=== PATIENT | female | born 1960 | race Caucasian/White ===

== ENCOUNTER 2020-07-03 14:09 | Emergency (ER) | payer OTHER, SELFPAY ==
[2020-07-03 14:14] VITALS: BP 144/86; PULSE 78; RESP 16; TEMP 36.4; O2SAT 98
--- NOTE | 2020-07-03 14:34 | ED.FEMALEGU ---
HPI - Female Genitourinary General Chief complaint: Urogenital-Female Stated complaint: stomach pain Time Seen by Provider: 07/03/20 14:37 Source: patient and RN notes reviewed Mode of arrival: ambulatory Limitations: no limitations History of Present Illness HPI Narrative: 60year old female who [facility] with complaints of some suprapubic cramping and some low back pain for the past 5 days. Patient states that she has new sexual partner and had unprotected sex and she is concerned about possible STD's. Patient denies any vaginal discharge, no odor, or bleeding, denies any fevers chills or any sweats, denies any nausea vomiting or any acute abdominal pain. MD elicited complaint: UTI , possible STD and back pain Pertinent past history: hysterectomy and other (previous uti) Onset (ago): day(s) (5) Location of symptoms: suprapubic Severity: moderate Female Urogenital Radiation: Suprapubic Severity scale (1-10): 2 Quality of pain: cramping and aching Consistency: intermittent Vaginal discharge: none Vaginal bleeding: none Exacerbating factors: none Relieving factors: none Associated symptoms: denies other symptoms Treatment prior to arrival: none Sexual activity: Yes and New Sexual Partners Patient : No (hysterectomy) Related Data Home Medications Medication Instructions Recorded Confirmed albuterol sulfate [Ventolin HFA] 90 mcg INHALATION Q4-6H PRN 07/03/20 07/03/20 ergocalciferol (vitamin D2) 50,000 unit PO WEEKLY 07/03/20 07/03/20 [Vitamin D2] hydrocodone-acetaminophen 1 tablet PO TID PRN 07/03/20 07/03/20 ipratropium-albuterol 3 ml INHALATION Q4-6H PRN 07/03/20 07/03/20 Allergies Allergy/AdvReac Type Severity Reaction Status Date / Time No Known Allergies Allergy Verified 07/03/20 14:45 Review of Systems Review of Systems: Narrative: CONSTITUTIONAL: Denies fever, chills, or sweats. EYES: Denies visual changes, redness, or discharge. ENT: Denies rhinorrhea, congestion, sore throat, or otalgia. CARDIOVASCULAR: Denies chest pain, palpitations, or edema. RESPIRATORY: Denies cough or dyspnea. GASTROINTESTINAL: positive for abdominal pain, no nausea,or vomiting,positive diarrhea. GENITOURINARY: mild dysuria no hematuria. SKIN: Denies rash or itching. MUSCULOSKELETAL: positive low back pain,no acute joint pain, or myalgia. NEUROLOGIC: Denies headache, numbness, or weakness. PSYCHIATRIC: Denies anxiety or depression. All systems reviewed & are unremarkable except as noted in HPI and below PMFSH Past Medical History Medical History (Updated 07/04/20 @ 17:44 by Shea Santiago NP) COPD (chronic obstructive pulmonary disease) IBS (irritable bowel syndrome) Left wrist fracture Lumbar back pain Surgical History Surgical History (Updated 07/04/20 @ 17:44 by Shea Santiago NP) H/O: hysterectomy History of salpingoophorectomy History of tonsillectomy Hx of appendectomy Social History Social History (Updated 07/04/20 @ 17:45 by Shea Santiago NP) Smoking status: Current every day smoker Tobacco type: cigarettes Alcohol intake: unknown Substance use: former Substance use type: painkillers Living arrangements: with family Gender identity (if verbalized by the patient): Female Comments At time of signature, agree with nursing past medical, surgical, social history. There is no relevant family history pertinent to the presenting complaint Exam Narrative: Exam Narrative: GENERAL: Well-appearing, well-nourished, and in no acute distress. HEAD: Normocephalic, atraumatic. EYES: PERRLA and EOMI. ENT: Nares clear, no rhinorrhea or epistaxis. Mucous membranes moist. NECK: Supple.no lymphadenopathy CHEST: Clear to auscultation. No respiratory distress.SAO2 98% on room air HEART: Regular rate and rhythm. No murmur heard. Normal peripheral pulses. ABDOMEN: Soft,tender crampy suprapubic area, nondistended, normal active bowel sounds.No vaginal discharge or itching, minimal d
[2020-07-03] MEDS: cefTRIAXone 250 MG VIAL IM (15:23)
[2020-07-03] MEDS: LIDOCAINE HCL 1% LOCAL INJ 20 ML VIAL IM (15:24)
[2020-07-03] MEDS: AZITHROMYCIN 250 MG TABLET 1000 MG PO (15:38)
== END 2020-07-03 15:50 | disposition home or self-care (01) ==
PROVIDERS: Emergency Provider Registered Nurse; PCP Family Medicine
DX: K58.9 Irritable bowel syndrome, unspecified (principal); N39.0 Urinary tract infection, site not specified; F17.210 Nicotine dependence, cigarettes, uncomplicated; J44.9 Chronic obstructive pulmonary disease, unspecified
CPT/HCPCS: 81003; 87077; 87086; 87088; 87186; 87491; 87591; 87661; 96372; 99213; A9270; G0463; J0696

== ENCOUNTER 2021-02-01 08:17 | Emergency (ER) | payer OTHER, SELFPAY ==
--- NOTE | 2021-02-01 08:24 | ED.FEMALEGU ---
HPI - Female Genitourinary General Chief complaint: Urogenital-Female Stated complaint: Urogenital-Female Time Seen by Provider: 02/01/21 08:55 Source: patient and RN notes reviewed Mode of arrival: ambulatory Limitations: no limitations History of Present Illness HPI Narrative: 60-year-old female presents with concern for vaginal irritation, abnormal foul-smelling vaginal discharge, suprapubic discomfort. Reports symptoms started yesterday. Reports on Friday she had intercourse with a new partner and had a condom broke. She is unaware of her partners sexual history, STD status. Reports she has been using [id number] yeast infection medicine with no relief. She reports slight nausea. Denies fever, vomiting, back pain, hematuria, frequency, urgency, dysuria. MD elicited complaint: vaginal discharge Related Data Home Medications Medication Instructions Recorded Confirmed albuterol sulfate [Ventolin HFA] 90 mcg INHALATION Q4-6H PRN 07/03/20 07/03/20 ergocalciferol (vitamin D2) 50,000 unit PO WEEKLY 07/03/20 07/03/20 [Vitamin D2] hydrocodone-acetaminophen 1 tablet PO TID PRN 07/03/20 07/03/20 ipratropium-albuterol 3 ml INHALATION Q4-6H PRN 07/03/20 07/03/20 Allergies Allergy/AdvReac Type Severity Reaction Status Date / Time No Known Allergies Allergy Verified 07/03/20 14:45 Review of Systems Review of Systems: Narrative: CONSTITUTIONAL: Denies malaise, chills, sweats, or fever. CARDIOVASCULAR: Denies chest pain, palpitations, or edema. RESPIRATORY: Denies cough or dyspnea. GASTROINTESTINAL: Denies abdominal pain, vomiting, diarrhea. Reports mild nausea GENITOURINARY: Denies dysuria or hematuria. Reports suprapubic discomfort, foul-smelling urine, watery foul-smelling vaginal discharge, vaginal irritation MUSCULOSKELETAL: Denies back pain, myalgia. All systems reviewed & are unremarkable except as noted in HPI and below PMFSH Past Medical History Medical History (Updated 02/01/21 @ 09:28 by Carito Fiore NP) COPD (chronic obstructive pulmonary disease) IBS (irritable bowel syndrome) Left wrist fracture Lumbar back pain Surgical History Surgical History (Updated 07/04/20 @ 17:44 by Shea Santiago NP) H/O: hysterectomy History of salpingoophorectomy History of tonsillectomy Hx of appendectomy Social History Social History (Updated 07/04/20 @ 17:45 by Shea Santiago NP) Smoking status: Current every day smoker Tobacco type: cigarettes Alcohol intake: unknown Substance use: former Substance use type: painkillers Gender identity (if verbalized by the patient): Female Comments At time of signature, agree with nursing past medical, surgical, social and family history. There is no relevant family history pertinent to the presenting complaint Exam Narrative: Exam Narrative: GENERAL: Well-appearing, well-nourished, and in no acute distress. HEAD: Normocephalic. EYES: PERRLA, conjunctivae clear. NECK: Supple. No lymphadenopathy CHEST: Clear to auscultation. No respiratory distress. HEART: Regular rate and rhythm. ABDOMEN: Soft, nontender upon palpation, nondistended, normal active bowel sounds, no palpable or pulsatile masses, no guarding. No CVA tenderness SKIN: Warm, dry, no rash. NEURO: Alert and oriented x3. PSYCH: Normal mood and affect : External Female Exam: normal external appearance Speculum Exam - Vagina: normal appearance of the vagina, normal palpation and abnormal vaginal discharge white and malodorous Speculum Exam - Cervix: Cervix absent Bimanual exam- vagina & uterus: normal bimanual exam Course Course Emergency Course: Patient is aware of diagnosis, understands and agrees to treatment plan. Anticipatory guidance given. Patient agrees to follow-up as directed and is aware of reasons to seek care at the emergency department. Portions of this record may have been created with voice recognition software Vital Signs Vital signs: Reviewed. Patient has
[2021-02-01 08:37] VITALS: BP 144/75; PULSE 63; RESP 20; TEMP 36.3; O2SAT 100
[2021-02-01] MEDS: LIDOCAINE HCL 1% LOCAL INJ 20 ML VIAL INFILTRATE (09:30)
[2021-02-01] MEDS: AZITHROMYCIN 250 MG TABLET 1000 MG PO (09:30)
[2021-02-01] MEDS: cefTRIAXone 250 MG VIAL IM (09:31)
== END 2021-02-01 09:51 | disposition home or self-care (01) ==
PROVIDERS: Emergency Provider Nurse Practitioner; PCP Family Medicine
DX: Z20.2 Contact with and (suspected) exposure to infections with a predominantly sexual mode of transmission (principal); N89.8 Other specified noninflammatory disorders of vagina; B96.20 Unspecified Escherichia coli [E. coli] as the cause of diseases classified elsewhere; F17.210 Nicotine dependence, cigarettes, uncomplicated; J44.9 Chronic obstructive pulmonary disease, unspecified
CPT/HCPCS: 81003; 87077; 87086; 87088; 87186; 87491; 87591; 87661; 96372; 99214; A9270; G0463; J0696

== ENCOUNTER 2021-04-30 09:15 | Emergency (ER) | payer OTHER, SELFPAY ==
[2021-04-30 09:22] VITALS: BP 119/74; PULSE 89; RESP 16; TEMP 36.8; O2SAT 98
[2021-04-30 09:31] VITALS: BP 119/74; PULSE 89; RESP 16; TEMP 36.8; O2SAT 98
--- NOTE | 2021-04-30 09:39 | ED.FEMALEGU ---
HPI - Female Genitourinary General Chief complaint: Urogenital-Female Stated complaint: Abdominal pain Time Seen by Provider: 04/30/21 09:45 Source: patient and RN notes reviewed Mode of arrival: ambulatory Limitations: no limitations History of Present Illness HPI Narrative: 61-year-old female presents with concern for right lower abdominal and suprapubic discomfort for 2 to 3 days. She reports similar symptoms when she has had urinary tract infections in the past. She denies frequency, urgency, dysuria. Reports mild nausea without vomiting. Denies diarrhea or constipation. She denies fever, body aches. Denies abdominal tenderness. Reports she has been tested in the past for STDs with the symptoms which have been negative. Reports she has had the same partner and is not overly concerned for STDs at this time. She denies any vaginal discharge, abnormal vaginal bleeding, pain with sex. Reports she has history of a hysterectomy-oophorectomy, appendectomy. MD elicited complaint: other (Suprapubic pain) Related Data Home Medications Medication Instructions Recorded Confirmed ergocalciferol (vitamin D2) 50,000 unit PO WEEKLY 07/03/20 04/30/21 [Vitamin D2] hydrocodone-acetaminophen 1 tablet PO TID PRN 07/03/20 04/30/21 omeprazole 20 mg PO DAILY 04/30/21 04/30/21 Allergies Allergy/AdvReac Type Severity Reaction Status Date / Time No Known Allergies Allergy Verified 02/01/21 10:05 Review of Systems Review of Systems: Narrative: CONSTITUTIONAL: Denies malaise, chills, sweats, or fever. GASTROINTESTINAL: Reports right lower abdominal and suprapubic discomfort, nausea. Denies vomiting, diarrhea, bloody, or mucous stools. GENITOURINARY: Denies dysuria or hematuria. SKIN: Denies rash or itching. MUSCULOSKELETAL: Reports chronic low back pain. Denies joint pain, or myalgia. All systems reviewed & are unremarkable except as noted in HPI and below PMFSH Past Medical History Medical History (Updated 04/30/21 @ 09:53 by Carito Fiore NP) COPD (chronic obstructive pulmonary disease) IBS (irritable bowel syndrome) Left wrist fracture Lumbar back pain Surgical History Surgical History (Updated 07/04/20 @ 17:44 by Shea Santiago NP) H/O: hysterectomy History of salpingoophorectomy History of tonsillectomy Hx of appendectomy Social History Social History (Updated 07/04/20 @ 17:45 by Shea Santiago NP) Smoking status: Current every day smoker Tobacco type: cigarettes Alcohol intake: unknown Substance use: former Substance use type: painkillers Gender identity (if verbalized by the patient): Female Comments At time of signature, agree with nursing past medical, surgical, social and family history. There is no relevant family history pertinent to the presenting complaint Exam Narrative: Exam Narrative: GENERAL: Well-appearing, well-nourished, and in no acute distress. HEAD: Normocephalic. EYES: PERRLA, conjunctivae clear. NECK: Supple. No lymphadenopathy CHEST: Clear to auscultation. No respiratory distress. HEART: Regular rate and rhythm. ABDOMEN: Soft, nontender upon palpation, nondistended, normal active bowel sounds, no palpable or pulsatile masses, no guarding. No CVA tenderness SKIN: Warm, dry, no rash. NEURO: Alert and oriented x3. PSYCH: Normal mood and affect Course Course Emergency Course: Patient is aware of diagnosis, understands and agrees to treatment plan. Anticipatory guidance given. Patient agrees to follow-up as directed and is aware of reasons to seek care at the emergency department. Portions of this record may have been created with voice recognition software Vital Signs Vital signs: Vital Signs Temperature 98.3 F 04/30/21 09:22 Pulse Rate 89 04/30/21 09:22 Respiratory Rate 16 04/30/21 09:22 Blood Pressure 119/74 04/30/21 09:22 Pulse Oximetry 98 04/30/21 09:22 Temperature 98.3 F 04/30/21 09:31 Pulse Rate 89 04/30/21 09:31 Respira
== END 2021-04-30 09:57 | disposition home or self-care (01) ==
PROVIDERS: Emergency Provider Nurse Practitioner
DX: N39.0 Urinary tract infection, site not specified (principal); F17.210 Nicotine dependence, cigarettes, uncomplicated; J44.9 Chronic obstructive pulmonary disease, unspecified; N80.9 Endometriosis, unspecified
CPT/HCPCS: 81003; 87077; 87086; 87088; 87186; 99213; G0463

== ENCOUNTER 2021-05-06 14:20 | Emergency (ER) | payer OTHER, SELFPAY ==
[2021-05-06 14:26] VITALS: BP 102/77; PULSE 88; RESP 16; TEMP 37.1; O2SAT 100
--- NOTE | 2021-05-06 14:46 | ED.FEMALEGU ---
HPI - Female Genitourinary General Chief complaint: Urogenital-Female Stated complaint: Possible UTI Time Seen by Provider: 05/06/21 14:40 Source: patient, RN notes reviewed and old records reviewed Mode of arrival: ambulatory Limitations: no limitations History of Present Illness HPI Narrative: Patient presents today complaining of lower abdominal discomfort and back pain. She was seen at [facility] 04/30/2021 and diagnosed with a UTI. She was placed on 5 days of Cipro for symptoms and her urine culture results show Klebsiella. Her susceptibility shows that she is susceptible to Cipro. Denies dysuria, hematuria, frequency. Patient does have chronic back pain for which she takes hydrocodone. She wanted to come in today and have her urine tested again to make sure her infection had resolved. Related Data Home Medications Medication Instructions Recorded Confirmed ergocalciferol (vitamin D2) 50,000 unit PO WEEKLY 07/03/20 05/06/21 [Vitamin D2] hydrocodone-acetaminophen 1 tablet PO TID PRN 07/03/20 05/06/21 omeprazole 20 mg PO DAILY 04/30/21 05/06/21 Allergies Allergy/AdvReac Type Severity Reaction Status Date / Time No Known Allergies Allergy Verified 02/01/21 10:05 Review of Systems Review of Systems: Narrative: CONSTITUTIONAL: Denies body aches, fever, chills, or sweats. EYES: Denies visual changes, redness, or discharge. ENT: Denies rhinorrhea, congestion, sore throat, or otalgia. CARDIOVASCULAR: Denies chest pain, palpitations, or edema. RESPIRATORY: Denies cough or dyspnea. GASTROINTESTINAL: Denies abdominal pain, nausea, vomiting, or diarrhea. Lower abdominal discomfort GENITOURINARY: Denies dysuria or hematuria. SKIN: Denies rash, itching, or wounds. MUSCULOSKELETAL: Denies joint pain, or myalgia. + Back pain NEUROLOGIC: Denies headache, numbness, tingling, or weakness. PSYCH: Denies depression or anxiety. [facility] Past Medical History Medical History COPD (chronic obstructive pulmonary disease) IBS (irritable bowel syndrome) Left wrist fracture Lumbar back pain Surgical History Surgical History H/O: hysterectomy History of salpingoophorectomy History of tonsillectomy Hx of appendectomy Social History Social History Smoking status: Current every day smoker Tobacco type: cigarettes Alcohol intake: unknown Substance use: former Substance use type: painkillers Gender identity (if verbalized by the patient): Female Comments At time of signature, I have reviewed and agree with nursing past medical, surgical, social and family history unless otherwise noted. Please see nursing chart for further information. There is no relevant family history pertinent to the presenting complaint Exam Narrative: Exam Narrative: GENERAL: Well-appearing, well-nourished, and in no acute distress. HEAD: Normocephalic, atraumatic. EYES: EOMI. No redness or drainage. Conjunctivae normal. ENT: Mucous membranes pink and moist. NECK: Normal AROM. CHEST: No respiratory distress. Clear to auscultation. HEART: Regular rate and rhythm. No murmur appreciated. Normal peripheral pulses. ABDOMEN: Soft, nontender, nondistended, normal active bowel sounds.-CVAT MUSCULOSKELETAL: No bony tenderness. EXTREMITIES: Normal range of motion. No edema. SKIN: Warm, dry, no rash. Capillary refill normal. Normal skin turgor. NEURO: No focal deficits. Alert and oriented x3. Gait steady. PSYCH: Normal affect. No signs of depression or anxiety. Course Vital Signs Vital signs: Vital Signs Temperature 98.7 F 05/06/21 14:26 Pulse Rate 88 05/06/21 14:26 Respiratory Rate 16 05/06/21 14:26 Blood Pressure 102/77 05/06/21 14:26 Pulse Oximetry 100 05/06/21 14:26 Temperature 98.7 F 05/06/21 14:26 Pulse Rate 88
== END 2021-05-06 14:50 | disposition home or self-care (01) ==
PROVIDERS: Emergency Provider Nurse Practitioner; PCP Family Medicine
DX: R10.31 Right lower quadrant pain (principal); R10.32 Left lower quadrant pain; Z87.891 Personal history of nicotine dependence; J44.9 Chronic obstructive pulmonary disease, unspecified
CPT/HCPCS: 81003; 87086; 99213; G0463

== ENCOUNTER 2021-07-08 11:33 | Emergency (ER) | payer OTHER, SELFPAY ==
--- NOTE | 2021-07-08 11:35 | ED.FEMALEGU ---
HPI - Female Genitourinary General Chief complaint: Urogenital-Female Stated complaint: poss uti Time Seen by Provider: 07/08/21 11:43 Source: patient and RN notes reviewed Mode of arrival: ambulatory Limitations: no limitations History of Present Illness HPI Narrative: 61-year-old female presents with concern for urine urgency, frequency, dysuria that started yesterday. Reports frequent urinary tract infections. Reports she seen a urologist within the last 6 to 7 months and was told her bladder does not empty fully. She denies nausea, vomiting, body aches, back pain, abdominal pain. She reports taking cranberry pills and drinking a lot of water. MD elicited complaint: UTI Related Data Home Medications Medication Instructions Recorded Confirmed ergocalciferol (vitamin D2) 50,000 unit PO WEEKLY 07/03/20 07/08/21 [Vitamin D2] hydrocodone-acetaminophen 1 tablet PO TID PRN 07/03/20 07/08/21 omeprazole 20 mg PO DAILY 04/30/21 07/08/21 Allergies Allergy/AdvReac Type Severity Reaction Status Date / Time No Known Allergies Allergy Verified 02/01/21 10:05 Review of Systems Review of Systems: CONSTITUTIONAL: Denies malaise, chills, sweats, or fever. CARDIOVASCULAR: Denies chest pain, palpitations, or edema. RESPIRATORY: Denies cough or dyspnea. GASTROINTESTINAL: Denies abdominal pain, nausea, vomiting, diarrhea GENITOURINARY: Reports frequency, urgency, dysuria. Denies hematuria. SKIN: Denies vaginal rash or itching. MUSCULOSKELETAL: Denies back pain or myalgia. All systems reviewed & are unremarkable except as noted in HPI and below PMFSH Past Medical History Medical History COPD (chronic obstructive pulmonary disease) IBS (irritable bowel syndrome) Left wrist fracture Lumbar back pain Surgical History Surgical History H/O: hysterectomy History of salpingoophorectomy History of tonsillectomy Hx of appendectomy Social History Social History Smoking status: Current every day smoker Tobacco type: cigarettes Alcohol intake: unknown Substance use: former Substance use type: painkillers Gender identity (if verbalized by the patient): Female Comments At time of signature, agree with nursing past medical, surgical, social and family history. There is no relevant family history pertinent to the presenting complaint Exam Narrative: GENERAL: Well-appearing, well-nourished, and in no acute distress. HEAD: Normocephalic. EYES: PERRLA, conjunctivae clear. NECK: Supple. No lymphadenopathy CHEST: Clear to auscultation. No respiratory distress. HEART: Regular rate and rhythm. ABDOMEN: Soft, nontender upon palpation, nondistended, normal active bowel sounds, no palpable or pulsatile masses, no guarding. No CVA tenderness SKIN: Warm, dry, no rash. NEURO: Alert and oriented x3. PSYCH: Normal mood and affect Course Course Emergency Course: Patient is aware of diagnosis, understands and agrees to treatment plan. Anticipatory guidance given. Patient agrees to follow-up as directed and is aware of reasons to seek care at the emergency department. Portions of this record may have been created with voice recognition software Vital Signs Vital signs: Reviewed. MDM - Female Genitourinary MDM Narrative Medical decision making narrative: Exam findings and UA show no acute concerns or changes; patient is non-toxic appearing and is in no distress. Patient is appropriate for outpatient treatment and follow-up. Critical Care Time Critical Care Time Critical Care Time: No Discharge Plan Discharge Clinical Impression: Urinary tract infection Qualifiers: Urinary tract infection type: site unspecified Hematuria presence: without hematuria Qualified Code(s): N39.0 - Urinary tract infection, site not specified Patient Dispositio
[2021-07-08 11:36] VITALS: BP 119/72; PULSE 83; RESP 16; TEMP 37.2; O2SAT 100
== END 2021-07-08 11:58 | disposition home or self-care (01) ==
PROVIDERS: Emergency Provider Nurse Practitioner
DX: N39.0 Urinary tract infection, site not specified (principal); J44.9 Chronic obstructive pulmonary disease, unspecified; F17.210 Nicotine dependence, cigarettes, uncomplicated
CPT/HCPCS: 81003; 87077; 87086; 87088; 87186; 99213; G0463

== ENCOUNTER 2021-08-16 12:14 | Emergency (ER) | payer OTHER, SELFPAY ==
[2021-08-16 12:20] VITALS: BP 114/73; PULSE 92; RESP 18; TEMP 36.8; O2SAT 98
--- NOTE | 2021-08-16 12:32 | ED.FEMALEGU ---
HPI - Female Genitourinary General Chief complaint: Urogenital-Female Stated complaint: Uti Time Seen by Provider: 08/16/21 12:32 Source: patient History of Present Illness HPI Narrative: Patient presents with evaluation for urinary tract infections. Patient has often and frequent urinary tract infections over the past few years. Patient states she does not feel as if she empties her bladder. Patient states she has talked with her primary care provider about the frequent urinary tract infections but has recently been evaluated by her urologist. . No concern for STIs no abdominal pain no pelvic pain no vaginal discharge no vaginal bleeding. MD elicited complaint: dysuria and UTI Related Data Home Medications Medication Instructions Recorded Confirmed hydrocodone-acetaminophen 1 tablet PO TID PRN 07/03/20 08/16/21 omeprazole 20 mg PO DAILY 04/30/21 08/16/21 cholecalciferol (vitamin D3) 25 mcg PO DAILY 08/16/21 08/16/21 [Vitamin D3] Allergies Allergy/AdvReac Type Severity Reaction Status Date / Time No Known Allergies Allergy Verified 08/16/21 12:27 Review of Systems Review of Systems: CONSTITUTIONAL: Denies fever, chills, or sweats. EYES: Denies visual changes, redness, or discharge. ENT: Denies rhinorrhea, congestion, sore throat, or otalgia. CARDIOVASCULAR: Denies chest pain, palpitations, or edema. RESPIRATORY: Denies cough or dyspnea. GASTROINTESTINAL: Denies abdominal pain, nausea, vomiting, or diarrhea. GENITOURINARY: Denies dysuria or hematuria. SKIN: Denies rash or itching. MUSCULOSKELETAL: Denies back pain, joint pain, or myalgia. NEUROLOGIC: Denies headache, numbness, or weakness. PSYCHIATRIC: Denies anxiety or depression. [facility] Past Medical History Medical History COPD (chronic obstructive pulmonary disease) IBS (irritable bowel syndrome) Left wrist fracture Lumbar back pain Surgical History Surgical History H/O: hysterectomy History of salpingoophorectomy History of tonsillectomy Hx of appendectomy Social History Social History Smoking status: Current every day smoker Tobacco type: cigarettes Alcohol intake: unknown Substance use: former Substance use type: painkillers Gender identity (if verbalized by the patient): Female Comments At time of signature, agree with nursing past medical, surgical, social and family history. There is no relevant family history pertinent to the presenting complaint Exam Narrative: At time of signature, agree with nursing past medical, surgical, social and family history. There is no relevant family history pertinent to the presenting complaint Course Vital Signs Vital signs: Vital Signs Temperature 36.8 C 08/16/21 12:20 Pulse Rate 92 08/16/21 12:20 Respiratory Rate 18 08/16/21 12:20 Blood Pressure 114/73 08/16/21 12:20 Pulse Oximetry 98 08/16/21 12:20 Temperature 36.8 C 08/16/21 12:20 Pulse Rate 92 08/16/21 12:20 Respiratory Rate 18 08/16/21 12:20 Blood Pressure 114/73 08/16/21 12:20 Pulse Oximetry 98 08/16/21 12:20 discussed with patient will get cultures results before placing on an antibiotic. patient agreeable with plan of care. MDM - Female Genitourinary Lab Data Labs: Urine Glucose Negative Reference Range: Negative Urine Bilirubin Negative Reference Range: Negative Urine Ketone Negative Reference Range: Negative Urine Specific [place] 1.030 Reference Range:1.001-1.035 Urine Blood 2+
== END 2021-08-16 13:10 | disposition home or self-care (01) ==
PROVIDERS: Emergency Provider Nurse Practitioner Family; PCP Family Medicine
DX: R30.0 Dysuria (principal); F17.210 Nicotine dependence, cigarettes, uncomplicated; J44.9 Chronic obstructive pulmonary disease, unspecified
CPT/HCPCS: 81003; 87086; 87088; 99213; G0463

== ENCOUNTER 2021-08-23 16:34 | Emergency (ER) | payer OTHER, SELFPAY ==
[2021-08-23 16:40] VITALS: BP 126/77; PULSE 99; RESP 20; TEMP 36.5; O2SAT 100
--- NOTE | 2021-08-23 17:08 | ED.GENADULT ---
HPI - General Adult General Chief complaint: Urogenital-Female Stated complaint: chills headache Time Seen by Provider: 08/23/21 16:56 Source: patient and RN notes reviewed Mode of arrival: ambulatory Limitations: no limitations History of Present Illness HPI narrative: Patient presents today complaining of urinary urgency, nausea, headache since this afternoon. Patient was seen in urgent care 1 week ago for urinary symptoms. Her urine culture came back contaminated and she was not started on antibiotics at that time. She came back today wondering whether or not she does in fact have a UTI and needs antibiotics. Denies abdominal pain, back pain, fever, hematuria, dysuria. Patient does have history of mixed IBS and states her seasonal allergies are flaring up as well, contributing to her headache and some nausea. MD complaint: Possible UTI Related Data Home Medications Medication Instructions Recorded Confirmed hydrocodone-acetaminophen 1 tablet PO TID PRN 07/03/20 08/23/21 omeprazole 20 mg PO DAILY 04/30/21 08/23/21 cholecalciferol (vitamin D3) 25 mcg PO DAILY 08/16/21 08/23/21 [Vitamin D3] Allergies Allergy/AdvReac Type Severity Reaction Status Date / Time No Known Allergies Allergy Verified 08/16/21 12:27 Review of Systems Review of Systems: CONSTITUTIONAL: Denies body aches, fever, chills, or sweats. EYES: Denies visual changes, redness, or discharge. ENT: Denies rhinorrhea, congestion, sore throat, or otalgia. CARDIOVASCULAR: Denies chest pain, palpitations, or edema. RESPIRATORY: Denies cough or dyspnea. GASTROINTESTINAL: Denies abdominal pain,vomiting, or diarrhea.+ Nausea GENITOURINARY: + Urgency. Denies hematuria, dysuria SKIN: Denies rash, itching, or wounds. MUSCULOSKELETAL: Denies back pain, joint pain, or myalgia. NEUROLOGIC: Denies numbness, tingling, or weakness.+ Headache PSYCH: Denies depression or anxiety. [facility] Past Medical History Medical History COPD (chronic obstructive pulmonary disease) IBS (irritable bowel syndrome) Left wrist fracture Lumbar back pain Surgical History Surgical History H/O: hysterectomy History of salpingoophorectomy History of tonsillectomy Hx of appendectomy Social History Social History Smoking status: Current every day smoker Tobacco type: cigarettes Alcohol intake: unknown Substance use: former Substance use type: painkillers Gender identity (if verbalized by the patient): Female Comments At time of signature, I have reviewed and agree with nursing past medical, surgical, social and family history unless otherwise noted. Please see nursing chart for further information. There is no relevant family history pertinent to the presenting complaint Exam Narrative: GENERAL: Well-appearing, well-nourished, and in no acute distress. HEAD: Normocephalic, atraumatic. EYES: EOMI. No redness or drainage. Conjunctivae normal. ENT: Mucous membranes pink and moist. NECK: Normal AROM. CHEST: No respiratory distress. Clear to auscultation. HEART: Regular rate and rhythm. No murmur appreciated. Normal peripheral pulses. ABDOMEN: Soft, nontender, nondistended, normal active bowel sounds.-CVAT MUSCULOSKELETAL: No bony tenderness. EXTREMITIES: Normal range of motion. No edema. SKIN: Warm, dry, no rash. Capillary refill normal. Normal skin turgor. NEURO: No focal deficits. Alert and oriented x3. Gait steady. PSYCH: Normal affect. No signs of depression or anxiety. Course Vital Signs Vital signs: Vital Signs Temperature 97.7 F 08/23/21 16:40 Pulse Rate 99 08/23/21 16:40 Respiratory Rate 20 08/23/21 16:40 Blood Pressure 126/77 08/23/21 16:40 Pulse Oximetry 100 08/23/21 16:40 Temperature 97.7 F 08/23/21 16:40 Pulse Rate 99 08/23/21 16:40
== END 2021-08-23 17:19 | disposition home or self-care (01) ==
PROVIDERS: Emergency Provider Nurse Practitioner; PCP Family Medicine
DX: R39.15 Urgency of urination (principal); R51.9 Headache, unspecified; F17.219 Nicotine dependence, cigarettes, with unspecified nicotine-induced disorders; J44.9 Chronic obstructive pulmonary disease, unspecified
CPT/HCPCS: 81003; 87086; 99213; G0463

== ENCOUNTER 2021-09-16 09:31 | Emergency (ER) | payer OTHER, SELFPAY ==
--- NOTE | 2021-09-16 09:36 | ED.ABDPAIN ---
HPI - Abdominal Pain General Stated Complaint: right side abdo pain Time Seen by Provider: 09/16/21 09:36 Source: patient and RN notes reviewed History of Present Illness HPI narrative: Patient is 61-year-old female who presents the urgent care with complaints of right sided/suprapubic pressure and intermittent pain. Patient states that these are her the pain she gets with her urinary tract infections . Patient denies of any urinary frequency, urgency, blood in the urine, low back pain. Patient denies of any fever, chills, nausea, vomiting. Patient has not taken anything [id number] for her symptoms. States that her symptoms just started yesterday. No other acute complaints. No acute distress noted. Patient read the plan of care. Some parts of this dictation were generated by voice recognition software and may contain typographical and/or grammatical inaccuracies. Related Data Home Medications Medication Instructions Recorded Confirmed hydrocodone-acetaminophen 1 tablet PO TID PRN 07/03/20 08/23/21 omeprazole 20 mg PO DAILY 04/30/21 08/23/21 cholecalciferol (vitamin D3) 25 mcg PO DAILY 08/16/21 08/23/21 [Vitamin D3] Allergies Allergy/AdvReac Type Severity Reaction Status Date / Time No Known Allergies Allergy Verified 08/16/21 12:27 Review of Systems Review of Systems: CONSTITUTIONAL: Denies fever, chills, or sweats. EYES: Denies visual changes, redness, or discharge. ENT: Denies rhinorrhea, congestion, sore throat, or otalgia. CARDIOVASCULAR: Denies chest pain, palpitations, or edema. RESPIRATORY: Denies cough or dyspnea. GASTROINTESTINAL: Reports of lower right/suprapubic pressure and pain without nausea or vomiting GENITOURINARY: Denies dysuria or hematuria. SKIN: Denies rash or itching. MUSCULOSKELETAL: Denies back pain, joint pain, or myalgia. NEUROLOGIC: Denies headache, numbness, or weakness. All other systems reviewed are negative, except as documented in HPI. [facility] Past Medical History Medical History COPD (chronic obstructive pulmonary disease) IBS (irritable bowel syndrome) Left wrist fracture Lumbar back pain Surgical History Surgical History H/O: hysterectomy History of salpingoophorectomy History of tonsillectomy Hx of appendectomy Social History Social History Smoking status: Current every day smoker Tobacco type: cigarettes Alcohol intake: unknown Substance use: former Substance use type: painkillers Gender identity (if verbalized by the patient): Female Comments At the time of my signature, I reviewed and agree with the nursing past medical, surgical, social, and family history. There is no relevant family history pertinent to the patient complaint. Exam Narrative: GENERAL: This is a well-nourished, well-developed patient, in no apparent distress. HEAD: normocephalic, atraumatic. EYES: PERRL. Sclera clear/white. Vision is grossly intact. EARS: External ears normal NOSE: External nose normal with no obvious nasal discharge, nares without redness, no rhinorrhea. THROAT: Mucous membranes moist NECK: Neck supple CARDIOVASCULAR: Regular rate and rhythm without murmurs, gallops, or rubs. RESPIRATORY: Clear to auscultation. Slightly diminished throughout/chronic smoker GASTROINTESTINAL: Abdomen soft, very mild suprapubic tenderness, nondistended. Bowel sounds are active. No guarding. SKIN: warm, intact with no suspicious lesions or rash, good texture and turgor. NEURO: awake, alert, and oriented to person, place and time. There were no obvious focal neurologic abnormalities. EXTREMITIES: No clubbing, cyanosis, or edema. BACK: Negative bilateral CVA tenderness Course Vital Signs Vital signs: Vital Signs Temperature 98.8 F 09/16/21 09:38 Pulse Rate 80 09/16/21 09:38 Respirato
[2021-09-16 09:38] VITALS: BP 113/80; PULSE 80; RESP 16; TEMP 37.1; O2SAT 100
== END 2021-09-16 10:12 | disposition home or self-care (01) ==
PROVIDERS: Emergency Provider Nurse Practitioner Family; PCP Family Medicine
DX: R10.30 Lower abdominal pain, unspecified (principal); F44.9 Dissociative and conversion disorder, unspecified; F17.210 Nicotine dependence, cigarettes, uncomplicated
CPT/HCPCS: 81003; 87086; 99213; G0463

== ENCOUNTER 2021-11-25 08:19 | Emergency (ER) | payer OTHER, SELFPAY ==
[2021-11-25 08:26] VITALS: BP 131/92; PULSE 83; RESP 18; TEMP 36.7; O2SAT 100
--- NOTE | 2021-11-25 08:59 | ED.FEMALEGU ---
HPI - Female Genitourinary General Chief complaint: Urogenital-Female Stated complaint: Abdominal Pain Time Seen by Provider: 11/25/21 08:55 Source: patient and RN notes reviewed Mode of arrival: ambulatory Limitations: no limitations History of Present Illness HPI Narrative: 61-year-old female presents with concern for dysuria, suprapubic pressure, intermittent abdominal pain. She reports she had Covid on November 06 and since then has been having intermittent abdominal pain, reports she is seeing her primary care doctor and is being followed up for those symptoms, she is having her gallbladder evaluated later this week. She reports last weekend she had unprotected intercourse with a new partner. She is concerned for STDs. She is also concern for urinary tract infection, reports chronic urinary tract infections. Reports she has seen a urologist who told her that her bladder does not empty all the way. She denies fever, nausea, vomiting, back pain. Patient has history of total hysterectomy MD elicited complaint: UTI and possible STD Related Data Home Medications Medication Instructions Recorded Confirmed hydrocodone-acetaminophen 1 tablet PO TID PRN 07/03/20 11/25/21 omeprazole 20 mg PO DAILY 04/30/21 11/25/21 cholecalciferol (vitamin D3) 25 mcg PO DAILY 08/16/21 11/25/21 [Vitamin D3] Allergies Allergy/AdvReac Type Severity Reaction Status Date / Time No Known Allergies Allergy Verified 08/16/21 12:27 Review of Systems Review of Systems: CONSTITUTIONAL: Denies malaise, chills, sweats, or fever. CARDIOVASCULAR: Denies chest pain, palpitations, or edema. RESPIRATORY: Denies cough or dyspnea. GASTROINTESTINAL: Denies abdominal pain, nausea, vomiting, diarrhea GENITOURINARY: Reports dysuria, suprapubic pressure. Denies abnormal vaginal discharge, frequency, urgency, flank pain or hematuria. SKIN: Denies rash or itching. MUSCULOSKELETAL: Denies back pain or myalgia. All systems reviewed & are unremarkable except as noted in HPI and below PMFSH Past Medical History Medical History COPD (chronic obstructive pulmonary disease) IBS (irritable bowel syndrome) Left wrist fracture Lumbar back pain Surgical History Surgical History H/O: hysterectomy History of salpingoophorectomy History of tonsillectomy Hx of appendectomy Social History Social History Smoking status: Current every day smoker Tobacco type: cigarettes Alcohol intake: unknown Substance use: former Substance use type: painkillers Gender identity (if verbalized by the patient): Female Comments At time of signature, agree with nursing past medical, surgical, social and family history. There is no relevant family history pertinent to the presenting complaint Exam Narrative: GENERAL: Well-appearing, well-nourished, and in no acute distress. HEAD: Normocephalic. EYES: PERRLA, conjunctivae clear. NECK: Supple. No lymphadenopathy CHEST: Clear to auscultation. No respiratory distress. HEART: Regular rate and rhythm. ABDOMEN: Soft, nontender upon palpation, nondistended, normal active bowel sounds, no palpable or pulsatile masses, no guarding. No CVA tenderness SKIN: Warm, dry, no rash. NEURO: Alert and oriented x3. PSYCH: Normal mood and affect Course Course Emergency Course: Patient would like to be treated today for possible STDs. Patient understands that we will wait to treat potential UTI for culture results. Patient is aware of diagnosis, understands and agrees to treatment plan. Anticipatory guidance given. Patient agrees to follow-up as directed and is aware of reasons to seek care at the emergency department. Portions of this record may have been created with voice recognition software Level of Care: Express Care Visit Vital Signs Vital signs: V
[2021-11-25] MEDS: cefTRIAXone 500 MG, LIDOCAINE HCL 1% LOCAL INJ 1 ML IM (09:17)
== END 2021-11-25 09:32 | disposition home or self-care (01) ==
PROVIDERS: Emergency Provider Nurse Practitioner
DX: R30.0 Dysuria (principal); F17.210 Nicotine dependence, cigarettes, uncomplicated; J44.9 Chronic obstructive pulmonary disease, unspecified
CPT/HCPCS: 81003; 87086; 87491; 87591; 87661; 96372; 99214; G0463; J0696

== ENCOUNTER 2022-07-20 09:04 | Emergency (ER) | payer OTHER, SELFPAY ==
[2022-07-20 09:18] VITALS: BP 112/53; PULSE 73; RESP 16; TEMP 36.6; O2SAT 100
--- NOTE | 2022-07-20 09:44 | ED.GENADULT ---
HPI - General Adult General Chief complaint: Urogenital-Female Stated complaint: Rash Source: patient Mode of arrival: ambulatory Limitations: no limitations History of Present Illness HPI narrative: Patient presents for evaluation of rash and symptoms that she believes may be a urinary tract infection. She indicates over the course of the last week she has had some dysuria, urinary urgency and frequency with right-sided suprapubic pain. She has had similar symptoms in the past with a urinary tract infection. She has chronic low back pain status post lumbar spinal fusion but denies any pain in the flanks. No fever, chills, nausea, vomiting, hematuria, vaginal discharge. She has had some vaginal odor. She applied some Monistat and states that her symptoms have improved. She woke this morning with a rash to her extremities x4, and trunk. No new lotions, soaps, detergents, foods, topical products. She states that the rash is pruritic. She is not taking any medications to assist with her symptoms. Related Data Home Medications Medication Instructions Recorded Confirmed hydrocodone 5 mg-acetaminophen 325 1 tablet PO TID PRN Pain 07/03/20 11/25/21 mg tablet omeprazole 20 mg capsule,delayed 20 mg PO DAILY 04/30/21 11/25/21 release cholecalciferol (vitamin D3) 25 25 mcg PO DAILY 08/16/21 11/25/21 mcg (1,000 unit) tablet (Vitamin D3) Allergies Allergy/AdvReac Type Severity Reaction Status Date / Time No Known Allergies Allergy Verified 07/20/22 09:24 Review of Systems Review of Systems: CONSTITUTIONAL: Denies fever, chills, or sweats. EYES: Denies visual changes, redness, or discharge. ENT: Denies rhinorrhea, congestion, sore throat, or otalgia. CARDIOVASCULAR: Denies chest pain, palpitations, or edema. RESPIRATORY: Denies cough or dyspnea. GASTROINTESTINAL: Reports right-sided suprapubic pain. Denies nausea, vomiting, or diarrhea. GENITOURINARY: Reports dysuria, urinary frequency and urgency. SKIN: Reports pruritic rash. MUSCULOSKELETAL: Reports chronic low back pain, unchanged from baseline. Denies joint pain, or myalgia. NEUROLOGIC: Denies headache, numbness, dizziness, or weakness. PSYCHIATRIC: Denies anxiety or depression. [facility] Past Medical History Medical History COPD (chronic obstructive pulmonary disease) IBS (irritable bowel syndrome) Left wrist fracture Lumbar back pain Surgical History Surgical History H/O: hysterectomy History of salpingoophorectomy History of tonsillectomy Hx of appendectomy Family History Family History Mother Family history non-contributory Social History Social History Smoking status: Current every day smoker Tobacco type: cigarettes Alcohol intake: unknown Substance use: former Substance use type: painkillers Living arrangements: alone Gender identity (if verbalized by the patient): Female Sexual Orientation (if Verbalized by the Patient): Straight or Heterosexual Spiritual care concerns: No Exam Narrative: GENERAL: Well-appearing, well-nourished, and in no acute distress. HEAD: Normocephalic, atraumatic. EYES: PERRLA and EOMI. ENT: Nares clear, no rhinorrhea or epistaxis. Mucous membranes moist. Oropharynx without tonsillar hypertrophy exudate or other lesions. Bilateral TMs pearly valdes nonbulging NECK: Supple. No adenopathy or masses. No carotid bruits or JVD CHEST: Clear to auscultation. No respiratory distress. No wheezes rales or rhonchi HEART: Regular rate and rhythm. No murmur heard. Normal peripheral pulses. ABDOMEN: Soft, nontender, nondistended, normal active bowel sounds. BACK: Tenderness in midline or paraspinous muscles of the lumbar spine. No CVA tenderness. EXTREMITIES: Normal ran
== END 2022-07-20 09:55 | disposition home or self-care (01) ==
PROVIDERS: Emergency Provider Nurse Practitioner; PCP Family Medicine
DX: R31.29 Other microscopic hematuria (principal); R21 Rash and other nonspecific skin eruption; R10.9 Unspecified abdominal pain; J44.9 Chronic obstructive pulmonary disease, unspecified; F17.210 Nicotine dependence, cigarettes, uncomplicated
CPT/HCPCS: 81003; 99213; G0463

== ENCOUNTER 2022-08-18 08:17 | Emergency (ER) | payer OTHER, SELFPAY ==
--- NOTE | 2022-08-18 08:21 | ED.FEMALEGU ---
HPI - Female Genitourinary General Chief complaint: Urogenital-Female Stated complaint: itchy /std check Time Seen by Provider: 08/18/22 08:20 Source: patient Mode of arrival: ambulatory Limitations: no limitations History of Present Illness HPI Narrative: Ms. Yeung is a 62-year-old female patient presenting to the clinic today with complaints of skin itching/vaginal odor/STD check. She reports she has had a new sexual partner for approximately 6 months. She denies any vaginal discharge however she notices a vaginal odor. She has also been dealing with pruritic skin and was seen in the clinic approximately 1 month ago for this and was given prescription for prednisone and Vistaril. She denies any urinary symptoms. She denies any fever or chills. States she has seen her PCP and he ordered some blood testing and all came back normal. States that they did not test her for syphilis as she does not have any lesions near her vagina. She would like to have STD testing today to determine if this has any correlation to the purutic skin. Related Data Home Medications Medication Instructions Recorded Confirmed omeprazole 20 mg capsule,delayed 20 mg PO DAILY 04/30/21 11/25/21 release cholecalciferol (vitamin D3) 25 25 mcg PO DAILY 08/16/21 11/25/21 mcg (1,000 unit) tablet (Vitamin D3) hydrocodone 7.5 mg-acetaminophen tablet 08/18/22 08/18/22 325 mg tablet Allergies Allergy/AdvReac Type Severity Reaction Status Date / Time No Known Allergies Allergy Verified 08/18/22 08:32 Review of Systems Review of Systems: Pertinent positives per HPI. Patient denies any fever, chills, rash, headache, visual changes, dizziness, cough, runny nose, sore throat, shortness of breath, chest pain, palpitations, nausea, vomiting, diarrhea, constipation, abdominal pain, or any urinary issues. [facility] Past Medical History Medical History COPD (chronic obstructive pulmonary disease) IBS (irritable bowel syndrome) Left wrist fracture Lumbar back pain Surgical History Surgical History H/O: hysterectomy History of salpingoophorectomy History of tonsillectomy Hx of appendectomy Family History Family History Mother Family history non-contributory Social History Social History Smoking status: Current every day smoker Tobacco type: cigarettes Alcohol intake: unknown Substance use: former Substance use type: painkillers Gender identity (if verbalized by the patient): Female Sexual Orientation (if Verbalized by the Patient): Straight or Heterosexual Spiritual care concerns: No Comments At the time of my signature, I reviewed and agree with the nursing past medical, surgical, social, and family history. There is no relevant family history pertinent to the patient complaint. Exam Narrative: General: Well-developed, well nourished, in no apparent distress Head: Normocephalic, atraumatic. Cardio: Regular rate and rhythm, s1 and s2 normal, no murmur appreciated. Resp: Clear to auscultation bilaterally, no rhonchi, rales, wheezing or rubs. Abdomen: Soft, pliable, bowel sounds present in all quadrants, non-tender to palpation, no CVAT tenderness. : Pelvic exam performed with (Francia RN) at bedside. Verbal consent obtained from patient. Normal external female genitalia without lesions or masses, Urinary meatus: patent without discharge, Vagina: No lesions, masses, or discharge, Cervix: cervix and adnexa surgically absent Course Course Emergency Course: Portions of this record may have been created with voice recognition software. Level of Care: Express Care Visit Vital Signs Vital signs: Vital signs reviewed MDM - Female Genitourinary MDM Narrative Medical deci
[2022-08-18 08:24] VITALS: BP 127/73; PULSE 74; RESP 18; TEMP 37.3; O2SAT 100
== END 2022-08-18 09:03 | disposition home or self-care (01) ==
PROVIDERS: Emergency Provider Nurse Practitioner Family; PCP Family Medicine
DX: L29.9 Pruritus, unspecified (principal); N89.8 Other specified noninflammatory disorders of vagina; Z20.2 Contact with and (suspected) exposure to infections with a predominantly sexual mode of transmission; F17.210 Nicotine dependence, cigarettes, uncomplicated; J44.9 Chronic obstructive pulmonary disease, unspecified
CPT/HCPCS: 87070; 87491; 87591; 87661; 99214; G0463

== ENCOUNTER 2024-07-25 09:11 | Emergency (ER) | payer OTHER, SELFPAY ==
[2024-07-25 09:24] VITALS: BP 116/72; PULSE 90; RESP 20; TEMP 37.1; O2SAT 100
--- NOTE | 2024-07-25 09:38 | ED.FEMALEGU ---
HPI - Female Genitourinary General Chief complaint: Urogenital-Female Stated complaint: Urinary Problem Time Seen by Provider: 07/25/24 09:35 Source: patient, RN notes reviewed and old records reviewed Mode of arrival: ambulatory Limitations: no limitations History of Present Illness HPI Narrative: 64 year old female who presents to [facility] care with complaints of URI symptoms which includes burning with urination,urgency frequency and bilateral flank pain and some suprapubic pressure with symptoms starting 4 days ag but increased the past 2 days. Patient reports just had previous UTI and saw urologist and had CT scan done with no further recommendations. Patient reports that she has increased her water consumption and has been drinking cranberry juice. She reports no known fevers,chills or sweats, no nausea or vomiting or vaginal discharge or concern for STD's. MD elicited complaint: UTI Onset (ago): month(s) (one month with increased symptoms for past 2 days) Location of symptoms: suprapubic, urethra and flank Severity scale (1-10): 5 Quality of pain: burning and aching Vaginal discharge: none Vaginal bleeding: none Treatment prior to arrival: other (cranberry juice and increased water) Sexual activity: Yes Related Data Home Medications Medication Instructions Recorded Confirmed omeprazole 20 mg capsule,delayed 20 mg PO DAILY 04/30/21 08/18/22 release cholecalciferol (vitamin D3) 25 25 mcg PO DAILY 08/16/21 11/25/21 mcg (1,000 unit) tablet (Vitamin D3) hydrocodone 7.5 mg-acetaminophen tablet 08/18/22 08/18/22 325 mg tablet zolpidem 5 mg tablet mg 07/25/24 Allergies Allergy/AdvReac Type Severity Reaction Status Date / Time No Known Allergies Allergy Verified 08/18/22 08:32 Review of Systems Review of Systems: CONSTITUTIONAL: Denies fever, chills, or sweats. CARDIOVASCULAR: Denies chest pain, palpitations, or edema. RESPIRATORY: Denies cough or dyspnea. GASTROINTESTINAL: States suprapubic pressure type of abdominal pain,no nausea, vomiting, or diarrhea. GENITOURINARY: Reports dysuria, frequency, urgency. Reports flank pain no visible hematuria. SKIN: Denies rash or itching. MUSCULOSKELETAL: Chronic back pain or myalgia. reports bilateral CVA tenderness NEUROLOGIC: Denies headache All systems reviewed & are unremarkable except as noted in HPI and below PMFSH Past Medical History Medical History (Updated 07/26/24 @ 09:17 by Shea Santiago NP) COPD (chronic obstructive pulmonary disease) Fusion of lumbar spine GERD (gastroesophageal reflux disease) IBS (irritable bowel syndrome) Left wrist fracture repaired with plate and screws Lumbar back pain Surgical History Surgical History H/O: hysterectomy History of salpingoophorectomy History of tonsillectomy Hx of appendectomy Family History Family History Mother Family history non-contributory Social History Social History Smoking status: Current every day smoker Tobacco type: cigarettes Alcohol intake: unknown Substance use: current Substance use type: painkillers Living arrangements: alone Gender identity (if verbalized by the patient): Female Sexual Orientation (if Verbalized by the Patient): Straight or Heterosexual Spiritual care concerns: No Comments At time of signature, agree with nursing past medical, surgical, social and family history. There is no relevant family history pertinent to the presenting complaint Exam Narrative: GENERAL: Well-appearing, well-nourished, and in no acute distress. HEAD: Normocephalic, atraumatic. NECK: Supple.no lymphadenopathy CHEST: Clear to auscultation. No respiratory distress.SAO2 100% on room air HEART: Regular rate and rhythm. No murmur heard. Normal peripheral pulses. ABDOMEN: Soft, supra pubic ten
[2024-07-26 14:29] LABS: EDUAAPPEAR Clear; EDUABILI Negative (Negative); EDUABLOOD Trace (Negative); EDUACOLOR1 Yellow; EDUAGLUCOSE Negative (Negative); EDUAKETONE Negative (Negative); EDUALEUKO 3+ (Negative); EDUANITRATE Positive (Negative); EDUAPH 7.5; EDUAPROTEIN Negative (Negative); EDUAUROBILI 0.2
== END 2024-07-25 10:11 | disposition home or self-care (01) ==
PROVIDERS: Emergency Provider Registered Nurse; PCP Family Medicine
DX: N39.0 Urinary tract infection, site not specified (principal); F17.210 Nicotine dependence, cigarettes, uncomplicated; J44.9 Chronic obstructive pulmonary disease, unspecified; K21.9 Gastro-esophageal reflux disease without esophagitis
CPT/HCPCS: 81003; 87077; 87086; 87088; 87181; 99213; G0463

== ENCOUNTER 2025-02-19 09:21 | Emergency (ER) | payer OTHER, SELFPAY ==
--- OUTSIDE RECORDS SUMMARY | 2025-02-19 09:23 | XMS_ITS | Encounter Summary ---
Author Organization [facility] Address [address] [place] [address] Phone Care Team Providers Care Asl Interpreter Name Role Phone Marty Muñoz MD, Miles Unavailable Unavailab Skyler Chino MD Primary Care Provider Urvashi Thomas APRN, ERIC Unavailable [phone] Reason for Visit * Reason Comments Medication Refill Encounter Details Date Type Department Care Team (Late st Contact Info) Description 05/22/2021 Refill [facility] - [place] #2 [place] [address] Skyler Contreras MD #[address] [address] Medication Refill Social History Tobacco Use Types Packs/Day Years Used Date Smoking Tobacco: Every Day Cigarettes 0.3 40 Smokeless Tobacco: Never Alcohol Use Standard Drinks/Week Comments No 0 (1 standard drink = 0.6 oz pur e alcohol) PHQ-2 Answer Date Recorded Total Score - Questions 1-9 0 05/2021 Education Answer Date Recorded What is the highest level of school you have completed or the highest degree you have received? GED or equivalent Sexually Active Control Partners Comments Yes Surgical Male Comments No Sex and Gender Information Value Date Recorded Sex Assigned at Not on file Legal Sex Female 8:49 PM CDT Gender Identity Not on file Sexual Orientation Not on file Occupation Industry Job Start Date Job End Date [employer] Not on file Not on file Not on file COVID-19 Exposure Response Date Recorded In the last month, have you been in contact with someone who was confirmed or suspected to have Coronavirus / COVID-19? No / Unsure 05/09/2021 12:47 PM CDT documented as of this encounter Miscellaneous Notes * Telephone Encounter - Ewa Ochoa RN - 05/25/2021 2:38 PM CDT Patient called back, states she is nervous about script because it is the end of the week and she does not want to be stuck without any medication all weekend. She is completely out. * Telephone Encounter - Elizabeth Pollock RN - 05/24/2021 9:57 AM CDT Calling to check on her prescription. Totally out. Would like a call once signed. * Telephone Encounter - Leona Armando RN - 05/22/2021 4:11 PM CDT [place] PDMP 04/24/21 Medication failed the protocol, provider to review and approve the medication order if appropriate. Requested Prescriptions Pending Prescriptions Disp Refills HYDROcodone-acetaminophen (NORCO) 5-325 MG Tablet [Pharmacy Med Name: HYDROCODONE/ACETAMINOPHEN 5-325MG TABLET] 90 Tablet 0 Sig: TAKE 1 TABLET BY MOUTH EVERY 8 HOURS NEEDED FOR MODERATE OR MORE SEVERE PAIN. DO NOT FILL UNTIL 04/24/2021. [email or web address] Not Delegated - Analgesics: Opioid Agonist Combinations Failed - 05/22/2021 4:11 PM Failed - This refill cannot be delegated Passed - Valid encounter within last 6 months Past Office Visits Recent Outpatient Visits 2 weeks ago Abdominal discomfort in right lower quadrant [facility] - [place] Morin, Bebeto Glez APN, AGRICULTURAL ECONOMICS PROFESSOR 2 months ago Gastroesophageal reflux disease, unspecified whether esophagitis present [facility] - Skyler Smith MD 5 months ago Chronic narcotic use [facility] Skyler Smith MD 8 months ago Chronic pain syndrome [facility] Skyler Smith MD 9 months ago Irritable bowel syndrome with const[facility] AGRICULTURAL ECONOMICS PROFESSOR Upcoming Appointments Future Appointments In 2 weeks Skyler Contreras MD [facility] weeks Home Golden MD [facility] WOOD BOATBUILDER APPRENTICE - Recent and Past Visits Recent Visits Date Type Provider Dept 05/08/21 Office Visit Bebeto Morin APN, ERIC [facility] 03/05/21 Office Visit Skyler Contreras MD [facility] 12/04/20 Office Visit Skyler Contreras MD [facility] 09/01/20 Office Visit Skyler Contreras MD [facility] 08/01/20 Office Visit Bebeto Morin APN, ERIC [facility] 07/13/20 Office Visit Bebeto Morin APN, ERIC [facility] 05/23/20 Office Visit Skyler Contreras MD [facility] 02/21/20 Telemedicine Skyler Contreras MD [facility] Showing recent visits within past 460 days with a meds authorizing provider and meeting all other requirements Future Appointments Date Type Provider Dept 06/05/21 Appointment Skyler Contreras MD [facility] Showing future appointments within next 90 days with a meds authorizing provider and meeting all other requirements documented in this encounter Plan of Treatment Upcoming Encounters Date Type Department Care Team (Late st Contact Info) Description 04/11/2025 1:00 PM CDT Office Visit [facility] [place] [address] Urvashi Thomas APRN, AGRICULTURAL ECONOMICS PROFESSOR #2 [facility] [address] [place] [address] 06/21/2025 1:15 PM CDT Office Visit [facility] - Family Medicine [facility] #2 [place] [address] Skyler Contreras MD #[address] [address] documented as of this encounter Visit Diagnoses Diagnosis Chronic pain syndrome documented in this encounter Additional Health Concerns Infection Onset Date Last Indicated Resolved Time COVID - 19 11/06/2021 11/06/2021 11/06/2021 9:43 AM BOARDING MACHINE OPERATOR COVID - 19 Confirmed 11/06/2021 11/06/2021 022 12:16 AM BOARDING MACHINE OPERATOR COVID - 19 10/25/2022 10/25/2022 11/04/2022 12:1 9 AM BOARDING MACHINE OPERATOR COVID - 19 01/10/2025 01/10/2025 01/10/2025 10:2 3 AM CDT Respiratory Rule-Out 01/10/2025 01/10/2025 025 10:34 AM CDT Respiratory Rule-Out 01/10/2025 01/10/2025 025 10:58 AM CDT Assessment Noted Time PHQ-9 Depression Total Score: 0 12/04/19 21 10:06 AM BOARDING MACHINE OPERATOR documented as of this encounter Care Teams Asl Interpreter Relationship Specialty Start Date End Date Skyler Contreras MD #[address] [address] PCP - General Family Medicine 10/02/17 Miles Ferguson MD Orthopaedic Surgery 05/19/17 Urvashi Thomas APRN, AGRICULTURAL ECONOMICS PROFESSOR [address] [address] Nurse Practitioner Advanced Practice Nurse 01/03/22 documented as of this encounter
--- OUTSIDE RECORDS SUMMARY | 2025-02-19 09:23 | XMS_ITS | Clinical Summary ---
Author Organization [facility] [employer] Address [address] [place] [address] Care Team Providers Care Roller Picker Name Role Phone Skyler Contreras MD Primary Care Provider [phone] Source Comments [facility] [employer],non-owned Affiliates and Associated Physician Practices is amultiple site organization consisting of ambulatory clinics and hospital sitesin [place], [place] and [place]. This disclosure is being madepursuant to the Care Everywhere program and may not contain all information available regarding this patient. Last updated 18.[employer] Allergies No known active allergies Medications * Be aware that medications may not be up to date on this document. Alwaysverify current medications with the patient. HYDROcodone-acetam inophen (NORCO) 5-325 MG tablet 01/27/2018 Act jeff Active Problems Problem Noted Date Diagnosed Date S/P lumbar fusion 06/06/2018 Grief reaction 02/10/2018 Chronic neck pain 01/25/2018 Chronic pain disorder 10/21/2017 Ex-smoker 10/21/2017 History of back surgery 10/21/2017 Paresthesias 10/21/2017 Vitamin D deficiency 10/21/2017 Disability examination 07/02/2017 Panlobular emphysema 06/05/2017 Carpal tunnel syndrome, right 05/19/2017 Lumbar radiculopathy, chronic 05/19/2017 Tobacco dependence 03/13/2016 Resolved Problems Problem Noted Date Diagnosed Date Resolved Date Abnormal MRI, neck 01/25/2018 8 Immunizations Immunization Administration Dates Next Due INFLUENZA VACCINE, TRIV. (AF LURIA, FLUZONE TRIVALENT; 6MO+) (IIV3) 07/04/2015,10/27/2013 INFLUENZA VACCINE, QUADR. (F LUZONE; FLULAVAL; FLUARIX; AFLURIA QUADRIVALENT; 6MO+), 0.5 ML (IIV4) 08/13/2017,08/12/2016 PNEUMOCOCCAL PPSV23 08/22/2017 TDAP (7yrs+) 05/29/2015 Social History Tobacco Use Types Packs/Day Years Used Date Smoking Tobacco: Every Day Cigarettes 0.5 40 Smokeless Tobacco: Never Comments No Sex and Gender Information Value Date Recorded Sex Assigned at Not on file Legal Sex Female 1:45 PM CDT Gender Identity Not on file Sexual Orientation Not on file Last Filed Vital Signs Vital Sign Reading Time Taken Comments Blood Pressure 127/86 05/26/2018 1:19 PM CDT Pulse 62 05/26/2018 1:19 PM CDT Temperature 36.6 C (97.8 F) 05/26/2018 1:19 PM CDT Respiratory Rate 18 05/26/2018 1:19 PM CDT Oxygen Saturation 100% 05/26/2018 1:19 PM CDT Inhaled Oxygen Concentration - - Weight 52.8 kg (116 lb 4.8 oz) 05/26/2018 1:19 P M CDT Height 165.1 cm (5' 5 ) 05/26/2018 1:19 PM CDT Body Mass Index 19.35 05/26/2018 1:19 PM CDT Plan of Treatment Health Maintenance Due Date Last Done Comments COLOGUARD (AGES 45-75) - COLON CA SCREENING 1960 COLON MONITORING 1960 COLONOSCOPY - COLON CA SCREENING 1960 CT COLONOGRAPHY - COLON CA SCREENING 1960 Colorectal Cancer Screening 1960 FIT - COLON CA SCREENING 1960 FLEX SIG - COLON CA SCREENING 1960 LIPID TESTING 1960 MAMMOGRAM 1960 HIV SCREENING 1975 HEPATITIS C SCREENING 04/03/1978 ZOSTER VACCINE (1 of 2) 2010 PNEUMOCOCCAL VACCINE 50+ (2 of 2 - PCV) 08/22/2018 08/22/2017 COVID-19 VACCINE ( season) 2024 DEPRESSION SCREENING 10/27/2024 DTAP/TDAP/TD VACCINES (2 - Td or Tdap) 05/29/2025 05/29/2015 INFLUENZA VACCINE (Season Ended) 2025 08/13/2017, 08/12/2016, 07/04/2015, Additional history exists Respiratory Syncytial Virus (RSV) Vaccine Pt: or over 60 yrs (1 - 1-dose 75+ series) 2035 HEPATITIS B VACCINE Aged Out No longe r eligible based on patient's age to complete this topic HIB VACCINE Aged Out No longer eligi ble based on patient's age to complete this topic HPV VACCINE Aged Out No longer eligi ble based on patient's age to complete this topic MENINGOCOCCAL (Group B) VACCINE SHARED DECISION-MAKING Aged Out No longer eligible based on patient's age to complete this topic MENINGOCOCCAL GROUPS A/C/Y/W VACCINE Aged Out No longer eligible based on patient's age to complete this topic Insurance [facility] MEDICAID - [place] [facility] Care Teams Roller Picker Relationship Specialty Start Date End Date Skyler Contreras MD PCP - General Family Medicine 01/26/18
--- OUTSIDE RECORDS SUMMARY | 2025-02-19 09:23 | XMS_ITS | Encounter Summary ---
Author Organization [facility] Address [address] [place] [address] Phone Care Team Providers Care Nursing Resident Name Role Phone Marty Muñoz MD, Miles Unavailable Unavailab Skyler Chino MD Primary Care Provider Urvashi Thomas APRN, ERIC Unavailable [phone] Reason for Visit * Reason Comments Medication Refill Encounter Details Date Type Department Care Team (Late st Contact Info) Description 04/19/2021 Refill [facility] - [facility] Medicine - [place] [address]2 [place] [address] Skyler Contreras MD #[address] [address] Medication Refill Social History Tobacco Use Types [...] file Not on file Not on file documented as of this encounter Miscellaneous Notes * Telephone Encounter - Leona rodriguez RN - 04/19/2021 3:49 PM CDT [place] PDMP 03/24/21 Medication failed the protocol, provider to review and approve the medication order if appropriate. Requested Prescriptions Pending Prescriptions Disp Refills HYDROcodone-acetaminophen (NORCO) 5-325 MG Tablet [Pharmacy Med Name: HYDROCODONE/ACETAMINOPHEN 5-325MG TABLET] 90 Tablet 0 Sig: TAKE 1 TABLET BY MOUTH EVERY 8 HOURS NEEDED FOR MODERATE OR MORE SEVERE PAIN. DO NOT FILL UNTIL 03/24/2021. [email or web address] Not Delegated - Analgesics: Opioid Agonist Combinations Failed - 04/19/2021 3:49 PM Failed - This refill cannot be delegated Passed - Valid encounter within last 6 months Past Office Visits Recent Outpatient Visits 1 month ago Gastroesophageal reflux disease, unspecified whether esophagitis present [facility] Smith MD 4 months ago Chronic narcotic use [facility] - Skyler Smith MD 7 months ago Chronic pain syndrome [facility] - Skyler Smith MD 8 months ago Irritable bowel syndrome with constipation [facility] - Bebeto Altamirano APN, ERIC 9 months ago Irritable bowel syndrome with constipation [facility] Bebeto Ludwig APN, SPRAY DRIER OPERATOR Upcoming Appointments Future Appointments In 1 month Skyler Contreras MD [facility] Medical [facility] Family Medicine - [place] [facility] In 2 months Home Golden MD [facility] - Pulmonology & Sleep Medicine - [place] [facility] DAIRY EQUIPMENT INSTALLER - Recent and Past Visits Recent Visits Date Type Provider Dept 03/05/21 Office Visit Skyler Contreras MD [facility] 12/04/20 Office Visit Skyler Contreras MD [facility] 09/01/20 Office Visit Skyler Contreras MD [facility] 08/01/20 Office Visit Bebeto Morin APN, ERIC [facility] 07/13/20 Office Visit Beebto Morin APN, SPRAY DRIER OPERATOR [facility]20 Office Visit Skyler Contreras MD [facility] 02/21/20 Telemedicine Skyler Contreras MD [facility] Showing recent visits within past 460 days with a meds authorizing provider and meeting all other requirements Future Appointments Date Type Provider Dept 06/05/21 Appointment Skyler Contreras MD [facility] Showing future appointments within next 90 days with a meds authorizing provider and meeting all other requirements documented in this encounter Plan of Treatment Upcoming Encounters Date Type Department Care Team (Late st Contact Info) Description 04/11/2025 1:00 PM CDT Office Visit [facility] Medical [facility] - Pulmonology & Sleep Medicine - [place] [address]2 [place] [address] Urvashi Thomas APRN, ERIC #2 [facility] [address] [place] [address] 06/21/2025 1:15 PM CDT Office Visit [facility] Medical [facility] - Family Medicine - [place] [address]2 [place] [address] Skyler Contreras MD #2 [facility] [address] [place] [address] documented as of this encounter Visit Diagnoses Diagnosis Chronic pain syndrome documented in this encounter Additional Health Concerns Infection Onset Date Last Indicated Resolved Time COVID - 19 11/06/2021 11/06/2021 11/06/2021 9:43 AM INSTRUCTOR OF SOCIOLOGY COVID - 19 Confirmed 11/06/2021 11/06/2021 022 12:16 AM INSTRUCTOR OF SOCIOLOGY COVID - 19 10/25/2022 10/25/2022 11/04/2022 12:1 9 AM INSTRUCTOR OF SOCIOLOGY COVID - 19 01/10/2025 01/10/2025 01/10/2025 10:2 3 AM CDT Respiratory Rule-Out 01/10/2025 01/10/2025 025 10:34 AM CDT Respiratory Rule-Out 01/10/2025 01/10/2025 025 10:58 AM CDT Assessment Noted Time PHQ-9 Depression Total Score: 0 12/04/19 21 10:06 AM INSTRUCTOR OF SOCIOLOGY documented as of this encounter Care Teams Nursing Resident Relationship Specialty Start Date End Date Skyler Contreras MD #2 [facility] [address] [place] [address] PCP - General Family Medicine 10/02/17 Miles Ferguson MD Orthopaedic Surgery 05/19/17 Urvashi Thomas, RAG BALER, SPRAY DRIER OPERATOR #2 [facility] [address] [place] [address] Nurse Practitioner Advanced Practice Nurse 01/03/22 documented as of this encounter
--- OUTSIDE RECORDS SUMMARY | 2025-02-19 09:24 | XMS_ITS | Encounter Summary ---
Author Organization [facility] Address [address] [place] [address] Phone Care Team Providers Care Flat Machine Cutter Name Role Phone Marty Muñoz MD, Miles Unavailable Unavailab Skyler Chino MD Primary Care Provider Urvashi Thomas APRN, ERIC Unavailable [phone] Reason for Visit * Reason Comments Medication Refill Encounter Details Date Type Department Care Team (Late st Contact Info) Description 12/19/2022 Refill [facility] - [place] #2 [place] [address] Skyler Contreras MD #[address] [address] Medication Refill Social History Tobacco Use Types Packs/Day Years Used Date Smoking Tobacco: Every Day Cigarettes 1 42 Smokeless Tobacco: Never Alcohol Use Standard Drinks/Week Comments Not Currently 0 (1 standard drink = 0.6 oz [...] Miscellaneous Notes * Telephone Encounter - Leona Armando RN - 12/19/2022 1:48 PM CST PDMP [place] 11/25/22 - Zolpidem 11/21/22 Medication failed the protocol, provider to review and approve the medication order if appropriate. Requested Prescriptions Pending Prescriptions Disp Refills HYDROcodone-acetaminophen (NORCO) 7.5-325 MG Tablet [Pharmacy Med Name: HYDROCODONE/ACETAMINOPHEN 7.5-325 TABLET] 90 Tablet 0 Sig: Take 1 Tablet by mouth every 8 hours as needed for Severe pain. Not Delegated - Opioid Combinations Protocol Failed - 12/19/2022 9:45 AM Failed - This refill cannot be delegated Passed - Visit with relevant provider in past 12 months or upcoming 90 days Recent Visits Date Type Provider Dept 10/10/22 Office Visit Skyler Contreras MD [facility] 07/23/22 Office Visit Skyler Contreras MD [facility] 04/18/22 Office Visit Skyler Contreras MD [facility] Showing recent visits within past 365 days and meeting all other requirements Future Appointments Date Type Provider Dept 01/09/23 Appointment Skyler Contreras MD [facility] Showing future appointments within next 90 days and meeting all other requirements zolpidem (AMBIEN) 5 MG Tablet [Pharmacy Med Name: ZOLPIDEM TARTRATE 5MG TABLET] 30 Tablet 0 Sig: TAKE 1 TABLET BY MOUTH NIGHTLY NEEDED FOR SLEEP. There is no refill protocol information for this order MOTIVE SERVICES MANAGER documented in this encounter Plan of Treatment Upcoming Encounters Date Type Department Care Team (Late st Contact Info) Description 04/11/2025 1:00 PM CDT [facility] - Pulmonology & Sleep Medicine - [place] #2 [place] [address] Urvashi Thomas, ENAMEL MACHINE OPERATOR, AUTOMATION DESIGN ENGINEER #[facility] [address] [place] [address] 06/21/2025 1:15 PM CDT Office Visit [facility] - Family [facility] #2 [place] [address] Skyler Contreras MD [facility] [address] [place] [address] documented as of this encounter Visit Diagnoses Diagnosis Chronic pain syndrome Insomnia, unspecified type documented in this encounter Additional Health Concerns Infection Onset Date Last Indicated Resolved Time COVID - 19 01/10/2025 01/10/2025 01/10/2025 10:2 3 AM CDT Respiratory Rule-Out 01/10/2025 01/10/2025 025 10:34 AM CDT Respiratory Rule-Out 01/10/2025 01/10/2025 025 10:58 AM CDT Assessment Noted Time PHQ-9 Depression Total Score: 0 12/04/19 21 10:06 AM AUTOMOTIVE SERVICES MANAGER documented as of this encounter Care Teams Flat Machine Cutter Relationship Specialty Start Date End Date Skyler Contreras MD #2 [facility] [place] [address] PCP - General Family Medicine 10/02/17 Miles Ferguson MD Orthopaedic Surgery 05/19/17 Urvashi Thomas APRN, AUTOMATION DESIGN ENGINEER #2 [facility] [address] [place] [address] Nurse Practitioner Advanced Practice Nurse 01/03/22 documented as of this encounter
--- OUTSIDE RECORDS SUMMARY | 2025-02-19 09:24 | XMS_ITS | Encounter Summary ---
Author Organization [facility] Address [address] [address] Phone Care Team Providers Care Custodian Athletic Equipment Name Role Phone Marty Muñoz MD, Miles Unavailable Unavailab Skyler Chino MD Primary Care Provider Urvashi Thomas APRN, ERIC Unavailable [phone] Reason for Visit * Reason Comments Medication Refill Encounter Details Date Type Department Care Team (Late st Contact Info) Description 10/26/2022 Refill [facility] - Family Medicine - [place] #2 [place] [address] Skyler Contreras MD #[address] [address] Medication Refill Social History Tobacco Use Types [...] Exposure Response Date Recorded In the last 10 days, have yo u been in contact with someone who was confirmed or suspected to have Coronavirus/COVID-19? No / Unsure 10/25/2022 9:24 AM COCOA MILL OPERATOR documented as of this encounter Plan of Treatment Upcoming Encounters Date Type Department Care Team (Late st Contact Info) Description 04/11/2025 1:00 PM CDT Office Visit [facility] - Pulmonology & Sleep Medicine [facility]2 [place] [address] Urvashi Thomas APRN, SUPERVISOR GRAPHITE #2 [facility] [address] [place] [address] 06/21/2025 1:15 PM CDT Office Visit [facility] - Family Medicine - [place] #2 [place] [address] Skyler Contreras MD #2 [facility] [address] [place] [address] documented as of this encounter Visit Diagnoses Diagnosis Chronic pain syndrome documented in this encounter Additional Health Concerns Infection Onset Date Last Indicated Resolved Time COVID - 19 10/25/2022 10/25/2022 11/04/2022 12:1 9 AM COCOA MILL OPERATOR COVID - 19 01/10/2025 01/10/2025 01/10/2025 10:2 3 AM CDT Respiratory Rule-Out 01/10/2025 01/10/2025 025 10:34 AM CDT Respiratory Rule-Out 01/10/2025 01/10/2025 025 10:58 AM CDT Assessment Noted Time PHQ-9 Depression Total Score: 0 12/04/19 21 10:06 AM COCOA MILL OPERATOR documented as of this encounter Care Teams Custodian Athletic Equipment Relationship Specialty Start Date End Date Skyler Contreras MD #2 [facility] [address] [place] [address] PCP - General Family Medicine 10/02/17 Miles Ferguson MD Orthopaedic Surgery 05/19/17 Urvashi Thomas APRN, SUPERVISOR GRAPHITE #2 [facility] [address] [place] [address] Nurse Practitioner Advanced Practice Nurse 01/03/22 documented as of this encounter
--- OUTSIDE RECORDS SUMMARY | 2025-02-19 09:24 | XMS_ITS | Encounter Summary ---
Author Organization [facility] Address [address] [place] [address] Phone Care Team Providers Care Resort Keeper Name Role Phone Marty Muñoz MD, Miles Unavailable Unavailab Skyler Chino MD Primary Care Provider Urvashi Thomas APRN, ERIC Unavailable [phone] Reason for Visit * Reason Comments Medication Refill Encounter Details Date Type Department Care Team (Late st Contact Info) Description 06/24/2022 Refill [facility] - Family Medicine - [place] [address] [place] [address] Skyler Contreras MD #[address] [address] Medication Refill Social History Tobacco Use Types [...] encounter Miscellaneous Notes * Telephone Encounter - Jaky Frias RN - 06/25/2022 9:38 AM CDT PDMP 05/27/2022 Medication failed the protocol, provider to review and approve the medication order if appropriate. Requested Prescriptions Pending Prescriptions Disp Refills HYDROcodone-acetaminophen (NORCO) 7.5-325 MG Tablet [Pharmacy Med Name: HYDROCODONE/ACETAMINOPHEN 7.5-325 TABLET] 90 Tablet 0 Sig: Take 1 Tablet by mouth every 8 hours as needed for Severe pain. Not Delegated - Opioid Combinations Protocol Failed - 06/24/2022 12:23 PM Failed - This refill cannot be delegated Passed - Visit with relevant provider in past 12 months or upcoming 90 days Recent Visits Date Type Provider Dept 04/18/22 Office Visit Skyler Contreras MD [facility] 12/06/21 Office Visit Skyler Contreras MD [facility] 11/13/21 Telemedicine Bebeot Morin APRN, ERIC [facility] 11/07/21 Telemedicine Bebeto Morin APRN, RUBBER GOODS INSPECTOR [facility] 09/27/21 Office Visit Skyler Contreras MD [facility] 09/05/21 Office Visit Skyler Contreras MD [facility] 08/30/21 Office Visit Tobias Strickland MD [facility] Showing recent visits within past 365 days and meeting all other requirements Future Appointments Date Type Provider Dept 07/19/22 Appointment Skyler Contreras MD [facility] Showing future appointments within next 90 days and meeting all other requirements documented in this encounter Plan of Treatment Upcoming Encounters Date Type Department Care Team (Late st Contact Info) Description 04/11/2025 1:00 PM CDT Office Visit [facility] - Pulmonology & Sleep Medicine - [place] [address] [facility] [place] [address] Urvashi Thomas APRN, RUBBER GOODS INSPECTOR [address] [facility] [address] [place] [address] 06/21/2025 1:15 PM CDT Office Visit [facility] [place] [address] [facility] [place] [address] Skyler Contreras MD #2 [facility] [address] [place] [address] documented as of this encounter Visit Diagnoses Diagnosis Chronic pain syndrome documented in this encounter Additional Health Concerns Infection Onset Date Last Indicated Resolved Time COVID - 19 10/25/2022 10/25/2022 11/04/2022 12:1 9 AM HEALTH EDUCATION COORDINATOR COVID - 19 01/10/2025 01/10/2025 01/10/2025 10:2 3 AM CDT Respiratory Rule-Out 01/10/2025 01/10/2025 025 10:34 AM CDT Respiratory Rule-Out 01/10/2025 01/10/2025 025 10:58 AM CDT Assessment Noted Time PHQ-9 Depression Total Score: 0 12/04/19 21 10:06 AM HEALTH EDUCATION COORDINATOR documented as of this encounter Care Teams Resort Keeper Relationship Specialty Start Date End Date Skyler Contreras MD [address] [facility] [place] [address] PCP - General Family Medicine 10/02/17 Miles Ferguson MD Orthopaedic Surgery 05/19/17 Urvashi Thomas APRN, RUBBER GOODS INSPECTOR [address] [facility] [address] [place] [address] Nurse Practitioner Advanced Practice Nurse 01/03/22 documented as of this encounter
--- OUTSIDE RECORDS SUMMARY | 2025-02-19 09:24 | XMS_ITS | Encounter Summary ---
Author Organization [facility] Address [address] [place] [address] Phone Care Team Providers Care Accounts Receivable Administrator Name Role Phone Marty Muñoz MD, Miles Unavailable Unavailab Skyler Chino MD Primary Care Provider Urvashi Thomas APRN, ERIC Unavailable [phone] Reason for Visit * Reason Comments Medication Refill Encounter Details Date Type Department Care Team (Late st Contact Info) Description 10/22/2022 Refill [facility] - Family Medicine - [place] [address] [place] [address] Skyler Contreras MD #[address] [address] Medication Refill Social History Tobacco Use Types [...] Recorded In the last 10 days, have caleb u been in contact with someone who was confirmed or suspected to have Coronavirus/COVID-19? No / Unsure 10/25/2022 9:24 AM POWER WHEELCHAIR MECHANIC documented as of this encounter Miscellaneous Notes * Telephone Encounter - Jaky Frias RN - 10/22/2022 12:38 PM POWER WHEELCHAIR MECHANIC PDMP 08/21/2022 #30 Medication failed the protocol, provider to review and approve the medication order if appropriate. Requested Prescriptions Pending Prescriptions Disp Refills zolpidem (AMBIEN) 5 MG Tablet [Pharmacy Med Name: ZOLPIDEM TARTRATE 5MG TABLET] 30 Tablet 0 Sig: TAKE 1 TABLET BY MOUTH NIGHTLY NEEDED FOR SLEEP. Not Delegated - Off Protocol Failed - 10/22/2022 10:27 AM Failed - This refill cannot be delegated Passed - Visit with relevant provider in past 12 months or upcoming 90 days Recent Visits Date Type Provider Dept 10/10/22 Office Visit Skyler Contreras MD [facility] 07/23/22 Office Visit Skyler Contreras MD [facility] 04/18/22 Office Visit Skyler Contreras MD [facility] 12/06/21 Office Visit Skyler Contreras MD [facility] 11/13/21 Telemedicine Bebeto Morin APRN, ERIC [facility] 11/07/21 Telemedicine Bebeto Morin APRN, ERIC [facility] Showing recent visits within past 365 days and meeting all other requirements Future Appointments Date Type Provider Dept 01/09/23 Appointment Skyler Contreras MD [facility] Showing future appointments within next 90 days and meeting all other requirements R WHEELCHAIR MECHANIC documented in this encounter Plan of Treatment Upcoming Encounters Date Type Department Care Team (Late st Contact Info) Description 04/11/2025 1:00 PM CDT Office Visit [facility] - Pulmonology & Sleep Medicine [facility] #2 [place] [address] Urvashi Thomas APRN, BREWERY TECHNICIAN #2 [facility] [address] [place] [address] 06/21/2025 1:15 PM CDT Office Visit [facility] Family Medicine - [place] [address]2 [facility] [address] Skyler Contreras MD #2 [facility] [place] [address] documented as of this encounter Visit Diagnoses Diagnosis Insomnia, unspecified type documented in this encounter Additional Health Concerns Infection Onset Date Last Indicated Resolved Time COVID - 19 10/25/2022 10/25/2022 11/04/2022 12:1 9 AM POWER WHEELCHAIR MECHANIC COVID - 19 01/10/2025 01/10/2025 01/10/2025 10:2 3 AM CDT Respiratory Rule-Out 01/10/2025 01/10/2025 025 10:34 AM CDT Respiratory Rule-Out 01/10/2025 01/10/2025 025 10:58 AM CDT Assessment Noted Time PHQ-9 Depression Total Score: 0 12/04/19 21 10:06 AM POWER WHEELCHAIR MECHANIC documented as of this encounter Care Teams Accounts Receivable Administrator Relationship Specialty Start Date End Date Skyler Contreras MD #[address] [address] PCP - General Family Medicine 10/02/17 Miles Ferguson MD Orthopaedic Surgery 05/19/17 Urvashi Thomas APRN, BREWERY TECHNICIAN #2 [facility] [address] [place] [address] Nurse Practitioner Advanced Practice Nurse 01/03/22 documented as of this encounter
--- OUTSIDE RECORDS SUMMARY | 2025-02-19 09:24 | XMS_ITS | Encounter Summary ---
Author Organization [facility] Address [address] [place] [address] Phone Care Team Providers Care Oncology Technician Name Role Phone Marty Muñoz MD, Miles Unavailable Unavailab Skyler Chino MD Primary Care Provider [phone] Urvashi Thomas APRN, SKEINS YARN EXAMINER Unavailable Reason for Visit * Reason Onset Date Comments Results 05/07/2023 Encounter Details Date Type Department Care Team (Late st Contact Info) Description 05/07/2023 Telephone [facility] [address] [place] [address] Skyler Contreras MD #[address] [address] Results Social History Tobacco Use Types Packs/Day Years [...] or the highest degree you have received? 10th grade 01/04/2023 Sexually Active Control Partners Comments Yes Surgical [...] suspected to have Coronavirus/COVID-19? No / Unsure 05/09/2023 10:17 AM CDT documented as of this encounter Miscellaneous Notes * Telephone Encounter - Skyler Contreras MD - 05/08/2023 6:59 AM CDT See result notes. Thanks! * Telephone Encounter - Ramona Bowser RN - 05/07/2023 8:55 AM CDT Patient calling for results of labs done on 04/16/[address]/Ultrasound done on 05/02/23. Please advise. documented in this encounter Plan of Treatment Upcoming Encounters Date Type Department Care Team (Late st Contact Info) Description 04/11/2025 1:00 PM CDT [facility] - [place] [address] [place] [address] Urvashi Thomas APRN, SKEINS YARN EXAMINER #2 [facility] [address] [place] [address] 06/21/2025 1:15 PM CDT Office Visit [facility] - Family Medicine - [place] [address] [place] [address] Skyler Contreras MD #2 [facility] [address] [place] [address] documented as of this encounter Visit Diagnoses Not on filedocumented in this encounter Additional Health Concerns Infection Onset Date Last Indicated Resolved Time COVID - 19 01/10/2025 01/10/2025 01/10/2025 10:2 3 AM CDT Respiratory Rule-Out 01/10/2025 01/10/2025 025 10:34 AM CDT Respiratory Rule-Out 01/10/2025 01/10/2025 025 10:58 AM CDT Assessment Noted Time PHQ-9 Depression Total Score: 0 12/04/19 21 10:06 AM CIVIL RIGHTS REPRESENTATIVE documented as of this encounter Care Teams Oncology Technician Relationship Specialty Start Date End Date Skyler Contreras MD #2 [facility] [address] [place] [address] PCP - General Family Medicine 10/02/17 Miles Ferguson MD Orthopaedic Surgery 05/19/17 Urvashi Thomas, CENTRAL AISLE CASHIER, SKEINS YARN EXAMINER #2 [facility] [address] [place] [address] Nurse Practitioner Advanced Practice Nurse 01/03/22 documented as of this encounter
--- OUTSIDE RECORDS SUMMARY | 2025-02-19 09:24 | XMS_ITS | Encounter Summary ---
Author Organization [facility] Address [address] [place] [address] Phone Care Team Providers Care Training And Development Rep Name Role Phone Marty Muñoz MD, Miles Unavailable Unavailab Skyler Chino MD Primary Care Provider Urvashi Thomas APRN, ERIC Unavailable [phone] Reason for Visit * Reason Comments Medication Refill Encounter Details Date Type Department Care Team (Late st Contact Info) Description 05/14/2023 Refill [facility] - Family Medicine - [place] [address] [place] [address] Skyler Contreras MD #[address] [address] Medication Refill Social History Tobacco Use Types [...] encounter Miscellaneous Notes * Telephone Encounter - Loena Armando RN - 05/15/2023 11:25 AM CDT PDMP [place] 03/23/23, 04/21/23 - Zolpidem 03/20/23 Medication failed the protocol, provider to review and approve the medication order if appropriate. Requested Prescriptions Pending Prescriptions Disp Refills zolpidem (AMBIEN) 5 MG Tablet [Pharmacy Med Name: ZOLPIDEM TARTRATE 5MG TABLET] 30 Tablet 0 Sig: TAKE 1 TABLET BY MOUTH NIGHTLY NEEDED FOR SLEEP. Not Delegated - Off Protocol Failed - 05/14/2023 9:29 AM Failed - This refill cannot be delegated Passed - Visit with relevant provider in past 12 months or upcoming 90 days Recent Visits Date Type Provider Dept 04/16/23 Office Visit Skyler Contreras MD [facility] 01/09/23 Office Visit Skyler Contreras MD [facility] 10/10/22 Office Visit Skyler Contreras MD [facility] 07/23/22 Office Visit Skyler Contreras MD [facility] Showing recent visits within past 365 days and meeting all other requirements Future Appointments Date Type Provider Dept 07/17/23 Appointment Skyler Contreras MD [facility] Showing future appointments within next 90 days and meeting all other requirements HYDROcodone-acetaminophen (NORCO) 7.5-325 MG Tablet [Pharmacy Med Name: HYDROCODONE/ACETAMINOPHEN 7.5-325 TABLET] 90 Tablet 0 Sig: Take 1 Tablet by mouth every 8 hours as needed for Severe pain. Not Delegated - Opioid Combinations Protocol Failed - 05/14/2023 9:30 AM Failed - This refill cannot be delegated Passed - Visit with relevant provider in past 12 months or upcoming 90 days Recent Visits Date Type Provider Dept 04/16/23 Office Visit Skyler Contreras MD [facility] 01/09/23 Office Visit Skyler Contreras MD [facility] 10/10/22 Office Visit Skyler Contreras MD [facility] 07/23/22 Office Visit Skyler Contreras MD [facility] Showing recent visits within past 365 days and meeting all other requirements Future Appointments Date Type Provider Dept 07/17/23 Appointment Skyler Contreras MD [facility] Showing future appointments within next 90 days and meeting all other requirements documented in this encounter Plan of Treatment Upcoming Encounters Date Type Department Care Team (Late st Contact Info) Description 04/11/2025 1:00 PM CDT Office Visit [facility] - Pulmonology & Sleep Medicine [facility] #[address] [place] [address] Urvashi Thomas APRN, PRINCIPAL CONSULTANT #2 [facility] [address] [place] [address] 06/21/2025 1:15 PM CDT Office Visit [facility] - Family Medicine - [place] [address] [place] [address] Skyler Contreras MD #2 [facility] [address] [place] [address] documented as of this encounter Visit Diagnoses Diagnosis Insomnia, unspecified type Chronic pain syndrome documented in this encounter Additional Health Concerns Infection Onset Date Last Indicated Resolved Time COVID - 19 01/10/2025 01/10/2025 01/10/2025 10:2 3 AM CDT Respiratory Rule-Out 01/10/2025 01/10/2025 025 10:34 AM CDT Respiratory Rule-Out 01/10/2025 01/10/2025 025 10:58 AM CDT Assessment Noted Time PHQ-9 Depression Total Score: 0 12/04/19 21 10:06 AM TUBE OPERATOR documented as of this encounter Care Teams Training And Development Rep Relationship Specialty Start Date End Date Skyler Contreras MD #2 [facility] [address] [place] [address] PCP - General Family Medicine 10/02/17 Miles Ferguson MD Orthopaedic Surgery 05/19/17 Urvashi Thomas APRN, PRINCIPAL CONSULTANT #2 [facility] [address] [place] [address] Nurse Practitioner Advanced Practice Nurse 01/03/22 documented as of this encounter
--- OUTSIDE RECORDS SUMMARY | 2025-02-19 09:24 | XMS_ITS | Encounter Summary ---
Author Organization [facility] Address [address] [address] Phone Care Team Providers Care Practical Nursing Faculty Name Role Phone Marty Muñoz MD, Miles Unavailable Unavailab Skyler Chino MD Primary Care Provider [phone] Urvashi Thomas APRN, INSTRUMENT SHOP SUPERVISOR Unavailable [phone] Reason for Visit * Reason Onset Date Comments Advice Only 01/10/2025 Cough 01/10/2025 Sore Throat 01/10/2025 Fatigue 01/10/2025 Encounter Details Date Type Department Care Team (Late st Contact Info) Description 01/10/2025 Nurse Triage [facility] [address] [place] [address] Skyler Contreras MD [address] [address] Advice Only; Cough; Sore Throat; Fatigue Social History Tobacco Use Types Packs/Day Years Used Date Smoking Tobacco: Every Day Cigarettes 0.5 48.3 Started: 11/15/1976 Smokeless Tobacco: Never Alcohol Use Standard Drinks/Week Comments Not Currently 0 (1 standard drink = 0.6 oz pur e alcohol) [facility] Utilities Answer Date Recorded In the past 12 months has e electric, gas, oil, or water company threatened to shut off services in your home? No 10/13/2024 Social Connection and Isolation Panel [NHANES] A nswer Date Recorded In a typical week, how many times do you talk on the phone with family, friends, or neighbors? Three times a week 10/13/2024 How often do you get togethe r with friends or relatives? Once a week 10/13/2024 How often do you attend chur ch or synagogue services? Never 10/13/2024 Do you belong to any clubs o r organizations such as zoroastrianism groups, unions, fraternal or athletic groups, or school groups? No 10/13/2024 How often do you attend meet ings of the clubs or organizations you belong to? Never 10/13/2024 Are you , , di vorced, , never , or living with a partner? 10/13/2024 AUDIT-C Answer Date Recorded Q1: How often do you have a drink containing alcohol? Never 10/13/2024 Q2: How many drinks containi ng alcohol do you have on a typical day when you are drinking? Patient does not drink Q3: How often do you have si x or more drinks on one occasion? Never 10/13/2024 Overall Financial Resource Strain (CARDIA) Answe r Date Recorded How hard is it for you to pa y for the very basics like food, housing, medical care, and heating? Not very hard 10/13/2024 PHQ-2 Answer Date Recorded Total Score - Questions 1-9 0 12/25 [facility] - Occupational Stress Questionnaire Answer Date Recorded Do you feel stress - tense, restless, nervous, or anxious, or unable to sleep at night because your mind is troubled all the time - these days? Not at all 10/13/2024 Exercise Vital Sign Answer Date Recorde d On average, how many days pe r week do you engage in moderate to strenuous exercise (like a brisk walk)? 5 days 10/13/2024 On average, how many minutes do you engage in exercise at this level? 60 min 10/13/2024 Hunger Vital Sign Answer Date Recorded Within the past 12 months, y ou worried that your food would run out before you got the money to buy more. Never true 10/13/20 24 Within the past 12 months, t he food you bought just didn't last and you didn't have money to get more. Never true 10/13/2024 PRAPARE - Transportation Answer Date Re corded In the past 12 months, has l ack of transportation kept you from medical appointments or from getting medications? No 09/26 In the past 12 months, has l ack of transportation kept you from meetings, work, or from getting things needed for daily living? No 10/13/2024 Housing Stability Vital Sign Answer Jeyson e Recorded In the last 12 months, was t here a time when you were not able to pay the mortgage or rent on time? No 02/29/2024 Number of Places Lived in the Last Year Not on f ile 02/29/2024 In the last 12 months, was t here a time when you did not have a steady place to sleep or slept in a skilled nursing (including now)? No 02/29/2024 Housing Stability Vital Sign Answer Jeyson e Recorded In the last 12 months, was t here a time when you were not able to pay the mortgage or rent on time? No 10/13/2024 In the past 12 months, how m any times have you moved where you were living? 0 10/13/2024 At any time in the past 12 m [facility], were you homeless or living in a skilled nursing (including now)? No 10/13/2024 Education Answer Date Recorded What is the highest level of school you have completed or the highest degree you have received? 10th grade 01/04/2023 Sexually Active Control Partners Comments Yes Male Condom Male Comments No Sex and Gender Information Value Date Recorded Sex Assigned at Not on file Legal Sex Female 8:49 PM CDT Gender Identity Not on file Sexual Orientation Not on file Occupation Industry Job Start Date Job End Date [employer] Not on file Not on file Not on file documented as of this encounter Functional Status * Question Answer Date of Assessment Author Little interest or pleasure in doing things Not at all 01/10/2025 10:05 AM Mily Torres CMA Feeling down, depressed, or hopeless Not at all 01/10/2025 10:05 AM Mily Torres CMA * Over the past 2 weeks, how often have you been bothered by any of the following problems? Question Answer Date of Assessment Author Patient Health Questionnaire -2 Score 0 01/10/2025 10:05 AM CDT Mily Ortiz CMA documented as of this encounter Miscellaneous Notes * Telephone Encounter - Mima Barillas RN - 01/10/2025 8:40 AM CDT SITUATION: Cough/ Sore Throat/ Weakness BACKGROUND: Romina contacting PCP office. Patient is calling stating that she started coughing last night, and has a sore throat this morning. Per chart review, patient was last seen in office on 10/15/24 ASSESSMENT: Symptom Description / Location: Patient reported congestive cough with no mucous cough Reported history of choric obstructive pulmonary disease, and emphysema Patient reported that throat is red and swollen with some pus pockets Patient reported moderate weakness Reported when standing for too long, she feels weak Patient reported slight diarrhea that started yesterday Had diarrhea 2 times since 01/09/25 Denies chest pain -shortness of breath/difficulty breathing -coughing up blood -heart attack, congestive heart failure -history of blood clots -runny nose -wheezing -rash, hives -exposure to strep throat -abdominal pain Pain: 10 sore throat Fever: Denies fever. Treatment / Response: Drinking warm liquids, Gargling, Tylenol with some relief. Denies and RECOMMENDATION: Go to emergency department now (or PCP triage). Patient/caller refuses disposition of: GO to ED now Reiterated the importance of following recommendation as symptoms could indicate a serious or life-threatening situation Patient response: Romina requesting appointment in office as opposed to emergency department. Advised that appointment may be cancelled by provider and provider may direct patient to ED for evaluation. Caller aware and verbalized understanding and agreement with plan. Provider to review and advise on change in plan of care due to ED refusal. Appointment made per patient request. All Patient Appointments Date & Time Provider Department Dept Phone 01/10/2025 10:00 AM Bebeto Morin [facility] - Family Medicine [facility] [phone] Caller notified and verbalized understanding. Verified medication, pharmacy, and allergies Verified Assisted Services Routed note high priority to provider for further review. - See care advice and disposition for Guideline. First positive answer recorded, all responses to prior questions were negative. If symptoms increase, change or if new symptoms develop, call your health care provider or call back. Recommendations were based on caller information and is not a diagnosis. Verified and reviewed all triage information with caller. Reason for Disposition MODERATE weakness or fatigue from poor fluid intake with no improvement after 2 hours of rest and fluids Diarrhea is main symptom Protocols used: Weakness (Generalized) and [id number] * Telephone Encounter - Kristina Guzmán - 01/10/2025 8:34 AM CDT Symptoms: Sore Throat, Cough Outcome: Transfer to order taker queue Reason: Caller denied all higher acuity questions The caller accepted this outcome. Caller Denied: * Struggling for each breath (severe trouble breathing) * Can't swallow saliva (drooling) * Choked on something documented in this encounter Plan of Treatment Upcoming Encounters Date Type Department Care Team (Late st Contact Info) Description 04/11/2025 1:00 PM CDT Office Visit [facility] - Pulmonology & Sleep Medicine [facility] [address] [place] [id number] Urvashi Thomas APRN, INSTRUMENT SHOP SUPERVISOR #2 [facility] [address] [place] [address] 06/21/2025 1:15 PM CDT Office Visit [facility] Medical [facility] - Family Medicine - [place] [address] [place] [address] Skyler Contreras MD #2 [facility] [address] [place] [address] documented as of this encounter Visit Diagnoses Not on filedocumented in this encounter Additional Health Concerns Infection Onset Date Last Indicated Resolved Time COVID - 19 01/10/2025 01/10/2025 01/10/2025 10:2 3 AM CDT Respiratory Rule-Out 01/10/2025 01/10/2025 025 10:34 AM CDT Respiratory Rule-Out 01/10/2025 01/10/2025 025 10:58 AM CDT Assessment Noted Time PHQ-9 Depression Total Score: 0 01/11/20 25 10:05 AM CDT documented as of this encounter Care Teams Practical Nursing Faculty Relationship Specialty Start Date End Date Skyler Contreras MD #2 [facility] [address] [place] [address] PCP - General Family Medicine 10/02/17 Miles Ferguson MD Orthopaedic Surgery 05/19/17 Urvashi Thomas APRN, INSTRUMENT SHOP SUPERVISOR [address]2 [facility] [address] [place] [address] Nurse Practitioner Advanced Practice Nurse 01/03/22 documented as of this encounter
--- OUTSIDE RECORDS SUMMARY | 2025-02-19 09:24 | XMS_ITS | Encounter Summary ---
Author Organization [facility] Address [address] [place] [address] Phone Care Team Providers Care Loom Fixer Supervisor Name Role Phone Marty Muñoz MD, Miles Unavailable Unavailab Skyler Chino MD Primary Care Provider Urvashi Thomas APRN, ERIC Unavailable [phone] Reason for Visit * Reason Comments Medication Refill Encounter Details Date Type Department Care Team (Late st Contact Info) Description 08/21/2021 Refill [facility] - Family Medicine - [place] [address] [place] [address] Skyler Contreras MD #[address] [address] Medication Refill Social History Tobacco Use Types [...] encounter Miscellaneous Notes * Telephone Encounter - Radha Virk RN - 08/22/2021 12:50 PM CDT Medication failed the protocol, provider to review and approve the medication order if appropriate.PDMP reviewed. Needs UDS Requested Prescriptions Pending Prescriptions Disp Refills HYDROcodone-acetaminophen (NORCO) 5-325 MG Tablet [Pharmacy Med Name: HYDROCODONE BITARTRATE/ACETAMINOPHEN 5-325MG TABLET] 90 Tablet 0 Sig: TAKE 1 TABLET BY MOUTH EVERY EIGHT (8) HOURS NEEDED NEEDED FOR PAIN [facility] Not Delegated - Analgesics: Opioid Agonist Combinations Failed - 08/22/2021 12:50 PM Failed - This refill cannot be delegated Passed - Valid encounter within last 6 months Past Office Visits Recent Outpatient Visits 2 months ago Chronic pain syndrome [facility] Medical [facility] - Skyler Smith MD 3 months ago Abdominal discomfort in right lower quadrant [facility] - Bebeto Altamirano APRN, ERIC 5 months ago Gastroesophageal reflux disease, unspecified whether esophagitis present [facility] Skyler Smith MD 8 months ago Chronic narcotic use [facility] Skyler Smith MD 11 months ago Chronic pain syndrome [facility] Skyler Smith MD Upcoming Appointments Future Appointments In 2 weeks Skyler Contreras MD [facility] Medical [facility] Family Medicine - [facility] In 3 weeks Urvashi Thomas APRN, DIRECTOR OF CORPORATE COMMUNICATIONS [facility] Medical [facility] - Pulmonology & Sleep Medicine - [place] ARCHAEOLOGY PROFESSOR - Recent and Past Visits Recent Visits Date Type Provider Dept 06/05/21 Office Visit Skyler Contreras MD [facility] 05/08/21 Office Visit Bebeto Morin APRN, ERIC [facility] 03/05/21 Office Visit Skyler Contreras MD [facility] 12/04/20 [facility] 09/01/20 [facility] 08/01/20 Office Visit Bebeto Morin APRN, ERIC [facility] 07/13/20 Office Visit Bebeto Morin APRN, DIRECTOR OF CORPORATE COMMUNICATIONS [facility] 05/23/20 Office Visit Skyler Contreras MD [facility] Showing recent visits within past 460 days with a meds authorizing provider and meeting all other requirements Future Appointments Date Type Provider Dept 09/05/21 Appointment Skyler Contreras MD [facility] Showing future appointments within next 90 days with a meds authorizing provider and meeting all other requirements documented in this encounter Plan of Treatment Upcoming Encounters Date Type Department Care Team (Late st Contact Info) Description 04/11/2025 1:00 PM CDT Office Visit [facility] Medical [facility] - Pulmonology & Sleep Medicine - [place] [address] [place] [address] Urvashi Thomas APRN, DIRECTOR OF CORPORATE COMMUNICATIONS #2 [facility] [address] [place] [address] 06/21/2025 1:15 PM CDT Office Visit [facility] Medical [facility] - Family Medicine - [place] [address] [place] [address] Skyler Contreras MD #2 [facility] [address] [place] [address] documented as of this encounter Visit Diagnoses Diagnosis Chronic pain syndrome documented in this encounter Additional Health Concerns Infection Onset Date Last Indicated Resolved Time COVID - 19 11/06/2021 11/06/2021 11/06/2021 9:43 AM CERTIFIED GENETIC COUNSELOR COVID - 19 Confirmed 11/06/2021 11/06/2021 022 12:16 AM CERTIFIED GENETIC COUNSELOR COVID - 19 10/25/2022 10/25/2022 11/04/2022 12:1 9 AM CERTIFIED GENETIC COUNSELOR COVID - 19 01/10/2025 01/10/2025 01/10/2025 10:2 3 AM CDT Respiratory Rule-Out 01/10/2025 01/10/2025 025 10:34 AM CDT Respiratory Rule-Out 01/10/2025 01/10/2025 025 10:58 AM CDT Assessment Noted Time PHQ-9 Depression Total Score: 0 12/04/19 21 10:06 AM CERTIFIED GENETIC COUNSELOR documented as of this encounter Care Teams Loom Fixer Supervisor Relationship Specialty Start Date End Date Skyler Contreras MD #2 [facility] [address] [place] [address] PCP - General Family Medicine 10/02/17 Miles Ferguson MD Orthopaedic Surgery 05/19/17 Urvashi Thomas, SALES PRODUCT SPECIALIST, DIRECTOR OF CORPORATE COMMUNICATIONS [address]2 [facility] [address] [place] [address] Nurse Practitioner Advanced Practice Nurse 01/03/22 documented as of this encounter
--- OUTSIDE RECORDS SUMMARY | 2025-02-19 09:24 | XMS_ITS | Encounter Summary ---
Author Organization [facility] Address [address] [place] [address] Phone Care Team Providers Care Matcher Name Role Phone Marty Muñoz MD, Miles Unavailable Unavailab Skyler Chino MD Primary Care Provider Urvashi Thomas APRN, ERIC Unavailable [phone] Reason for Visit * Reason Comments Medication Refill Encounter Details Date Type Department Care Team (Late st Contact Info) Description 12/25/2020 Refill [facility] - Family Medicine - [place] [address] [place] [address] Skyler Contreras MD #[address] [address] Medication Refill Social History Tobacco Use Types Packs/Day Years Used Date Smoking Tobacco: Every Day Cigarettes 0.5 40 Smokeless Tobacco: Never Alcohol Use Standard [...] have Coronavirus / COVID-19? No / Unsure 12/04/2020 9:36 AM TALENT SOURCING SPECIALIST documented as of this encounter Miscellaneous Notes * Telephone Encounter - Leona Armando RN - 12/26/2020 8:43 AM CST [place] PDMP 11/27/20 Medication failed the protocol, provider to review and approve the medication order if appropriate. Requested Prescriptions Pending Prescriptions Disp Refills HYDROcodone-acetaminophen (NORCO) 5-325 MG Tablet [Pharmacy Med Name: HYDROCODONE/ACETAMINOPHEN 5-325MG TABLET] 90 Tablet 0 Sig: TAKE 1 TAB BY MOUTH EVERY 8 HOURS NEEDED FOR MODERATE OR MORE SEVERE PAIN. Not Delegated - Analgesics: Opioid Agonist Combinations Failed - 12/25/2020 12:07 PM Failed - This refill cannot be delegated Passed - Valid encounter within last 6 months Past Office Visits Recent Outpatient Visits 3 weeks ago Chronic narcotic use [facility] Family [facility] - Skyler Smith MD 3 months ago Chronic pain syndrome [facility] - Skyler Smith MD 4 months ago Irritable bowel syndrome with constipation [facility] - Bebeto Altamirano APN, ERIC 5 months ago Irritable bowel syndrome with constipation [facility] Beb[facility] Ludwig APN, ERIC 7 months ago Chronic pain syndrome [facility] Skyler Smith MD Upcoming Appointments Future Appointments In 2 months Skyler Contreras MD [facility] In 2 months Urvashi Thomas APN, CNP [facility] PULMON[facility], [facility] FOOD SAFETY COORDINATOR - Recent and Past Visits Recent Visits Date Type Provider Dept 12/04/20 Office Visit [facility]yler Contreras MD [facility] 09/01/20 Office Visit MohSkyler keys MD [facility] 08/01/20 Office Visit Bebeto Morin APN, ERIC [facility] 07/13/20 Office Visit Bebeto Morin APN, ERIC [facility] 05/23/20 Office Visit Skyler Contreras MD [facility] 02/21/20 Telemedicine Skyler Contreras MD [facility] 12/21/19 Office Visit Skyler Contreras MD [facility] Showing recent visits within past 460 days with a meds authorizing provider and meeting all other requirements Future Appointments Date Type Provider Dept 03/05/21 Appointment Skyler Contreras MD [facility] Showing future appointments within next 90 days with a meds authorizing provider and meeting all other requirements NT SOURCING SPECIALIST documented in this encounter Plan of Treatment Upcoming Encounters Date Type Department Care Team (Late st Contact Info) Description 04/11/2025 1:00 PM CDT Office Visit [facility] Medical [facility] - Pulmonology & Sleep Medicine - [place] [address] [place] [address] Urvashi Thomas APRN, ERIC #2 [facility] [address] [place] [address] 06/21/2025 1:15 PM CDT Office Visit [facility] Medical [facility] - Family Medicine - [place] [address] [place] [address] Skyler Contreras MD #2 [facility] [address] [place] [address] documented as of this encounter Visit Diagnoses Diagnosis Chronic pain syndrome documented in this encounter Additional Health Concerns Infection Onset Date Last Indicated Resolved Time COVID - 19 11/06/2021 11/06/2021 11/06/2021 9:43 AM TALENT SOURCING SPECIALIST COVID - 19 Confirmed 11/06/2021 11/06/2021 022 12:16 AM TALENT SOURCING SPECIALIST COVID - 19 10/25/2022 10/25/2022 11/04/2022 12:1 9 AM TALENT SOURCING SPECIALIST COVID - 19 01/10/2025 01/10/2025 01/10/2025 10:2 3 AM CDT Respiratory Rule-Out 01/10/2025 01/10/2025 025 10:34 AM CDT Respiratory Rule-Out 01/10/2025 01/10/2025 025 10:58 AM CDT Assessment Noted Time PHQ-9 Depression Total Score: 0 12/04/19 21 10:06 AM TALENT SOURCING SPECIALIST documented as of this encounter Care Teams Matcher Relationship Specialty Start Date End Date Skyler Contreras MD #2 [facility] [address] [place] [address] PCP - General Family Medicine 10/02/17 Miles Ferguson MD Orthopaedic Surgery 05/19/17 Urvashi Thomas, LEARNING SUPPORT SERVICES DIRECTOR, ASSURANCE SOURCING MANAGER #2 [facility] [address] [place] [address] Nurse Practitioner Advanced Practice Nurse 01/03/22 documented as of this encounter
--- OUTSIDE RECORDS SUMMARY | 2025-02-19 09:24 | XMS_ITS | Encounter Summary ---
Author Organization [facility] Address [address] [place] [address] Phone Care Team Providers Care Healthcare Administration Intern Name Role Phone Marty Muñoz MD, Miels Unavailable Unavailab Skyler Chino MD Primary Care Provider Urvashi Thomas APRN, ERIC Unavailable [phone]- [phone] Reason for Visit * Reason Comments Medication Refill Encounter Details Date Type Department Care Team (Late st Contact Info) Description 08/21/2022 Refill [facility] - [facility] Medicine - [place] #2 [place] [address] Skyler Contreras MD #[address] [address] Medication Refill Social History Tobacco Use Types [...] In the last 10 days, have caleb wong been in contact with someone who was confirmed or suspected to have Coronavirus/COVID-19? No / Unsure 08/02/2022 9:54 AM CDT documented as of this encounter Miscellaneous Notes * Telephone Encounter - Leona Armando RN - 08/21/2022 12:11 PM CDT PDMP [place] 07/27/22 - Zolpidem last Rx 04/18/22 Medication failed the protocol, provider to review and approve the medication order if appropriate. Requested Prescriptions Pending Prescriptions Disp Refills HYDROcodone-acetaminophen (NORCO) 7.5-325 MG Tablet [Pharmacy Med Name: HYDROCODONE/ACETAMINOPHEN 7.5-325 TABLET] 90 Tablet 0 Sig: TAKE ONE (1) TABLET BY MOUTH EVERY EIGHT (8) HOURS NEEDED FOR SEVERE PAIN Not Delegated - Opioid Combinations Protocol Failed - 08/21/2022 11:12 AM Failed - This refill cannot be delegated Passed - Visit with relevant provider in past 12 months or upcoming 90 days Recent Visits Date Type Provider Dept 07/23/22 Office Visit Skyler Contreras MD [facility] 04/18/22 Office Visit Skyler Contreras MD [facility] 12/06/21 Office Visit Skyler Contreras MD [facility] 11/13/21 Telemedicine Bebeto Morin APRN, ERIC [facility] 11/07/21 Telemedicine Bebeto Morin APRN, ERIC [facility] 09/27/21 Office Visit Skyler Contreras MD [facility] 09/05/21 Office Visit Skyler Contreras MD [facility] 08/30/21 Office Visit Tobias Strickland MD [facility] Showing recent visits within past 365 days and meeting all other requirements Future Appointments Date Type Provider Dept 10/22/22 Appointment Skyler Contreras MD [facility] Showing future appointments within next 90 days and meeting all other requirements zolpidem (AMBIEN) 5 MG Tablet [Pharmacy Med Name: ZOLPIDEM TARTRATE 5MG TABLET] 30 Tablet 0 Sig: TAKE 1 TABLET BY MOUTH NIGHTLY NEEDED FOR SLEEP. There is no refill protocol information for this order Refused Prescriptions Disp Refills ALPRAZolam (XANAX) 0.25 MG Tablet [Pharmacy Med Name: ALPRAZOLAM 0.25MG TABLET] 90 Tablet 0 Sig: ONETHREE TIMES A DAYAS NEEDEDFOR ANXIETY Not Delegated - Benzodiazepines Protocol Failed - 08/21/2022 11:12 AM Failed - This refill cannot be delegated Failed - Active on medication list Passed - Visit with relevant provider in past 12 months or upcoming 90 days Recent Visits Date Type Provider Dept 07/23/22 Office Visit Skyler Contreras MD [facility] 04/18/22 Office Visit Skyler Contreras MD [facility] 12/06/21 Office Visit Skyler Contreras MD [facility] 11/13/21 Telemedicine Bebeto Morin APRN, ERIC [facility] 11/07/21 Telemedicine Bebeto Morin APRN, ERIC [facility] 09/27/21 Office Visit Skyler Contreras MD [facility] 09/05/21 Office Visit Skyler Contreras MD [facility] 08/30/21 Office Visit Tobias Strickland MD [facility] Showing recent visits within past 365 days and meeting all other requirements Future Appointments Date Type Provider Dept 10/22/22 Appointment Skyler Contreras MD [facility] Showing future appointments within next 90 days and meeting all other requirements documented in this encounter Plan of Treatment Upcoming Encounters Date Type Department Care Team (Late st Contact Info) Description 04/11/2025 1:00 PM CDT Office Visit [facility] - [facility]ology & Sleep Medicine - [place] [address]2 [place] [address] Urvashi Thomas APRN, ASSISTANT TO THE DIRECTOR #2 [facility] [place] [address] [place] [address] 06/21/2025 1:15 PM CDT Office Visit [facility] Medical Group - [facility] #2 [place] [address] Skyler Contreras MD [facility]2 [facility] [place] [address] documented as of this encounter Visit Diagnoses Diagnosis Chronic pain syndrome Insomnia, unspecified type documented in this encounter Additional Health Concerns Infection Onset Date Last Indicated Resolved Time COVID - 19 10/25/2022 10/25/2022 11/04/2022 12:1 9 AM HANDLE BENDER COVID - 19 01/10/2025 01/10/2025 01/10/2025 10:2 3 AM CDT Respiratory Rule-Out 01/10/2025 01/10/2025 025 10:34 AM CDT Respiratory Rule-Out 01/10/2025 01/10/2025 025 10:58 AM CDT Assessment Noted Time PHQ-9 Depression Total Score: 0 12/04/19 21 10:06 AM HANDLE BENDER documented as of this encounter Care Teams Healthcare Administration Intern Relationship Specialty Start Date End Date Skyler Contreras MD #[address] [address] PCP - General Family Medicine 10/02/17 Miles Ferguson MD Orthopaedic Surgery 05/19/17 Urvashi Thomas APRN, ASSISTANT TO THE DIRECTOR #2 [facility] [address] [place] [address] Nurse Practitioner Advanced Practice Nurse 01/03/22 documented as of this encounter
--- OUTSIDE RECORDS SUMMARY | 2025-02-19 09:24 | XMS_ITS | Encounter Summary ---
Author Organization [facility] Address [address] [place] [address] Phone Care Team Providers Care Auction Clerk Name Role Phone Marty Muñoz MD, Miles Unavailable Unavailab Skyler Chino MD Primary Care Provider Urvashi Thomas APRN, ERIC Unavailable [phone]- [phone] Reason for Visit * Reason Comments Medication Refill Encounter Details Date Type Department Care Team (Late st Contact Info) Description 01/17/2023 Refill [facility] - Family Medicine - [place] [address]2 [place] [address] Skyler Contreras MD #[address] [address] Medication Refill Social History Tobacco Use Types [...] suspected to have Coronavirus/COVID-19? No / Unsure 01/20/2023 7:54 AM CDT documented as of this encounter Miscellaneous Notes * Telephone Encounter - Leona Armando RN - 01/17/2023 10:52 AM CDT PDMP 11/25/22, 12/24/22 Medication failed the protocol, provider to review and approve the medication order if appropriate. Requested Prescriptions Pending Prescriptions Disp Refills HYDROcodone-acetaminophen (NORCO) 7.5-325 MG Tablet [Pharmacy Med Name: HYDROCODONE/ACETAMINOPHEN 7.5-325 TABLET] 90 Tablet 0 Sig: Take 1 Tablet by mouth every 8 hours as needed for Severe pain. Not Delegated - Opioid Combinations Protocol Failed - 01/17/2023 9:54 AM Failed - This refill cannot be delegated Passed - Visit with relevant provider in past 12 months or upcoming 90 days Recent Visits Date Type Provider Dept 01/09/23 Office Visit Skyler Contreras MD [facility] 10/10/22 Office Visit Skyler Contreras MD [facility] 07/23/22 Office Visit Skyler Contreras MD [facility] 04/18/22 Office Visit Skyler Contreras MD [facility] Showing recent visits within past 365 days and meeting all other requirements Future Appointments Date Type Provider Dept 04/16/23 Appointment Skyler Contreras MD [facility] Showing future appointments within next 90 days and meeting all other requirements omeprazole (PriLOSEC) 20 MG CAPSULE DELAYED RELEASE [Pharmacy Med Name: OMEPRAZOLE 20MG CAPSULE DR]90 Capsule 1 Sig: TAKE 1 CAPSULE BY MOUTH EVERY MORNING. Proton Pump Inhibitors Protocol Passed - 01/17/2023 9:54 AM Passed - Visit with relevant provider in past 12 months or upcoming 90 days Recent Visits Date Type Provider Dept 01/09/23 Office Visit Skyler Contreras MD [facility] 10/10/22 Office Visit Skyler Contreras MD [facility] 07/23/22 Office Visit Skyler Contreras MD [facility] 04/18/22 Office Visit Skyler Contreras MD [facility] Showing recent visits within past 365 days and meeting all other requirements Future Appointments Date Type Provider Dept 04/16/23 Appointment Skyler Contreras MD [facility] Showing future appointments within next 90 days and meeting all other requirements documented in this encounter Plan of Treatment Upcoming Encounters Date Type Department Care Team (Late st Contact Info) Description 04/11/2025 1:00 PM CDT Office Visit [facility] Medical [facility] - Pulmonology & Sleep Medicine - [place] [address] [place] [address] Urvashi Thomas APRN, PARK GUIDE #2 [facility] [address] [place] [address] 06/21/2025 1:15 PM CDT Office Visit [facility] Medical [facility] - Family Medicine - [place] [address] [place] [address] Skyler Contreras MD #2 [facility] [address] [place] [address] documented as of this encounter Visit Diagnoses Diagnosis Chronic pain syndrome documented in this encounter Additional Health Concerns Infection Onset Date Last Indicated Resolved Time COVID - 19 01/10/2025 01/10/2025 01/10/2025 10:2 3 AM CDT Respiratory Rule-Out 01/10/2025 01/10/2025 025 10:34 AM CDT Respiratory Rule-Out 01/10/2025 01/10/2025 025 10:58 AM CDT Assessment Noted Time PHQ-9 Depression Total Score: 0 02/08/20 21 10:06 AM EXERCISE SCIENTIST documented as of this encounter Care Teams Auction Clerk Relationship Specialty Start Date End Date Skyler Contreras MD #2 [facility] [address] [place] [address] PCP - General Family Medicine 10/02/17 Miles Ferguson MD Orthopaedic Surgery 05/19/17 Urvashi Thomas, ENERGY SYSTEMS LABORATORY DIRECTOR, PARK GUIDE #2 [facility] [address] [place] [address] Nurse Practitioner Advanced Practice Nurse 01/03/22 documented as of this encounter
--- OUTSIDE RECORDS SUMMARY | 2025-02-19 09:24 | XMS_ITS | Encounter Summary ---
Author Organization [facility] Address [address] [place] [address] Phone Care Team Providers Care Boatbuilder Wood Name Role Phone Marty Muñoz MD, Miles Unavailable Unavailab Skyler Chino MD Primary Care Provider Urvashi Thomas APRN, ERIC Unavailable [phone]- [phone] Reason for Visit * Reason Comments Medication Refill Encounter Details Date Type Department Care Team (Late st Contact Info) Description 07/14/2023 Refill [facility] - [facility] - [place] [address]2 [place] [address] Skyler Contreras MD #[address] [address] Medication Refill Social History Tobacco Use Types [...] Telephone Encounter - Leona Armando RN - 07/14/2023 2:58 PM CDT PDMP 06/20/23 - pharmacy closed Friday/due date 07/20/23 - post to Friday07/19/23 Medication failed the protocol, provider to review and approve the medication order if appropriate. Requested Prescriptions Pending Prescriptions Disp Refills HYDROcodone-acetaminophen (NORCO) 7.5-325 MG Tablet [Pharmacy Med Name: HYDROCODONE/ACETAMINOPHEN 7.5-325 TABLET] 90 Tablet 0 Sig: Take 1 Tablet by mouth every 8 hours as needed for Severe pain. Not Delegated - Opioid Combinations Protocol Failed - 07/14/2023 11:32 AM Failed - This refill cannot be [...] requirements Future Appointments Date Type Provider Dept 07/23/23 Appointment Skyler Contreras MD [facility] Showing future appointments within next 90 days and meeting all other requirements zolpidem (AMBIEN) 5 MG Tablet [Pharmacy Med Name: ZOLPIDEM TARTRATE 5MG TABLET] 30 Tablet 0 Sig: Take 1 Tablet by mouth nightly as needed for Sleep. There is no refill protocol information for this order documented in this encounter Plan of Treatment Upcoming Encounters Date Type Department Care Team (Late st Contact Info) Description 04/11/2025 1:00 PM CDT Office Visit [facility] - [facility]ology & Sleep Medicine - [place] [address] [facility] [place] [address] Urvashi Thomas APRN, BASKETBALL ASSEMBLER #2 [facility] [address] [place] [address] 06/21/2025 1:15 PM CDT Office Visit [facility] - Family Medicine - [place] [facility] [facility] [place] [address] Skyler Contreras MD #2 [facility] [place] [address] documented as of this encounter Visit Diagnoses [...] Total Score: 0 12/04/19 21 10:06 AM LINK TRAINER MECHANIC documented as of this encounter Care Teams Boatbuilder Wood Relationship Specialty Start Date End Date Skyler Contreras MD #[address] [address] PCP - General Family Medicine 10/02/17 Miles Ferguson MD Orthopaedic Surgery 05/19/17 Urvashi Thomas APRN, BASKETBALL ASSEMBLER #2 [facility] [address] [place] [address] Nurse Practitioner Advanced Practice Nurse 01/03/22 documented as of this encounter
--- OUTSIDE RECORDS SUMMARY | 2025-02-19 09:24 | XMS_ITS | Encounter Summary ---
Author Organization [facility] Address [address] [place] [address] Phone Care Team Providers Care Non Acoustic Operator Name Role Phone Marty Muñoz MD, Miles Unavailable Unavailab Skyler Chino MD Primary Care Provider Urvashi Thomas APRN, ERIC Unavailable [phone]- [phone] Reason for Visit * Reason Comments Medication Refill Encounter Details Date Type Department Care Team (Late st Contact Info) Description 03/27/2022 Refill [facility] - Family Medicine - [place] #2 [place] [address] Skyler Contreras MD #[address] [address] Medication Refill Social History Tobacco Use Types [...] encounter Miscellaneous Notes * Telephone Encounter - Carito Prasad RN - 03/27/2022 11:54 AM CDT PDMP 01/28/22 Medication failed the protocol, provider to review and approve the medication order if appropriate. Requested Prescriptions Pending Prescriptions Disp Refills HYDROcodone-acetaminophen (NORCO) 7.5-325 MG Tablet [Pharmacy Med Name: HYDROCODONE BITARTRATE/ACETAMINOPHEN 7.5-325 TABLET] 90 Tablet 0 Sig: Take 1 Tablet by mouth every 8 hours as needed for Severe pain. Not Delegated - Opioid Combinations Protocol Failed - 03/27/2022 10:08 AM Failed - This refill cannot be delegated Passed - Visit with relevant provider in past 12 months or upcoming 90 days Recent Visits Date Type Provider Dept 12/06/21 Office Visit Skyler Contreras MD [facility] 11/13/21 Telemedicine Bebeto Morin APRN, ERIC [facility] 11/07/21 Telemedicine Bebeto Morin APRN, GRADUATE STUDIES DEAN [facility] [place] 09/27/21 Office Visit Skyler Contreras MD [facility] 09/05/21 Office Visit Skyler Contreras MD [facility] 08/30/21 Office Visit Tobias Strickland MD [facility] 06/05/21 Office Visit Skyler Contreras MD [facility] 05/08/21 Office Visit Bebeto Morin APRN, GRADUATE STUDIES DEAN [facility] [place] Showing recent visits within past 365 days and meeting all other requirements Future Appointments Date Type Provider Dept 04/18/22 Appointment Skyler Contreras MD [facility] Showing future appointments within next 90 days and meeting all other requirements documented in this encounter Plan of Treatment Upcoming Encounters Date Type Department Care Team (Late st Contact Info) Description 04/11/2025 1:00 PM CDT Office Visit [facility] - Pulmonology & Sleep Medicine [facility] #2 [place] [address] Urvashi Thomas APRN, GRADUATE STUDIES DEAN #2 [facility] [address] [place] [address] 06/21/2025 1:15 PM CDT Office Visit [facility] Medical [facility] Family [facility] [place] #2 [place] [address] Skyler Contreras MD #2 [place] [address] documented as of this encounter Visit Diagnoses Diagnosis Chronic pain syndrome documented in this encounter Additional Health Concerns Infection Onset Date Last Indicated Resolved Time COVID - 19 10/25/2022 10/25/2022 11/04/2022 12:1 9 AM ESTIMATE CLERK COVID - 19 01/10/2025 01/10/2025 01/10/2025 10:2 3 AM CDT Respiratory Rule-Out 01/10/2025 01/10/2025 025 10:34 AM CDT Respiratory Rule-Out 01/10/2025 01/10/2025 025 10:58 AM CDT Assessment Noted Time PHQ-9 Depression Total Score: 0 12/04/19 21 10:06 AM ESTIMATE CLERK documented as of this encounter Care Teams Non Acoustic Operator Relationship Specialty Start Date End Date Skyler Contreras MD #2 [place] [address] PCP - General Family Medicine 10/02/17 Miles Ferguson MD Orthopaedic Surgery 05/19/17 Urvashi Thomas APRN, GRADUATE STUDIES DEAN #2 [facility] [address] [place] [address] Nurse Practitioner Advanced Practice Nurse 01/03/22 documented as of this encounter
--- OUTSIDE RECORDS SUMMARY | 2025-02-19 09:24 | XMS_ITS | Encounter Summary ---
Author Organization [facility] Address [address] [place] [address] Phone Care Team Providers Care Glove Turner Name Role Phone Marty Muñoz MD, Miles Unavailable Unavailab Skyler Chino MD Primary Care Provider Urvashi Thomas APRN, ERIC Unavailable [phone]- [phone] Reason for Visit * Reason Comments Medication Refill Encounter Details Date Type Department Care Team (Late st Contact Info) Description 11/20/2022 Refill [facility] - Family Medicine - [place] #2 [place] [address] Skyler Contreras MD #[address] [address] Medication Refill Social History Tobacco Use Types [...] suspected to have Coronavirus/COVID-19? No / Unsure 11/08/2022 9:55 AM ENT CONSULTANT documented as of this encounter Miscellaneous Notes * Telephone Encounter - Leona Armando RN - 11/21/2022 8:07 AM CST PDMP [place] 10/26/22 - Zolpidem 10/22/22 Medication failed the protocol, provider to review and approve the medication order if appropriate. Requested Prescriptions Pending Prescriptions Disp Refills HYDROcodone-acetaminophen (NORCO) 7.5-325 MG Tablet [Pharmacy Med Name: HYDROCODONE/ACETAMINOPHEN 7.5-325 TABLET] 90 Tablet 0 Sig: Take 1 Tablet by mouth every 8 hours as needed for Severe pain. Not Delegated - Opioid Combinations Protocol Failed - 11/20/2022 10:52 AM Failed - This refill cannot be [...] Provider Dept 01/09/23 Appointment Skyler Contreras MD [facility] Showing future appointments within next 90 days and meeting all other requirements zolpidem (AMBIEN) 5 MG Tablet [Pharmacy Med Name: ZOLPIDEM TARTRATE 5MG TABLET] 30 Tablet 0 Sig: TAKE 1 TABLET BY MOUTH NIGHTLY NEEDED FOR SLEEP. There is no refill protocol information for this order CONSULTANT documented in this encounter Plan of Treatment Upcoming Encounters Date Type Department Care Team (Late st Contact Info) Description 04/11/2025 1:00 PM CDT Office Visit [facility] - Pulmonology & Sleep Medicine [facility] #2 [place] [address] Urvashi Thomas APRN, MANAGER STAR #2 [facility] [address] [place] [address] 06/21/2025 1:15 PM CDT Office Visit [facility] Medical [facility] Family [facility] - [place] #2 [facility] [address] Skyler Contreras MD #2 [place] [address] documented as of this encounter Visit Diagnoses [...] Total Score: 0 12/04/19 21 10:06 AM ENT CONSULTANT documented as of this encounter Care Teams Glove Turner Relationship Specialty Start Date End Date Skyler Contreras MD #2 [facility] [address] [place] [address] PCP - General Family Medicine 10/02/17 Miles Ferguson MD Orthopaedic Surgery 05/19/17 Urvashi Thomas APRN, MANAGER STAR #2 [facility] [address] [place] [address] Nurse Practitioner Advanced Practice Nurse 01/03/22 documented as of this encounter
--- OUTSIDE RECORDS SUMMARY | 2025-02-19 09:24 | XMS_ITS | Encounter Summary ---
Author Organization [facility] Address [address] [place] [address] Phone Care Team Providers Care Senior Buyer Name Role Phone Marty Muñoz MD, Miles Unavailable Unavailab Skyler Chino MD Primary Care Provider Urvashi Thomas APRN, ERIC Unavailable [phone] Reason for Visit * Reason Comments Medication Refill Encounter Details Date Type Department Care Team (Late st Contact Info) Description 01/24/2021 Refill [facility] - [place] [address] [place] [address] Skyler Contreras MD #[address] [address] Medication Refill Social History Tobacco Use Types [...] Telephone Encounter - Radha Virk RN - 01/24/2021 12:30 PM CDT Medication failed the protocol, provider to review and approve the medication order if appropriate.Last OV and UDS 12/04/20, PDMP reviewed. Requested Prescriptions Pending Prescriptions Disp Refills HYDROcodone-acetaminophen (NORCO) 5-325 MG Tablet [Pharmacy Med Name: HYDROCODONE/ACETAMINOPHEN 5-325MG TABLET] 90 Tablet 0 Sig: TAKE 1 TAB BY MOUTH EVERY 8 HOURS NEEDED FOR MODERATE OR MORE SEVERE PAIN. DO NOT FILL UNTIL 12/27/2020 Not Delegated - Analgesics: Opioid Agonist Combinations Failed - 01/24/2021 12:30 PM Failed - This refill cannot be delegated Passed - Valid encounter within last 6 months Past Office Visits Recent Outpatient Visits 1 month ago Chronic narcotic use [facility] - Family Medicine - Skyler Smith MD 4 months ago Chronic pain syndrome [facility] - Family Medicine - Skyler Smith MD 5 months ago Irritable bowel syndrome with constipation [facility] - Family Medicine - Bebeto Altamirano APN, ERIC 6 months ago Irritable bowel syndrome with constipation [facility] Family Medicine - Bebeto Altamirano APN, CNP 8 months ago Chronic pain syndrome [facility] Family [facility] - Skyler Smith MD Upcoming Appointments Future Appointments In 1 month Skyler Contreras MD [facility] Family Medicine - [place] In 1 month Urvashi Thomas APN, CNP [facility] PULMONOLOGY, [facility] PIZZA DELIVERY DRIVER - Recent and Past Visits Recent Visits Date Type Provider Dept 12/04/20 Office Visit Skyler Contreras MD [facility] 09/01/20 Office Visit Skyler Contreras MD [facility] 08/01/20 Office Visit Bebeto Morin APN, CNP [facility] 07/13/20 Office Visit Bebeto Morin APN, ERIC [facility] [place] 05/23/20 Office Visit Skyler Contreras MD [facility] 02/21/20 Telemedicine Skyler Contreras MD [facility] 12/21/19 Office Visit Skyler Contreras MD [facility] Showing recent visits within past 460 days with a meds authorizing provider and meeting all other requirements Future Appointments Date Type Provider Dept 03/05/21 Appointment Skyler Contreras MD [facility] Showing future appointments within next 90 days with a meds authorizing provider and meeting all other requirements documented in this encounter Plan of Treatment Upcoming Encounters Date Type Department Care Team (Late st Contact Info) Description 04/11/2025 1:00 PM CDT Office Visit [facility] - Pulmonology & Sleep Medicine - [place] [address] [place] [address] Urvashi Thomas APRN, ERIC #2 [facility] [address] [place] [address] 06/21/2025 1:15 PM CDT Office Visit [facility] - Family Medicine - [place] [address] [place] [address] Skyler Contreras MD #2 [facility] [address] [place] [address] documented as of this encounter Visit Diagnoses Diagnosis Chronic pain syndrome documented in this encounter Additional Health Concerns Infection Onset Date Last Indicated Resolved Time COVID - 19 11/06/2021 11/06/2021 11/06/2021 9:43 AM DRAWING HAND COVID - 19 Confirmed 11/06/2021 11/06/2021 022 12:16 AM DRAWING HAND COVID - 19 10/25/2022 10/25/2022 11/04/2022 12:1 9 AM DRAWING HAND COVID - 19 01/10/2025 01/10/2025 01/10/2025 10:2 3 AM CDT Respiratory Rule-Out 01/10/2025 01/10/2025 025 10:34 AM CDT Respiratory Rule-Out 01/10/2025 01/10/2025 025 10:58 AM CDT Assessment Noted Time PHQ-9 Depression Total Score: 0 12/04/19 21 10:06 AM DRAWING HAND documented as of this encounter Care Teams Senior Buyer Relationship Specialty Start Date End Date Skyler Contreras MD #2 [facility] [address] [place] [address] PCP - General Family Medicine 10/02/17 Miles Ferguson MD Orthopaedic Surgery 05/19/17 Urvashi Thomas APRN, SEED TESTER #2 [facility] [address] [place] [address] Nurse Practitioner Advanced Practice Nurse 01/03/22 documented as of this encounter
--- OUTSIDE RECORDS SUMMARY | 2025-02-19 09:24 | XMS_ITS | Encounter Summary ---
Author Organization [facility] Address [address] [place] [address] Phone Care Team Providers Care Street Worker Name Role Phone Marty Muñoz MD, Miles Unavailable Unavailab Skyler Chino MD Primary Care Provider [phone] Urvashi Thomas APRN, ERIC Unavailable Reason for Visit * Reason Comments Medication Refill Encounter Details Date Type Department Care Team (Late st Contact Info) Description 08/24/2020 Refill [facility] [address] [place] [address] Skyler Contreras MD #[address] [address] Medication Refill Social History Tobacco Use Types Packs/Day Years Used Date Smoking Tobacco: Every Day Cigarettes 0.5 40 Smokeless Tobacco: Never Alcohol Use Standard Drinks/Week Comments No 0 (1 standard drink = 0.6 oz pur e alcohol) PHQ-2 Answer Date Recorded Total Score - Questions 1-9 0 11/28 Education Answer Date Recorded What is the [...] have Coronavirus / COVID-19? No / Unsure 08/23/2020 3:02 PM CDT documented as of this encounter Miscellaneous Notes * Telephone Encounter - Leona Armando RN - 08/24/2020 2:38 PM CDT Last OV 08/01/20 - fol up 09/01/20 Last Rx 07/29/20 - next fill date 08/28/20 No UDS Leona proofer failed the protocol, provider to review and approve the medication order if appropriate. Requested Prescriptions Pending Prescriptions Disp Refills HYDROcodone-acetaminophen (NORCO) 5-325 MG Tablet [Pharmacy Med Name: HYDROCODONE/ACETAMINOPHEN 5-325MG TABLET] 90 Tab 0 Sig: TAKE 1 TAB BY MOUTH EVERY 8 HOURS NEEDED FOR PAIN. DO NOT FILL UNTIL 07/29/2020 Not Delegated - Analgesics: Opioid Agonist Combinations Failed - 08/24/2020 11:06 AM Failed - This refill cannot be delegated Passed - Valid encounter within last 6 months Past Office Visits Recent Outpatient Visits 3 weeks ago Irritable bowel syndrome with constipation [facility] Family [facility] - Bebeto Altamirano APN, ERIC 1 month ago Irritable bowel syndrome with constipation [facility] Bebeto Altamirano APN, ERIC 3 months ago Chronic pain syndrome [facility] Skyler Smith MD 6 months ago Chronic pain syndrome [facility] Skyler Smith MD 8 months ago [facility] Smith MD Upcoming Appointments Future Appointments In 1 week Skyler Contreras MD [facility] Home Golden MD [facility] PULMONOLOGY, [facility] PLANOGRAMMER - Recent and Past Visits Recent Visits Date Type Provider Dept 08/01/20 Office Visit Bebeto Morin APN, ERIC [facility] [place] 07/13/20 Office Visit Bebeto Morin APN, ERIC [facility] 05/23/20 Office Visit Skyler Contreras MD [facility] 02/21/20 Telemedicine Skyler Contreras MD [facility] 12/21/19 Office Visit Skyler Contreras MD [facility] Showing recent visits within past 460 days with a meds authorizing provider and meeting all other requirements Future Appointments Date Type Provider Dept 09/01/20 Appointment Skyler Contreras MD [facility] Showing future appointments within next 90 days with a meds authorizing provider and meeting all other requirements documented in this encounter Plan of Treatment Upcoming Encounters Date Type Department Care Team (Late st Contact Info) Description 04/11/2025 1:00 PM CDT Office Visit [facility] Medical [facility] - Pulmonology & Sleep Medicine - [place] [address] [place] [address] Urvashi Thomas APRN, ERIC #2 [facility] [address] [place] [address] 06/21/2025 1:15 PM CDT Office Visit [facility] Medical [facility] - Family Medicine - [place] [address] [place] [address] Skyler Contreras MD #2 [facility] [address] [place] [address] documented as of this encounter Visit Diagnoses Not on filedocumented in this encounter Additional Health Concerns Infection Onset Date Last Indicated Resolved Time COVID - 19 11/06/2021 11/06/2021 11/06/2021 9:43 AM SPARES SCHEDULER COVID - 19 Confirmed 11/06/2021 11/06/2021 022 12:16 AM SPARES SCHEDULER COVID - 19 10/25/2022 10/25/2022 11/04/2022 12:1 9 AM SPARES SCHEDULER COVID - 19 01/10/2025 01/10/2025 01/10/2025 10:2 3 AM CDT Respiratory Rule-Out 01/10/2025 01/10/2025 025 10:34 AM CDT Respiratory Rule-Out 01/10/2025 01/10/2025 025 10:58 AM CDT Assessment Noted Time PHQ-9 Depression Total Score: 0 12/21/19 20 3:23 PM SPARES SCHEDULER documented as of this encounter Care Teams Street Worker Relationship Specialty Start Date End Date Skyler Contreras MD #2 [facility] [address] [place] [address] PCP - General Family Medicine 10/02/17 Miles Ferguson MD Orthopaedic Surgery 05/19/17 Urvashi Thomas, EXPERIENCE DESIGNER, STRUCTURAL STEEL ENGINEER #2 [facility] [address] [place] [address] Nurse Practitioner Advanced Practice Nurse 01/03/22 documented as of this encounter
--- OUTSIDE RECORDS SUMMARY | 2025-02-19 09:24 | XMS_ITS | Encounter Summary ---
Author Organization [facility] Address [address] [place] [address] Phone Care Team Providers Care Fly Setter Name Role Phone Marty Muñoz MD, Miles Unavailable Unavailab Skyler Chino MD Primary Care Provider Urvashi Thomas APRN, ERIC Unavailable [phone]- [phone] Reason for Visit * Reason Comments Medication Refill Encounter Details Date Type Department Care Team (Late st Contact Info) Description 11/10/2023 Refill [facility] - Family Medicine - [place] [address]2 [place] [address] Skyler Contreras MD #[address] [address] Medication Refill Social History Tobacco Use Types [...] Telephone Encounter - Leona Armando RN - 11/10/2023 3:07 PM CST PDMP [place] 10/17/23 - Zolpidem 10/15/23 Medication failed the protocol, provider to review and approve the medication order if appropriate. Requested Prescriptions Pending Prescriptions Disp Refills zolpidem (AMBIEN) 5 MG Tablet [Pharmacy Med Name: ZOLPIDEM 5MG TABLETS] 30 Tablet 0 Sig: Take 1 Tablet by mouth nightly as needed for Sleep. Not Delegated - Off Protocol Failed - 11/10/2023 12:02 PM Failed - This refill cannot be delegated Passed - Visit with relevant provider in past 12 months or upcoming 90 days Recent Visits Date Type Provider Dept 09/22/23 Telemedicine Skyler Contreras MD [facility] 09/09/23 Office Visit Skyler Contreras MD [facility] 09/03/23 Telemedicine Skyler Contreras MD [facility] 08/20/23 Office Visit Skyler Contrreas MD [facility] 07/23/23 Office Visit Skyler Contreras MD [facility] 04/16/23 Office Visit Skyler Contreras MD [facility] 01/09/23 Office Visit Skyler Contreras MD [facility] Showing recent visits within past 365 days and meeting all other requirements Future Appointments Date Type Provider Dept 11/20/23 Appointment Skyler Contreras MD [facility] Showing future appointments within next 90 days and meeting all other requirements HYDROcodone-acetaminophen (NORCO) 7.5-325 MG Tablet 90 Tablet 0 Sig: Take 1 Tablet by mouth every 8 hours as needed for Severe pain. There is no refill protocol information for this order TATION SUPERVISOR * Telephone Encounter - Leydi James MA - 11/10/2023 1:45 PM SANITATION SUPERVISOR Pdmp 10/17/23 [place] 7.5-325 mg tabs 30 day supply 90 quant TATION SUPERVISOR documented in this encounter Plan of Treatment Upcoming Encounters Date Type Department Care Team (Late st Contact Info) Description 04/11/2025 1:00 PM CDT Office Visit [facility] - Pulmonology & Sleep Medicine [facility] #2 [place] [address] Urvashi Thomas APRN, REGIONAL MARKETING DIRECTOR #2 [facility] [address] [place] [address] 06/21/2025 1:15 PM CDT Office Visit [facility] Medical [facility] - Family Medicine - [place] #2 [facility] [address] Skyler Contreras MD #2 [facility] [address] [place] [address] documented as of this encounter Visit Diagnoses [...] Total Score: 0 12/04/19 21 10:06 AM SANITATION SUPERVISOR documented as of this encounter Care Teams Fly Setter Relationship Specialty Start Date End Date Skyler Contreras MD #2 [facility] [address] [place] [address] PCP - General Family Medicine 10/02/17 Miles Ferguson MD Orthopaedic Surgery 05/19/17 Urvashi Thomas APRN, REGIONAL MARKETING DIRECTOR #2 [place] [id number] Nurse Practitioner Advanced Practice Nurse 01/03/22 documented as of this encounter
--- OUTSIDE RECORDS SUMMARY | 2025-02-19 09:24 | XMS_ITS | Clinical Summary ---
Author Organization [facility] [address] [place] [address] Care Team Providers Care Poultry Processing Supervisor Name Role Phone Skyler Contreras MD Primary Care Provider [phone] Allergies No known active allergies Medications acetaminophen-c odeine (TYLENOL with CODEINE #4) 300-60 mg per tablet 7 Active teriparatide (FORTEO) 20 mcg/dose - 600 mcg/2.4 mL injection Inject 0.08 mL (20 mcg total) under the skin daily. 2.4 mL 11 8 Active Additional Information Patient not taking.Reported on 10/13/2023 HYDROcodone-michelle taminophen (NORCO) 7.5-325 mg per tabletIndicatio ns:Pain Take 1 tablet by mouth every 8 hours as needed for pain 60 tablet 8 Active omeprazole (PriLOSEC) 20 mg capsule Take 1 capsule (20 mg total) by mouth daily Active zolpidem (AMBIEN) 5 mg tabletIndicatio ns:Sleep-Onset Insomnia Take 1 tablet (5 mg total) by mouth nightly as needed for sleep Active Active Problems Problem Noted Date Diagnosed Date Seasonal allergic rhinitis due to pollen 024 Assessment & Plan (01/23/2024 12:00 PM CDT): Nasal saline spray (Simply saline, Little Remedies, Bloomingdale, Tatums) 2 second sprays or 2 squeezes into each nostril while looking down over the sink, do not need to sniff in. Followed by Nasonex 2 sprays into each nostril while looking down over the sink, do not sniff in or blow nose after use for at least 30 minutes daily Add Cetirizine as needed Chronic ethmoidal sinusitis 10/13/2023 Assessment & Plan (10/13/2023 11:20 AM MERCHANDISE STOCKER): Nasal saline spray (Simply saline, Little Remedies, Bloom[place]dale, Tatums) 2 second sprays or 2 squeezes into each nostril while looking down over the sink, do not need to sniff in. Followed by Nasonex 2 sprays into each nostril while looking down over the sink, do not sniff in or blow nose after use for at least 30 minutes daily Doxycycline twice daily for [address] sinus in 4 weeks Follow up in 6 weeks to review Surgical History Surgery Date Site/Laterality Comments HYSTERECTOMY ECTOPIC SURGERY HYSTERECTOMY Total Hysterectomy - (Added by TW Conv) BACK SURGERY Back Surgery - (Added by TW Conv) FL UPPER GI AIR CONTRAST W KUB 10/28/2018 Left FL UPPER GI AIR CONTRAST W KUB 05/17/2016 Left Medical History Medical History Date Comments Personal history of other di seases of the digestive system History of irritable bowel s yndrome - (Added by TW Conv) Pain in left shoulder Shoulder p ain, left - (Added by TW Conv) Personal history of tuberculosis H/O TB (tuberculosis) - (Added by TW Conv) Personal history of other di seases of the digestive system History of constipation - (A dded by TW Conv) Family History Medical History Relation Name Comments No Known Problems Father No Known Problems Mother Relation Name Status Comments Father Mother Social History Tobacco Use Types Packs/Day Years Used Date Smoking Tobacco: Every Day Cigarettes Smokeless Tobacco: Never Personal Safety Answer Date Recorded Getting School Help Needed Not on file 10/11 Comments Unknown Sex and Gender Information Value Date Recorded Sex Assigned at Not on file Legal Sex Female 7:58 PM MERCHANDISE STOCKER Gender Identity Not on file Sexual Orientation Not on file 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 Not on file Not on reynaldo e Obstetrics History Last Filed Vital Signs Vital Sign Reading Time Taken Comments Blood Pressure 96/60 01/23/2024 11:26 AM CDT Pulse 66 01/23/2024 11:26 AM CDT Temperature 36.1 C (97 F) 01/23/2024 11:26 AM CDT Respiratory Rate - - Oxygen Saturation 99% 01/23/2024 11: 26 AM CDT Inhaled Oxygen Concentration - - Weight 55.2 kg (121 lb 12.8 oz) 024 11:26 AM CDT Height 165.1 cm (5' 5 ) 01/23/2024 11:2 6 AM CDT Body Mass Index 20.27 01/23/2024 11:26 AM CDT Plan of Treatment Health Maintenance Due Date Last Done Comments Colon Cancer Screening-Colonoscopy 1960 Depression Screening 1960 Hepatitis C Screening 1960 Hepatitis B Screening 1978 Regular Well Visit/Exam 18-64 1978 Breast Cancer Screening-Mammogram 09/06/2023 09/06/2022, 07/04/2021, 07/04/2021, Additional history exists Pneumococcal vaccine <65 (3 of 3 - PCV20 or PCV21) 05/23/2025 05/23/2020, 08/22/2017 DTaP/Tdap/Td Vaccine (2 - Td or Tdap) 05/29/2025 05/29/2015 Influenza Vaccine (Season Ended) 2025 07/23/2023, 07/23/2022, 09/05/2021, Additional history exists Zoster Vaccine Completed 05/05/2019, 11/12/2018 Insurance IDPA [facility] Care Teams Poultry Processing Supervisor Relationship Specialty Start Date End Date Skyler Contreras MD [address] [address] PCP - General 01/07/18
--- OUTSIDE RECORDS SUMMARY | 2025-02-19 09:24 | XMS_ITS | Encounter Summary ---
Author Organization [facility] Address [address] [place] [address] Phone Care Team Providers Care Director Mission Name Role Phone Marty Muñoz MD, Miles Unavailable Unavailab Skyler Chino MD Primary Care Provider Urvashi Thomas APRN, ERIC Unavailable [phone]- [phone] Reason for Visit * Reason Comments Medication Refill Encounter Details Date Type Department Care Team (Late st Contact Info) Description 09/23/2022 Refill [facility] - Family Medicine - [place] #2 [place] [address] Skyler Contreras MD #[address] [address] Medication Refill Social History Tobacco Use Types [...] suspected to have Coronavirus/COVID-19? No / Unsure 09/06/2022 2:02 PM LOADING MACHINE OPERATOR documented as of this encounter Miscellaneous Notes * Telephone Encounter - Jaky Frias RN - 09/23/2022 10:15 AM LOADING MACHINE OPERATOR PDMP 08/26/2022 #90 Medication failed the protocol, provider to review and approve the medication order if appropriate. Requested Prescriptions Pending Prescriptions Disp Refills HYDROcodone-acetaminophen (NORCO) 7.5-325 MG Tablet [Pharmacy Med Name: HYDROCODONE/ACETAMINOPHEN 7.5-325 TABLET] 90 Tablet 0 Sig: TAKE ONE (1) TABLET BY MOUTH EVERY EIGHT (8) HOURS NEEDED FOR SEVERE PAIN Not Delegated - Opioid Combinations Protocol Failed - 09/23/2022 10:05 AM Failed - This refill cannot be [...] 90 days and meeting all other requirements ING MACHINE OPERATOR documented in this encounter Plan of Treatment Upcoming Encounters Date Type Department Care Team (Late st Contact Info) Description 04/11/2025 1:00 PM CDT Office Visit [facility] Medical [facility] - Pulmonology & Sleep Medicine - [place] #2 [place] [address] Urvashi Thomas APRN, PERCUSSION INSTRUMENT TUNER #2 [facility] [address] [place] [address] 06/21/2025 1:15 PM CDT Office Visit [facility] - Family [facility] - [place] #2 [place] [address] Skyler Contreras MD #2 [facility] [address] [place] [address] documented as of this encounter Visit Diagnoses Diagnosis Chronic pain syndrome documented in this encounter Additional Health Concerns Infection Onset Date Last Indicated Resolved Time COVID - 19 10/25/2022 10/25/2022 11/04/2022 12:1 9 AM LOADING MACHINE OPERATOR COVID - 19 01/10/2025 01/10/2025 01/10/2025 10:2 3 AM CDT Respiratory Rule-Out 01/10/2025 01/10/2025 025 10:34 AM CDT Respiratory Rule-Out 01/10/2025 01/10/2025 025 10:58 AM CDT Assessment Noted Time PHQ-9 Depression Total Score: 0 12/04/19 21 10:06 AM LOADING MACHINE OPERATOR documented as of this encounter Care Teams Director Mission Relationship Specialty Start Date End Date Skyler Contreras MD #2 [facility] [address] [place] [address] PCP - General Family Medicine 10/02/17 Miles Ferguson MD Orthopaedic Surgery 05/19/17 Urvashi Thomas APRN, PERCUSSION INSTRUMENT TUNER #2 [facility] [address] [place] [address] Nurse Practitioner Advanced Practice Nurse 01/03/22 documented as of this encounter
--- OUTSIDE RECORDS SUMMARY | 2025-02-19 09:24 | XMS_ITS | Encounter Summary ---
Author Organization [facility] Address [address] [place] [address] Phone Care Team Providers Care Closing Supervisor Name Role Phone Marty Muñoz MD, Miles Unavailable Unavailab Skyler Chino MD Primary Care Provider [phone] Urvashi Thomas APRN, ERIC Unavailable Reason for Visit * Reason Comments Medication Refill Encounter Details Date Type Department Care Team (Late st Contact Info) Description 10/23/2020 Refill [facility] [address] [place] [address] Skyler Contreras MD #[address] [address] Medication Refill Social History Tobacco Use Types [...] have Coronavirus / COVID-19? No / Unsure 09/26/2020 10:06 AM [employer] documented as of this encounter Miscellaneous Notes * Telephone Encounter - Dwayne Lassiter RN - 10/26/2020 12:43 PM CST Patient calling and states she is completely out of her Hydrocodone. States her pharmacy closes at 1500 today. States she called for this 3 days ago. Informed caller that RN will send a note to office now and call back. Please review Thanks. [employer] * Telephone Encounter - Lizzie Wong RN - 10/26/2020 9:48 AM [employer] Patient calling to check the status of this refill request Advised patient that this request is currently in process Patient reports the pharmacy closes at 3pm today and she will not have any medication left after today Patient is requesting to have this request as soon as possible Routing to provider for review and approval. Thanks! [employer] * Telephone Encounter - Leona Armando RN - 10/24/2020 9:09 AM CST [place] PD[place] 09/26/20 - post date 10/26/20 Medication failed the protocol, provider to review and approve the medication order if appropriate. Requested Prescriptions Pending Prescriptions Disp Refills HYDROcodone-acetaminophen (NORCO) 5-325 MG Tablet [Pharmacy Med Name: HYDROCODONE/ACETAMINOPHEN 5-325MG TABLET] 90 Tab 0 Sig: TAKE 1 TAB BY MOUTH EVERY 8 HOURS NEEDED FOR PAIN. Not Delegated - Analgesics: Opioid Agonist Combinations Failed - 10/23/2020 9:37 AM Failed - This refill cannot be delegated Passed - Valid encounter within last 6 months Past Office Visits Recent Outpatient Visits 1 month ago Chronic pain syndrome [facility] - Family Medicine - Skyler Smith MD 2 months ago Irritable bowel syndrome with constipation [facility] Bebeto Altamirano APN, ERIC 3 months ago Irritable bowel syndrome with const[facility] Bebeto Altamirano APN, ERIC 5 months ago [facility] Skyler Smith MD 8 months ago Chronic pain syndrome [facility] Skyler Smith MD Upcoming Appointments Future Appointments In 1 month Skyler Contreras MD [facility] month Home Golden MD [facility] PULMON[facility], [facility] ENVIRONMENTAL COMPLIANCE MANAGER - Recent and Past Visits Recent Visits Date Type Provider Dept 09/01/20 Office Visit Skyler Contreras MD [facility] 08/01/20 Office Visit Bebeto Morin APN, ERIC [facility] [place] 07/13/20 Office Visit Bebeto Morin APN, ERIC [facility] [place] 05/23/20 Office Visit Skyler Contreras MD [facility] 02/21/20 Telemedicine Skyler Contreras MD [facility] 12/21/19 Office Visit Skyler Contreras MD [facility] [place] Showing recent visits within past 460 days with a meds authorizing provider and meeting all other requirements Future Appointments Date Type Provider Dept 12/04/20 Appointment Skyler Contreras MD [facility] Showing future appointments within next 90 days with a meds authorizing provider and meeting all other requirements [employer] documented in this encounter Plan of Treatment Upcoming Encounters Date Type Department Care Team (Late st Contact Info) Description 04/11/2025 1:00 PM CDT [facility] - [place] [address] [place] [address] Urvashi Thomas APRN, ERIC [address] [address] 06/21/2025 1:15 PM CDT Office Visit [facility] - Family [facility] [address] [place] [address] Skyler Contreras MD #[address] [address] documented as of this encounter Visit Diagnoses Diagnosis Chronic pain syndrome- Primary documented in this encounter Additional Health Concerns Infection Onset Date Last Indicated Resolved Time COVID - 19 11/06/2021 11/06/2021 11/06/2021 9:43 AM [employer] COVID - 19 Confirmed 11/06/2021 11/06/2021 022 12:16 AM [employer] COVID - 19 10/25/2022 10/25/2022 11/04/2022 12:1 9 AM [employer] COVID - 19 01/10/2025 01/10/2025 01/10/2025 10:2 3 AM CDT Respiratory Rule-Out 01/10/2025 01/10/2025 025 10:34 AM CDT Respiratory Rule-Out 01/10/2025 01/10/2025 025 10:58 AM CDT Assessment Noted Time PHQ-9 Depression Total Score: 0 12/21/19 20 3:23 PM [employer] documented as of this encounter Care Teams Closing Supervisor Relationship Specialty Start Date End Date Skyler Contreras MD #[address] [address] PCP - General Family Medicine 10/02/17 Miles Ferguosn MD Orthopaedic Surgery 05/19/17 Urvashi Thomas, GUI, RECORDS OFFICER #[address] [address] Nurse Practitioner Advanced Practice Nurse 01/03/22 documented as of this encounter
--- OUTSIDE RECORDS SUMMARY | 2025-02-19 09:24 | XMS_ITS | Encounter Summary ---
Author Organization [facility] Address [address] [place] [address] Phone Care Team Providers Care Multimedia Assistant Name Role Phone Marty Muñoz MD, Miles Unavailable Unavailab Skyler Chino MD Primary Care Provider Urvashi Thomas APRN, ERIC Unavailable [phone] Reason for Visit * Reason Comments Medication Refill Encounter Details Date Type Department Care Team (Late st Contact Info) Description 02/21/2021 Refill [facility] - [facility] Medicine - [place] [address] [place] [address] Skyler Contreras MD #[address] [address] Medication Refill Social History Tobacco Use Types [...] encounter Miscellaneous Notes * Telephone Encounter - Bouchra Deras RN - 02/21/2021 3:49 PM CDT [place] last fill date 01/24/21 Medication failed the protocol, provider to review and approve the medication order if appropriate. Requested Prescriptions Pending Prescriptions Disp Refills HYDROcodone-acetaminophen (NORCO) 5-325 MG Tablet [Pharmacy Med Name: HYDROCODONE/ACETAMINOPHEN 5-325MG TABLET] 90 Tablet Sig: TAKE 1 TAB BY MOUTH EVERY 8 HOURS NEEDED FOR MODERATE OR MORE SEVERE PAIN. [email or web address] Not Delegated - Analgesics: Opioid Agonist Combinations Failed - 02/21/2021 3:49 PM Failed - This refill cannot be delegated Passed - Valid encounter within last 6 months Past Office Visits Recent Outpatient Visits 2 months ago Chronic narcotic use [facility] - Skyler Smith MD 5 months ago Chronic pain syndrome [facility] Skyler Smith MD 6 months ago Irritable bowel syndrome with constipation [facility] - Bebeto Altamirano APN, ERIC 7 months ago [facility]ritable bowel [facility] Bebeto Altamirano APN, ERIC 9 months ago [facility] Skyler Smith MD Upcoming Appointments Future Appointments In 1 week Skyler Contreras MD [facility] Family Medicine - [place] In 3 weeks Urvsahi Thomas APN, ERIC [facility] - Pulmonology & Sleep [facility] - Recent and Past Visits Recent Visits Date Type Provider Dept 12/04/20 Office Visit Skyler Contreras MD [facility] 09/01/20 Office Visit Skyler Contreras MD [facility] 08/01/20 Office Visit Bebeto Morin APN, CNP [facility] [place] 07/13/20 Office Visit Bebeto Morin APN, ROLLER MILL TENDER [facility] 05/23/20 Office Visit Skyler Contreras MD [facility] [...] 04/11/2025 1:00 PM CDT Office Visit [facility] - Pulmonology & Sleep Medicine - [place] [address] [place] [address] Urvashi Thomas APRN, ROLLER MILL TENDER #2 [facility] [address] [place] [address] 06/21/2025 1:15 PM CDT Office Visit [facility] - Family Medicine - [place] [address] [place] [address] Skyler Contreras MD #2 [facility] [address] [place] [address] documented as of this encounter Visit Diagnoses Diagnosis Chronic pain syndrome documented in this encounter Additional Health Concerns Infection Onset Date Last Indicated Resolved Time COVID - 19 11/06/2021 11/06/2021 11/06/2021 9:43 AM [employer]ING [employer] COVID - 19 Confirmed 11/06/2021 11/06/2021 022 12:16 AM RING MAKER COVID - 19 10/25/2022 10/25/2022 11/04/2022 12:1 9 AM RING MAKER COVID - 19 01/10/2025 01/10/2025 01/10/2025 10:2 3 AM CDT Respiratory Rule-Out 01/10/2025 01/10/2025 025 10:34 AM CDT Respiratory Rule-Out 01/10/2025 01/10/2025 025 10:58 AM CDT Assessment Noted Time PHQ-9 Depression Total Score: 0 12/04/19 21 10:06 AM [employer] documented as of this encounter Care Teams Multimedia Assistant Relationship Specialty Start Date End Date Skyler Contreras MD #2 [facility] [address] [place] [address] PCP - General Family Medicine 10/02/17 iMles Ferguson MD Orthopaedic Surgery 05/19/17 Urvashi Thoams APRN, ROLLER MILL TENDER #2 [facility] [address] [place] [address] Nurse Practitioner Advanced Practice Nurse 01/03/22 documented as of this encounter
--- OUTSIDE RECORDS SUMMARY | 2025-02-19 09:24 | XMS_ITS | Clinical Summary ---
Author Organization [facility] Address [address] [place] [address] Phone Care Team Providers Care Machine Oiler Name Role Phone Marty Muñoz MD, Miles Unavailable Unavailab Skyler Chino MD Primary Care Provider [phone] Urvashi Thomas APRN, ASSISTANT DISTRICT ATTORNEY Unavailable [phone] Allergies No known active allergies Medications Respiratory Therapy Supplies (NEBULIZER) Device Use as directed 1 Each 02/28/20 20 Active IPRATROPIUM-AL BUTEROL IN by Nebulization route as needed. Active Vitamin D3 1000 UNIT Tablet TAKE 1 TABLET BY MOUTH IN THE MORNING 90 Tablet 3 07/29/20 22 Active esomeprazole (NexIUM) 20 MG CAPSULE DELAYED RELEASEIndicat ions:Gastroeso phageal reflux disease, unspecified whether esophagitis present Take 1 Capsule by mouth daily. 90 Capsule 3 11/20/19 24 Active omeprazole (PriLOSEC) 20 MG CAPSULE DELAYED RELEASE Take 20 mg by mouth daily. Active mometasone furo-formotero l fum (Dulera) 100-5 MCG/ACT AerosolIndicat ions:Panlobula r emphysema (HCC) take 2 Puffs by inhalation every 12 hours. 13 g 3 06/18/20 24 Active fluticasone (FLONASE) 50 MCG/ACT SuspensionIndi cations:Season al allergies 1-2 Sprays by Nasal route daily. Use in each nostril as directed. 18.2 mL 1 12/29/19 25 Active Ventolin HFA 108 (90 Base) MCG/ACT Aerosol Solution take 2 Puffs by inhalation every 4 hours as needed (SHORTNESS OF BREATH). 18 g 01/06/20 25 Active HYDROcodone-ac etaminophen (NORCO) 7.5-325 MG TabletIndicati ons:Chronic pain syndrome Take 1 Tablet by mouth every 8 hours as needed for Severe pain. 90 Tablet 02/01/20 25 Active zolpidem (AMBIEN) 5 MG TabletIndicati ons:Insomnia, unspecified type Take 1 Tablet by mouth nightly as needed for Sleep. 30 Tablet 02/05/20 25 Active HYDROcodone-ac etaminophen (NORCO) 7.5-325 MG TabletIndicati ons:Chronic pain syndrome Take 1 Tablet by mouth every 8 hours as needed for Severe pain. 90 Tablet 01/02/20 25 2024 Discontinued(R eorder) zolpidem (AMBIEN) 5 MG TabletIndicati ons:Insomnia, unspecified type Take 1 Tablet by mouth nightly as needed for Sleep. 30 Tablet 01/07/20 25 2024 Discontinued Active Problems Problem Noted Date Diagnosed Date Therapeutic drug monitoring 02/15/2025 Frequent UTI 02/15/2025 Seasonal allergies 11/20/2023 SOB (shortness of breath) 09/03/2023 Chest tightness 09/03/2023 Urinary retention 09/03/2023 Dysuria 08/20/2023 Chronic ethmoidal sinusitis 07/23/2023 Hyperlipidemia 05/08/2023 Dizziness 04/16/2023 Nail deformity 04/16/2023 RUQ pain 01/09/2023 Insomnia 10/10/2022 Noncompliance 07/23/2022 Hives 07/23/2022 Hematuria 07/23/2022 Psychophysiological insomnia 01/03/2022 Skin lesion of right arm 09/05/2021 Gastroesophageal reflux disease 03/05/2021 Irritable bowel syndrome with constipation 07/13 Chronic narcotic use 05/23/2020 Nodule of right lung 02/28/2020 Hyperglycemia 12/21/2019 Foraminal stenosis of lumbar region 11/16/2018 Fusion of spine of lumbar region 10/01/2018 Sacroiliac dysfunction 06/22/2018 Sciatica of right side 06/22/2018 Personal history of tobacco use 06/01/2018 Thoracic outlet syndrome 03/05/2018 B12 deficiency 02/12/2018 Chronic neck pain 01/25/2018 History of back surgery 10/21/2017 Vitamin D deficiency 10/21/2017 Numbness and tingling of both feet 10/21/2017 Chronic pain syndrome 10/21/2017 Disability examination 07/02/2017 Panlobular emphysema 06/05/2017 Lumbar radiculopathy 05/19/2017 Carpal tunnel syndrome, right 05/19/2017 Grief reaction Encounters Date Type Department Care Team Description 02/15/2025 1:30 PM CDT Office Visit [facility] [address] [place] [address] Skyler Contreras MD Frequent UTI (Primary Dx); Encounter for screening mammogram for breast cancer; Therapeutic drug monitoring Discharge Disposition: Discharged to home or Selfcare 02/13/2025 Travel 02/04/20[facility] [place] [address] Skyler Contreras MD Medication Refill 01/27/2025 [facility] [place] [address] Skyler Contreras MD Medication Refill 01/10/2025 10:00 AM CDT Office Visit [facility] [address] [place] [address] Bebeto Morin APRN, ERIC Acute viral syndrome (Primary Dx); Cough, unspecified type; Diarrhea, unspecified type; Sore throat Discharge Disposition: Discharged to home or Selfcare 01/10/2025 Travel 01/10/2025 Nurse Triage [facility] [address] [place] [address] [phone] Skyler Contreras MD Advice Only; Cough; Sore Throat; Fatigue 01/05/2025 [facility] [place] [address] Skyler Contreras MD Medication Refill 12/28/2024 [facility] [place] [address] Skyler Contreras MD Medication Refill 12/06/2024 Refill [facility] [place] [address] Skyler Contreras MD Medication Refill 12/01/2024 [facility] [address] [place] [address] [phone] Skyler Contrears MD Medication Refill from Last 3 Months Immunizations Immunization Administration Dates Next Due Covid-19, Mrna, Lnp-s, Pf, 3 0 Mcg/0.3 Ml Dose ([employer]) 06/01/2021 Influenza Vaccine greater than 3 yrs 07/04/2015, 10/27/2013 Influenza Vaccine, Quadrivalent, PF 06/28,07/23/2022,09/05/2021,07/13,12/21/2019,10/09/2018,08/13/2017 ,08/12/2016 04/01/2017 Influenza, Seasonal, Injecta ble, Undefined 07/04/2015,10/27/2013 Influenza,Split Virus,Trivalent,Injectable,PF 07/21/2024 Pneumococcal Vaccine - 13 Valent 05/23/2020 Pneumococcal Vaccine Adult - 23 Valent 08/22/2017 TDAP Vaccine 05/29/2015 Zoster Vaccine Recombinant 05/05/2019,11/12/2018 Family History Medical History Relation Name Comments Other-comment Brother sarcoma No Known Problems Father Jason No Known Problems Mother Gabriella Relation Name Status Comments Brother Father Jason Alive Mother Gabriella Alive Social History Tobacco Use Types Packs/Day Years Used Date Smoking Tobacco: Every Day Cigarettes 0.5 48.3 Started: 11/15/1976 Smokeless Tobacco: Never Tobacco Cessation:Ready to Q uit: No; Counseling Given: Yes Alcohol Use Standard Drinks/Week Comments Not Currently 0 (1 standard drink = 0.6 oz pur e alcohol) [facility] Utilities Answer Date Recorded In the past 12 months has th e electric, gas, oil, or water company threatened to shut off services in your home? No 02/13/2025 Social Connection and Isolation Panel [NHANES] A nswer Date Recorded In a typical week, how many times do you talk on the phone with family, friends, or neighbors? Once a week 02/13/2025 How often do you get together with friends or re latives? Once a week 02/13/2025 How often do you attend anabaptism or buddhism serv ices? Never 02/13/2025 Do you belong to any clubs o r organizations such as anabaptism groups, unions, fraternal or athletic groups, or school groups? No 02/13/2025 How often do you attend meet ings of the clubs or organizations you belong to? Never 02/13/2025 Are you , , di vorced, , never , or living with a partner? 02/13/2025 AUDIT-C Answer Date Recorded Q1: How often do you have a drink containing alcohol? Never 02/13/2025 Q2: How many drinks containi ng alcohol do you have on a typical day when you are drinking? Patient does not drink Q3: How often do you have si x or more drinks on one occasion? Never 02/13/2025 Overall Financial Resource Strain (CARDIA) Answe r Date Recorded How hard is it for you to pa y for the very basics like food, housing, medical care, and heating? Not hard at all 02/13/2025 PHQ-2 Answer Date Recorded Total Score - Questions 1-9 0 12/25 [facility] - Occupational Stress Questionnaire Answer Date Recorded Do you feel stress - tense, restless, nervous, or anxious, or unable to sleep at night because your mind is troubled all the time - these days? Not at all 02/13/2025 Exercise Vital Sign Answer Date Recorde d On average, how many days pe r week do you engage in moderate to strenuous exercise (like a brisk walk)? 3 days 02/13/2025 On average, how many minutes do you engage in exercise at this level? 10 min 02/13/2025 Hunger Vital Sign Answer Date Recorded Within the past 12 months, y ou worried that your food would run out before you got the money to buy more. Never true 02/14/20 25 Within the past 12 months, t he food you bought just didn't last and you didn't have money to get more. Never true 02/13/2025 PRAPARE - Transportation Answer Date Re corded In the past 12 months, has l ack of transportation kept you from medical appointments or from getting medications? No 01/26 In the past 12 months, has l ack of transportation kept you from meetings, work, or from getting things needed for daily living? No 02/13/2025 Housing Stability Vital Sign Answer Jeyson e [...] place to sleep or slept in a senior living (including now)? No 02/29/2024 Housing Stability Vital Sign Answer Jeyson e Recorded In the last 12 months, was t here a time when you were not able to pay the mortgage or rent on time? No 02/13/2025 In the past 12 months, how m any times have you moved where you were living? 0 02/13/2025 At any time in the past 12 m [facility], were you homeless or living in a senior living (including now)? No 02/13/2025 Education Answer Date Recorded What is the [...] file Not on file Not on file Last Filed Vital Signs Vital Sign Reading Time Taken Comments Blood Pressure 110/76 02/15/2025 1:21 PM CDT Pulse 74 02/15/2025 1:21 PM CDT Temperature 36.2 C (97.2 F) 02/15/2025 1:21 PM CDT Respiratory Rate 12 01/10/2025 10:02 AM CDT Oxygen Saturation 98% 02/15/2025 1:21 PM CDT Inhaled Oxygen Concentration - - Weight 54 kg (119 lb) 02/15/2025 1:21 PM CDT Height 165.1 cm (5' 5 ) 02/15/2025 1:21 PM CDT Body Mass Index 19.8 02/15/2025 1:21 PM CDT Plan of Treatment Upcoming Encounters Date Type Department Care Team (Late st Contact Info) Description 04/11/2025 1:00 PM CDT Office Visit [facility] - Pulmonology & Sleep Medicine [facility] [address] [place] [address] Urvashi Thomas APRN, ASSISTANT DISTRICT ATTORNEY #2 [facility] [address] [place] [address] 06/21/2025 1:15 PM CDT Office Visit [facility] - [place] [address] [place] [phone] Skyler Contreras MD #2 [facility] [address] [place] [address] Health Maintenance Due Date Last Done Comments Aleisha 2010 Respiratory Syncytial Virus (RSV) Immunization (Adult) (1 - Risk 60-74 years 1-dose series) 2020 Immunochemical Fecal Occult Blood 05/29/2022 05/29/2021 SARS-COV-2 Immunization ( season) 2024 06/22/2021, 06/01/2021 Lung Cancer Screening 07/28/2024 07/28/2023 , 08/02/2022, 07/04/2021, Additional history exists Mammogram 01/29/2025 01/30/2024, 08/27, 07/04/2021, Additional history exists Pneumococcal Immunization (50+ years) (3 of 3 - PCV20 or PCV21) 05/23/2025 05/23/2020, 08/22/2017 Td Immunization Every 10 Years (Adults With 1 Tdap) 05/29/2025 05/29/2015 Colonoscopy 11/27/2025 11/27/2020, 06/07/2015 Colorectal Cancer Screening 11/27/2025 11/27/2020, 06/07/2015 Hepatitis C Virus (HCV) Screening Completed 10/21/2017 Zoster Immunization Completed 05/05/2019, 9 Pneumococcal Immunization Combined Discontinued 05/23/2020, 08/22/2017 Influenza Immunization Completed 4, 07/23/2023, 07/23/2022, Additional history exists Hepatitis B Immunization Aged Out No longer eligible based on patient's age to complete this topic Meningococcal Immunization (ACWY) Aged Out No longer eligible based on patient's age to complete this topic Rotavirus Immunization Aged Out No lo nger eligible based on patient's age to complete this topic Procedures Procedure Name Priority Date/Time Associated Diagnosis Comments POCT UA AUTOMATED W/O MICRO Routine 02/15/2025 2:19 PM CDT Frequent UTI URINE DRUG SCREEN Today 02/15/2025 Therapeutic drug monitoring POC INFLUENZA A AND B BY MOLECULAR Routine 01/10/2025 10:42 AM CDT Cough, unspecified type Diarrhea, unspecified type Sore throat POC INFLUENZA A AND B BY MOLECULAR Routine 01/10/2025 10:18 AM CDT Cough, unspecified type POC GROUP A STREP BY MOLECULAR Routine 01/10/2025 10:10 AM CDT Cough, unspecified type Diarrhea, unspecified type Sore throat POC SARS-COV-2 BY MOLECULAR Routine 01/10/2025 10:05 AM CDT Cough, unspecified type Diarrhea, unspecified type Sore throat NERY SCREENING BILATERAL DIGITAL W CAD W JEFF Routine 01/30/2024 10:46 AM CDT Encounter for screening mammogram for breast cancer CT CHEST W/O CONTRAST Routine 07/28/2023 12:46 PM CDT Nodule of right lung STOOL, OCCULT BLOOD, DIAGNOSTIC, VIA GUAIAC STAT 05/29/2021 4:39 PM CDT HEPATITIS C ANTIBODY Routine 10/21/2017 3:51 PM TRIAGE NURSE Encounter for hepatitis C screening test for low risk patient HM COLONOSCOPY Routine 06/07/2015 from Last 3 Months or Most Recently Relevant to Health Maintenance Results * POCT UA AUTOMATED W/O MICRO (02/15/2025 2:19 PM CDT) POC UA SPECIFIC GRAVITY 1.010 URINE PH 6.0 5.0 - 9.0 POC URINE LEUKOCYTES Negative Negative Flower/uL POC URINE NITRITE Negative Negative POC URINE PROTEIN Negative Negative mg/dL POC URINE GLUCOSE Norm Negative, Norm mg/dL POC URINE KETONE Negative Negative mg/dL POC URINE UROBILINOGEN Norm Norm, 0.2 E.U./dL (mg/dL), 1 E.U./dL (mg/dL) POC URINE BILIRUBIN Negative Negative mg/dL POC URINE BLOOD INSTRUMENT Negative Negative Munir/uL POC URINE COLOR Yellow POC URINE CLARITY Cloudy Urine 02/15/2025 2:19 PM CDT Skyler Contreras MD POINT OF CARE TESTING ([facility]) Final Result * URINE DRUG SCREEN (02/15/2025) Urine 02/15/2025 us Skyler Contreras MD URINE ORDERABLES Final Re sult * POC INFLUENZA A AND B BY MOLECULAR (01/10/2025 10:42 AM CDT) Only the most recent of2 resultswithin the time period is included. INFLUENZA A RNA Negative Negative, Invalid INFLUENZA B RNA Negative Negative, Invalid PROCEDURE CONTROL Valid Swab 01/10/2025 10:4 2 AM CDT us Bebeto Morin APRN, CNP POINT OF CARE TE STING (MANUAL) Final Result * POC GROUP A STREP BY MOLECULAR (01/10/2025 10:10 AM CDT) STREP A DNA Negative Negative, Invalid PROCEDURE CONTROL Valid Swab 01/10/2025 10:1 0 AM CDT Bebeto Morin APRN, CNP POINT OF CARE TE STING (MANUAL) Final Result * POC SARS-COV-2 BY MOLECULAR (01/10/2025 10:05 AM CDT) SARSCOV2 Negative Negative, INVALID PROCEDURE CONTROL Valid Swab NASOPHARYNGEAL SWAB / Unknown 01/10/2025 10:05 AM CDT Bebeto Morin APRN, CNP POINT OF CARE TE STING (MANUAL) Final Result * NERY SCREENING BILATERAL DIGITAL W CAD W JEFF (01/30/2024 10:46 AM CDT) Anatomical Region Laterality Modality breast Bilateral Mammography 01/30/2024 10:2 5 AM CDT Narrative 01/30/2024 2:51 PM CDT - NERY SCREENING BILATERAL DIGITAL W CAD W JEFF BILATERAL DIGITAL SCREENING MAMMOGRAM 3D/2D WITH CAD WITH MEDIOLATERAL OBLIQUE CRANIOCAUDAL: 01/30/2024 The study was acquired using digital technology and interpreted from soft copy. Current study was also evaluated with ICAD version 7.2. 2D digital mammographic views, as well as 3D digital tomosynthesis were performed in the CC and MLO projections. CLINICAL: Routine screening. Patient has no complaints. No personal history of cancer. No family history of breast cancer. COMPARISONS: Comparison is made to exams dated: 09/06/2022, 07/04/2021, and 06/20/2020 [facility]. BREAST TISSUE:There are scattered fibroglandular densities in both breasts. FINDINGS: There are benign calcifications in both breasts. There also are benign vascular calcifications in both breasts. No significant masses, calcifications, or other findings are seen in either breast. There has been no significant interval change. IMPRESSION: BI-RAD 2 BENIGN There is no mammographic evidence of malignancy. A 1 year screening mammogram is recommended. A letter will be sent to the patient with these results. The patient will be entered into a reminder system with a target due date of 1 year for her next screening exam. Electronically signed by: Lucy johnson/debrad:01/30/2024 14:09:46 Financial Recording Clerk(s): RT Brendan(R)(M), [facility] letter sent: Normal Exam Reading location: [facility] BI-RADS: 2 Benign Procedure Note Lucy Dugan MD - 01/30/2024 - NERY SCREENING BILATERAL DIGITAL W CAD W JEFF BILATERAL DIGITAL SCREENING MAMMOGRAM 3D/2D WITH CAD WITH MEDIOLATERAL OBLIQUE CRANIOCAUDAL: 01/30/2024 The study was acquired using digital technology and interpreted from soft copy. Current study was also evaluated with ICAD version 7.2. 2D digital mammographic views, as well as 3D digital tomosynthesis were performed in the CC and MLO projections. CLINICAL: Routine screening. Patient has no complaints. No personal history of cancer. No family history of breast cancer. COMPARISONS: Comparison is made to exams dated: 09/06/2022, 07/04/2021, and 06/20/2020 [facility]. BREAST TISSUE:There are scattered fibroglandular densities in both breasts. FINDINGS: There are benign calcifications in both breasts. There also are benign vascular calcifications in both breasts. No significant masses, calcifications, or other findings are seen in either breast. There has been no significant interval change. IMPRESSION: BI-RAD 2 BENIGN There is no mammographic evidence of malignancy. A 1 year screening mammogram is recommended. A letter will be sent to the patient with these results. The patient will be entered into a reminder system with a target due date of 1 year for her next screening exam. Electronically signed by: Lucy johnson/coco:01/30/2024 14:09:46 Financial Recording Clerk(s): Naheed Janes, RT(R)(M), [facility] letter sent: Normal Exam Reading location: [facility] BI-RADS: 2 Benign Skyler Jean-Pierre Contreras MD IMG MAMMO ORDERABLES Anjali l Result * CT CHEST W/O CONTRAST (07/28/2023 12:46 PM CDT) Anatomical Region Laterality Modality Chest N/A Computed Tomogra phy 07/28/2023 8:29 PM CDT Impressions 07/28/2023 8:32 PM CDT IMPRESSION: 1. Unchanged pulmonary nodules dating back to 07/04/2021 reflecting 2-year stability. No new pulmonary nodules. 2. Moderate centrilobular bilateral pulmonary emphysema. Narrative 07/28/2023 8:32 PM CDT EXAM DESCRIPTION: CT CHEST W/O CONTRAST REASON FOR STUDY: 2 year right lung nodule f/u hx COPD and smoker TECHNIQUE: CT scan of the chest performed without intravenous contrast using helical scanning technique. Reconstructed coronal and sagittal MPR images reviewed. All images stored on PACS. Automated exposure control was used as a dose optimization technique for this examination. COMPARISON: 08/02/2022, 07/04/2021 REFERENCE: Per ACR white paper recommendations, unless otherwise specified no follow-up imaging is recommended for incidental renal and adrenal lesions per consensus recommendations based on imaging criteria. Further lab evaluation could be pursued based on clinical findings. FINDINGS: The sensitivity for detection of solid visceral lesions is diminished without the use of intravenous contrast. LUNGS: There is an unchanged 3 mm noncalcified pulmonary nodule in the right lung apex at slice position 19. The previously described ground-glass nodule in the right upper lobe is not definitively identified on this examination. There is a triangular shaped nodularity measuring 7 mm adjacent to/along the anterior right minor fissure at slice position 72 which has not substantially changed and could reflect a perifissural lymph node. Mild biapical pleuroparenchymal scarring. Moderate centrilobular bilateral pulmonary emphysema. Mild bronchial and bronchiolar wall thickening which could reflect chronic bronchitis in the setting of COPD. Calcified pulmonary granulomas are present, unchanged. PLEURA: No pleural effusion. No pneumothorax. MEDIASTINUM/DENNY: No identified masses or lymphadenopathy. No supraclavicular lymphadenopathy. The esophagus is normal. HEART: Heart size is normal with no pericardial effusion. CORONARY ARTERY CALCIFICATION: Present VASCULATURE: No thoracic aortic aneurysm. AXILLA: No adenopathy. CHEST WALL: No masses. No subcutaneous air. HARDWARE/LINES/TUBES: None. UPPER ABDOMEN: Thickening of left adrenal gland which maintains its adreniform shape. MUSCULOSKELETAL: No acute fractures or aggressive osseous lesions. THIS IS AN ELECTRONICALLY VERIFIED FINAL REPORT 07/28/2023 8:29 PM - Electronically signed by Gay Park M.D. AT: AT Report ID: [id number] Reading Location: [id number] Procedure Note Gay Park MD - 07/28/2023 EXAM DESCRIPTION: CT CHEST W/O CONTRAST REASON FOR STUDY: 2 year right lung nodule f/u hx COPD and smoker TECHNIQUE: CT scan of the chest performed without intravenous contrast using helical scanning technique. Reconstructed coronal and sagittal MPR images reviewed. All images stored on PACS. Automated exposure control was used as a dose optimization technique for this examination. COMPARISON: 08/02/2022, 07/04/2021 REFERENCE: Per ACR white paper recommendations, unless otherwise specified no follow-up imaging is recommended for incidental renal and adrenal lesions per consensus recommendations based on imaging criteria. Further lab evaluation could be pursued based on clinical findings. FINDINGS: The sensitivity for detection of solid visceral lesions is diminished without the use of intravenous contrast. LUNGS: There is an unchanged 3 mm noncalcified pulmonary nodule in the right lung apex at slice position 19. The previously described ground-glass nodule in the right upper lobe is not definitively identified on this examination. There is a triangular shaped nodularity measuring 7 mm adjacent to/along the anterior right minor fissure at slice position 72 which has not substantially changed and could reflect a perifissural lymph node. Mild biapical pleuroparenchymal scarring. Moderate centrilobular bilateral pulmonary emphysema. Mild bronchial and bronchiolar wall thickening which could reflect chronic bronchitis in the setting of COPD. Calcified pulmonary granulomas are present, unchanged. PLEURA: No pleural effusion. No pneumothorax. MEDIASTINUM/DENNY: No identified masses or lymphadenopathy. No supraclavicular lymphadenopathy. The esophagus is normal. HEART: Heart size is normal with no pericardial effusion. CORONARY ARTERY CALCIFICATION: Present VASCULATURE: No thoracic aortic aneurysm. AXILLA: No adenopathy. CHEST WALL: No masses. No subcutaneous air. HARDWARE/LINES/TUBES: None. UPPER ABDOMEN: Thickening of left adrenal gland which maintains its adreniform shape. MUSCULOSKELETAL: No acute fractures or aggressive osseous lesions. THIS IS AN ELECTRONICALLY VERIFIED FINAL REPORT 07/28/2023 8:29 PM - Electronically signed by Gay Park M.D. AT: AT Report ID: [id number] Reading Location: [id number] IMPRESSION: 1. Unchanged pulmonary nodules dating back to 07/04/2021 reflecting 2-year stability. No new pulmonary nodules. 2. Moderate centrilobular bilateral pulmonary emphysema. Urvashi Thomas APRN, ASSISTANT DISTRICT ATTORNEY IMG CT ORDERABLES Fin al Result * Stool Occult Blood - Diagnostic (05/29/2021 4:39 PM CDT) [facility] OCCULT BLOOD DIAG, GI BLEED Negative Negative 05/29/2021 4:58 PM CDT [facility] Stool Non-Phlebotomy Collection / Unknown 05/29/2021 4:39 PM CDT 05/29/2021 4:39 PM CDT Ck [place] PAC BODY FLUIDS & STOOLS ORDERABLES Final Result [facility] [address] [place] [address] * HEPATITIS C ANTIBODY (10/21/2017 3:51 PM TRIAGE NURSE) [facility] hepatitis C antibody 0.62 <1 S/CO 10/21/2017 10:03 PM TRIAGE NURSE [facility] Comment: Signal/Cutoff ratio < 0.79 is Nondetected Signal/Cutoff ratio 0.80-0.99 is Grayzone Signal/Cutoff ratio > 0.99 is Detected Supplemental assays are recommended if signal/cutoff ratio is >/=1.00. Signal/cutoff ratio result >/= 5.00 is 97% predictive of positivity for recombinant immunoblot assay (RIBA) and will be reported to the [place] Department [employer] Public [employer] as required. Blood specimen (specimen) Venipuncture / Unknown 10/21/2017 3:51 PM TRIAGE NURSE 10/21/2017 3:51 PM TRIAGE NURSE Skyler Contreras MD CHEMISTRY ORDERABLES Anjali maria Result [facility] [address] [place] [address], [place] * COLONOSCOPY (06/07/2015) Mk Mendosa DO PROCEDURE/MINOR SURGICAL ORDERAB LES Final Result from Last 3 Months or Most Recently Relevant to Health Maintenance Insurance [employer] Care Teams Machine Oiler Relationship Specialty Start Date End Date Skyler Contreras MD #2 [facility] [address] [place] [address] PCP - General Family Medicine 10/02/17 Miles Ferguson MD Orthopaedic Surgery 05/19/17 Urvashi Thomas, CROP GRAIN OR LIVESTOCK FARM MANAGER, ASSISTANT DISTRICT ATTORNEY #2 [facility] [address] [place] [address] Nurse Practitioner Advanced Practice Nurse 01/03/22
--- OUTSIDE RECORDS SUMMARY | 2025-02-19 09:24 | XMS_ITS | Encounter Summary ---
Author Organization [facility] Address [address] [place] [address] Phone Care Team Providers Care Gunnery/Ordnance Officer Name Role Phone Marty Muñoz MD, Miles Unavailable Unavailab Skyler Chino MD Primary Care Provider Urvashi Thomas APRN, ERIC Unavailable [phone]- [phone] Reason for Visit * Reason Comments Medication Refill Encounter Details Date Type Department Care Team (Late st Contact Info) Description 12/26/2021 Refill [facility] - Family Medicine - [place] #2 [place] [address] Skyler Contreras MD #[address] [address] Medication Refill Social History Tobacco Use Types [...] have Coronavirus / COVID-19? No / Unsure 12/06/2021 9:27 AM PORTER BAGGAGE documented as of this encounter Miscellaneous Notes * Telephone Encounter - Radha Virk RN - 12/27/2021 7:50 AM CST Medication failed the protocol, provider to review and approve the medication order if appropriate.PDMP reviewed. Last UDS 12/06/21 Requested Prescriptions Pending Prescriptions Disp Refills HYDROcodone-acetaminophen (NORCO) 7.5-325 MG Tablet [Pharmacy Med Name: HYDROCODONE/ACETAMINOPHEN 7.5-325 TABLET] 90 Tablet 0 Sig: TAKE 1 TABLET BY MOUTH EVERY 8 HOURS NEEDED FOR SEVERE PAIN. Not Delegated - Opioid Combinations Protocol Failed - 12/26/2021 12:23 PM Failed - This refill cannot be delegated Passed - Visit with relevant provider in past 12 months or upcoming 90 days Recent Visits Date Type Provider Dept 12/06/21 Office Visit Skyler Contreras MD [facility] 11/13/21 Telemedicine Bebeto Morin APRN, ERIC [facility] 11/07/21 Telemedicine Bebeto Morin APRN, ER[facility] 09/27/21 Office Visit Skyler Contreras MD [facility] 09/05/21 Office Visit Skyler Contreras MD [facility] 08/30/21 Office Visit Tobias Strickland MD [facility] 06/05/21 Office Visit Skyler Contreras MD [facility] 05/08/21 Office Visit Bebeto Morin APRN, ERIC [facility] 03/05/21 Office Visit Skyler Contreras MD [facility] Showing recent visits within past 365 days and meeting all other requirements Future Appointments Date Type Provider Dept 03/08/22 Appointment Skyler Contreras MD [facility] Showing future appointments within next 90 days and meeting all other requirements ER BAGGAGE documented in this encounter Plan of Treatment Upcoming Encounters Date Type Department Care Team (Late st Contact Info) Description 04/11/2025 1:00 PM CDT [facility] [place] #2 [facility] [place] [address] Urvashi Thomas ENGINE SETTER, TEACHER OF THE DEAF/HARD OF HEARING #2 [facility] [address] [place] [address] 06/21/2025 1:15 PM CDT Office Visit [facility] Medical [facility] - [place] #2 [place] [address] Skyler Contreras MD #2 [facility] [place] [address] documented as of this encounter Visit Diagnoses Diagnosis Chronic pain syndrome documented in this encounter Additional Health Concerns Infection Onset Date Last Indicated Resolved Time COVID - 19 10/25/2022 10/25/2022 11/04/2022 12:1 9 AM PORTER BAGGAGE COVID - 19 01/10/2025 01/10/2025 01/10/2025 10:2 3 AM CDT Respiratory Rule-Out 01/10/2025 01/10/2025 025 10:34 AM CDT Respiratory Rule-Out 01/10/2025 01/10/2025 025 10:58 AM CDT Assessment Noted Time PHQ-9 Depression Total Score: 0 12/04/19 21 10:06 AM PORTER BAGGAGE documented as of this encounter Care Teams Gunnery/Ordnance Officer Relationship Specialty Start Date End Date Skyler Contreras MD #2 [facility] [address] [place] [address] PCP - General Family Medicine 10/02/17 Miles Ferguson MD Orthopaedic Surgery 05/19/17 Urvashi Thomas, ENGINE SETTER, TEACHER OF THE DEAF/HARD OF HEARING #[address] [address] Nurse Practitioner Advanced Practice Nurse 01/03/22 documented as of this encounter
--- OUTSIDE RECORDS SUMMARY | 2025-02-19 09:24 | XMS_ITS | Encounter Summary ---
Author Organization [facility] Address [address] [place] [address] Phone Care Team Providers Care Door Hanger Name Role Phone Marty Muñoz MD, Miles Unavailable Unavailab Skyler Chino MD Primary Care Provider Urvashi Thomas APRN, ERIC Unavailable [phone]- [phone] Reason for Visit * Reason Comments Medication Refill Encounter Details Date Type Department Care Team (Late st Contact Info) Description 06/21/2021 Refill [facility] - [facility] - [place] #2 [place] [address] Skyler Contreras MD #[address] [address] Medication Refill Social History Tobacco Use Types [...] have Coronavirus / COVID-19? No / Unsure 06/19/2021 10:14 AM CDT documented as of this encounter Miscellaneous Notes * Telephone Encounter - Leona Armando RN - 06/22/2021 9:49 AM CDT [place] PDMP 05/26/21 Medication failed the protocol, provider to review and approve the medication order if appropriate. Requested Prescriptions Pending Prescriptions Disp Refills HYDROcodone-acetaminophen (NORCO) 5-325 MG Tablet [Pharmacy Med Name: HYDROCODONE BITARTRATE/ACETAMINOPHEN 5-325MG TABLET] 90 Tablet 0 Sig: TAKE 1 TABLET BY MOUTH EVERY 8 HOURS NEEDED FOR MODERATE OR MORE SEVERE PAIN. healthfinch Not Delegated - Analgesics: Opioid Agonist Combinations Failed - 06/22/2021 9:49 AM Failed - This refill cannot be delegated Passed - Valid encounter within last 6 months Past Office Visits Recent Outpatient Visits 2 weeks ago Chronic pain syndrome [facility] Medical [facility] - Family Medicine - Skyler Smith MD 1 month ago Abdominal discomfort in right lower quadrant [facility] Family Medicine - Bebeto Altamirano APN, STRAND FORMING MACHINE OPERATOR 3 months ago Gastroesophageal reflux disease, unspecified whether esophagitis present [facility] Family Medicine Skyler Terrazas MD 6 months ago Chronic narcotic use [facility] Family Medicine - Skyler Smith MD 9 months ago Chronic pain syndrome [facility] Family Medicine - Skyler Smith MD Upcoming Appointments Future Appointments In 1 week SAHCCT1 [facility] CT, [facility] In 1 week SAHCMAM1 [facility] Mammography, [facility] In [facility] Respiratory Therapy, [facility] In 2 months Skyler Contreras MD [facility] - [facility] In 2 months Urvashi Thomas APN, ERIC [facility] - Pulmonology & Sleep Medicine - [place] [facility] GLOBAL MARKETING SPECIALIST - Recent and Past Visits Recent Visits Date Type Provider Dept 06/05/21 Office Visit Skyler Contreras MD [facility] 05/08/21 Office Visit Bebeto Morin APN, ERIC [facility] 03/05/21 Office Visit Skyler Contreras MD [facility] 12/04/20 Office Visit Skyler Contreras MD [facility] 09/01/20 Office Visit Skyler Contreras MD [facility] 08/01/20 Office Visit Bebeto Morin APN, ERIC [facility] 07/13/20 Office Visit Bebeto Morin APN, ERIC [facility] 05/23/20 Office Visit Skyler Contreras MD [facility] Showing recent visits within past 460 days with a meds authorizing provider and meeting all other requirements Future Appointments Date Type Provider Dept 09/05/21 Appointment Skyler Contreras MD [facility] Showing future appointments within next 90 days with a meds authorizing provider and meeting all other requirements documented in this encounter Plan of Treatment Upcoming Encounters Date Type Department Care Team (Late st Contact Info) Description 04/11/2025 1:00 PM CDT Office Visit [facility] - Pulmonology & Sleep Medicine - [place] #2 [place] [address] Urvashi Thomas APRN, ERIC #[address] [address] 06/21/2025 1:15 PM CDT Office Visit [facility] Family [facility] - [place] #2 [place] [address] Skyler Contreras MD #2 [facility] [address] [place] [address] documented as of this encounter Visit Diagnoses Diagnosis Chronic pain syndrome documented in this encounter Additional Health Concerns Infection Onset Date Last Indicated Resolved Time COVID - 19 11/06/2021 11/06/2021 11/06/2021 9:43 AM SUPPLIER DIVERSITY DIRECTOR COVID - 19 Confirmed 11/06/2021 11/06/2021 022 12:16 AM SUPPLIER DIVERSITY DIRECTOR COVID - 19 10/25/2022 10/25/2022 11/04/2022 12:1 9 AM SUPPLIER DIVERSITY DIRECTOR COVID - 19 01/10/2025 01/10/2025 01/10/2025 10:2 3 AM CDT Respiratory Rule-Out 01/10/2025 01/10/2025 025 10:34 AM CDT Respiratory Rule-Out 01/10/2025 01/10/2025 025 10:58 AM CDT Assessment Noted Time PHQ-9 Depression Total Score: 0 12/04/19 21 10:06 AM SUPPLIER DIVERSITY DIRECTOR documented as of this encounter Care Teams Door Hanger Relationship Specialty Start Date End Date Skyler Contreras MD #2 [facility] [address] [place] [address] PCP - General Family Medicine 10/02/17 Miles Ferguson MD Orthopaedic Surgery 05/19/17 Urvashi Thomas APRN, STRAND FORMING MACHINE OPERATOR #2 [facility] [address] [place] [address] Nurse Practitioner Advanced Practice Nurse 01/03/22 documented as of this encounter
--- OUTSIDE RECORDS SUMMARY | 2025-02-19 09:24 | XMS_ITS | Encounter Summary ---
Author Organization [facility] Address [address] [place] [address] Phone Care Team Providers Care Lifestyle Consultant Name Role Phone Marty Muñoz MD, Miles Unavailable Unavailab Skyler Chino MD Primary Care Provider Urvashi Thomas APRN, ERIC Unavailable [phone]- [phone] Reason for Visit * Reason Comments Medication Refill Encounter Details Date Type Department Care Team (Late st Contact Info) Description 02/17/2023 Refill [facility] - [place] #2 [place] [address] Skyler Contreras MD #[address] [address] Medication Refill Social History Tobacco Use Types [...] Telephone Encounter - Jaky Frias RN - 02/17/2023 12:34 PM CDT PDMP 01/23/23 Medication failed the protocol, provider to review and approve the medication order if appropriate. Requested Prescriptions Pending Prescriptions Disp Refills HYDROcodone-acetaminophen (NORCO) 7.5-325 MG Tablet [Pharmacy Med Name: HYDROCODONE/ACETAMINOPHEN 7.5-325 TABLET] 90 Tablet 0 Sig: Take 1 Tablet by mouth every 8 hours as needed for Severe pain. Not Delegated - Opioid Combinations Protocol Failed - 02/17/2023 12:24 PM Failed - This refill cannot be [...] Group - Pulmonology & Sleep Medicine - [place] #2 [place] [address] Urvashi Thomas APRN, STONE GANG SAWYER #2 [facility] [address] [place] [address] 06/21/2025 1:15 PM CDT Office Visit [facility] - [facility] #2 [place] [address] Skyler Contreras MD #2 [facility] [place] [address] documented as of this encounter Visit Diagnoses Diagnosis Chronic pain syndrome documented in this encounter Additional Health Concerns Infection Onset Date Last Indicated Resolved Time COVID - 19 01/10/2025 01/10/2025 01/10/2025 10:2 3 AM CDT Respiratory Rule-Out 01/10/2025 01/10/2025 025 10:34 AM CDT Respiratory Rule-Out 01/10/2025 01/10/2025 025 10:58 AM CDT Assessment Noted Time PHQ-9 Depression Total Score: 0 12/04/19 21 10:06 AM DIRECTOR EMBALMER documented as of this encounter Care Teams Lifestyle Consultant Relationship Specialty Start Date End Date Skyler Contreras MD #[address] [address] PCP - General Family Medicine 10/02/17 Miles Ferguson MD Orthopaedic Surgery 05/19/17 Urvashi Thomas APRN, STONE GANG SAWYER #[address] [address] Nurse Practitioner Advanced Practice Nurse 01/03/22 documented as of this encounter
--- OUTSIDE RECORDS SUMMARY | 2025-02-19 09:24 | XMS_ITS | Encounter Summary ---
Author Organization [facility] Address [address] [address] Phone Care Team Providers Care Greaser Operator Name Role Phone Marty Muñoz MD, Miles Unavailable Unavailab Skyler hCino MD Primary Care Provider Urvashi Thomas APRN, ERIC Unavailable [phone] Reason for Visit * Reason Comments Medication Refill Encounter Details Date Type Department Care Team (Late st Contact Info) Description 05/23/2022 Refill [facility] - [facility] Medicine - [place] #2 [place] [address] Skyler Contreras MD #[address] [address] Medication Refill Social History Tobacco Use Types [...] suspected to have Coronavirus/COVID-19? No / Unsure 05/13/2022 12:49 PM CDT documented as of this encounter Miscellaneous Notes * Telephone Encounter - Radha Virk RN - 05/23/2022 11:44 AM CDT Medication failed the protocol, provider to review and approve the medication order if appropriate.PDMP reviewed. Last UDS was 11/2021 Requested Prescriptions Pending Prescriptions Disp Refills HYDROcodone-acetaminophen (NORCO) 7.5-325 MG Tablet [Pharmacy Med Name: HYDROCODONE BITARTRATE/ACETAMINOPHEN 7.5-325 TABLET] 90 Tablet 0 Sig: Take 1 Tablet by mouth every 8 hours as needed for Severe pain. Not Delegated - Opioid Combinations Protocol Failed - 05/23/2022 10:10 AM Failed - This refill cannot be delegated Passed - Visit with relevant provider in past 12 months or upcoming 90 days Recent Visits Date Type Provider Dept 04/18/22 Office Visit Skyler Contreras MD [facility] 12/06/21 Office Visit Skyler Contreras MD [facility] 11/13/21 Telemedicine Bebeto Morin APRN, ERIC [facility] 11/07/21 Telemedicine Bebeto Morin APRN, REPLENISHMENT SPECIALIST [facility] 09/27/21 Office Visit Skyler Contreras MD [...] Description 04/11/2025 1:00 PM CDT Office Visit [facility] - Pulmonology & Sleep Medicine [facility] #2 [place] [address] Urvashi Thomas APRN, REPLENISHMENT SPECIALIST #2 [facility] [address] [place] [address] 06/21/2025 1:15 PM CDT Office Visit [facility] Medical [facility] Family [facility] - [place] #2 [place] [address] Skyler Contreras MD #[address] [address] documented as of this encounter Visit Diagnoses Diagnosis Chronic pain syndrome documented in this encounter Additional Health Concerns Infection Onset Date Last Indicated Resolved Time COVID - 19 10/25/2022 10/25/2022 11/04/2022 12:1 9 AM MILITARY COOK COVID - 19 01/10/2025 01/10/2025 01/10/2025 10:2 3 AM CDT Respiratory Rule-Out 01/10/2025 01/10/2025 025 10:34 AM CDT Respiratory Rule-Out 01/10/2025 01/10/2025 025 10:58 AM CDT Assessment Noted Time PHQ-9 Depression Total Score: 0 12/04/19 21 10:06 AM MILITARY COOK documented as of this encounter Care Teams Greaser Operator Relationship Specialty Start Date End Date Skyler Contreras MD #[address] [address] PCP - General Family Medicine 10/02/17 Miles Ferguson MD Orthopaedic Surgery 05/19/17 Urvashi Thomas, MIXER ATTENDANT, REPLENISHMENT SPECIALIST #2 [place] [address] Nurse Practitioner Advanced Practice Nurse 01/03/22 documented as of this encounter
--- OUTSIDE RECORDS SUMMARY | 2025-02-19 09:24 | XMS_ITS | Referral Summary ---
Author Organization [facility] Physician Office Building [address] [place] [address] Care Team Providers Care Religion Teacher Name Role Phone Skyler Contreras MD Primary Care Provider [phone] Allergies No known active allergies Medications acetaminophen-c [...] Nasal saline spray (Simply saline, Little Remedies, Mcnair, [place]rook) 2 second sprays or 2 squeezes into [...] 10/13/2023 Assessment & Plan (10/13/2023 11:20 AM WATCH ASSEMBLY INSTRUCTOR): Nasal saline spray (Simply saline, Little Remedies, Mcnair, [place]rook) 2 second sprays or 2 squeezes into [...] Follow up in 6 weeks to review Social History Tobacco Use Types Packs/Day Years Used Date Smoking Tobacco: Every Day Cigarettes Smokeless Tobacco: Never Personal Safety Answer Date Recorded Getting School Help Needed Not on file 10/11 Comments Unknown Sex and Gender Information Value Date Recorded Sex Assigned at Not on file Legal Sex Female 7:58 PM WATCH ASSEMBLY INSTRUCTOR Gender Identity Not on file Sexual Orientation Not on file 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
--- OUTSIDE RECORDS SUMMARY | 2025-02-19 09:24 | XMS_ITS | Encounter Summary ---
Author Organization [facility] Address [address] [place] [address] Phone Care Team Providers Care Yard Switcher Name Role Phone Marty Muñoz MD, Miles Unavailable Unavailab Skyler Chino MD Primary Care Provider Urvashi Thomas APRN, ERIC Unavailable [phone]- [phone] Reason for Visit * Reason Comments Medication Refill Encounter Details Date Type Department Care Team (Late st Contact Info) Description 02/25/2022 Refill [facility] - [place] #2 [place] [address] Skyler Contreras MD #[address] [address] Medication Refill Social History Tobacco Use Types [...] encounter Miscellaneous Notes * Telephone Encounter - Pablito Johnson RN - 02/27/2022 9:44 AM CDT Patient calling to check on the status of her refill. States that she is out of her hydrocodone andwondering if the refill was approved yet. Informed patient of note below and that the medication if pending Dr. Contreras's review and approval. Patient verbalized understanding. Please call patient back if orders placed. Thank you. * Telephone Encounter - Leona Armando RN - 02/26/2022 9:48 AM CDT PDMP 01/28/22 Medication failed the protocol, provider to review and approve the medication order if appropriate. Requested Prescriptions Pending Prescriptions Disp Refills HYDROcodone-acetaminophen (NORCO) 7.5-325 MG Tablet [Pharmacy Med Name: HYDROCODONE BITARTRATE/ACETAMINOPHEN 7.5-325 TABLET] 90 Tablet 0 Sig: Take 1 Tablet by mouth every 8 hours as needed for Severe pain. Not Delegated - Opioid Combinations Protocol Failed - 02/25/2022 9:30 AM Failed - This refill cannot [...] MD [facility] 05/08/21 Office Visit Bebeto Morin, DERMATOLOGICAL SURGEON, EXTRACTIONS TECHNICIAN [facility] 03/05/21 Office Visit [facility]ras [facility] Showing recent visits within past 365 days and meeting all other requirements Future Appointments Date Type Provider Dept 03/08/22 Appointment Skyler Contreras MD [facility] Showing future appointments within next 90 days and meeting all other requirements documented in this encounter Plan of Treatment Upcoming Encounters Date Type Department Care Team (Late st Contact Info) Description 04/11/2025 1:00 PM CDT Office Visit [facility] Medical [facility] - Pulmonology & Sleep Medicine - [place] #2 [place] [address] Urvashi Thomas APRN, EXTRACTIONS TECHNICIAN #2 [facility] [address] [place] [address] 06/21/2025 1:15 PM CDT Office Visit [facility] Medical [facility] - Family Medicine - [place] #2 [facility] [place] [address] Skyler Contreras MD #2 [facility] [address] [place] [address] documented as of this encounter Visit Diagnoses Diagnosis Chronic pain syndrome documented in this encounter Additional Health Concerns Infection Onset Date Last Indicated Resolved Time COVID - 19 10/25/2022 10/25/2022 11/04/2022 12:1 9 AM INVESTMENT PROFESSIONAL COVID - 19 01/10/2025 01/10/2025 01/10/2025 10:2 3 AM CDT Respiratory Rule-Out 01/10/2025 01/10/2025 025 10:34 AM CDT Respiratory Rule-Out 01/10/2025 01/10/2025 025 10:58 AM CDT Assessment Noted Time PHQ-9 Depression Total Score: 0 12/04/19 21 10:06 AM INVESTMENT PROFESSIONAL documented as of this encounter Care Teams Yard Switcher Relationship Specialty Start Date End Date Skyler Contreras MD #2 [facility] [address] [place] [address] PCP - General Family Medicine 10/02/17 Miles Ferguson MD Orthopaedic Surgery 05/19/17 Urvashi Thomas APRN, EXTRACTIONS TECHNICIAN #2 [facility] [address] [place] [address] Nurse Practitioner Advanced Practice Nurse 01/03/22 documented as of this encounter
--- OUTSIDE RECORDS SUMMARY | 2025-02-19 09:24 | XMS_ITS | Encounter Summary ---
Author Organization [facility] Address [address] [place] [address] Phone Care Team Providers Care Tuckpointer Name Role Phone aMrty Muñoz MD, Miles Unavailable Unavailab Skyler Chino MD Primary Care Provider [phone] [phone] Urvashi Thomas APRN, ERIC Unavailable Reason for Visit * Reason Comments Medication Refill Encounter Details Date Type Department Care Team (Late st Contact Info) Description 09/25/2020 Refill [facility] [address] [place] [address] Skyler Contreras MD #[address] [address] Medication Refill Social History Tobacco Use Types [...] COVID-19? No / Unsure 09/26/2020 10:06 AM VEST BASTER documented as of this encounter Miscellaneous Notes * Telephone Encounter - Leona Armando RN - 09/25/2020 2:22 PM CST Last OV 09/01/20 - follow up 12/04/20 - last Rx 08/28/20 - next Rx 09/26/20 Medication failed the protocol, provider to review and approve the medication order if appropriate. Requested Prescriptions Pending Prescriptions Disp Refills HYDROcodone-acetaminophen (NORCO) 5-325 MG Tablet [Pharmacy Med Name: HYDROCODONE/ACETAMINOPHEN 5-325MG TABLET] 90 Tab 0 Sig: TAKE 1 TAB BY MOUTH EVERY 8 HOURS NEEDED FOR PAIN. DO NOT FILL UNTIL 08/28/2020 Not Delegated - Analgesics: Opioid Agonist Combinations Failed - 09/25/2020 9:51 AM Failed - This refill cannot be delegated Passed - Valid encounter within last 6 months Past Office Visits Recent Outpatient Visits 3 weeks ago Chronic pain syndrome [facility] - Skyler Smith MD 1 month ago Irritable bowel syndrome with constipation [facility] - Bebeto Altamirano APN, COMMUNITY ENGAGEMENT COORDINATOR 2 months ago Irritable bowel syndrome with constipation [facility] Family [facility] - Bebeto Altamirano APN, COMMUNITY ENGAGEMENT COORDINATOR 4 months ago Chronic pain syndrome [facility] - Skyler Smith MD 7 months ago [facility] Upcoming Appointments Future Appointments In 2 months Skyler Contreras MD [facility] [place] [facility] Home Golden MD [facility] PULMONOLOGY, [facility] PRODUCTION ASSEMBLY OPERATOR - Recent and Past Visits Recent Visits Date Type Provider Dept 09/01/20 Office Visit [facility]yler Contreras MD [facility] [place] 08/01/20 Office Visit Bebeto Morin APN, ERIC [facility] [place] 07/13/20 Office Visit Beb[facility] Morin APN, ERIC [facility] Office Visit Skyler Contreras MD [facility] [...] authorizing provider and meeting all other requirements BASTER documented in this encounter Plan of Treatment Upcoming Encounters Date Type Department Care Team (Late st Contact Info) Description 04/11/2025 1:00 PM CDT Office Visit [facility] - Pulmonology & Sleep Medicine - [place] [address] [place] [address] Urvashi Thomas APRN, ERIC #2 [facility] [address] [place] [address] 06/21/2025 1:15 PM CDT Office Visit [facility] Medical [facility] - Family Medicine - [place] #2 [place] [address] Skyler Contreras MD #2 [facility] [address] [place] [address] documented as of this encounter Visit Diagnoses Not on filedocumented in this encounter Additional Health Concerns Infection Onset Date Last Indicated Resolved Time COVID - 19 11/06/2021 11/06/2021 11/06/2021 9:43 AM VEST BASTER COVID - 19 Confirmed 11/06/2021 11/06/2021 022 12:16 AM VEST BASTER COVID - 19 10/25/2022 10/25/2022 11/04/2022 12:1 9 AM VEST BASTER COVID - 19 01/10/2025 01/10/2025 01/10/2025 10:2 3 AM CDT Respiratory Rule-Out 01/10/2025 01/10/2025 025 10:34 AM CDT Respiratory Rule-Out 01/10/2025 01/10/2025 025 10:58 AM CDT Assessment Noted Time PHQ-9 Depression Total Score: 0 12/21/19 20 3:23 PM VEST BASTER documented as of this encounter Care Teams Tuckpointer Relationship Specialty Start Date End Date Skyler Contreras MD #2 [facility] [address] [place] [address] PCP - General Family Medicine 10/02/17 Miles Ferguson MD Orthopaedic Surgery 05/19/17 Urvashi Thomas APRN, COMMUNITY ENGAGEMENT COORDINATOR #2 [facility] [address] [place] [address] Nurse Practitioner Advanced Practice Nurse 01/03/22 documented as of this encounter
--- OUTSIDE RECORDS SUMMARY | 2025-02-19 09:24 | XMS_ITS | Encounter Summary ---
Author Organization [facility] Address [address] [place] [address] Phone Care Team Providers Care Water Pumper Name Role Phone Marty Muñoz MD, Miles Unavailable Unavailab Skyler Chino MD Primary Care Provider Urvashi Thomas APRN, ERIC Unavailable [phone]- [phone] Reason for Visit * Reason Comments Medication Refill Encounter Details Date Type Department Care Team (Late st Contact Info) Description 04/24/2022 Refill [facility] - Family Medicine - [place] [address]2 [place] [address] Skyler Contreras MD #[address] [address] Medication Refill Social History Tobacco Use Types [...] suspected to have Coronavirus/COVID-19? No / Unsure 04/18/2022 1:14 PM CDT documented as of this encounter Miscellaneous Notes * Telephone Encounter - Leona Armando RN - 04/25/2022 9:54 AM CDT PDMP 03/28/22 Medication failed the protocol, provider to review and approve the medication order if appropriate. Requested Prescriptions Pending Prescriptions Disp Refills HYDROcodone-acetaminophen (NORCO) 7.5-325 MG Tablet [Pharmacy Med Name: HYDROCODONE BITARTRATE/ACETAMINOPHEN 7.5-325 TABLET] 90 Tablet 0 Sig: Take 1 Tablet by mouth every 8 hours as needed for Severe pain. Not Delegated - Opioid Combinations Protocol Failed - 04/24/2022 10:07 AM Failed - This refill cannot be [...] Office Visit Bebeto Morin APRN, ERIC [place] Showing recent visits within past 365 days and meeting all other requirements Future Appointments Date Type Provider Dept 07/19/22 Appointment Skyler Contreras MD [facility] Showing future appointments within next 90 days and meeting all other requirements documented in this encounter Plan of Treatment Upcoming Encounters Date Type Department Care Team (Late st Contact Info) Description 04/11/2025 1:00 PM CDT Office Visit [facility] - Pulmonology & Sleep Medicine - [place] #2 [facility] [place] [address] Urvashi Thomas CARNIVAL WORKER, WOODWIND INSTRUMENT REPAIRER #2 [facility] [address] [place] [address] 06/21/2025 1:15 PM CDT Office Visit [facility] Medical [facility] Family [facility] - [place] #2 [place] [address] Skyler Contreras MD #2 [facility] [address] [place] [address] documented as of this encounter Visit Diagnoses Diagnosis Chronic pain syndrome documented in this encounter Additional Health Concerns Infection Onset Date Last Indicated Resolved Time COVID - 19 10/25/2022 10/25/2022 11/04/2022 12:1 9 AM STRAIGHTENING ROLL OPERATOR COVID - 19 01/10/2025 01/10/2025 01/10/2025 10:2 3 AM CDT Respiratory Rule-Out 01/10/2025 01/10/2025 025 10:34 AM CDT Respiratory Rule-Out 01/10/2025 01/10/2025 025 10:58 AM CDT Assessment Noted Time PHQ-9 Depression Total Score: 0 12/04/19 21 10:06 AM STRAIGHTENING ROLL OPERATOR documented as of this encounter Care Teams Water Pumper Relationship Specialty Start Date End Date Skyler Contreras MD #2 [facility] [address] [place] [address] PCP - General Family Medicine 10/02/17 Miles Ferguson MD Orthopaedic Surgery 05/19/17 Urvashi Thomas, CARNIVAL WORKER, WOODWIND INSTRUMENT REPAIRER #[address] [address] Nurse Practitioner Advanced Practice Nurse 01/03/22 documented as of this encounter
--- OUTSIDE RECORDS SUMMARY | 2025-02-19 09:24 | XMS_ITS | Encounter Summary ---
Author Organization [facility] Address [address] [place] [address] Phone Care Team Providers Care Nuisance Wildlife Trapper Name Role Phone Marty Muñoz MD, Miles Unavailable Unavailab Skyler Chino MD Primary Care Provider Urvashi Thomas APRN, PROCESS CONSULTANT Unavailable Reason for Visit * Reason Comments Medication Refill Encounter Details Date Type Department Care Team (Late st Contact Info) Description 11/27/2020 Refill [facility] [address] [place] [address] Skyler Contreras MD #[address] [address] Medication Refill Social History Tobacco Use Types [...] have Coronavirus / COVID-19? No / Unsure 11/27/2020 10:05 AM RECREATIONAL SPORTS DIRECTOR documented as of this encounter Plan of Treatment Upcoming Encounters Date Type Department Care Team (Late st Contact Info) Description 04/11/2025 1:00 PM CDT Office Visit [facility] - Pulmonology & Sleep Medicine [facility] #2 [place] [address] Urvashi Thomas APRN, PROCESS CONSULTANT #2 [facility] [address] [place] [address] 06/21/2025 1:15 PM CDT Office Visit [facility] Medical [facility] Family Medicine - [place] #[address] [place] [address] Skyler Contreras MD #2 [facility] [address] [place] [address] documented as of this encounter Visit Diagnoses Diagnosis Chronic pain syndrome documented in this encounter Additional Health Concerns Infection Onset Date Last Indicated Resolved Time COVID - 19 11/06/2021 11/06/2021 11/06/2021 9:43 AM RECREATIONAL SPORTS DIRECTOR COVID - 19 Confirmed 11/06/2021 11/06/2021 022 12:16 AM RECREATIONAL SPORTS DIRECTOR COVID - 19 10/25/2022 10/25/2022 11/04/2022 12:1 9 AM RECREATIONAL SPORTS DIRECTOR COVID - 19 01/10/2025 01/10/2025 01/10/2025 10:2 3 AM CDT Respiratory Rule-Out 01/10/2025 01/10/2025 025 10:34 AM CDT Respiratory Rule-Out 01/10/2025 01/10/2025 025 10:58 AM CDT Assessment Noted Time PHQ-9 Depression Total Score: 0 12/21/19 20 3:23 PM RECREATIONAL SPORTS DIRECTOR documented as of this encounter Care Teams Nuisance Wildlife Trapper Relationship Specialty Start Date End Date Skyler Contreras MD #2 [facility] [address] [place] [address] PCP - General Family Medicine 10/02/17 Miles Ferguson MD Orthopaedic Surgery 05/19/17 Urvashi Thomas APRN, PROCESS CONSULTANT #2 [facility] [address] [place] [address] Nurse Practitioner Advanced Practice Nurse 01/03/22 documented as of this encounter
--- OUTSIDE RECORDS SUMMARY | 2025-02-19 09:24 | XMS_ITS | Encounter Summary ---
Author Organization [facility] Address [address] [place] [address] Phone Care Team Providers Care Orthotic And Prosthetic Technician Name Role Phone Marty Muñoz MD, Miles Unavailable Unavailab Skyler Chino MD Primary Care Provider Urvashi Thomas APRN, ERIC Unavailable [phone]- [phone] Reason for Visit * Reason Comments Medication Refill Encounter Details Date Type Department Care Team (Late st Contact Info) Description 08/12/2023 Refill [facility] - Family Medicine - [place] #[address] [place] [address] Skyler Contreras MD #[address] [address] Medication Refill Social History Tobacco Use Types [...] suspected to have Coronavirus/COVID-19? No / Unsure 07/28/2023 12:33 PM CDT documented as of this encounter Miscellaneous Notes * Telephone Encounter - Leona Armando RN - 08/12/2023 1:21 PM CDT PDMP 07/19/23 Medication failed the protocol, provider to review and approve the medication order if appropriate. Requested Prescriptions Pending Prescriptions Disp Refills HYDROcodone-acetaminophen (NORCO) 7.5-325 MG Tablet [Pharmacy Med Name: HYDROCODONE/ACETAMINOPHEN 7.5-325 TABLET] 90 Tablet 0 Sig: Take 1 Tablet by mouth every 8 hours as needed for Severe pain. Not Delegated - Opioid Combinations Protocol Failed - 08/12/2023 10:46 AM Failed - This refill cannot be delegated Passed - Visit with relevant provider in past 12 months or upcoming 90 days Recent Visits Date Type Provider Dept 07/23/23 Office Visit Skyler Contreras MD [facility] 04/16/23 Office Visit Skyler Contreras MD [facility] 01/09/23 Office Visit Skyler Contreras MD [facility] 10/10/22 Office Visit Skyler Contreras MD [facility] Showing recent visits within past 365 days and meeting all other requirements Future Appointments Date Type Provider Dept 10/29/23 Appointment Skyler Contreras MD [facility] Showing [...] Description 04/11/2025 1:00 PM CDT Office Visit [facility] - Pulmonology & Sleep Medicine [facility] #2 [place] [address] Urvashi Thomas APRN, GAME MANAGER #2 [facility] [address] [place] [address] 06/21/2025 1:15 PM CDT Office [facility] Family [facility] - [place] #2 [place] [address] Skyler Contreras MD #2 [facility] [place] [address] documented as of this encounter Visit Diagnoses [...] Total Score: 0 12/04/19 21 10:06 AM CHAMFERING MACHINE OPERATOR documented as of this encounter Care Teams Orthotic And Prosthetic Technician Relationship Specialty Start Date End Date Skyler Contreras MD #[address] [address] PCP - General Family Medicine 10/02/17 Miles Ferguson MD Orthopaedic Surgery 05/19/17 Urvashi Thomas APRN, GAME MANAGER #2 [facility] [address] [place] [address] Nurse Practitioner Advanced Practice Nurse 01/03/22 documented as of this encounter
--- OUTSIDE RECORDS SUMMARY | 2025-02-19 09:24 | XMS_ITS | Encounter Summary ---
Author Organization [facility] Address [address] [address] Phone Care Team Providers Care Back Facer Name Role Phone Marty Muñoz MD, Miles Unavailable Unavailab Skyler Chino MD Primary Care Provider [phone] Urvashi Thomas APRN, BULB PACKER Unavailable Reason for Visit * Reason Onset Date Comments Referral 04/23/2023 Encounter Details Date Type Department Care Team (Late st Contact Info) Description 04/23/2023 Telephone [facility] [address] [place] [address] Skyler Contreras MD #[address] [address] Referral Social History Tobacco Use Types Packs/Day Years [...] suspected to have Coronavirus/COVID-19? No / Unsure 04/16/2023 10:19 AM CDT documented as of this encounter Miscellaneous Notes * Telephone Encounter - Skyler Contreras MD - 04/23/2023 10:42 AM CDT Thanks for the update! * Telephone Encounter - Brionna Alvares - 04/23/2023 10:20 AM CDT SITUATION: Patient requesting provider review Dermatology Referral. BACKGROUND: Referral unable to be processed. ASSESSMENT: Request for provider review due to the following reason(s): Insurance complication. and Patient refusal or unable to contact patient. RECOMMENDATION: Based on the above information the provider has the following option(s): Due to patient's insurancepatient could not go to suggested provider as they do not take the insurance. Referral Center suggested two other locations, but patient advised they were too far for her. Closing referral at this time. Thank you. Brionna Alvares [facility] OnCall - Centralized Referral Management 04/23/2023, 10:21 AM CDT documented in this encounter Plan of Treatment Upcoming Encounters Date Type Department Care Team (Late st Contact Info) Description 04/11/2025 1:00 PM CDT [facility] - Pulmonology & Sleep Medicine - [place] #2 [place] [address] Uvrashi Thomas APRN, BULB PACKER #[address] [address] 06/21/2025 1:15 PM CDT Office Visit [facility] - Family Medicine [facility] [address] [place] [address] Skyler Contreras MD #2 [facility] [address] [place] [address] documented as of this encounter Visit Diagnoses Not on filedocumented in this encounter Additional Health Concerns Infection Onset Date Last Indicated Resolved Time COVID - 19 01/10/2025 01/10/2025 01/10/2025 10:2 3 AM CDT Respiratory Rule-Out 01/10/2025 01/10/2025 025 10:34 AM CDT Respiratory Rule-Out 01/10/2025 01/10/2025 025 10:58 AM CDT Assessment Noted Time PHQ-9 Depression Total Score: 0 12/04/19 21 10:06 AM SMALL PRODUCTS I ASSEMBLER documented as of this encounter Care Teams Back Facer Relationship Specialty Start Date End Date Skyler Contreras MD #2 [facility] [address] PCP - General Family Medicine 10/02/17 Miles Ferguson MD Orthopaedic Surgery 05/19/17 Urvashi Thomas APRN, BULB PACKER #2 [facility] [address] [place] [address] Nurse Practitioner Advanced Practice Nurse 01/03/22 documented as of this encounter
--- OUTSIDE RECORDS SUMMARY | 2025-02-19 09:24 | XMS_ITS | Encounter Summary ---
Author Organization [facility] Address [address] [place] [address] Phone Care Team Providers Care Adjuster Leader Name Role Phone Marty Muñoz MD, Miles Unavailable Unavailab Skyler Chino MD Primary Care Provider Urvashi Thomas APRN, ERIC Unavailable [phone]- [phone] Reason for Visit * Reason Comments Medication Refill Encounter Details Date Type Department Care Team (Late st Contact Info) Description 01/23/2022 Refill [facility] - Family Medicine - [place] #2 [place] [address] Skyler Contreras MD #[address] [address] Medication Refill Social History Tobacco Use Types [...] have Coronavirus / COVID-19? No / Unsure 01/03/2022 10:30 AM TECHNICAL PROPOSAL WRITER documented as of this encounter Miscellaneous Notes * Telephone Encounter - Leona Armando RN - 01/23/2022 3:01 PM CDT PDMP 12/29/21 Medication failed the protocol, provider to review and approve the medication order if appropriate. Requested Prescriptions Pending Prescriptions Disp Refills omeprazole (PriLOSEC) 20 MG CAPSULE DELAYED RELEASE [Pharmacy Med Name: OMEPRAZOLE 20MG CAPSULE DR]90 Capsule 1 Sig: TAKE 1 CAPSULE BY MOUTH EVERY MORNING. Proton Pump Inhibitors Protocol Passed - 01/23/2022 10:44 AM Passed - Visit with relevant provider in past 12 months or upcoming 90 days Recent Visits Date Type Provider Dept 12/06/21 Office Visit Skyler Contreras MD [facility] 11/13/21 Telemedicine Bebeto Morin APRN, ERIC [facility] [place] 11/07/21 Telemedicine Bebeto Morin APRN, GLASS CRUSHER [facility] 09/27/21 Office Visit Skyler Contreras MD [facility] 09/05/21 Office Visit Skyler Contreras MD [facility] 08/30/21 Office Visit Tobias Strickland MD [facility] 06/05/21 Office Visit Skyler Contreras MD [facility] 05/08/21 Office Visit Bebeto Morin APRN, GLASS CRUSHER [facility] 03/05/21 Office Visit Sk[facility] Contreras MD [facility] [...] Delegated - Opioid Combinations Protocol Failed - 01/23/2022 10:44 AM Failed - This refill cannot be delegated Passed - Visit with relevant provider in past 12 months or upcoming 90 days Recent Visits Date Type Provider Dept 12/06/21 Office Visit Skyler Contreras MD [facility] [place] 11/13/21 Telemedicine Bebeto Morin APRN, ERIC [facility] [place] 11/07/21 Telemedicine Bebeto Morin APRN, ERIC [facility] [place] 09/27/21 Office Visit Skyler Contreras MD [facility] 09/05/21 Office Visit Skyler Contreras MD [facility] 08/30/21 Office Visit Tobias Strickland MD [facility] [place] 06/05/21 Office Visit Skyler Contreras MD [facility] 05/08/21 Office Visit Bebeto Morin APRN, ERIC [facility] [place] 03/05/21 Office Visit Skyler Contreras MD [facility] [place] [...] Pulmonology & Sleep Medicine - [place] [address] [place] [address] Urvashi Thomas APRN, GLASS CRUSHER [address] [address] 06/21/2025 1:15 PM CDT Office Visit [facility] - Family Medicine [facility] #2 [place] [address] Skyler Contreras MD #2 [facility] [place] [address] documented as of this encounter Visit Diagnoses Diagnosis Chronic pain syndrome documented in this encounter Additional Health Concerns Infection Onset Date Last Indicated Resolved Time COVID - 19 10/25/2022 10/25/2022 11/04/2022 12:1 9 AM TECHNICAL PROPOSAL WRITER COVID - 19 01/10/2025 01/10/2025 01/10/2025 10:2 3 AM CDT Respiratory Rule-Out 01/10/2025 01/10/2025 025 10:34 AM CDT Respiratory Rule-Out 01/10/2025 01/10/2025 025 10:58 AM CDT Assessment Noted Time PHQ-9 Depression Total Score: 0 12/04/19 21 10:06 AM TECHNICAL PROPOSAL WRITER documented as of this encounter Care Teams Adjuster Leader Relationship Specialty Start Date End Date Skyler Contreras MD #2 [facility] [place] [address] PCP - General Family Medicine 10/02/17 Miles Ferguson MD Orthopaedic Surgery 05/19/17 Urvashi Thomas APRN, GLASS CRUSHER #2 [facility] [address] [place] [address] Nurse Practitioner Advanced Practice Nurse 01/03/22 documented as of this encounter
--- OUTSIDE RECORDS SUMMARY | 2025-02-19 09:24 | XMS_ITS | Encounter Summary ---
Author Organization [facility] Address [address] [address] Phone Care Team Providers Care Peel Oven Tender Name Role Phone Marty Muñoz MD, Miles Unavailable Unavailab Skyler Chino MD Primary Care Provider Urvashi Thomas APRN, ERIC Unavailable [phone]- [phone] Reason for Visit * Reason Comments Medication Refill Encounter Details Date Type Department Care Team (Late st Contact Info) Description 04/27/2022 Refill [facility] - Family Medicine - [place] #[address] [place] [address] Skyler Contreras MD #[address] [address] Medication Refill Social History Tobacco Use Types [...] PM CDT documented as of this encounter Plan of Treatment Upcoming Encounters Date Type Department Care Team (Late st Contact Info) Description 04/11/2025 1:00 PM CDT Office Visit [facility] - Pulmonology & Sleep Medicine [facility] #2 [place] [address] Urvashi Thomas APRN, DOPER OPERATOR #2 [facility] [address] [place] [address] 06/21/2025 1:15 PM CDT Office Visit [facility] Medical [facility] - Family Medicine - [place] #2 [place] [address] Skyler Contreras MD #2 [facility] [address] [place] [address] documented as of this encounter Visit Diagnoses Diagnosis Chronic pain syndrome documented in this encounter Additional Health Concerns Infection Onset Date Last Indicated Resolved Time COVID - 19 10/25/2022 10/25/2022 11/04/2022 12:1 9 AM INSPECTOR BALANCE WHEEL MOTION COVID - 19 01/10/2025 01/10/2025 01/10/2025 10:2 3 AM CDT Respiratory Rule-Out 01/10/2025 01/10/2025 025 10:34 AM CDT Respiratory Rule-Out 01/10/2025 01/10/2025 025 10:58 AM CDT Assessment Noted Time PHQ-9 Depression Total Score: 0 12/04/19 21 10:06 AM INSPECTOR BALANCE WHEEL MOTION documented as of this encounter Care Teams Peel Oven Tender Relationship Specialty Start Date End Date Skyler Contreras MD #2 [facility] [address] [place] [address] PCP - General Family Medicine 10/02/17 Miles Ferguson MD Orthopaedic Surgery 05/19/17 Urvashi Thomas APRN, DOPER OPERATOR #2 [facility] [address] [place] [address] Nurse Practitioner Advanced Practice Nurse 01/03/22 documented as of this encounter
--- OUTSIDE RECORDS SUMMARY | 2025-02-19 09:24 | XMS_ITS | Encounter Summary ---
Author Organization [facility] Address [address] [place] [address] Phone Care Team Providers Care Rodent Exterminator Name Role Phone Marty Muñoz MD, Miles Unavailable Unavailab Skyler Chino MD Primary Care Provider Urvashi Thomas APRN, ERIC Unavailable [phone] Reason for Visit * Reason Comments Medication Refill Encounter Details Date Type Department Care Team (Late st Contact Info) Description 06/16/2023 Refill [facility] - Family Medicine - [place] #2 [place] [address] Skyler Contreras MD #[address] [address] Medication Refill Social History Tobacco Use Types [...] suspected to have Coronavirus/COVID-19? No / Unsure 05/29/2023 9:33 AM CDT documented as of this encounter Miscellaneous Notes * Telephone Encounter - Leona Armando RN - 06/17/2023 7:59 AM CDT PDMP [place] 05/21/23 - Zolpidem 05/15/23 Medication failed the protocol, provider to review and approve the medication order if appropriate. Requested Prescriptions Pending Prescriptions Disp Refills HYDROcodone-acetaminophen (NORCO) 7.5-325 MG Tablet [Pharmacy Med Name: HYDROCODONE/ACETAMINOPHEN 7.5-325 TABLET] 90 Tablet 0 Sig: Take 1 Tablet by mouth every 8 hours as needed for Severe pain. Not Delegated - Opioid Combinations Protocol Failed - 06/16/2023 12:42 PM Failed - This refill cannot be [...] Provider Dept 07/23/23 Appointment Skyler Contreras MD [facility] Showing [...] Description 04/11/2025 1:00 PM CDT Office Visit [facility] - Pulmonology & Sleep Medicine [facility] #2 [facility] [address] Urvashi Thomas APRN, YIELD ANALYST [address] [facility] [address] [place] [address] 06/21/2025 1:15 PM CDT Office Visit [facility] Medical [facility] - [place] #2 [place] [address] Skyler Contreras MD #[address] [facility] [place] [address] documented as of this encounter Visit Diagnoses [...] Total Score: 0 12/04/19 21 10:06 AM P D DRIVER documented as of this encounter Care Teams Rodent Exterminator Relationship Specialty Start Date End Date Skyler Contreras MD #[address] [address] PCP - General Family Medicine 10/02/17 Miles Ferguson MD Orthopaedic Surgery 05/19/17 Urvashi Thomas APRN, YIELD ANALYST #[address] [facility] [address] [place] [address] Nurse Practitioner Advanced Practice Nurse 01/03/22 documented as of this encounter
--- OUTSIDE RECORDS SUMMARY | 2025-02-19 09:24 | XMS_ITS | Encounter Summary ---
Author Organization [facility] Address [address] [place] [address] Phone Care Team Providers Care Embroidery Patternmaker Name Role Phone Marty Muñoz MD, Miles Unavailable Unavailab Skyler Chino MD Primary Care Provider Urvashi Thomas APRN, ERIC Unavailable [phone] Reason for Visit * Reason Comments Medication Refill Encounter Details Date Type Department Care Team (Late st Contact Info) Description 10/31/2021 Refill [facility] - Family Medicine - [place] #2 [place] [address] Skyler Contreras MD #[address] [address] Medication Refill Social History Tobacco Use Types [...] have Coronavirus / COVID-19? No / Unsure 10/10/2021 9:18 AM DISTRIBUTION DISPATCHER documented as of this encounter Miscellaneous Notes * Telephone Encounter - Leona Armando RN - 10/31/2021 2:21 PM CST PDMP 10/05/21 - pharmacy closed on due date 11/04/21Friday Medication failed the protocol, provider to review and approve the medication order if appropriate. Requested Prescriptions Pending Prescriptions Disp Refills HYDROcodone-acetaminophen (NORCO) 7.5-325 MG Tablet [Pharmacy Med Name: HYDROCODONE/ACETAMINOPHEN 7.5-325 TABLET] 90 Tablet 0 Sig: Take 1 Tablet by mouth every 8 hours as needed. Not Delegated - Opioid Combinations Protocol Failed - 10/31/2021 2:20 PM Failed - This refill cannot be delegated Passed - Visit with relevant provider in past 12 months or upcoming 90 days Recent Visits Date Type Provider Dept 09/27/21 Office Visit Skyler Contreras MD [facility] 09/05/21 Office Visit Skyler Contreras MD [facility] 08/30/21 Office Visit Tobias Strickland MD [facility] 06/05/21 Office Visit Skyler Contreras MD [facility] 05/08/21 Office Visit Bebeto oMrin APRN, CNP [facility] 03/05/21 Office Visit Skyler Contreras MD [facility] 12/04/20 Office Visit Skyler Contreras MD [facility] Showing recent visits within past 365 days and meeting all other requirements Future Appointments Date Type Provider Dept 12/06/21 Appointment Skyler Contreras MD [facility] Showing future appointments within next 90 days and meeting all other requirements RIBUTION DISPATCHER documented in this encounter Plan of Treatment Upcoming Encounters Date Type Department Care Team (Late st Contact Info) Description 04/11/2025 1:00 PM CDT Office Visit [facility] Medical [facility] - Pulmonology & Sleep Medicine - [place] #2 [place] [address] Urvashi Thomas, SISTER SUPERIOR, PASTE UP ARTIST APPRENTICE #2 [facility] [address] [place] [address] 06/21/2025 1:15 PM CDT Office Visit [facility] - Family Medicine - [place] #2 [place] [address] Skyler Contreras MD #2 [facility] [address] [place] [address] documented as of this encounter Visit Diagnoses Diagnosis Chronic pain syndrome documented in this encounter Additional Health Concerns Infection Onset Date Last Indicated Resolved Time COVID - 19 11/06/2021 11/06/2021 11/06/2021 9:43 AM DISTRIBUTION DISPATCHER COVID - 19 Confirmed 11/06/2021 11/06/2021 022 12:16 AM DISTRIBUTION DISPATCHER COVID - 19 10/25/2022 10/25/2022 11/04/2022 12:1 9 AM DISTRIBUTION DISPATCHER COVID - 19 01/10/2025 01/10/2025 01/10/2025 10:2 3 AM CDT Respiratory Rule-Out 01/10/2025 01/10/2025 025 10:34 AM CDT Respiratory Rule-Out 01/10/2025 01/10/2025 025 10:58 AM CDT Assessment Noted Time PHQ-9 Depression Total Score: 0 12/04/19 21 10:06 AM DISTRIBUTION DISPATCHER documented as of this encounter Care Teams Embroidery Patternmaker Relationship Specialty Start Date End Date Skyler Contreras MD #2 [facility] [address] [place] [address] PCP - General Family Medicine 10/02/17 Miles Ferguson MD Orthopaedic Surgery 05/19/17 Urvashi Thomas APRN, PASTE UP ARTIST APPRENTICE #2 [place] [id number] Nurse Practitioner Advanced Practice Nurse 01/03/22 documented as of this encounter
--- OUTSIDE RECORDS SUMMARY | 2025-02-19 09:24 | XMS_ITS | Encounter Summary ---
Author Organization [facility] Address [address] [place] [address] Phone Care Team Providers Care Practical Ministries Professor Name Role Phone Marty Muñoz MD, Miles Unavailable Unavailab Skyler Chino MD Primary Care Provider Urvashi Thomas APRN, ERIC Unavailable [phone] Reason for Visit * Reason Comments Medication Refill Encounter Details Date Type Department Care Team (Late st Contact Info) Description 11/28/2021 Refill [facility] - Family Medicine - [place] #2 [place] [address] Skyler Contreras MD #[address] [address] Medication Refill Social History Tobacco Use Types [...] or suspected to have Coronavirus / COVID-19? Yes 11/06/2021 9:15 AM HOSPITAL PHARMACY TECHNICIAN documented as of this encounter Miscellaneous Notes * Telephone Encounter - Carolina Damon RN - 11/28/2021 11:37 AM HOSPITAL PHARMACY TECHNICIAN Medication failed the protocol, provider to review and approve the medication order if appropriate. Requested Prescriptions Pending Prescriptions Disp Refills HYDROcodone-acetaminophen (NORCO) 7.5-325 MG Tablet [Pharmacy Med Name: HYDROCODONE/ACETAMINOPHEN 7.5-325 TABLET] 90 Tablet 0 Sig: Take 1 Tablet by mouth every 8 hours as needed for Severe pain. Not Delegated - Opioid Combinations Protocol Failed - 11/28/2021 11:30 AM Failed - This refill cannot be delegated Passed - Visit with relevant provider in past 12 months or upcoming 90 days Recent Visits Date Type Provider Dept 11/13/21 Telemedicine Bebeto Morin APRN, ERIC [facility] 11/07/21 Telemedicine Bebeto Morin APRN, ERIC [facility] 09/27/21 Office Visit Skyler Contreras [...] 90 days and meeting all other requirements ITAL PHARMACY TECHNICIAN documented in this encounter Plan of Treatment Upcoming Encounters Date Type Department Care Team (Late st Contact Info) Description 04/11/2025 1:00 PM CDT Office Visit [facility] - Pulmonology & Sleep Medicine [facility] #2 [place] [address] Urvashi Thomas APRN, MENHADEN VESSEL PILOT #2 [facility] [address] [place] [address] 06/21/2025 1:15 PM CDT Office Visit [facility] Medical [facility] Family [facility] #2 [facility] [address] Skyler Contreras MD #[address] [address] documented as of this encounter Visit Diagnoses Diagnosis Chronic pain syndrome documented in this encounter Additional Health Concerns Infection Onset Date Last Indicated Resolved Time COVID - 19 10/25/2022 10/25/2022 11/04/2022 12:1 9 AM HOSPITAL PHARMACY TECHNICIAN COVID - 19 01/10/2025 01/10/2025 01/10/2025 10:2 3 AM CDT Respiratory Rule-Out 01/10/2025 01/10/2025 025 10:34 AM CDT Respiratory Rule-Out 01/10/2025 01/10/2025 025 10:58 AM CDT Assessment Noted Time PHQ-9 Depression Total Score: 0 12/04/19 21 10:06 AM HOSPITAL PHARMACY TECHNICIAN documented as of this encounter Care Teams Practical Ministries Professor Relationship Specialty Start Date End Date Skyler Contreras MD #[address] [address] PCP - General Family Medicine 10/02/17 Miles Ferguson MD Orthopaedic Surgery 05/19/17 Urvashi Thomas, TIRE FIXER, MENHADEN VESSEL PILOT #2 [place] [address] Nurse Practitioner Advanced Practice Nurse 01/03/22 documented as of this encounter
--- OUTSIDE RECORDS SUMMARY | 2025-02-19 09:24 | XMS_ITS | Encounter Summary ---
Author Organization [facility] Address [address] [place] [address] Phone Care Team Providers Care Flake Drier Name Role Phone Marty Muñoz MD, Miles Unavailable Unavailab Skyler Chino MD Primary Care Provider Urvashi Thomas APRN, ERIC Unavailable [phone] Reason for Visit * Reason Comments Medication Refill Encounter Details Date Type Department Care Team (Late st Contact Info) Description 03/20/2023 Refill [facility] - Family Medicine - [place] #2 [place] [address] Skyler Contreras MD #[address] [address] Medication Refill Social History Tobacco Use Types [...] Telephone Encounter - Leona Armando RN - 03/20/2023 2:13 PM CDT PDMP 12/23/22 Medication failed the protocol, provider to review and approve the medication order if appropriate. Requested Prescriptions Pending Prescriptions Disp Refills zolpidem (AMBIEN) 5 MG Tablet [Pharmacy Med Name: ZOLPIDEM TARTRATE 5MG TABLET] 30 Tablet 0 Sig: TAKE 1 TABLET BY MOUTH NIGHTLY NEEDED FOR SLEEP. Not Delegated - Off Protocol Failed - 03/20/2023 9:09 AM Failed - This refill cannot be [...] Pulmonology & Sleep Medicine - [place] [facility] [place] [address] Urvashi Thomas APRN, BUSHEL GIRL #[address] [address] 06/21/2025 1:15 PM CDT Office Visit [facility] - Family Medicine [facility] #2 [place] [address] Skyler Contreras MD #2 [facility] [address] [place] [address] documented as of this encounter Visit Diagnoses Diagnosis Insomnia, unspecified type documented in this encounter Additional Health Concerns Infection Onset Date Last Indicated Resolved Time COVID - 19 01/10/2025 01/10/2025 01/10/2025 10:2 3 AM CDT Respiratory Rule-Out 01/10/2025 01/10/2025 025 10:34 AM CDT Respiratory Rule-Out 01/10/2025 01/10/2025 025 10:58 AM CDT Assessment Noted Time PHQ-9 Depression Total Score: 0 12/04/19 21 10:06 AM INSIDE SALES TRAINER documented as of this encounter Care Teams Flake Drier Relationship Specialty Start Date End Date Skyler Contreras MD #2 [facility] [place] [place] [address] PCP - General Family Medicine 10/02/17 Miles Ferguson MD Orthopaedic Surgery 05/19/17 Urvashi Thomas APRN, BUSHEL GIRL #2 [facility] [address] [place] [address] Nurse Practitioner Advanced Practice Nurse 01/03/22 documented as of this encounter
--- OUTSIDE RECORDS SUMMARY | 2025-02-19 09:24 | XMS_ITS | Encounter Summary ---
Author Organization [facility] Address [address] [address] Phone Care Team Providers Care Production Drilling Machine Operator Name Role Phone Marty Muñoz MD, Miles Unavailable Unavailab Skyler Chino MD Primary Care Provider Urvashi Thomas APRN, ERIC Unavailable [phone] Reason for Visit * Reason Comments Medication Refill Encounter Details Date Type Department Care Team (Late st Contact Info) Description 10/02/2021 Refill [facility] - Family Medicine - [place] #2 [place] [address] Skyler Contreras MD #[address] [address] Medication Refill Social History Tobacco Use Types [...] have Coronavirus / COVID-19? No / Unsure 10/01/2021 9:26 AM MAINTENANCE INSPECTOR documented as of this encounter Miscellaneous Notes * Telephone Encounter - Leona Armando RN - 10/02/2021 2:07 PM CST PDMP 09/05/21 Medication failed the protocol, provider to review and approve the medication order if appropriate. Requested Prescriptions Pending Prescriptions Disp Refills HYDROcodone-acetaminophen (NORCO) 7.5-325 MG Tablet [Pharmacy Med Name: HYDROCODONE/ACETAMINOPHEN 7.5-325 TABLET] 90 Tablet 0 Sig: TAKE 1 TABLET BY MOUTH EVERY EIGHT (8) HOURS NEEDED healthfinch Not Delegated - Analgesics: Opioid Agonist Combinations Failed - 10/02/2021 2:07 PM Failed - This refill cannot be delegated Passed - Valid encounter within last 6 months Past Office Visits Recent Outpatient Visits 5 days ago Right sided abdominal pain [facility] - Skyler Smith MD 3 weeks ago Chronic pain syndrome [facility] - Family Medicine - Skyler Smith MD 1 month ago Dysuria [facility] Family Medicine - Tobias Posada MD 3 months ago Chronic pain syndrome [facility] Family Medicine - Skyler Smith MD 4 months ago Abdominal discomfort in right lower quadrant [facility] Family Medicine - Bebeto Altamirano APRN, MEDICAL RADIATION THERAPIST Upcoming Appointments Future Appointments In 1 week [facility], [facility] In 2 months Skyler Contreras MD [facility] Family Medicine - [place], [facility] In 2 months Urvashi Thomas APRN, MEDICAL RADIATION THERAPIST [facility] - Pulmonology & Sleep Medicine - [facility] LEATHER COLORER - Recent and Past Visits Recent Visits Date Type Provider Dept 09/27/21 [facility] Office Visit Skyler Contreras MD [facility] 08/30/21 Office Visit Tobias Strickland MD [facility] 06/05/21 Office Visit Skyler Contreras MD [facility] 05/08/21 Office Visit Bebeto Morin APRN, ERIC [facility] 03/05/21 Office Visit Skyler Contreras MD [facility] 12/04/20 Office Visit Skyler Contreras MD [facility] 09/01/20 Office Visit Skyler Contreras MD [facility] 08/01/20 Office Visit Bebeto Morin APRN, MEDICAL RADIATION THERAPIST [facility] 07/13/20 Office Visit Bebeto Morin APRN, MEDICAL RADIATION THERAPIST [facility] recent visits within past 460 days with a meds authorizing provider and meeting all other requirements Future Appointments Date Type Provider Dept 12/06/21 Appointment Skyler Contreras MD [facility] [place] Showing future appointments within next 90 days with a meds authorizing provider and meeting all other requirements TENANCE INSPECTOR documented in this encounter Plan of Treatment Upcoming Encounters Date Type Department Care Team (Late st Contact Info) Description 04/11/2025 1:00 PM CDT Office Visit [facility] - Pulmonology & Sleep Medicine - [place] #2 [place] [address] Urvashi Thomas APRN, MEDICAL RADIATION THERAPIST #2 [facility] [address] [place] [address] 06/21/2025 1:15 PM CDT Office Visit [facility] - Family Medicine - [place] #2 [place] [address] Skyler Contreras MD #2 [facility] [address] [place] [address] documented as of this encounter Visit Diagnoses Diagnosis Chronic pain syndrome documented in this encounter Additional Health Concerns Infection Onset Date Last Indicated Resolved Time COVID - 19 11/06/2021 11/06/2021 11/06/2021 9:43 AM MAINTENANCE INSPECTOR COVID - 19 Confirmed 11/06/2021 11/06/2021 022 12:16 AM MAINTENANCE INSPECTOR COVID - 19 10/25/2022 10/25/2022 11/04/2022 12:1 9 AM MAINTENANCE INSPECTOR COVID - 19 01/10/2025 01/10/2025 01/10/2025 10:2 3 AM CDT Respiratory Rule-Out 01/10/2025 01/10/2025 025 10:34 AM CDT Respiratory Rule-Out 01/10/2025 01/10/2025 025 10:58 AM CDT Assessment Noted Time PHQ-9 Depression Total Score: 0 12/04/19 21 10:06 AM MAINTENANCE INSPECTOR documented as of this encounter Care Teams Production Drilling Machine Operator Relationship Specialty Start Date End Date Skyler Contreras MD #2 [facility] [address] [place] [address] PCP - General Family Medicine 10/02/17 Miles Ferguson MD Orthopaedic Surgery 05/19/17 Urvashi Thomas APRN, MEDICAL RADIATION THERAPIST #2 [facility] [address] [place] [address] Nurse Practitioner Advanced Practice Nurse 01/03/22 documented as of this encounter
[2025-02-19 09:36] VITALS: BP 128/78; PULSE 75; RESP 18; TEMP 36.3; O2SAT 100
[2025-02-19 09:37] LABS: EDUAAPPEAR Cloudy; EDUABILI Negative (Negative); EDUABLOOD Negative (Negative); EDUACOLOR1 Light/Pale; EDUAGLUCOSE Negative (Negative); EDUAKETONE Negative (Negative); EDUALEUKO 2+ (Negative); EDUANITRATE Negative (Negative); EDUAPH 6.5; EDUAPROTEIN Negative (Negative); EDUASPGRAVITY 1.015; EDUAUROBILI 0.2
--- NOTE | 2025-02-19 10:07 | ED_ITS ---
HPI - General Adult General Chief complaint: Urogenital-Female Stated complaint: Urinary Problem Source: patient Mode of arrival: ambulatory Limitations: no limitations History of Present Illness HPI narrative: Pt presents for evaluation of urinary symptoms for the past 1-2 weeks. Symptoms include dysuria, urinary frequency, suprapubic discomfort, low back pain, and chills. She denies any fever, nausea, vomiting. She has a history of recurrent urinary tract infections and this feels similar. She feels like the augmentin she most recently took for her UTI did not fully resolve her symptoms. Related Data Home Medications ?Medication ?Instructions ?Recorded ?Confirmed ?Last Taken ?Type omeprazole 20 mg capsule,delayed 20 mg PO DAILY 04/30/21 08/18/22 Unknown History release cholecalciferol (vitamin D3) 25 25 mcg PO DAILY 08/16/21 11/25/21 Unknown History mcg (1,000 unit) tablet (Vitamin D3) hydrocodone 7.5 mg-acetaminophen tablet 08/18/22 08/18/22 Unknown History 325 mg tablet zolpidem 5 mg tablet mg 07/25/24 Unknown History fluticasone propionate 50 intranasal 02/19/25 Unknown History mcg/actuation nasal spray,suspension Allergies Allergy/AdvReac Type Severity Reaction Status Date / Time No Known Allergies Allergy Verified 02/19/25 09:37 Review of Systems Review of Systems: CONSTITUTIONAL: Reports chills. Denies fever or sweats. EYES: Denies visual changes, redness, or discharge. ENT: Denies rhinorrhea, congestion, sore throat, or otalgia. CARDIOVASCULAR: Denies chest pain, palpitations, or edema. RESPIRATORY: Denies cough or dyspnea. GASTROINTESTINAL: Denies abdominal pain, nausea, vomiting, or diarrhea. GENITOURINARY: Reports dysuria, urinary frequency and suprapubic discomfort SKIN: Denies rash or itching. MUSCULOSKELETAL: Reports low back pain. Denies joint pain, or myalgia. NEUROLOGIC: Denies headache, numbness, dizziness, or weakness. PSYCHIATRIC: Denies anxiety or depression. [facility] Past Medical History Medical History GERD (gastroesophageal reflux disease) Fusion of lumbar spine Lumbar back pain IBS (irritable bowel syndrome) COPD (chronic obstructive pulmonary disease) Left wrist fracture repaired with plate and screws Surgical History Surgical History History of tonsillectomy History of salpingoophorectomy H/O: hysterectomy Hx of appendectomy Family History Family History Mother Family history non-contributory Social History Social History Smoking status: Current every day smoker Tobacco type: cigarettes Alcohol intake: unknown Substance use: current Substance use type: painkillers Living arrangements: alone Gender identity (if verbalized by the patient): Female Sexual Orientation (if Verbalized by the Patient): Straight or Heterosexual Spiritual care concerns: No Exam Narrative: GENERAL: Well-appearing, well-nourished, and in no acute distress. HEAD: Normocephalic, atraumatic. EYES: PERRLA and EOMI. ENT: Nares clear, no rhinorrhea or epistaxis. Mucous membranes moist. Oropharynx without tonsillar hypertrophy exudate or other lesions. Bilateral TM s pearly valdes nonbulging NECK: Supple. No adenopathy or masses. No carotid bruits or JVD CHEST: Clear to auscultation. No respiratory distress. No wheezes rales or rhonchi HEART: Regular rate and rhythm. No murmur heard. Normal peripheral pulses. ABDOMEN: Soft, nontender, nondistended, normal active bowel sounds. EXTREMITIES: Normal range of motion. No edema. SKIN: Warm, dry, no rash. NEURO: No focal deficits. Alert and oriented x3. PSYCH: Normal mood and affect. Course Course Emergency Course: This is a 64-year-old female who presented for evaluation of urinary symptoms. She has leukocytes present in her urine today. Will send urine culture. Discharge with Bactrim and Zofran. Follow-up with primary provider. Go to the ER for worsening symptoms. Patient in agreement with plan of care. Level of Care: Express Care Visit Vital Signs Vital signs: Vital Signs Temperature 36.3 C L 02/19/25 09:36 Pulse Rate 75 02/19/25 09:36 Respiratory Rate 18 02/19/25 09:36 Blood Pressure 128/78 02/19/25 09:36 Pulse Oximetry 100 02/19/25 09:36 Oxygen Delivery Room Air 02/19/25 09:36 Temperature 36.3 C L 02/19/25 09:36 Pulse Rate 75 02/19/25 09:36 Respiratory Rate 18 02/19/25 09:36 Blood Pressure 128/78 02/19/25 09:36 Pulse Oximetry 100 02/19/25 09:36 Oxygen Delivery Room Air 02/19/25 09:36 Medical Decision Making Vital Signs Vital Signs: Vital Signs Temperature 36.3 C L 02/19/25 09:36 Pulse Rate 75 02/19/25 09:36 Respiratory Rate 18 02/19/25 09:36 Blood Pressure 128/78 02/19/25 09:36 Pulse Oximetry 100 02/19/25 09:36 Oxygen Delivery Room Air 02/19/25 09:36 Temperature 36.3 C L 02/19/25 09:36 Pulse Rate 75 02/19/25 09:36 Respiratory Rate 18 02/19/25 09:36 Blood Pressure 128/78 02/19/25 09:36 Pulse Oximetry 100 02/19/25 09:36 Oxygen Delivery Room Air 02/19/25 09:36 Lab Data Labs: Lab Results 02/19/25 Range/Units 09:35 POC Urine Color Light/pale POC Urine Clarity Cloudy POC Urine pH 6.5 POC Ur Specif [place] 1.015 POC Urine Protein Negative (Negative) POC Ur Glucose (UA) Negative (Negative) POC Urine Ketones Negative (Negative) POC Urine Blood Negative (Negative) POC Urine Nitrite Negative (Negative) POC Urine Bilirubin Negative (Negative) POC Urine Urobilinogen 0.2 POC U Leukocyte Esteras 2+ (Negative) Discharge Plan Discharge Clinical Impression: UTI (urinary tract infection) Patient Disposition: Home Condition: Stable Instructions: Antibiotic Form, Urinary Tract Infection in Women (ED) Patient Language: Citizen Of [place] Prescriptions: New sulfamethoxazole-trimethoprim [Bactrim DS] 800-160 mg tablet 1 tablet PO Q12H Qty: 14 0RF ondansetron 4 mg tablet,disintegrating 4 mg PO Q6H PRN (Reason: nausea and vomiting) Qty: 15 0RF No Action cholecalciferol (vitamin D3) [Vitamin D3] 25 mcg (1,000 unit) tablet 25 mcg PO DAILY hydrocodone-acetaminophen 7.5-325 mg tablet zolpidem 5 mg tablet amoxicillin-pot clavulanate 875-125 mg tablet 1 tablet PO Q12H Qty: 20 0RF Rx Instructions: take all of antibiotic phenazopyridine [Pyridium] 200 mg tablet 200 mg PO TID PRN (Reason: pain) Qty: 6 0RF fluticasone propionate 50 mcg/actuation spray,suspension INTRANASAL omeprazole 20 mg capsule,delayed release(DR/EC) 20 mg PO DAILY Follow-up/Referrals: Ben,Skyler Guerrero MD [Primary Care Provider] - Stand Alone Forms: Work/School Release IP Time of Disposition: 10:04
== END 2025-02-19 10:11 | disposition home or self-care (01) ==
PROVIDERS: Emergency Provider Nurse Practitioner; PCP Family Medicine
DX: N39.0 Urinary tract infection, site not specified (principal); F17.210 Nicotine dependence, cigarettes, uncomplicated; J44.9 Chronic obstructive pulmonary disease, unspecified; K21.9 Gastro-esophageal reflux disease without esophagitis; K58.9 Irritable bowel syndrome, unspecified
CPT/HCPCS: 81003; 87086; 99213; G0463

== ENCOUNTER 2025-08-09 08:20 | Emergency (ER) | payer MEDICARE, SELFPAY ==
[2025-08-09 08:24] VITALS: BP 120/69; PULSE 74; RESP 18; TEMP 36.5; O2SAT 100
--- OUTSIDE RECORDS SUMMARY | 2025-08-09 08:35 | XMS_ITS | Encounter Summary ---
Author Organization [facility] Address [address] [place] [address] Phone Care Team Providers Care Mds Coordinator Name Role Phone Marty Muñoz MD, Miles Unavailable Unavailab Skyler Chino MD Primary Care Provider Urvashi Thomas APRN, ERIC Unavailable [phone] Reason for Visit * Reason Comments Medication Refill Encounter Details Date Type Department Care Team (Late st Contact Info) Description 01/23/2022 Refill [facility] - [facility] Medicine - [place] [address] [place] [address] Skyler Contreras MD [address] [id number] Medication Refill Social History Tobacco Use Types [...] COVID-19? No / Unsure 01/03/2022 10:30 AM CLINIC CHARGE NURSE documented as of this encounter Miscellaneous Notes [...] 11/13/21 Telemedicine Bebeto Morin APRN, ERIC [facility] 11/07/21 Telemedicine Bebeto Morin APRN, SPECIAL EDUCATION ASSISTANT [facility] 09/27/21 Office Visit Skyler Contreras MD [facility] 09/05/21 Office Visit Skyler Contreras MD [facility] 08/30/21 Office Visit Tobias Strickland MD [facility] 06/05/21 Office Visit Skyler Contreras MD [facility] 05/08/21 Office Visit Bebeto Morin APRN, SPECIAL EDUCATION ASSISTANT [facility] 03/05/21 Office Visit Skyler Contreras MD [facility] Showing recent visits within past 365 days and meeting all other requirements Future Appointments Date Type Provider Dept 03/08/22 Appointment Skyelr Contreras MD [facility] Showing future appointments [...] [facility] 11/13/21 Telemedicine Bebeto Morin APRN, ERIC [facility] 11/07/21 Telemedicine Bebeto Morin APRN, ERIC [facility] 09/27/21 Office Visit Skyler Contreras MD [facility] 09/05/21 Office Visit Skyler Contreras MD [facility] 08/30/21 Office Visit Tobias Strickland MD [facility] 06/05/21 Office Visit Skyler Contreras MD [facility] 05/08/21 Office Visit Bebeto Morin APRN, ERIC [facility] [place] 03/05/21 Office Visit Skyler Contreras MD [facility] [...] Care Team (Late st Contact Info) Description 10/11/2025 11:00 AM CLINIC CHARGE NURSE Office Visit [facility] - Pulmonology & [facility] Medicine - [place] [address] [place] [address] Urvashi Thomas APRN, SPECIAL EDUCATION ASSISTANT [address] [address] 10/18/2025 1:15 PM CLINIC CHARGE NURSE Office Visit [facility] - Family Medicine [facility] [address] [place] [address] Skyler Contreras MD [address] [facility] [place] [address] documented as of this encounter Visit Diagnoses Diagnosis Chronic pain syndrome documented in this encounter Additional Health Concerns Infection Onset Date Last Indicated Resolved Time COVID - 19 10/25/2022 10/25/2022 11/04/2022 12:1 9 AM CLINIC CHARGE NURSE COVID - 19 01/10/2025 01/10/2025 01/10/2025 10:2 3 AM CDT Respiratory Rule-Out 01/10/2025 01/10/2025 025 10:34 AM CDT Respiratory Rule-Out 01/10/2025 01/10/2025 025 10:58 AM CDT Assessment Noted Time PHQ-9 Depression Total Score: 0 12/04/19 21 10:06 AM CLINIC CHARGE NURSE documented as of this encounter Care Teams Mds Coordinator Relationship Specialty Start Date End Date Skyler Contreras MD [address] [place] [address] PCP - General Family Medicine 10/02/17 Miles Ferguson MD Orthopaedic Surgery 05/19/17 Urvashi Thomas APRN, SPECIAL EDUCATION ASSISTANT [address] [facility] [address] [place] [address] Nurse Practitioner Advanced Practice Nurse 01/03/22 documented as of this encounter
--- OUTSIDE RECORDS SUMMARY | 2025-08-09 08:35 | XMS_ITS | Clinical Summary ---
Author Organization [facility] ENTER Address [address] [place] [address] Phone Care Team Providers Care Wwe Wrestler Name Role Phone Marty Muñoz MD, Miles Unavailable Unavailab Skyler Chino MD Primary Care Provider Urvashi Thomas APRN, HVAC SPECIALIST Unavailable [phone] Allergies No known active allergies Medications Respiratory Therapy Supplies (NEBULIZER) Device Use as directed 1 Each 020 Active Vitamin D3 1000 UNIT Tablet TAKE 1 TABLET BY MOUTH IN THE MORNING 90 Tablet 3 022 Active omeprazole (PriLOSEC) 20 MG CAPSULE DELAYED RELEASE Take 20 mg by mouth daily. Active fluticasone (FLONASE) 50 MCG/ACT SuspensionIndic ations:Seasonal allergies 1-2 Sprays by Nasal route daily. Use in each nostril as directed. 48 mL 1 025 Active alendronate (FOSAMAX) 70 MG Tablet Take 1 Tablet by mouth every 7 days. 12 Tablet 3 025 Active Ventolin HFA 108 (90 Base) MCG/ACT Aerosol Solution take 2 Puffs by inhalation every 4 hours as needed (SHORTNESS OF BREATH). 18 g 025 Active b-12 (VITAMIN B12) 500 MCG TabletIndicatio ns:B12 deficiency Take 1 Tablet by mouth daily for 90 doses. 90 Tablet 3 025 2024 Active ipratropium-alb uterol (DUO-NEB) 0.5-2.5 (3) MG/3ML Solution 3 mL by Nebulization route 4 times daily. 360 mL 3 Active HYDROcodone-michelle taminophen (NORCO) 7.5-325 MG TabletIndicatio ns:Chronic pain syndrome Take 1 Tablet by mouth every 6 hours as needed for Severe pain. 120 Tablet Active zolpidem (AMBIEN) 5 MG TabletIndicatio ns:Insomnia, unspecified type TAKE 1 TABLET BY MOUTH EVERY DAY AT BEDTIME NEEDED FOR SLEEP 30 Tablet Active HYDROcodone-michelle taminophen (NORCO) 7.5-325 MG TabletIndicatio ns:Chronic pain syndrome Take 1 Tablet by mouth every 6 hours as needed for Severe pain. 120 Tablet 025 2024 Discontinued(R eorder) zolpidem (AMBIEN) 5 MG TabletIndicatio ns:Insomnia, unspecified type Take 1 Tablet by mouth nightly as needed for Sleep. 30 Tablet 025 2024 Discontinued(R eorder) predniSONE (DELTASONE) 20 MG TabletIndicatio ns:COPD exacerbation Take 1 Tablet by mouth 2 times daily. 10 Tablet 025 2024 Discontinued(M ed List Clean Up) ipratropium-alb uterol (DUO-NEB) 0.5-2.5 (3) MG/3ML Solution 1.5 mL by Nebulization route 4 times daily for 30 days. 180 mL 3 025 2024 Discontinued(R eorder) zolpidem (AMBIEN) 5 MG TabletIndicatio ns:Insomnia, unspecified type Take 1 Tablet by mouth nightly as needed for Sleep. 30 Tablet 025 2024 Discontinued Active Problems Problem Noted Date Diagnosed Date COPD exacerbation 07/04/2025 Osteoporosis without current pathological fractu re 06/22/2025 Postmenopausal 06/21/2025 Therapeutic drug monitoring 02/15/2025 Frequent UTI 02/15/2025 [...] Encounters Date Type Department Care Team Description 08/02/2025 Results Follow-Up [facility]ne[facility] #[address] [place] [address] Anne-Marie Magana APRN, HVAC SPECIALIST XR CHEST 2 VIEWS 08/01/2025 9:16 AM CDT - 08/01/2025 11:59 PM CDT [facility] [address] [place] [phone] Anne-Marie Magana APRN, HVAC SPECIALIST Discharge Disposition: Discharged to home or Selfcare 08/01/2025 8:30 AM CDT Office Visit [facility] Family [facility] [address] [place] [address] Anne-Marie Magana APRN, ERIC Centrilobular emphysema (Primary Dx); Increased sputum production; Personal history of tobacco use Discharge Disposition: Discharged to home or Selfcare 08/01/2025 Travel 07/29/20[facility] [place] [address] Skyler Contreras MD Medication Refill 07/25/2025 [facility] [place] [address] Skyler Contreras MD Medication Refill 07/15/2025 Telephone [facility] Pulmonology & Sleep [facility] [address] [place] [address] Urvashi Thomas APRN, CNP 07/14/2025 Refill [facility] [address] [place] [address] Urvashi Thomas RN 07/14/2025 Telephone [facility] [place] [place] [address] [place] [address] Skyler Contreras MD Medication Refill 07/13/2025 Results Follow-Up [facility] [place] [place] [address] [place] [address] Bebeto Morin APRN, ERIC CT CHEST SCREENING WO 07/12/2025 2:30 PM CDT Ancillary Procedure [facility] [address] [place] [address] Bebeto Morin APRN, ERIC Personal history of nicotine dependence Discharge Disposition: Discharged to home or Selfcare 07/11/2025 Travel 07/04/2025 8:30 AM CDT Telemedicine [facility] [place] [place] [address] [place] [address] Skyler Contreras MD COPD exacerbation (HCC) (Primary Dx) 07/04/2025 Travel 07/01/2025 9:50 AM CDT Lab [facility] [address] [address] [facility] Hyperlipidemia, unspecified hyperlipidemia type; Vitamin D deficiency; B12 deficiency Discharge Disposition: Discharged to home or Selfcare 07/01/2025 Travel 06/30/2025 Refill [facility] [place] [place] [address] [place] [address] Skyler Contreras MD Medication Refill 06/22/2025 9:10 AM CDT - 06/22/2025 11:59 PM CDT [facility] [address] [place] [address] Skyler Contreras MD Discharge Disposition: Discharged to home or Selfcare 06/22/2025 9:07 AM CDT - 06/22/2025 9:09 AM CDT [facility] [address] [place] [address] Skyler Contreras MD Discharge Disposition: Discharged to home or Selfcare 06/22/2025 Results Follow-Up [facility] [place] [place] [address] [place] [address] Skyler Contreras MD NERY BONE DENSITOMETRY AXIAL SKELETON, LIPID PANEL, VITAMIN D, 25 HYDROXY TOTAL, Additional followed-up results: 2 06/21/2025 1:15 PM CDT Office Visit [facility] [place] [place] [address] [place] [address] Skyler Contreras MD Chronic pain syndrome (Primary Dx); Encounter for screening mammogram for breast cancer; Postmenopausal; Hyperlipidemia, unspecified hyperlipidemia type; Vitamin D deficiency; B12 deficiency Discharge Disposition: Discharged to home or Selfcare 06/21/2025 Travel 06/19/2025 Travel 06/02/2025 [facility] [place] [address] Skyler Contreras MD Medication Refill 05/26/2025 [facility] [place] [address] Skyler Contreras MD Medication Refill from Last 3 Months Immunizations Immunization Administration Dates Next Due Covid-19, Mrna, Lnp-s, Pf, 3 0 Mcg/0.3 Ml Dose ([employer]) 06/01/2021 Influenza Vaccine greater than 3 yrs 07/04/2015, 10/27/2013 Influenza Vaccine, Quadrivalent, PF 06/28,07/23/2022,09/05/2021,07/13,12/21/2019,10/09/2018,08/13/2017 ,08/12/2016 04/01/2017 Influenza, Seasonal, Injecta ble, Undefined 07/04/2015,10/27/2013 Influenza,Split Virus,Trivalent,Injectable,PF 07/21/2024 Pneumococcal Vaccine - 13 Valent 05/23/2020 Pneumococcal Vaccine Adult - 23 Valent 08/22/2017 TDAP Vaccine 05/29/2015 Zoster Vaccine Recombinant 05/05/2019,11/12/2018 Family History Medical History Relation Name Comments Other-comment Brother sarcoma No Known Problems Father Jason Relation Name Status Comments Brother Father Jason Alive Mother Gabriella Alive Social History Tobacco Use Types Packs/Day Years Used Date Smoking Tobacco: Every Day Cigarettes 0.5 48.7 Started: 11/15/1976 Smokeless Tobacco: Never Alcohol Use Standard Drinks/Week Comments Not Currently 0 (1 standard drink = 0.6 oz pur e alcohol) [facility] Utilities Answer Date Recorded In the past 12 months has [employer], gas, oil, or water company threatened to shut off services in your home? No 02/13/2025 Social Connection and Isolation Panel Answer Date Recorded In a typical week, how many times do you talk on the phone with family, friends, or neighbors? Once a week 02/13/2025 How often do you get together with friends or re latives? Once a week 02/13/2025 How often do you attend tenriism or restorationism serv ices? Never 02/13/2025 Do you belong to any clubs o r organizations such as tenriism groups, unions, fraternal or athletic groups, or [...] Total Score - Questions 1-9 0 12/25 [facility] - Occupational [...] place to sleep or slept in a detention (including now)? No 02/29/2024 Housing Stability Vital Sign Answer Jeyson e Recorded In the last 12 months, was t here a time when you were not able to pay the mortgage or rent on time? No 02/13/2025 In the past 12 months, how m any times have you moved where you were living? 0 02/13/2025 At any time in the past 12 m [facility], were you homeless or living in a detention (including now)? No 02/13/2025 Education Answer Date [...] Sign Reading Time Taken Comments Blood Pressure 106/68 08/01/2025 8:41 AM CDT Pulse 66 08/01/2025 8:41 AM CDT Temperature 36.7 C (98 F) 08/01/2025 8:41 AM CDT Respiratory Rate 18 08/01/2025 8:41 AM CDT Oxygen Saturation 100% 08/01/2025 8:41 AM CDT Inhaled Oxygen Concentration - - Weight 53.3 kg (117 lb 8 oz) 08/01/2025 8:41 AM CDT Height 165.1 cm (5' 5) 08/01/2025 8:41 AM CDT Body Mass Index 19.55 08/01/2025 8:41 AM CDT Plan of Treatment Upcoming Encounters Date Type Department Care Team (Late st Contact Info) Description 10/11/2025 11:00 AM SENSOR TECHNICIAN [facility] [address] [place] [address] Urvashi Thomas, LINUX SYSTEMS ENGINEER, HVAC SPECIALIST #2 [facility] [address] [place] [address] 10/18/2025 1:15 PM SENSOR TECHNICIAN Office Visit [facility] [place] [address] [place] [address] Skyler Contreras MD #2 [facility] [address] [place] [address] Health Maintenance Due Date Last Done Comments Cologuard 2005 Respiratory Syncytial Virus (RSV) Immunization (Adult) (1 - Risk 60-74 years 1-dose series) 2020 Immunochemical Fecal Occult Blood 05/29/2022 05/29/2021 Welcome to Medicare (IPPE) G0402 03/27/2025 Pneumococcal Immunization (50+ years) (3 of 3 - PCV20 or PCV21) 05/23/2025 05/23/2020, 08/22/2017 Influenza Immunization (#1) 2025 09/2 02/2024, 07/23/2023, 07/23/2022, Additional history exists SARS-COV-2 Immunization (3 - season) 2025 06/22/2021, 06/01/2021 Colonoscopy 11/27/2025 11/27/2020, 06/07/2015 Colorectal Cancer Screening 11/27/2025 Mammogram 06/22/2026 06/22/2025, 04/0 02/2024, 09/06/2022, Additional history exists Lung Cancer Screening 07/12/2026 07/12/2025 , 07/28/2023, 08/02/2022, Additional history exists DEXA Bone Density 06/22/2027 06/22/2025, , 05/27/2017 Td Immunization Every 10 Years (Adults With 1 Tdap) 10/13/2027 10/13/2017, 05/29/2015 Hepatitis C Virus (HCV) Screening Completed 10/21/2017 Zoster Immunization Completed 05/05/2019, 9 Pneumococcal Immunization Combined Discontinued 05/23/2020, 08/22/2017 Hepatitis B Immunization Aged Out No longer eligible based on patient's age to complete this topic Human Papillomavirus (HPV) Immunization Aged Out No longer eligible based on patient's age to complete this topic Meningococcal Immunization (ACWY) Aged Out No longer eligible based on patient's age to complete this topic Rotavirus Immunization Aged Out No lo nger eligible based on patient's age to complete this topic Procedures Procedure Name Priority Date/Time Associated Diagnosis Comments XR CHEST 2 VIEWS Routine 08/01/2025 9:38 AM CDT Centrilobular emphysema Increased sputum production CT CHEST SCREENING WO Routine 07/12/2025 2:36 PM CDT Personal history of nicotine dependence THYROID SCREEN WITH REFLEX Routine 07/01/2025 9:35 AM CDT Hyperlipidemia, unspecified hyperlipidemia type THYROID SCREEN WITH REFLEX Routine 07/01/2025 9:35 AM CDT Hyperlipidemia, unspecified hyperlipidemia type VITAMIN B12 Routine 07/01/2025 9:35 AM CDT B12 deficiency VITAMIN D, 25 HYDROXY TOTAL Routine 07/01/2025 9:35 AM CDT Vitamin D deficiency LIPID PANEL Routine 07/01/2025 9:35 AM CDT Hyperlipidemia, unspecified hyperlipidemia type NERY SCREENING BILATERAL DIGITAL W CAD W JEFF Routine 06/22/2025 9:35 AM CDT Encounter for screening mammogram for breast cancer NERY BONE DENSITOMETRY AXIAL SKELETON Routine 06/22/2025 9:18 AM CDT Postmenopausal STOOL, OCCULT BLOOD, DIAGNOSTIC, VIA GUAIAC STAT 05/29/2021 4:39 PM CDT HEPATITIS C ANTIBODY Routine 10/21/2017 3:51 PM SENSOR TECHNICIAN Encounter for hepatitis C screening test for low risk patient HM COLONOSCOPY Routine 06/07/2015 from Last 3 Months or Most Recently Relevant to Health Maintenance Results * XR CHEST 2 VIEWS (08/01/2025 9:38 AM CDT) Anatomical Region Laterality Modality Chest N/A Digital Radiogra phy 08/01/2025 9:38 AM CDT Impressions 08/01/2025 4:17 PM CDT IMPRESSION: No acute pulmonary disease. Narrative 08/01/2025 4:17 PM CDT XR CHEST 2 VIEWS : 08/01/2025 9:38 AM DICTATING PHYSICIAN: Jose Hathaway MD, [facility]. HISTORY: As below. ADDITIONAL TECHNOLOGIST HISTORY: Centrilobular emphysema, Abnormal sputum COMPARISON: 07/12/2025, 06/11/2017 TECHNIQUE: 2 view radiographs of the chest were obtained. FINDINGS: Cardiomediastinal silhouette: Within normal limits. Pulmonary vascularity: Within normal limits. Lung parenchyma: Emphysematous changes. No acute infiltrates. Pleura: No evidence for effusion or pneumothorax. Osseous structures: Regional osseous structures are intact. Age-appropriate degenerative changes noted. Support lines and tubes: None. Postoperative changes: None. Procedure Note Jose Regan MD - 08/01/2025 XR CHEST 2 VIEWS : 08/01/2025 9:38 AM DICTATING PHYSICIAN: Jose Hathaway MD, [facility] HISTORY: As below. ADDITIONAL TECHNOLOGIST HISTORY: Centrilobular emphysema, Abnormalsputum COMPARISON: 07/12/2025, 06/11/2017 TECHNIQUE: 2 view radiographs of the chest were obtained. FINDINGS: Cardiomediastinal silhouette: Within normal limits. Pulmonary vascularity: Within normal limits. Lung parenchyma: Emphysematous changes. No acute infiltrates. Pleura: No evidence for effusion or pneumothorax. Osseous structures: Regional osseous structures are intact.Age-appropriate degenerative changes noted. Support lines and tubes: None. Postoperative changes: None. IMPRESSION: No acute pulmonary disease. us Anne-Marie Land Chino LINUX SYSTEMS ENGINEER, HVAC SPECIALIST IMG DIAGNOSTIC ORDERABLE S Final Result * CT CHEST SCREENING WO (07/12/2025 2:36 PM CDT) Anatomical Region Laterality Modality Chest N/A Computed Tomogra phy 07/12/2025 2:36 PM CDT Impressions 07/12/2025 6:01 PM CDT IMPRESSION: 1. LUNG RADS CATEGORY 2: Benign appearance or behavior. Nodules with a very low likelihood of becoming a clinically active cancer due to size or lack of growth. 2. LUNG RADS CATEGORY S: Negative, no new/known potentially significant incidental findings requiring urgent additional evaluation. 3. Other incidental findings as above. RECOMMENDATIONS: Continued routine annual LDCT lung screening. Suggest next exam on or around June 2026. Narrative 07/12/2025 6:01 PM CDT DICTATING PHYSICIAN: Juan Pablo Fernando MD. EXAM DATE: 07/12/2025 2:36 PM LUNG SCREENING LOW DOSE CT THORAX WITHOUT CONTRAST COMPARISON: 07/28/2023. CLINICAL HISTORY: Asymptomatic patient meeting high-risk criteria for lung screening. PROCEDURE: Noncontrast low dose CT lung screen, (LDCT) chest per standard department protocol. RADIATION DOSE: Radiation dose reduction techniques were employed. CTDIvol: 1.6 mGy. DLP: 55 mGy-cm. FINDINGS: LUNG SCREENING SPECIFIC (LUNG RADS 2): BENIGN APPEARANCE OR BEHAVIOR. Nodules with very low likelihood of becoming a clinically active cancer due to size or lack of growth. Posterior right apical 3 mm nodule, stable. Triangular anterior right middle lobe stable nodule, 7 mm. POTENTIALLY SIGNIFICANT INCIDENTALS (LUNG RADS CATEGORY S): None. PULMONARY INCIDENTALS: None. Other incidentals: Unchanged. Procedure Note Juan Pablo Fernando MD - 07/12/2025 DICTATING PHYSICIAN: Juan Pablo Fernando MD. EXAM DATE: 07/12/2025 2:36 PM LUNG SCREENING LOW DOSE CT THORAX WITHOUT CONTRAST COMPARISON: 07/28/2023. CLINICAL HISTORY: Asymptomatic patient meeting high-risk criteria for lungscreening. PROCEDURE: Noncontrast low dose CT lung screen, (LDCT) chest per standarddepartment protocol. RADIATION DOSE: Radiation dose reduction techniqueswere employed. CTDIvol: 1.6 mGy. DLP: 55 mGy-cm. FINDINGS: LUNG SCREENING SPECIFIC (LUNG RADS 2): BENIGN APPEARANCE OR BEHAVIOR.Nodules with very low likelihood of becoming a clinically active cancerdue to size or lack of growth. Posterior right apical 3 mm nodule, stable.Triangular anterior right middle lobe stable nodule, 7 mm. POTENTIALLY SIGNIFICANT INCIDENTALS (LUNG RADS CATEGORY S): None. PULMONARY INCIDENTALS: None. Other incidentals: Unchanged. IMPRESSION: 1. LUNG RADS CATEGORY 2: Benign appearance or behavior. Nodules with mildred low likelihood of becoming a clinically active cancer due to size orlack of growth. 2. LUNG RADS CATEGORY S: Negative, no new/known potentially significantincidental findings requiring urgent additional evaluation. 3. Other incidental findings as above. RECOMMENDATIONS: Continued routine annual LDCT lung screening. Suggestnext exam on or around June 2026. Bebeto Morin APRN, CNP IMG CT ORDERABLE S Final Result * VITAMIN D, 25 HYDROXY TOTAL (07/01/2025 9:35 AM CDT) VITAMIN D, 25 HYDROX 35.1 ng/mL 07/01/2025 12:58 PM CDT [facility] Blood Venipuncture / Unknown 07/01/2025 9:35 AM CDT 07/01/2025 9:35 AM CDT Narrative [facility] - 07/01/2025 12:58 PM CDT Published reference ranges for Vitamin D vary depending on time and place and method of testing, and on patient's age, sex, ethnicity and levels of other measured analytes such as parathormone, calcium and phosphorus. The result should be evaluated in conjunction with clinical findings and suspicions. [place] of [employer] and Endocrine Clinical Practice Guidelines: Status Vitamin D levels (ng/mL) Deficient <=20 At risk of inadequacy 21-29 Sufficient 30-100 Centers of Disease Control and Prevention Guidelines: Status Vitamin D levels (ng/mL) Deficient <13 At risk of inadequacy 13-19 Sufficient 20-50 Possibly harmful >50 References: [place] [employer], 2010 Dietary reference intakes for calcium and vitamin D. [place]: The National Academies Press. Hayde M, Verónica N, Cherie WU, et al., Evaluation, treatment, and prevention of Vitamin D deficiency: an Endocrinology Clinical Practice Guideline. JCEM 2011 96: 7 6377-2517. Sheridan A, Jomar C, Sheila D, et al., Vitamin D Status: [place], 1657-3671, [facility] data brief, no. 59, MD Sunny: [facility] Statistics. 2011. Skyler Cnotreras MD CHEMISTRY ORDERABLES Anjali l Result Performing Organization Address City/[facility]/ZIP Co de Phone Number [facility] [address] [place] [address] * THYROID SCREEN WITH REFLEX (07/01/2025 9:35 AM CDT) TSH 0.828 0.300 - 5.000 mIU/L 07/01/2025 12:53 PM CDT [facility] Blood Venipuncture / Unknown 07/01/2025 9:35 AM CDT 07/01/2025 9:35 AM CDT Skyler Contreras MD CHEMISTRY ORDERABLES Anjali l Result Performing Organization Address City/[facility]/ZIP Co de Phone Number [facility] [address] [place] [address] * VITAMIN B12 (07/01/2025 9:35 AM CDT) VITAMIN B12 381 213 - 816 pg/mL 07/01/2025 12:58 PM CDT [facility] Blood Venipuncture / Unknown 07/01/2025 9:35 AM CDT 07/01/2025 9:35 AM CDT Skyler Contreras MD CHEMISTRY ORDERABLES Anjali l Result [facility] [address] [place] [address] * (ABNORMAL) LIPID PANEL (07/01/2025 9:35 AM CDT) CHOLESTEROL 231(H) <200 mg/dL 07/01/2025 12:32 PM CDT [facility] TRIGLYCERIDES 66 <150 mg/dL 07/01/2025 12:32 PM CDT [facility] HDL CHOLESTEROL 76 >40 mg/dL 12:32 PM CDT [facility] LDL 142(H) <130 mg/dL 07/01/2025 12:32 PM CDT [facility] VLDL 13 10 - 50 mg/dL 07/01/2025 12:32 PM CDT [facility] CHOL/HDL RATIO 3.0 0.0 - 4.4 07/01/2025 12:32 PM CDT [facility] NON-HDL CHOLESTEROL 155(H) <130 mg/dL 07/01/2025 12:32 PM CDT [facility] IS THE PATIENT REQUIRED TO BE FASTING? Yes 07/01/2025 12:32 PM CDT [facility] HAS THE PATIENT BEEN FASTING? Yes 07/01/2025 12:32 PM CDT [facility] Blood Venipuncture / Unknown 07/01/2025 9:35 AM CDT 07/01/2025 9:35 AM CDT Skyler Contreras MD CHEMISTRY ORDERABLES Anjali l Result [facility] [address] [place] [address] * NERY SCREENING BILATERAL DIGITAL W CAD W JEFF (06/22/2025 9:35 AM CDT) Anatomical Region Laterality Modality breast Bilateral Mammography 06/22/2025 9:41 AM CDT Narrative 06/22/2025 12:17 PM CDT - NERY SCREENING BILATERAL DIGITAL W CAD W JEFF BILATERAL DIGITAL SCREENING MAMMOGRAM 3D/2D WITH CAD WITH MEDIOLATERAL OBLIQUE CRANIOCAUDAL: 06/22/2025 The study was acquired using digital technology [...] COMPARISONS: Comparison is made to exams dated: 01/30/2024, 09/06/2022, and 07/04/2021 [facility]. BREAST TISSUE:There are scattered areas of fibroglandular density. FINDINGS: There are benign calcifications in both breasts. There also are benign vascular calcifications in both breasts. No significant masses, calcifications, or other findings are seen in either breast. There has been no significant interval change. IMPRESSION: BENIGN There is no mammographic evidence of malignancy. A 1 year screening mammogram is recommended. A letter will be sent to the patient with these results. The patient will be entered into a reminder system with a target due date of 1 year for her next screening exam. Electronically signed by: Lucy johnson/coco:06/22/2025 11:14:47 Care Program Director(s): RT Brendan(Liset)(M), [facility] letter sent: Normal Exam Reading location: [facility] Mammogram BI-RADS: Category 2: Benign Procedure Note Lucy Dugan MD - 06/22/2025 - NERY SCREENING BILATERAL DIGITAL W CAD W JEFF BILATERAL DIGITAL SCREENING MAMMOGRAM 3D/2D WITH CAD WITH MEDIOLATERAL OBLIQUE CRANIOCAUDAL: 06/22/2025 The study was acquired using digital technology [...] COMPARISONS: Comparison is made to exams dated: 01/30/2024, 09/06/2022, and 07/04/2021 [facility]. BREAST TISSUE:There are scattered areas of fibroglandular density. FINDINGS: There are benign calcifications in both breasts. There also are benign vascular calcifications in both breasts. No significant masses, calcifications, or other findings are seen in either breast. There has been no significant interval change. IMPRESSION: BENIGN There is no mammographic evidence of malignancy. A 1 year screening mammogram is recommended. A letter will be sent to the patient with these results. The patient will be entered into a reminder system with a target due date of 1 year for her next screening exam. Electronically signed by: Lucy johnson/coco:06/22/2025 11:14:47 Care Program Director(s): RT Brendan(R)(M), [facility] letter sent: Normal Exam Reading location: [facility] Mammogram BI-RADS: Category 2: Benign [facility] Jean-Pierre Contreras MD IMG MAMMO ORDERABLES Anjali l Result * NERY BONE DENSITOMETRY AXIAL SKELETON (06/22/2025 9:18 AM CDT) Anatomical Region Laterality Modality BODY N/A Computed Radiogr aphy 06/22/2025 5:30 PM CDT Impressions 06/22/2025 5:33 PM CDT IMPRESSION: 1. Osteoporosis. REFERENCE: Bone mineral density: T-Score: Normal (T-score above or = -1.0) Low bone mass (T-score between -1.0 and -2.5) replaces the previously used term osteopenia Osteoporosis (T-score = or below -2.5) Z-Score: Within the expected range for age (Z-score above -2.0) Below the expected range for age (Z-score is -2.0 or below) Please see below follow up recommendations. Medical evaluation for secondary causes of low bone mineral density may be appropriate. FRAX is a World Health Organization validated fracture risk assessment tool that calculates a person's 10 year probability of a major osteoporosis related fracture and hip fracture. According to the National Osteoporosis Foundation guidelines, postmenopausal women and men age 50 or older with low bone mass and a 10 year probability of a major osteoporosis related fracture = or greater than 20% or a 10 year probability of a hip fracture = or greater than 3% should be considered for pharmacological treatment for the prevention of osteoporosis. For further information, including treatment recommendations, please refer to the 2019 ISCD Official Positions (http://www.iscd.org) and the NOF's Clinician's Guide to Prevention and Treatment of Osteoporosis (http://www.nof.org/professionals/clinical-guidelines) Narrative 06/22/2025 5:33 PM CDT EXAM DESCRIPTION: NERY BONE DENSITOMETRY AXIAL SKELETON REASON FOR STUDY: 65 y/o year old F with given history of: post menopausal Dredge Mate/Model: Big Frame (S/N [id number]) Facility LSC value of 0.028 for the AP spine and 0.033 for the femur. CLINICAL INFORMATION: Current height: 65 inches Maximum height: 65 inches Weight: 115 pounds Risk factors: Postmenopausal, adult fracture, smoking history, rheumatoid arthritis, secondary osteoporosis, asthma or emphysema COMPARISON: 08/19/2017 FINDINGS: AP LUMBAR SPINE L1-L3: Total BMD is 0.800 g/cm2 T-score is -3.1 This is decreased in comparison to prior exam which is statistically significant. LEFT HIP: Total BMD is 0.618 g/cm2 T-score is -3.1 This is decreased in comparison to prior exam which is statistically significant. Femoral neck BMD is 0.619 g/cm2 T-score is -3.0 FRAX: FRAX not reported due to T-scores of hip, femoral neck and/or spine being at or below -2.5 (Osteoporosis). THIS IS AN ELECTRONICALLY VERIFIED FINAL REPORT 06/22/2025 5:30 PM - Electronically signed by Newton Gonzalez M.D. MF: [id number] Report ID: [id number] Reading Location: [place] [address] Procedure Note Newton Gonzalez MD - 06/22/2025 EXAM DESCRIPTION: [facility] BONE DENSITOMETRY AXIAL SKELETON REASON FOR STUDY: 65 y/o year old F with given history of: post menopausal Dredge Mate/Model: Big Frame (S/N [id number]) Facility LSC value of 0.028 for the AP spine and 0.033 for the femur. CLINICAL INFORMATION: Current height: 65 inches Maximum height: 65 inches Weight: 115 pounds Risk factors: Postmenopausal, adult fracture, smoking history, rheumatoid arthritis, secondary osteoporosis, asthma or emphysema COMPARISON: 08/19/2017 FINDINGS: AP LUMBAR SPINE L1-L3: Total BMD is 0.800 g/cm2 T-score is -3.1 This is decreased in comparison to prior exam which is statistically significant. LEFT HIP: Total BMD is 0.618 g/cm2 T-score is -3.1 This is decreased in comparison to prior exam which is statistically significant. Femoral neck BMD is 0.619 g/cm2 T-score is -3.0 FRAX: FRAX not reported due to T-scores of hip, femoral neck and/or spine being at or below -2.5 (Osteoporosis). THIS IS AN ELECTRONICALLY VERIFIED FINAL REPORT 06/22/2025 5:30 PM - Electronically signed by Newton Gonzalez M.D. MF: [id number] Report ID: [id number] Reading Location: [id number] IMPRESSION: 1. Osteoporosis. REFERENCE: Bone mineral density: T-Score: Normal (T-score above or = -1.0) Low bone mass (T-score between -1.0 and -2.5) replaces the previously used term osteopenia Osteoporosis (T-score = or below -2.5) Z-Score: Within the expected range for age (Z-score above -2.0) Below the expected range for age (Z-score is -2.0 or below) Please see below follow up recommendations. Medical evaluation for secondary causes of low bone mineral density may be appropriate. FRAX is a World Health Organization validated fracture risk assessment tool that calculates a person's 10 year probability of a major osteoporosis related fracture and hip fracture. According to the National Osteoporosis Foundation guidelines, postmenopausal women and men age 50 or older with low bone mass and a 10 year probability of a major osteoporosis related fracture = or greater than 20% or a 10 year probability of a hip fracture = or greater than 3% should be considered for pharmacological treatment for the prevention of osteoporosis. For further information, including treatment recommendations, please refer to the 2019 ISCD Official Positions (http://www.iscd.org) and the NOF's Clinician's Guide to Prevention and Treatment of Osteoporosis (http://www.nof.org/professionals/clinical-guidelines) Skyler Cotnreras MD IMG DEXA ORDERABLES Final Result * Stool Occult Blood - Diagnostic (05/29/2021 4:39 PM CDT) [facility] OCCULT BLOOD DIAG Negative Negative 05/29/2021 4:58 PM CDT [facility] Stool Non-Phlebotomy Collection / Unknown 05/29/2021 4:39 PM CDT 05/29/2021 4:39 PM CDT us Ck [facility] PAC BODY FLUIDS & STOOLS ORDERABLES Final Result [facility] [address] [place] [address] * HEPATITIS C ANTIBODY (10/21/2017 3:51 PM SENSOR TECHNICIAN) [facility] hepatitis C antibody 0.62 <1 S/CO 10/21/2017 10:03 PM SENSOR TECHNICIAN [facility] Comment: Signal/Cutoff ratio < 0.79 is Nondetected Signal/Cutoff ratio 0.80-0.99 is Grayzone Signal/Cutoff ratio > 0.99 is Detected Supplemental assays are recommended if signal/cutoff ratio is >/=1.00. Signal/cutoff ratio result >/= 5.00 is 97% predictive of positivity for recombinant immunoblot assay (RIBA) and will be reported to the [place] Department of Public [facility] as required. Blood specimen (specimen) Venipuncture / Unknown 10/21/2017 3:51 PM SENSOR TECHNICIAN 10/21/2017 3:51 PM SENSOR TECHNICIAN Skyler Contreras MD CHEMISTRY ORDERABLES Anjali maria Result [facility] [address] [place] [address], [place] * COLONOSCOPY (06/07/2015) Mk Mendosa DO PROCEDURE/MINOR SURGICAL ORDERAB LES Final Result from Last 3 Months or Most Recently Relevant to Health Maintenance Insurance MEDICARE C [facility] Care Teams Wwe Wrestler Relationship Specialty Start Date End Date Skyler Contreras MD #2 [facility] [address] [place] [address] PCP - General Family Medicine 10/02/17 Miles Ferguson MD Orthopaedic Surgery 05/19/17 Urvashi Thomas APRN, HVAC SPECIALIST #2 [facility] [address] [place] [address] Nurse Practitioner Advanced Practice Nurse 01/03/22
--- OUTSIDE RECORDS SUMMARY | 2025-08-09 08:35 | XMS_ITS | Encounter Summary ---
Author Organization [facility] Address [address] [place] [address] Phone Care Team Providers Care Railroad Shop Inspector Name Role Phone Marty Muñoz MD, Miles Unavailable Unavailab Skyler Chino MD Primary Care Provider Urvashi Thomas APRN, PERSONAL SECRETARY Unavailable [phone] Encounter Details Date Type Department Care Team (Late st Contact Info) Description 08/02/2025 Results Follow-Up [facility] - Obstetrics & Gynecology - [place] [address] [place] [id number] Anne-Marie Magana APRN, PERSONAL SECRETARY #2 [place] [address] XR CHEST 2 VIEWS Social History Tobacco Use Types Packs/Day Years Used Date Smoking Tobacco: Every Day Cigarettes 0.5 48.7 Started: 11/15/1976 Smokeless Tobacco: Never Alcohol Use Standard Drinks/Week Comments Not Currently 0 (1 standard drink = 0.6 oz pur e alcohol) [facility] Utilities Answer Date Recorded In the past 12 months has [employer], gas, oil, or water company threatened to [...] week 02/13/2025 How often do you attend lutheran or yazidi serv ices? Never 02/13/2025 Do you belong to any clubs o r organizations such as lutheran groups, unions, fraternal or athletic groups, or [...] Total Score - Questions 1-9 0 12/25 [facility]at [facility] - Occupational Stress Questionnaire Answer Date Recorded [...] any time in the past 12 m [facility], were you homeless or living in a skilled nursing (including now)? No 02/13/2025 Education Answer Date [...] on file documented as of this encounter Plan of Treatment Upcoming Encounters Date Type Department Care Team (Late st Contact Info) Description 10/11/2025 11:00 AM CAR WHACKER Office Visit [facility] - Pulmonology & Sleep Medicine - [place] [address] [place] [address] Urvashi Thomas APRN, PERSONAL SECRETARY [address] [address] [address] 10/18/2025 1:15 PM CAR WHACKER [facility] Visit [facility] - Family Medicine - [place] [address] [place] [address] Skyler Contreras MD #2 [facility] [place] [address] documented as of this encounter Visit Diagnoses Not on filedocumented in this encounter Additional Health Concerns Assessment Noted Time PHQ-9 Depression Total Score: 0 01/11/20 25 10:05 AM CDT documented as of this encounter Care Teams Railroad Shop Inspector Relationship Specialty Start Date End Date Skyler Contreras MD #2 [facility] [place] [address] PCP - General Family Medicine 10/02/17 Miles Ferguson MD Orthopaedic Surgery 05/19/17 Urvashi Thomas APRN, PERSONAL SECRETARY #2 [facility] [place] [address] Nurse Practitioner Advanced Practice Nurse 01/03/22 documented as of this encounter
--- OUTSIDE RECORDS SUMMARY | 2025-08-09 08:35 | XMS_ITS | Encounter Summary ---
Author Organization [facility] Address [address] [place] [address] Phone Care Team Providers Care Wellness Instructor Name Role Phone Marty Muñoz MD, Miles Unavailable Unavailab Skyler Chino MD Primary Care Provider Urvashi Thomas APRN, ERIC Unavailable [phone] Reason for Visit * Reason Comments Medication Refill Encounter Details Date Type Department Care Team (Late st Contact Info) Description 12/26/2021 Refill [facility] - Family Medicine - [place] [address] [place] [address] Skyler Contreras MD #[address] [address] Medication Refill Social History Tobacco Use Types [...] COVID-19? No / Unsure 12/06/2021 9:27 AM FORMAL SERVICE WAITER documented as of this encounter Miscellaneous Notes [...] Morin APRN, ERIC Seymour 11/07/21 Telemedicine Bebeto Morni APRN, ERIC Seymour 09/27/21 Office Visit Skyler [...] 90 days and meeting all other requirements AL SERVICE WAITER documented in this encounter Plan of Treatment Upcoming Encounters Date Type Department Care Team (Late st Contact Info) Description 10/11/2025 11:00 AM FORMAL SERVICE WAITER [facility] - [place] [address]2 [place] [address] Urvashi Thomas PROFESSOR OF LATIN AMERICAN STUDIES, ASBESTOS SHINGLE INSPECTOR #2 [facility] [address] [place] [address] 10/18/2025 1:15 PM FORMAL SERVICE WAITER [facility] Family Medicine - [place] [address]2 [place] [address] Skyler Contreras MD #2 [facility] [address] [place] [address] documented as of this encounter Visit Diagnoses Diagnosis Chronic pain syndrome documented in this encounter Additional Health Concerns Infection Onset Date Last Indicated Resolved Time COVID - 19 10/25/2022 10/25/2022 11/04/2022 12:1 9 AM FORMAL SERVICE WAITER COVID - 19 01/10/2025 01/10/2025 01/10/2025 10:2 3 AM CDT Respiratory Rule-Out 01/10/2025 01/10/2025 025 10:34 AM CDT Respiratory Rule-Out 01/10/2025 01/10/2025 025 10:58 AM CDT Assessment Noted Time PHQ-9 Depression Total Score: 0 12/04/19 21 10:06 AM FORMAL SERVICE WAITER documented as of this encounter Care Teams Wellness Instructor Relationship Specialty Start Date End Date Skyler Contreras MD #2 [facility] [address] [place] [address] PCP - General Family Medicine 10/02/17 Miles Ferguson MD Orthopaedic Surgery 05/19/17 Urvashi Thomas, PROFESSOR OF LATIN AMERICAN STUDIES, ASBESTOS SHINGLE INSPECTOR #[address] [address] Nurse Practitioner Advanced Practice Nurse 01/03/22 documented as of this encounter
--- OUTSIDE RECORDS SUMMARY | 2025-08-09 08:35 | XMS_ITS | Clinical Summary ---
Author Organization [facility] Address [address] [place] [address] Care Team Providers Care Grain Distributor Name Role Phone Skyler Contreras MD Primary Care Provider [phone] Source Comments [employer] [facility],non-owned Affiliates and Associated Physician Practices is amultiple site organization consisting of ambulatory clinics and hospital sitesin [place], [place], [place] and [place]. This disclosure is being madepursuant to the Care Everywhere program and may not contain all information available regarding this patient. Last updated 18.[facility] Allergies No known active allergies Medications * [...] P M CDT Height 165.1 cm (5' 5) 05/26/2018 1:19 PM CDT Body Mass Index 19.35 05/26/2018 1:19 PM CDT Plan of Treatment Health Maintenance Due Date Last Done Comments BONE DENSITY TESTING 1960 COL[place] (AGES 45-75) - COLON CA SCREENING [...] (2 of 2 - PCV) 08/22/2018 08/22/2017 DEPRESSION SCREENING 10/27/2024 DTAP/TDAP/TD VACCINES (2 - Td or Tdap) 05/29/2025 05/29/2015 COVID-19 VACCINE ( season) 2025 INFLUENZA VACCINE (#1) 2025 7, 08/12/2016, 07/04/2015, Additional history exists Respiratory Syncytial [...] patient's age to complete this topic Insurance [facility] [place]ICAID - [place] [facility] Care Teams Grain Distributor Relationship Specialty Start Date End Date Skyler Contreras MD PCP - General Family Medicine 01/26/18
--- OUTSIDE RECORDS SUMMARY | 2025-08-09 08:36 | XMS_ITS | Encounter Summary ---
Author Organization [facility] Address [address] [place] [address] Phone Care Team Providers Care Pattern Scratcher Name Role Phone Marty Muñoz MD, Miles Unavailable Unavailab Skyler Chino MD Primary Care Provider [phone] Urvashi Thomas APRN, ERIC Unavailable Reason for Visit * Reason Comments Medication Refill Encounter Details Date Type Department Care Team (Late st Contact Info) Description 09/25/2020 Refill [facility] [address] [place] [address] Skyler Contreras MD #[address] [address] Medication Refill Social History Tobacco Use Types [...] COVID-19? No / Unsure 09/26/2020 10:06 AM DATABASE SOFTWARE TECHNICIAN documented as of this encounter Miscellaneous [...] month ago Irritable bowel syndrome with constipation [facility] Bebeto Altamirano APN, ADMITTING OFFICER 2 months ago Irritable bowel syndrome with constipation [facility] Bebeto Altamirano APN, ADMITTING OFFICER 4 months ago Chronic pain syndrome [facility] - Skyler Smith MD 7 months ago [facility] Smith MD Upcoming Appointments Future Appointments In 2 months Skyler Contreras MD [facility] Home Golden MD [facility] PULMONOLOGY, [facility] DISPENSARY TECHNICIAN - Recent and Past Visits Recent Visits Date Type Provider Dept 09/01/20 Office Visit Skyler Contreras MD [facility] [place] 08/01/20 Office Visit Bebeto Morin APN, ERIC [facility] 07/13/20 Office Visit Bebeto Morin APN, ERIC [facility] 05/23/20 Office Visit Skyelr Contreras MD [facility] 02/21/20 Telemedicine Skyler [...] authorizing provider and meeting all other requirements BASE SOFTWARE TECHNICIAN documented in this encounter Plan of Treatment Upcoming Encounters Date Type Department Care Team (Late st Contact Info) Description 10/11/2025 11:00 AM DATABASE SOFTWARE TECHNICIAN Office Visit [facility] - Pulmonology & Sleep Medicine - [place] [address] [place] [address] Urvashi Thomas APRN, ERIC #2 [facility] [address] [place] [address] 10/18/2025 1:15 PM DATABASE SOFTWARE TECHNICIAN Office Visit [facility] Medical [facility] - Family Medicine - [place] #2 [place] [address] Skyler Contreras MD #2 [facility] [address] [place] [address] documented as of this encounter Visit Diagnoses Not on filedocumented in this encounter Additional Health Concerns Infection Onset Date Last Indicated Resolved Time COVID - 19 11/06/2021 11/06/2021 11/06/2021 9:43 AM DATABASE SOFTWARE TECHNICIAN COVID - 19 Confirmed 11/06/2021 11/06/2021 022 12:16 AM DATABASE SOFTWARE TECHNICIAN COVID - 19 10/25/2022 10/25/2022 11/04/2022 12:1 9 AM DATABASE SOFTWARE TECHNICIAN COVID - 19 01/10/2025 01/10/2025 01/10/2025 10:2 3 AM CDT Respiratory Rule-Out 01/10/2025 01/10/2025 025 10:34 AM CDT Respiratory Rule-Out 01/10/2025 01/10/2025 025 10:58 AM CDT Assessment Noted Time PHQ-9 Depression Total Score: 0 12/21/19 20 3:23 PM DATABASE SOFTWARE TECHNICIAN documented as of this encounter Care Teams Pattern Scratcher Relationship Specialty Start Date End Date Skyler Contreras MD #2 [facility] [address] [place] [address] PCP - General Family Medicine 10/02/17 Miles Ferguson MD Orthopaedic Surgery 05/19/17 Urvashi Thomas APRN, ADMITTING OFFICER #2 [facility] [address] [place] [address] Nurse Practitioner Advanced Practice Nurse 01/03/22 documented as of this encounter
--- OUTSIDE RECORDS SUMMARY | 2025-08-09 08:36 | XMS_ITS | Encounter Summary ---
Author Organization [facility] Address [address] [place] [address] Phone Care Team Providers Care Transmitter Engineer In Charge Name Role Phone Marty Muñoz MD, Miles Unavailable Unavailab Skyler Chino MD Primary Care Provider Urvashi Thomas APRN, ERIC Unavailable [phone] Reason for Visit * Reason Comments Medication Refill Encounter Details Date Type Department Care Team (Late st Contact Info) Description 02/25/2022 Refill [facility] - Family Medicine - [place] [address] [place] [address] Skyler Contreras MD #[address] [address] Medication Refill Social History Tobacco Use Types [...] Morin APRN, ERIC Seymour 09/27/21 Office Visit Skyelr Contreras MD [facility] 09/05/21 Office Visit Skyler Contreras MD [facility] 08/30/21 Office Visit Tobias Strickland MD [facility] 06/05/21 Office Visit Skyler Contreras MD [facility] 05/08/21 Office Visit Bebeto Morin, MEAT CARVER, COMPLIANCE REVIEW OFFICER [facility] 03/05/21 Office Visit Skyler Contreras MD [facility] Showing recent visits within past 365 days and meeting all other requirements Future Appointments Date Type Provider Dept 03/08/22 Appointment Skyler Contreras MD [facility] Showing future appointments within next 90 days and meeting all other requirements documented in this encounter Plan of Treatment Upcoming Encounters Date Type Department Care Team (Late st Contact Info) Description 10/11/2025 11:00 AM COMMISSIONS COORDINATOR Office Visit [facility] - Pulmonology & Sleep Medicine - [place] #2 [facility] [place] [address] Urvashi Thomas APRN, COMPLIANCE REVIEW OFFICER #2 [facility] [address] [place] [address] 10/18/2025 1:15 PM COMMISSIONS COORDINATOR Office Visit [facility] Medical [facility] - Family Medicine - [place] #2 [facility] [address] Skyler Contreras MD #2 [facility] [address] [place] [address] documented as of this encounter Visit Diagnoses Diagnosis Chronic pain syndrome documented in this encounter Additional Health Concerns Infection Onset Date Last Indicated Resolved Time COVID - 19 10/25/2022 10/25/2022 11/04/2022 12:1 9 AM COMMISSIONS COORDINATOR COVID - 19 01/10/2025 01/10/2025 01/10/2025 10:2 3 AM CDT Respiratory Rule-Out 01/10/2025 01/10/2025 025 10:34 AM CDT Respiratory Rule-Out 01/10/2025 01/10/2025 025 10:58 AM CDT Assessment Noted Time PHQ-9 Depression Total Score: 0 12/04/19 10:06 AM COMMISSIONS COORDINATOR documented as of this encounter Care Teams Transmitter Engineer In Charge Relationship Specialty Start Date End Date Skyler Contreras MD #2 [facility] [address] [place] [address] PCP - General Family Medicine 10/02/17 Miles Ferguson MD Orthopaedic Surgery 05/19/17 Urvashi Thomas APRN, COMPLIANCE REVIEW OFFICER #2 [facility] [address] [place] [address] Nurse Practitioner Advanced Practice Nurse 01/03/22 documented as of this encounter
--- OUTSIDE RECORDS SUMMARY | 2025-08-09 08:36 | XMS_ITS | Encounter Summary ---
Author Organization [facility] Address [address] [place] [address] Phone Care Team Providers Care Gem Setter Name Role Phone Marty Muñoz MD, Miles Unavailable Unavailab Skyler Chino MD Primary Care Provider Urvashi Thomas APRN, ERIC Unavailable [phone] Reason for Visit * Reason Comments Medication Refill Encounter Details Date Type Department Care Team (Late st Contact Info) Description 04/27/2022 Refill [facility] - Family Medicine - [place] #2 [place] [address] Skyler Contreras MD #[address] [address] Medication Refill Social History Tobacco Use Types [...] st Contact Info) Description 10/11/2025 11:00 AM DIALYSIS CLINICAL MANAGER Office Visit [facility] - Pulmonology & Sleep Medicine [facility] #2 [place] [address] Urvashi Thomas APRN, SEPARATING MACHINE OPERATOR #2 [facility] [address] [place] [address] 10/18/2025 1:15 PM DIALYSIS CLINICAL MANAGER Office Visit [facility] Medical [facility] - Family Medicine - [place] #2 [place] [address] Skyler Contreras MD #2 [facility] [address] [place] [address] documented as of this encounter Visit Diagnoses Diagnosis Chronic pain syndrome documented in this encounter Additional Health Concerns Infection Onset Date Last Indicated Resolved Time COVID - 19 10/25/2022 10/25/2022 11/04/2022 12:1 9 AM DIALYSIS CLINICAL MANAGER COVID - 19 01/10/2025 01/10/2025 01/10/2025 10:2 3 AM CDT Respiratory Rule-Out 01/10/2025 01/10/2025 025 10:34 AM CDT Respiratory Rule-Out 01/10/2025 01/10/2025 025 10:58 AM CDT Assessment Noted Time PHQ-9 Depression Total Score: 0 12/04/19 21 10:06 AM DIALYSIS CLINICAL MANAGER documented as of this encounter Care Teams Gem Setter Relationship Specialty Start Date End Date Skyler Contreras MD #2 [facility] [address] [place] [address] PCP - General Family Medicine 10/02/17 Miles Ferguson MD Orthopaedic Surgery 05/19/17 Urvashi Thomas APRN, SEPARATING MACHINE OPERATOR #2 [facility] [address] [place] [address] Nurse Practitioner Advanced Practice Nurse 01/03/22 documented as of this encounter
--- OUTSIDE RECORDS SUMMARY | 2025-08-09 08:36 | XMS_ITS | Encounter Summary ---
Author Organization [facility] Address [address] [place] [address] Phone Care Team Providers Care Data Designer Name Role Phone Marty Muñoz MD, Miles Unavailable Unavailab Skyler Chino MD Primary Care Provider [phone] [phone] Urvashi Thomas APRN, SECURITY DELIVERY SPECIALIST Unavailable Reason for Visit * Reason Onset Date Comments Results 05/07/2023 Encounter Details Date Type Department Care Team (Late st Contact Info) Description 05/07/2023 Telephone [facility] [address] [place] [address] Skyler Contreras MD #[address] [address] Results Social History Tobacco Use Types Packs/Day [...] st Contact Info) Description 10/11/2025 11:00 AM CLINICAL DOCUMENTATION CLERK [facility] - [place] #2 [place] [address] Urvashi Thomas APRN, SECURITY DELIVERY SPECIALIST #2 [facility] [address] [place] [address] 10/18/2025 1:15 PM CLINICAL DOCUMENTATION CLERK Office Visit [facility] - [place] #2 [place] [id number] Skyler Contreras MD #2 [facility] [address] [place] [address] documented as of this encounter Visit Diagnoses Not on filedocumented in this encounter Additional Health Concerns Infection Onset Date Last Indicated Resolved Time COVID - 19 01/10/2025 01/10/2025 01/10/2025 10:2 3 AM CDT Respiratory Rule-Out 01/10/2025 01/10/2025 025 10:34 AM CDT Respiratory Rule-Out 01/10/2025 01/10/2025 025 10:58 AM CDT Assessment Noted Time PHQ-9 Depression Total Score: 0 12/04/19 21 10:06 AM CLINICAL DOCUMENTATION CLERK documented as of this encounter Care Teams Data Designer Relationship Specialty Start Date End Date Skyler Contreras MD #2 [facility] [address] [place] [address] PCP - General Family Medicine 10/02/17 Miles Ferguson MD Orthopaedic Surgery 05/19/17 Urvashi Thomas APRN, SECURITY DELIVERY SPECIALIST #2 [facility] [address] [place] [address] Nurse Practitioner Advanced Practice Nurse 01/03/22 documented as of this encounter
--- OUTSIDE RECORDS SUMMARY | 2025-08-09 08:36 | XMS_ITS | Encounter Summary ---
Author Organization [facility] Address [address] [place] [place] [address] Phone Care Team Providers Care Commercial Energy Auditor Name Role Phone Marty Muñoz MD, Miles Unavailable Unavailab Skyler Chino MD Primary Care Provider Urvashi Thomas APRN, ERIC Unavailable [phone]- [phone] Reason for Visit * Reason Comments Medication Refill Encounter Details Date Type Department Care Team (Late st Contact Info) Description 03/27/2022 Refill [facility] - [place] #2 [place] [address] Skyler Contreras MD #[address] [address] Medication Refill Social History Tobacco Use Types [...] [facility] 11/07/21 Telemedicine Bebeto Morin APRN, DENTAL INSTRUMENT MAKER [facility] [place] 09/27/21 Office Visit Skyler Contreras MD [facility] [place] 09/05/21 Office Visit Skyler Contreras MD [facility] [place] 08/30/21 Office Visit Tobias Strickland MD [facility] 06/05/21 Office Visit Skyler Contreras MD [facility] [place] 05/08/21 Office Visit Bebeto Morin APRN, DENTAL INSTRUMENT MAKER [facility] [place] Showing recent visits within past 365 days and meeting all other requirements Future Appointments Date Type Provider Dept 04/18/22 Appointment Skyler Contreras MD [facility] Showing future appointments within next 90 days and meeting all other requirements documented in this encounter Plan of Treatment Upcoming Encounters Date Type Department Care Team (Late st Contact Info) Description 10/11/2025 11:00 AM HOSPICE ADMINISTRATOR Office Visit [facility] - Pulmonology [facility]2 [facility] [address] Urvashi Thomas APRN, DENTAL INSTRUMENT MAKER #2 [facility] [address] [place] [address] 10/18/2025 1:15 PM HOSPICE ADMINISTRATOR Office Visit [facility] Medical [facility] Family [facility] [place] #2 [facility] [place] [address] Skyler Contreras MD #[address] [place] [address] documented as of this encounter Visit Diagnoses Diagnosis Chronic pain syndrome documented in this encounter Additional Health Concerns Infection Onset Date Last Indicated Resolved Time COVID - 19 10/25/2022 10/25/2022 11/04/2022 12:1 9 AM HOSPICE ADMINISTRATOR COVID - 19 01/10/2025 01/10/2025 01/10/2025 10:2 3 AM CDT Respiratory Rule-Out 01/10/2025 01/10/2025 025 10:34 AM CDT Respiratory Rule-Out 01/10/2025 01/10/2025 025 10:58 AM CDT Assessment Noted Time PHQ-9 Depression Total Score: 0 12/04/19 21 10:06 AM HOSPICE ADMINISTRATOR documented as of this encounter Care Teams Commercial Energy Auditor Relationship Specialty Start Date End Date Skyler Contreras MD #[address] [address] PCP - General Family Medicine 10/02/17 Miles Ferguson MD Orthopaedic Surgery 05/19/17 Urvashi Thomas APRN, DENTAL INSTRUMENT MAKER #2 [facility] [address] [place] [address] Nurse Practitioner Advanced Practice Nurse 01/03/22 documented as of this encounter
--- OUTSIDE RECORDS SUMMARY | 2025-08-09 08:36 | XMS_ITS | Encounter Summary ---
Author Organization [facility] Address [address] [place] [address] Phone Care Team Providers Care Sheltered Workshop Executive Director Name Role Phone Marty Muñoz MD, Miles Unavailable Unavailab Skyler Chino MD Primary Care Provider [phone] Urvashi Thomas APRN, CATHETERIZATION LABORATORY TECHNICIAN Unavailable Reason for Visit * Reason Onset Date Comments Advice Only 01/10/2025 Cough 01/10/2025 Sore Throat 01/10/2025 Fatigue 01/10/2025 Encounter Details Date Type Department Care Team (Late st Contact Info) Description 01/10/2025 Nurse Triage [facility] Central Call Center [address] [place] [address] Skyler Contreras MD #[address] [address] Advice Only; Cough; Sore Throat; Fatigue Social History Tobacco Use Types Packs/Day Years Used Date Smoking Tobacco: Every Day Cigarettes 0.5 48.7 Started: 11/15/1976 Smokeless Tobacco: Never Alcohol Use Standard Drinks/Week Comments Not Currently 0 (1 standard drink = 0.6 oz pur e alcohol) [facility] Utilities Answer Date Recorded In the past 12 months has e electric, gas, oil, or water company threatened to shut off services in your home? No 10/13/2024 Social Connection and Isolation Panel Answer Date Recorded In a typical week, how many times do you talk on the phone with family, friends, or neighbors? Three times a week 10/13/2024 How often do you get togethe r with friends or relatives? Once a week 10/13/2024 How often do you attend chur ch or mu-ism services? Never 10/13/2024 Do you belong to [...] Total Score - Questions 1-9 0 12/25 [facility] - Occupational Stress Questionnaire Answer Date [...] place to sleep or slept in a long-term (including now)? No 02/29/2024 Housing Stability Vital Sign Answer Jeyson e Recorded In the last 12 months, was t here a time when you were not able to pay the mortgage or rent on time? No 10/13/2024 In the past 12 months, how m any times have you moved where you were living? 0 10/13/2024 At any time in the past 12 m [facility], were you homeless or living in a long-term (including now)? No 10/13/2024 Education Answer Date [...] -exposure to strep throat -abdominal pain Pain: 12/06 sore throat Fever: Denies fever. Treatment / [...] Dept Phone 01/10/2025 10:00 AM Bebeto Morin [facility] - Family Medicine [facility] [phone] Caller notified and verbalized understanding. Verified medication, [...] main symptom Protocols used: Weakness (Generalized) and [id number]-SM * Telephone Encounter - Kristina Guzmán - 01/10/2025 8:34 AM CDT Symptoms: Sore Throat, Cough Outcome: Transfer to roll handler queue Reason: Caller denied all higher acuity questions The caller accepted this outcome. Caller Denied: * Struggling for each breath (severe trouble breathing) * Can't swallow saliva (drooling) * Choked on something documented in this encounter Plan of Treatment Upcoming Encounters Date Type Department Care Team (Late st Contact Info) Description 10/11/2025 11:00 AM SLURRY TANK OPERATOR Office Visit [facility] - Pulmonology & Sleep Medicine [facility] #2 [place] [address] Urvashi Thomas APRN, CATHETERIZATION LABORATORY TECHNICIAN #2 [facility] [address] [place] [address] 10/18/2025 1:15 PM SLURRY TANK OPERATOR Office Visit [facility] - Family Medicine - [place] #2 [place] [address] Skyler Contreras MD #2 [facility] [address] [place] [address] documented as of this encounter Visit Diagnoses [...] documented as of this encounter Care Teams Sheltered Workshop Executive Director Relationship Specialty Start Date End Date Skyler Contreras MD #2 [facility] [address] [place] [address] PCP - General Family Medicine 10/02/17 Miles Ferguson MD Orthopaedic Surgery 05/19/17 Urvashi Thomas, LABEL STAMPER, CATHETERIZATION LABORATORY TECHNICIAN #2 [facility] [address] [place] [address] Nurse Practitioner Advanced Practice Nurse 01/03/22 documented as of this encounter
--- OUTSIDE RECORDS SUMMARY | 2025-08-09 08:36 | XMS_ITS | Encounter Summary ---
Author Organization [facility] Address [address] [place] [address] Phone Care Team Providers Care Cattle Trader Name Role Phone Marty Muñoz MD, Miles Unavailable Unavailab Skyler Chino MD Primary Care Provider Urvashi Thomas APRN, ERIC Unavailable [phone]- [phone] Reason for Visit * Reason Comments Medication Refill Encounter Details Date Type Department Care Team (Late st Contact Info) Description 04/24/2022 Refill [facility] - [place] #2 [place] [address] Skyler Contreras MD #[address] [address] Medication Refill Social History Tobacco Use Types [...] st Contact Info) Description 10/11/2025 11:00 AM HEAD OF SALES AND MARKETING [facility] [place] #[address] [facility] [place] [address] Urvashi Thomas APRN, WAITER/WAITRESS SECOND CLASS #2 [facility] [address] [place] [address] 10/18/2025 1:15 PM HEAD OF SALES AND MARKETING Office Visit [facility] Medical [facility] Family Medicine - [place] #2 [place] [address] Skyler Contreras MD #2 [facility] [address] [place] [address] documented as of this encounter Visit Diagnoses Diagnosis Chronic pain syndrome documented in this encounter Additional Health Concerns Infection Onset Date Last Indicated Resolved Time COVID - 19 10/25/2022 10/25/2022 11/04/2022 12:1 9 AM HEAD OF SALES AND MARKETING COVID - 19 01/10/2025 01/10/2025 01/10/2025 10:2 3 AM CDT Respiratory Rule-Out 01/10/2025 01/10/2025 025 10:34 AM CDT Respiratory Rule-Out 01/10/2025 01/10/2025 025 10:58 AM CDT Assessment Noted Time PHQ-9 Depression Total Score: 0 12/04/19 21 10:06 AM HEAD OF SALES AND MARKETING documented as of this encounter Care Teams Cattle Trader Relationship Specialty Start Date End Date Skyler Contreras MD #2 [facility] [address] [place] [address] PCP - General Family Medicine 10/02/17 Miles eFrguson MD Orthopaedic Surgery 05/19/17 Urvashi Thomas, URBAN REDEVELOPMENT SPECIALIST, WAITER/WAITRESS SECOND CLASS #[address] [address] Nurse Practitioner Advanced Practice Nurse 01/03/22 documented as of this encounter
--- OUTSIDE RECORDS SUMMARY | 2025-08-09 08:36 | XMS_ITS | Encounter Summary ---
Author Organization [facility] Address [address] [place] [address] Phone Care Team Providers Care Table Assembler Metal Name Role Phone Marty Muñoz MD, Miles Unavailable Unavailab Skyler Chino MD Primary Care Provider [phone] Urvashi Thomas APRN, ERIC Unavailable [phone] Reason for Visit * Reason Comments Medication Refill Encounter Details Date Type Department Care Team (Late st Contact Info) Description 08/24/2020 Refill [facility] [address] [place] [address] Skyler Contreras MD #[address] [address] Medication Refill Social History Tobacco Use Types [...] next fill date 08/28/20 No UDS Leona tool and die maker level five failed the protocol, provider to review and [...] weeks ago Irritable bowel syndrome with constipation [facility] Family [facility] Bebeto Altamirano APN, ERIC 1 month ago Irritable bowel syndrome with constipation [facility] Bebeto Altamirano APN, ERIC 3 months ago Chronic pain syndrome [facility] Skyler Smith MD 6 months ago Chronic pain syndrome [facility] Skyler Smith MD 8 months ago [facility] Smith MD Upcoming Appointments Future Appointments In 1 week Skyler Contreras MD [facility] In 1 week Home Golden MD [facility] PULMONOLOGY, [facility] TRUST AND ESTATES ATTORNEY - Recent and Past Visits Recent Visits Date Type Provider Dept 08/01/20 Office Visit Bebeto Morin APN, ERIC [facility] [place] 07/13/20 Office Visit Bebeto Morin APN, ERIC [facility] [place] 05/23/20 Office Visit Skyler Contreras MD [...] st Contact Info) Description 10/11/2025 11:00 AM ASSISTANT ANALYST Office Visit [facility] Medical [facility] - Pulmonology & Sleep Medicine - [place] #2 [place] [address] Urvashi Thomas APRN, ERIC #2 [facility] [address] [place] [address] 10/18/2025 1:15 PM ASSISTANT ANALYST Office Visit [facility] Medical [facility] - Family Medicine - [place] #2 [place] [address] Skyler Contreras MD #2 [facility] [address] [place] [address] documented as of this encounter Visit Diagnoses Not on filedocumented in this encounter Additional Health Concerns Infection Onset Date Last Indicated Resolved Time COVID - 19 11/06/2021 11/06/2021 11/06/2021 9:43 AM ASSISTANT ANALYST COVID - 19 Confirmed 11/06/2021 11/06/2021 022 12:16 AM ASSISTANT ANALYST COVID - 19 10/25/2022 10/25/2022 11/04/2022 12:1 9 AM ASSISTANT ANALYST COVID - 19 01/10/2025 01/10/2025 01/10/2025 10:2 3 AM CDT Respiratory Rule-Out 01/10/2025 01/10/2025 025 10:34 AM CDT Respiratory Rule-Out 01/10/2025 01/10/2025 025 10:58 AM CDT Assessment Noted Time PHQ-9 Depression Total Score: 0 12/21/19 20 3:23 PM ASSISTANT ANALYST documented as of this encounter Care Teams Table Assembler Metal Relationship Specialty Start Date End Date Skyler Contreras MD #2 [facility] [address] [place] [address] PCP - General Family Medicine 10/02/17 Miles Ferguson MD Orthopaedic Surgery 05/19/17 Urvashi Thomas APRN, TROMBONE SLIDE ASSEMBLER #2 [facility] [address] [place] [address] Nurse Practitioner Advanced Practice Nurse 01/03/22 documented as of this encounter
--- OUTSIDE RECORDS SUMMARY | 2025-08-09 08:36 | XMS_ITS | Encounter Summary ---
Author Organization [facility] Address [address] [place] [address] Phone Care Team Providers Care Linux System Administrator Name Role Phone Marty Muñoz MD, Miles Unavailable Unavailab Skyler Chino MD Primary Care Provider Urvashi Thomas APRN, ERIC Unavailable [phone]- [phone] Reason for Visit * Reason Comments Medication Refill Encounter Details Date Type Department Care Team (Late st Contact Info) Description 10/31/2021 Refill [facility] - [place] #2 [place] [address] Skyler Contreras MD #[address] [address] Medication Refill Social History Tobacco Use Types [...] COVID-19? No / Unsure 10/10/2021 9:18 AM GROUNDSKEEPER documented as of this encounter Miscellaneous Notes [...] [place] 05/08/21 Office Visit Bebeto Morin APRN, CNP [facility] 03/05/21 Office Visit Skyler Contreras MD [facility] 12/04/20 Office Visit Skyler Contreras MD [facility] Showing recent visits within past 365 days and meeting all other requirements Future Appointments Date Type Provider Dept 12/06/21 Appointment Skyler Contreras MD [facility] Showing future appointments within next 90 days and meeting all other requirements NDSKEEPER documented in this encounter Plan of Treatment Upcoming Encounters Date Type Department Care Team (Late st Contact Info) Description 10/11/2025 11:00 AM GROUNDSKEEPER [facility] - Pulmonology & [facility] Medicine - [place] #2 [place] [address] Urvashi Thomas, LEADITE HEATER, WORKERS COMPENSATION ADJUSTER #[address] [facility] [address] [place] [address] 10/18/2025 1:15 PM GROUNDSKEEPER Office Visit [facility] - Family Medicine - [place] #2 [facility] [place] [address] Skyler Contreras MD #[address] [facility] [address] [place] [address] documented as of this encounter Visit Diagnoses Diagnosis Chronic pain syndrome documented in this encounter Additional Health Concerns Infection Onset Date Last Indicated Resolved Time COVID - 19 11/06/2021 11/06/2021 11/06/2021 9:43 AM GROUNDSKEEPER COVID - 19 Confirmed 11/06/2021 11/06/2021 022 12:16 AM GROUNDSKEEPER COVID - 19 10/25/2022 10/25/2022 11/04/2022 12:1 9 AM GROUNDSKEEPER COVID - 19 01/10/2025 01/10/2025 01/10/2025 10:2 3 AM CDT Respiratory Rule-Out 01/10/2025 01/10/2025 025 10:34 AM CDT Respiratory Rule-Out 01/10/2025 01/10/2025 025 10:58 AM CDT Assessment Noted Time PHQ-9 Depression Total Score: 0 12/04/19 21 10:06 AM GROUNDSKEEPER documented as of this encounter Care Teams Linux System Administrator Relationship Specialty Start Date End Date Skyler Contreras MD #[address] [facility] [address] [place] [address] PCP - General Family Medicine 10/02/17 Miles Ferguson MD Orthopaedic Surgery 05/19/17 Urvashi Thomas APRN, WORKERS COMPENSATION ADJUSTER #2 [place] [id number] Nurse Practitioner Advanced Practice Nurse 01/03/22 documented as of this encounter
--- OUTSIDE RECORDS SUMMARY | 2025-08-09 08:36 | XMS_ITS | Encounter Summary ---
Author Organization [facility] Address [address] [place] [address] Phone Care Team Providers Care Painter Assistant Name Role Phone Marty Muñoz MD, Miles Unavailable Unavailab Skyler Chino MD Primary Care Provider Urvashi Thomas APRN, ERIC Unavailable [phone] Reason for Visit * Reason Comments Medication Refill Encounter Details Date Type Department Care Team (Late st Contact Info) Description 05/23/2022 Refill [facility] - [place] #2 [place] [address] Skyler Contreras MD #[address] [address] Medication Refill Social History Tobacco Use Types [...] [facility] 11/07/21 Telemedicine Bebeto Morin APRN, ANNUAL CAMPAIGN MANAGER [facility] 09/27/21 Office Visit Skyler Contreras [...] st Contact Info) Description 10/11/2025 11:00 AM DEPUTY SHERIFF/INVESTIGATOR Office Visit [facility] - Pulmonology & Sleep Medicine [facility] #2 [place] [address] Urvashi Thomas APRN, ANNUAL CAMPAIGN MANAGER #2 [facility] [address] [place] [address] 10/18/2025 1:15 PM DEPUTY SHERIFF/INVESTIGATOR Office Visit [facility] Medical [facility] [place] #2 [place] [address] Skyler Contreras MD #[address] [address] documented as of this encounter Visit Diagnoses Diagnosis Chronic pain syndrome documented in this encounter Additional Health Concerns Infection Onset Date Last Indicated Resolved Time COVID - 19 10/25/2022 10/25/2022 11/04/2022 12:1 9 AM DEPUTY SHERIFF/INVESTIGATOR COVID - 19 01/10/2025 01/10/2025 01/10/2025 10:2 3 AM CDT Respiratory Rule-Out 01/10/2025 01/10/2025 025 10:34 AM CDT Respiratory Rule-Out 01/10/2025 01/10/2025 025 10:58 AM CDT Assessment Noted Time PHQ-9 Depression Total Score: 0 12/04/19 21 10:06 AM DEPUTY SHERIFF/INVESTIGATOR documented as of this encounter Care Teams Painter Assistant Relationship Specialty Start Date End Date Skyler Contreras MD #[address] [address] PCP - General Family Medicine 10/02/17 Miles Ferguson MD Orthopaedic Surgery 05/19/17 Urvashi Thomas APRN, ANNUAL CAMPAIGN MANAGER #2 [place] [id number] Nurse Practitioner Advanced Practice Nurse 01/03/22 documented as of this encounter
--- OUTSIDE RECORDS SUMMARY | 2025-08-09 08:36 | XMS_ITS | Encounter Summary ---
Author Organization [facility] Address [address] [place] [address] Phone Care Team Providers Care Counter Supply Worker Name Role Phone Marty Muñoz MD, Miles Unavailable Unavailab Skyler Chino MD Primary Care Provider Urvashi Thomas APRN, ERIC Unavailable [phone] Reason for Visit * Reason Comments Medication Refill Encounter Details Date Type Department Care Team (Late st Contact Info) Description 07/14/2023 Refill [facility] Medicine - [place] #2 [place] [address] Skyler Contreras MD #[address] [address] Medication Refill Social History Tobacco Use Types [...] [place] 07/23/22 Office Visit Skyler Contreras MD [facility] [...] st Contact Info) Description 10/11/2025 11:00 AM GENERAL OPERATIONS MANAGER Office Visit [facility] - Pulmonology & Sleep Medicine - [place] #2 [facility] [place] [address] Urvashi Thomas APRN, INSURANCE AGENCY OWNER #2 [facility] [address] [place] [address] 10/18/2025 1:15 PM GENERAL OPERATIONS MANAGER Office Visit [facility] - Family Medicine - [place] #2 [facility] [place] [place] [address] Skyler Contreras MD #2 [facility] [place] [address] documented as of this encounter Visit Diagnoses [...] Total Score: 0 12/04/19 21 10:06 AM GENERAL OPERATIONS MANAGER documented as of this encounter Care Teams Counter Supply Worker Relationship Specialty Start Date End Date Skyler Contreras MD #2 [place] [address] PCP - General Family Medicine 10/02/17 Miles Ferguson MD Orthopaedic Surgery 05/19/17 Urvashi Thomas APRN, INSURANCE AGENCY OWNER #2 [facility] [address] [place] [address] Nurse Practitioner Advanced Practice Nurse 01/03/22 documented as of this encounter
--- OUTSIDE RECORDS SUMMARY | 2025-08-09 08:36 | XMS_ITS | Encounter Summary ---
Author Organization [facility] Address [address] [place] [address] Phone Care Team Providers Care Beef Cattle Grazier Name Role Phone Marty Muñoz MD, Miles Unavailable Unavailab Skyler Chino MD Primary Care Provider [phone] [phone] Urvashi Thomas APRN, ERIC Unavailable Reason for Visit * Reason Comments Medication Refill Encounter Details Date Type Department Care Team (Late st Contact Info) Description 10/23/2020 Refill [facility] [address] [place] [address] Skyler Contreras MD #[address] [address] Medication Refill Social History Tobacco Use Types [...] COVID-19? No / Unsure 09/26/2020 10:06 AM WINDOW GLAZIER documented as of this encounter Miscellaneous Notes * Telephone Encounter - Dwayne Lassiter RN - 10/26/2020 12:43 PM CST Patient calling and states she is completely out of her Hydrocodone. States her pharmacy closes at 1500 today. States she called for this 3 days ago. Informed caller that RN will send a note to office now and call back. Please review Thanks. OW GLAZIER * Telephone Encounter - Lizzie Wong RN - 10/26/2020 9:48 AM WINDOW GLAZIER Patient calling to check the status of this refill request Advised patient that this request is currently in process Patient reports the pharmacy closes at 3pm today and she will not have any medication left after today Patient is requesting to have this request as soon as possible Routing to provider for review and approval. Thanks! OW GLAZIER * Telephone Encounter - Leona Armando RN [...] months ago Irritable bowel syndrome [facility] Bebeto Altamir[facility] APN, ERIC 3 months ago Irritable bowel syndrome with [facility] Bebeto Altamirano APN, ERIC 5 months ago Chronic pain syndrome [facility] Skyler Smith MD 8 months ago Chronic pain syndrome [facility] Skyler Smith MD Upcoming Appointments Future Appointments In 1 month Skyler Contreras MD [facility] month Home Golden MD [facility] PULMONOLOGY, [facility] TRAVELING CLERK - Recent and Past Visits Recent Visits Date Type Provider Dept 09/01/20 Office Visit Skyler Contreras MD [facility] 08/01/20 Office Visit Bebeto Morin APN, ERIC [facility] 07/13/20 Office Visit Bebeto Morin APN, ERIC [facility] 05/23/20 Office Visit Skyler Contreras MD [...] authorizing provider and meeting all other requirements OW GLAZIER documented in this encounter Plan of Treatment Upcoming Encounters Date Type Department Care Team (Late st Contact Info) Description 10/11/2025 11:00 AM WINDOW GLAZIER [facility] - [place] #2 [place] [address] Urvashi Thomas APRN, ERIC #2 [facility] [place] [address] 10/18/2025 1:15 PM WINDOW GLAZIER Office Visit [facility] - Family [facility] #2 [place] [address] Skyler Contreras MD #[address] [address] documented as of this encounter Visit Diagnoses Diagnosis Chronic pain syndrome- Primary documented in this encounter Additional Health Concerns Infection Onset Date Last Indicated Resolved Time COVID - 19 11/06/2021 11/06/2021 11/06/2021 9:43 AM WINDOW GLAZIER COVID - 19 Confirmed 11/06/2021 11/06/2021 022 12:16 AM WINDOW GLAZIER COVID - 19 10/25/2022 10/25/2022 11/04/2022 12:1 9 AM WINDOW GLAZIER COVID - 19 01/10/2025 01/10/2025 01/10/2025 10:2 3 AM CDT Respiratory Rule-Out 01/10/2025 01/10/2025 025 10:34 AM CDT Respiratory Rule-Out 01/10/2025 01/10/2025 025 10:58 AM CDT Assessment Noted Time PHQ-9 Depression Total Score: 0 12/21/19 20 3:23 PM WINDOW GLAZIER documented as of this encounter Care Teams Beef Cattle Grazier Relationship Specialty Start Date End Date Skyler Contreras MD #[address] [address] PCP - General Family Medicine 10/02/17 Miles Ferguson MD Orthopaedic Surgery 05/19/17 Urvashi Thomas APRN, MARINE ELECTRONICS TECHNICIAN #[address] [address] Nurse Practitioner Advanced Practice Nurse 01/03/22 documented as of this encounter
--- OUTSIDE RECORDS SUMMARY | 2025-08-09 08:36 | XMS_ITS | Encounter Summary ---
Author Organization [facility] Address [address] [place] [address] Phone Care Team Providers Care Almond Blancher Operator Name Role Phone Marty Muñoz MD, Miles Unavailable Unavailab Skyler Chino MD Primary Care Provider Urvashi Thomas APRN, ERIC Unavailable [phone]- [phone] Reason for Visit * Reason Comments Medication Refill Encounter Details Date Type Department Care Team (Late st Contact Info) Description 01/17/2023 Refill [facility] - [facility] Medicine - [place] #2 [place] [address] Skyler Contreras MD #[address] [address] Medication Refill Social History Tobacco Use Types [...] st Contact Info) Description 10/11/2025 11:00 AM POWDER LOADER Office Visit [facility] - Pulmonology & Sleep Medicine - [place] #2 [place] [address] Urvashi Thomas APRN, CONTRACT PARALEGAL #2 [facility] [address] [place] [address] 10/18/2025 1:15 PM POWDER LOADER Office Visit [facility] - Family Medicine - [place] #2 [place] [address] Skyler Contreras MD #2 [facility] [address] [place] [address] documented as of this encounter Visit Diagnoses Diagnosis Chronic pain syndrome documented in this encounter Additional Health Concerns Infection Onset Date Last Indicated Resolved Time COVID - 19 01/10/2025 01/10/2025 01/10/2025 10:2 3 AM CDT Respiratory Rule-Out 01/10/2025 01/10/2025 025 10:34 AM CDT Respiratory Rule-Out 01/10/2025 01/10/2025 025 10:58 AM CDT Assessment Noted Time PHQ-9 Depression Total Score: 0 02/08/20 21 10:06 AM POWDER LOADER documented as of this encounter Care Teams Almond Blancher Operator Relationship Specialty Start Date End Date Skyler Contreras MD #2 [facility] [address] [place] [address] PCP - General Family Medicine 10/02/17 Miles Ferguson MD Orthopaedic Surgery 05/19/17 Urvashi Thomas APRN, CONTRACT PARALEGAL #2 [facility] [address] [place] [address] Nurse Practitioner Advanced Practice Nurse 01/03/22 documented as of this encounter
--- OUTSIDE RECORDS SUMMARY | 2025-08-09 08:36 | XMS_ITS | Encounter Summary ---
Author Organization [facility] Address [address] [place] [address] Phone Care Team Providers Care Chip Silo Tender Name Role Phone Marty Muñoz MD, Miles Unavailable Unavailab Skyler Chino MD Primary Care Provider Urvashi Thomas APRN, ERIC Unavailable [phone]- [phone] Reason for Visit * Reason Comments Medication Refill Encounter Details Date Type Department Care Team (Late st Contact Info) Description 11/20/2022 Refill [facility] - Family Medicine - [place] #2 [place] [address] Skyler Contreras MD #[address] [address] Medication Refill Social History Tobacco Use Types [...] Coronavirus/COVID-19? No / Unsure 11/08/2022 9:55 AM OPERATIONAL INTELLIGENCE ANALYST documented as of this encounter Miscellaneous Notes * Telephone Encounter - Leona Armando RN - 11/21/2022 8:07 AM CST PDMP [place] 10/26/22 - Zolpidem 10/22/22 Medication failed the [...] no refill protocol information for this order ATIONAL INTELLIGENCE ANALYST documented in this encounter Plan of Treatment Upcoming Encounters Date Type Department Care Team (Late st Contact Info) Description 10/11/2025 11:00 AM OPERATIONAL INTELLIGENCE ANALYST Office Visit [facility] - Pulmonology & Sleep Medicine [facility] #2 [place] [place] [address] Urvashi Thomas APRN, SOFTWARE IMPLEMENTATION PROJECT MANAGER #2 [facility] [address] [place] [address] 10/18/2025 1:15 PM OPERATIONAL INTELLIGENCE ANALYST Office Visit [facility] Medical [facility] Family [facility] #2 [facility] [address] Skyler Contreras MD #2 [place] [address] documented as of this encounter Visit Diagnoses [...] Total Score: 0 12/04/19 21 10:06 AM OPERATIONAL INTELLIGENCE ANALYST documented as of this encounter Care Teams Chip Silo Tender Relationship Specialty Start Date End Date Skyler Contreras MD #[address] [address] PCP - General Family Medicine 10/02/17 Miles Ferguson MD Orthopaedic Surgery 05/19/17 Urvashi Thomas APRN, SOFTWARE IMPLEMENTATION PROJECT MANAGER #2 [facility] [address] [place] [address] Nurse Practitioner Advanced Practice Nurse 01/03/22 documented as of this encounter
--- OUTSIDE RECORDS SUMMARY | 2025-08-09 08:36 | XMS_ITS | Encounter Summary ---
Author Organization [facility] Address [address] [place] [address] Phone Care Team Providers Care Automobile Painter Name Role Phone Marty Muñoz MD, Miles Unavailable Unavailab Skyler Chino MD Primary Care Provider Urvashi Thomas APRN, ERIC Unavailable [phone]- [phone] Reason for Visit * Reason Comments Medication Refill Encounter Details Date Type Department Care Team (Late st Contact Info) Description 10/26/2022 Refill [facility] - Family Medicine - [place] #2 [place] [address] Skyler Contreras MD #[address] [address] Medication Refill Social History Tobacco Use Types [...] Coronavirus/COVID-19? No / Unsure 10/25/2022 9:24 AM HYDROMETER CALIBRATOR documented as of this encounter Plan of Treatment Upcoming Encounters Date Type Department Care Team (Late st Contact Info) Description 10/11/2025 11:00 AM HYDROMETER CALIBRATOR Office Visit [facility] - Pulmonology & Sleep Medicine [facility] #2 [place] [address] Urvashi Thomas APRN, SMOKE AND FLAME SPECIALIST #2 [facility] [address] [place] [address] 10/18/2025 1:15 PM HYDROMETER CALIBRATOR Office Visit [facility] Medical [facility] - Family Medicine - [place] #2 [place] [address] Skyler Contreras MD #2 [facility] [address] [place] [address] documented as of this encounter Visit Diagnoses Diagnosis Chronic pain syndrome documented in this encounter Additional Health Concerns Infection Onset Date Last Indicated Resolved Time COVID - 19 10/25/2022 10/25/2022 11/04/2022 12:1 9 AM HYDROMETER CALIBRATOR COVID - 19 01/10/2025 01/10/2025 01/10/2025 10:2 3 AM CDT Respiratory Rule-Out 01/10/2025 01/10/2025 025 10:34 AM CDT Respiratory Rule-Out 01/10/2025 01/10/2025 025 10:58 AM CDT Assessment Noted Time PHQ-9 Depression Total Score: 0 12/04/19 21 10:06 AM HYDROMETER CALIBRATOR documented as of this encounter Care Teams Automobile Painter Relationship Specialty Start Date End Date Skyler Contreras MD #2 [facility] [address] [place] [address] PCP - General Family Medicine 10/02/17 Miles Ferguson MD Orthopaedic Surgery 05/19/17 Urvashi Thomas APRN, SMOKE AND FLAME SPECIALIST #2 [facility] [address] [place] [address] Nurse Practitioner Advanced Practice Nurse 01/03/22 documented as of this encounter
--- OUTSIDE RECORDS SUMMARY | 2025-08-09 08:36 | XMS_ITS | Encounter Summary ---
Author Organization [facility] Address [address] [place] [address] Phone Care Team Providers Care Peer Counselor Name Role Phone Marty Muñoz MD, Miles Unavailable Unavailab Skyler Chino MD Primary Care Provider Urvashi Thomas APRN, INDIRECT FIRE INFANTRYMAN Unavailable [phone]- [phone] Reason for Visit * Reason Comments Medication Refill Encounter Details Date Type Department Care Team (Late st Contact Info) Description 11/10/2023 Refill [facility] - Family Medicine - [place] #2 [place] [address] Skyler Contreras MD #[address] [address] Medication Refill Social History Tobacco Use Types [...] RN - 11/10/2023 3:07 PM CST PDMP [place] 10/17/23 - Zolpidem 10/15/23 Medication failed the [...] MD [facility] 08/20/23 Office Visit Skyler Contreras MD [facility] 07/23/23 Office Visit Skyler [...] no refill protocol information for this order RLIBRARY LOAN SPECIALIST * Telephone Encounter - Leydi James MA - 11/10/2023 1:45 PM INTERLIBRARY LOAN SPECIALIST Pdmp 10/17/23 [place] 7.5-325 mg tabs 30 day supply 90 quant RLIBRARY LOAN SPECIALIST documented in this encounter Plan of Treatment Upcoming Encounters Date Type Department Care Team (Late st Contact Info) Description 10/11/2025 11:00 AM INTERLIBRARY LOAN SPECIALIST Office Visit [facility] - Pulmonology & Sleep Medicine [facility] #2 [facility] [place] [address] Urvashi Thomas APRN, INDIRECT FIRE INFANTRYMAN #[address] [facility] [address] [place] [address] 10/18/2025 1:15 PM INTERLIBRARY LOAN SPECIALIST Office Visit [facility] Medical [facility] - Family Medicine - [place] #2 [facility] [address] Skyler Contreras MD #[address] [facility] [address] [place] [address] documented as of this encounter Visit Diagnoses [...] Total Score: 0 12/04/19 21 10:06 AM INTERLIBRARY LOAN SPECIALIST documented as of this encounter Care Teams Peer Counselor Relationship Specialty Start Date End Date Skyler Contreras MD #[address] [facility] [address] [place] [address] PCP - General Family Medicine 10/02/17 Miles Ferguson MD Orthopaedic Surgery 05/19/17 Urvashi Thomas APRN, INDIRECT FIRE INFANTRYMAN #2 [place] [id number] Nurse Practitioner Advanced Practice Nurse 01/03/22 documented as of this encounter
--- OUTSIDE RECORDS SUMMARY | 2025-08-09 08:36 | XMS_ITS | Encounter Summary ---
Author Organization [facility] Address [address] [place] [address] Phone Care Team Providers Care Office Manager Executive Assistant Name Role Phone Marty Muñoz MD, Miles Unavailable Unavailab Skyler Chino MD Primary Care Provider Urvashi Thomas APRN, ERIC Unavailable [phone]- [phone] Reason for Visit * Reason Comments Medication Refill Encounter Details Date Type Department Care Team (Late st Contact Info) Description 10/22/2022 Refill [facility] - Family Medicine - [place] #2 [place] [address] Skyler Contreras MD #[address] [address] Medication Refill Social History Tobacco Use Types [...] Coronavirus/COVID-19? No / Unsure 10/25/2022 9:24 AM MOTORBOAT MECHANIC HELPER documented as of this encounter Miscellaneous Notes * Telephone Encounter - Jaky Frias RN - 10/22/2022 12:38 PM MOTORBOAT MECHANIC HELPER PDMP 08/21/2022 #30 Medication failed the protocol, [...] [place] 11/07/21 Telemedicine Bebeto Morin APRN, ERIC [facility] Showing recent visits within past 365 days and meeting all other requirements Future Appointments Date Type Provider Dept 01/09/23 Appointment Skyler Contreras MD [facility] [place] Showing future appointments within next 90 days and meeting all other requirements RBOAT MECHANIC HELPER documented in this encounter Plan of Treatment Upcoming Encounters Date Type Department Care Team (Late st Contact Info) Description 10/11/2025 11:00 AM MOTORBOAT MECHANIC HELPER [facility] & [facility] Medicine [facility] #2 [facility] [place] [facility] [place] [address] Urvasih Thomas APRN, PEOPLE GREETER #2 [facility] [address] [place] [address] 10/18/2025 1:15 PM MOTORBOAT MECHANIC HELPER Office Visit [facility] Family [facility] [place] #2 [place] [address] Skyler Contreras MD #2 [place] [address] documented as of this encounter Visit Diagnoses Diagnosis Insomnia, unspecified type documented in this encounter Additional Health Concerns Infection Onset Date Last Indicated Resolved Time COVID - 19 10/25/2022 10/25/2022 11/04/2022 12:1 9 AM MOTORBOAT MECHANIC HELPER COVID - 19 01/10/2025 01/10/2025 01/10/2025 10:2 3 AM CDT Respiratory Rule-Out 01/10/2025 01/10/2025 025 10:34 AM CDT Respiratory Rule-Out 01/10/2025 01/10/2025 025 10:58 AM CDT Assessment Noted Time PHQ-9 Depression Total Score: 0 12/04/19 21 10:06 AM MOTORBOAT MECHANIC HELPER documented as of this encounter Care Teams Office Manager Executive Assistant Relationship Specialty Start Date End Date Skyler Contreras MD #2 [facility] [address] PCP - General Family Medicine 10/02/17 Miles Ferguson MD Orthopaedic Surgery 05/19/17 Urvashi Thomas APRN, PEOPLE GREETER #2 [facility] [address] [place] [address] Nurse Practitioner Advanced Practice Nurse 01/03/22 documented as of this encounter
--- OUTSIDE RECORDS SUMMARY | 2025-08-09 08:36 | XMS_ITS | Encounter Summary ---
Author Organization [facility] Address [address] [place] [address] Phone Care Team Providers Care Mule Driver Name Role Phone Marty Muñoz MD, Miles Unavailable Unavailab Skyler Chino MD Primary Care Provider Urvashi Thomas APRN, ERIC Unavailable [phone]- [phone] Reason for Visit * Reason Comments Medication Refill Encounter Details Date Type Department Care Team (Late st Contact Info) Description 02/17/2023 Refill [facility] - Family Medicine - [place] #2 [place] [address] Skyler Contreras MD #[address] [address] Medication Refill Social History Tobacco Use Types [...] st Contact Info) Description 10/11/2025 11:00 AM REGASIFICATION PLANT OPERATOR Office Visit [facility] - Pulmonology & Sleep Medicine - [place] #2 [place] [address] Urvashi Thomas APRN, RUBBER TIRE AND TUBES SUPERVISOR #2 [facility] [address] [place] [address] 10/18/2025 1:15 PM REGASIFICATION PLANT OPERATOR Office Visit [facility] - [facility] [place] #2 [place] [address] Skyler Contreras MD #2 [facility] [address] [place] [address] documented as of this encounter Visit Diagnoses Diagnosis Chronic pain syndrome documented in this encounter Additional Health Concerns Infection Onset Date Last Indicated Resolved Time COVID - 19 01/10/2025 01/10/2025 01/10/2025 10:2 3 AM CDT Respiratory Rule-Out 01/10/2025 01/10/2025 025 10:34 AM CDT Respiratory Rule-Out 01/10/2025 01/10/2025 025 10:58 AM CDT Assessment Noted Time PHQ-9 Depression Total Score: 0 12/04/19 21 10:06 AM REGASIFICATION PLANT OPERATOR documented as of this encounter Care Teams Mule Driver Relationship Specialty Start Date End Date Skyler Contreras MD #2 [place] [address] PCP - General Family Medicine 10/02/17 Miles Ferguson MD Orthopaedic Surgery 05/19/17 Urvashi Thomas APRN, RUBBER TIRE AND TUBES SUPERVISOR #2 [facility] [address] [place] [address] Nurse Practitioner Advanced Practice Nurse 01/03/22 documented as of this encounter
--- OUTSIDE RECORDS SUMMARY | 2025-08-09 08:36 | XMS_ITS | Encounter Summary ---
Author Organization [facility] Address [address] [place] [address] Phone Care Team Providers Care Single Resource Boss Name Role Phone Marty Muñoz MD, Miles Unavailable Unavailab Sykler Chino MD Primary Care Provider Urvashi Thomas APRN, ERIC Unavailable [phone]- [phone] Reason for Visit * Reason Comments Medication Refill Encounter Details Date Type Department Care Team (Late st Contact Info) Description 03/20/2023 Refill [facility] - Family Medicine - [place] #2 [place] [address] Skyler Contreras MD #[address] [address] Medication Refill Social History Tobacco Use Types [...] st Contact Info) Description 10/11/2025 11:00 AM AGRICULTURAL EXTENSION AGENT Office [facility] - Pulmonology & Sleep Medicine - [place] #2 [place] [address] Urvashi Thomas APRN, SALES ACCOUNT SPECIALIST #[address] [address] 10/18/2025 1:15 PM AGRICULTURAL EXTENSION AGENT Office Visit [facility] - Family Medicine [facility] #2 [place] [address] Skyler Contreras MD #2 [facility] [address] [place] [address] documented as of this encounter Visit Diagnoses Diagnosis Insomnia, unspecified type documented in this encounter Additional Health Concerns Infection Onset Date Last Indicated Resolved Time COVID - 19 01/10/2025 01/10/2025 01/10/2025 10:2 3 AM CDT Respiratory Rule-Out 01/10/2025 01/10/2025 025 10:34 AM CDT Respiratory Rule-Out 01/10/2025 01/10/2025 025 10:58 AM CDT Assessment Noted Time PHQ-9 Depression Total Score: 0 12/04/19 21 10:06 AM AGRICULTURAL EXTENSION AGENT documented as of this encounter Care Teams Single Resource Boss Relationship Specialty Start Date End Date Skyler Contreras MD #2 [facility] [place] [address] PCP - General Family Medicine 10/02/17 Miles Ferguson MD Orthopaedic Surgery 05/19/17 Urvashi Thomas APRN, SALES ACCOUNT SPECIALIST #2 [facility] [address] [place] [address] Nurse Practitioner Advanced Practice Nurse 01/03/22 documented as of this encounter
--- OUTSIDE RECORDS SUMMARY | 2025-08-09 08:36 | XMS_ITS | Encounter Summary ---
Author Organization [facility] Address [address] [place] [address] Phone Care Team Providers Care Program Director Scouting Name Role Phone Marty Muñoz MD, Miles Unavailable Unavailab Skyler Chino MD Primary Care Provider Urvashi Thomas APRN, ERIC Unavailable [phone]- [phone] Reason for Visit * Reason Comments Medication Refill Encounter Details Date Type Department Care Team (Late st Contact Info) Description 08/12/2023 Refill [facility] - Family Medicine - [place] #2 [place] [address] Skyler Contreras MD #[address] [address] Medication Refill Social History Tobacco Use Types [...] st Contact Info) Description 10/11/2025 11:00 AM LITHOGRAPH DESIGNER Office Visit [facility] - Pulmonology & Sleep Medicine [facility] #2 [facility] [place] [address] Urvashi Thomas APRN, NAVAL ARCHITECT #2 [facility] [address] [place] [address] 10/18/2025 1:15 PM LITHOGRAPH DESIGNER Office Visit [facility] Medical [facility] Family [facility] [place] #2 [place] [address] Skyler Contreras MD #2 [facility] [address] documented as of this encounter Visit Diagnoses [...] Total Score: 0 12/04/19 21 10:06 AM LITHOGRAPH DESIGNER documented as of this encounter Care Teams Program Director Scouting Relationship Specialty Start Date End Date Skyler Contreras MD #2 [facility] [address] [place] [address] PCP - General Family Medicine 10/02/17 Miles Ferguson MD Orthopaedic Surgery 05/19/17 Urvashi Thomas APRN, NAVAL ARCHITECT #2 [facility] [address] [place] [address] Nurse Practitioner Advanced Practice Nurse 01/03/22 documented as of this encounter
--- OUTSIDE RECORDS SUMMARY | 2025-08-09 08:36 | XMS_ITS | Encounter Summary ---
Author Organization [facility] Address [address] [place] [address] Phone Care Team Providers Care Commutator Tester Name Role Phone Marty Muñoz MD, Miles Unavailable Unavailab Skyler Chino MD Primary Care Provider Urvashi Thomas APRN, ERIC Unavailable [phone]- [phone] Reason for Visit * Reason Comments Medication Refill Encounter Details Date Type Department Care Team (Late st Contact Info) Description 12/25/2020 Refill [facility] - Family Medicine - [place] #2 [place] [address] Skyler Contreras MD #[address] [address] Medication Refill Social History Tobacco Use Types [...] COVID-19? No / Unsure 12/04/2020 9:36 AM STAINED GLASS INSTALLER documented as of this encounter Miscellaneous Notes [...] Visits 3 weeks ago Chronic narcotic use [facility] Family [facility] - Skyler Smith MD 3 months ago Chronic pain syndrome [facility] - Skyler Smith MD 4 months ago Irritable bowel syndrome with constipation [facility] - Bebeto Altamirano APN, ERIC 5 months ago Irritable bowel syndrome with constipation [facility] B[facility] Ludwig APN, ERIC 7 months ago Chronic pain syndrome [facility] Skyler Smith MD Upcoming Appointments Future Appointments In 2 months Skyler Contreras MD [facility] In 2 months Urvashi Thomas APN, CNP [facility] PULMONOLOG[facility], [facility] CONCRETE BUILDINGS ASSEMBLER - Recent and Past Visits Recent Visits Date Type Provider Dept 12/04/20 Office Visit Skyler Contreras MD [facility] [place] 09/01/20 Office Visit MohSkyler keys MD [...] authorizing provider and meeting all other requirements NED GLASS INSTALLER documented in this encounter Plan of Treatment Upcoming Encounters Date Type Department Care Team (Late st Contact Info) Description 10/11/2025 11:00 AM STAINED GLASS INSTALLER Office Visit [facility] - Pulmonology & Sleep Medicine - [place] [address]2 [place] [address] Urvashi Thomas APRN, ERIC #2 [facility] [address] [place] [address] 10/18/2025 1:15 PM STAINED GLASS INSTALLER Office Visit [facility] Medical [facility] - Family Medicine - [place] #2 [place] [address] Skyler Contreras MD #2 [facility] [address] [place] [address] documented as of this encounter Visit Diagnoses Diagnosis Chronic pain syndrome documented in this encounter Additional Health Concerns Infection Onset Date Last Indicated Resolved Time COVID - 19 11/06/2021 11/06/2021 11/06/2021 9:43 AM STAINED GLASS INSTALLER COVID - 19 Confirmed 11/06/2021 11/06/2021 022 12:16 AM STAINED GLASS INSTALLER COVID - 19 10/25/2022 10/25/2022 11/04/2022 12:1 9 AM STAINED GLASS INSTALLER COVID - 19 01/10/2025 01/10/2025 01/10/2025 10:2 3 AM CDT Respiratory Rule-Out 01/10/2025 01/10/2025 025 10:34 AM CDT Respiratory Rule-Out 01/10/2025 01/10/2025 025 10:58 AM CDT Assessment Noted Time PHQ-9 Depression Total Score: 0 12/04/19 21 10:06 AM STAINED GLASS INSTALLER documented as of this encounter Care Teams Commutator Tester Relationship Specialty Start Date End Date Skyler Contreras MD #2 [facility] [address] [place] [address] PCP - General Family Medicine 10/02/17 Miles Ferguson MD Orthopaedic Surgery 05/19/17 Urvashi Thomas, DIGITAL PERFORMANCE ANALYST, PERIODICALS CLERK #2 [facility] [address] [place] [address] Nurse Practitioner Advanced Practice Nurse 01/03/22 documented as of this encounter
--- OUTSIDE RECORDS SUMMARY | 2025-08-09 08:36 | XMS_ITS | Encounter Summary ---
Author Organization [facility] Address [address] [place] [address] Phone Care Team Providers Care Hairspring Inspector Name Role Phone Marty Muñoz MD, Miles Unavailable Unavailab Skyler Chino MD Primary Care Provider Urvashi Thomas APRN, ERIC Unavailable [phone]- [phone] Reason for Visit * Reason Comments Medication Refill Encounter Details Date Type Department Care Team (Late st Contact Info) Description 06/21/2021 Refill [facility] - Family Medicine - [place] #2 [place] [address] Skyler Contreras MD #[address] [address] Medication Refill Social History Tobacco Use Types [...] Visits 2 weeks ago Chronic pain syndrome [facility] Medical [facility] - Family Medicine - Skyler Smith MD 1 month ago Abdominal discomfort in right lower quadrant [facility] Medical [facility] Family Medicine - Bebeto Altamirano APN, IN HOUSE CRA 3 months ago Gastroesophageal reflux disease, unspecified whether esophagitis present [facility] Medical [facility] Family Medicine Skyler Terrazas MD 6 months ago Chronic narcotic use [facility] Medical [facility] Family Medicine - Skyler Smith MD 9 months ago Chronic pain syndrome [facility] Medical [facility] Family Medicine - Skyler mSith MD Upcoming Appointments Future Appointments In 1 week [facility], [facility] In 1 week [facility] M[facility], [facility] In 1 week [facility], [facility] In 2 months Skyler Contreras MD [facility] [place] In 2 months Urvashi Thomas APN, ERIC [facility] Pulmonology & Sleep Medicine - [place] RECYCLING OPERATOR - Recent and Past Visits Recent Visits Date Type Provider Dept 06/05/21 Office Visit Skyler Contreras MD [facility] 05/08/21 Office Visit Bebeto Morin APN, ERIC [facility] 03/05/21 Office Visit Skyler Contreras MD [facility] 12/04/20 Office Visit Skyler Contreras MD [facility] 09/01/20 Office Visit Skyler Contreras MD [facility] 08/01/20 Office Visit Bebeto Morin APN, ERIC [facility] 07/13/20 Office Visit Bebeto Morin APN, ERIC [facility] 05/23/20 Office Visit Skyler Contreras MD [facility] [...] st Contact Info) Description 10/11/2025 11:00 AM CONVENIENCE RECYCLE CENTER TECH Office [facility] - Pulmonology & Sleep Medicine - [place] [facility]2 [facility] [place] [address] Urvashi Thomas APRN, CNP #[address] [place] [address] 10/18/2025 1:15 PM CONVENIENCE RECYCLE CENTER TECH Office Visit [facility] Family [facility] [place] #2 [facility] [place] [address] Skyler Contreras MD #2 [facility] [address] [place] [address] documented as of this encounter Visit Diagnoses Diagnosis Chronic pain syndrome documented in this encounter Additional Health Concerns Infection Onset Date Last Indicated Resolved Time COVID - 19 11/06/2021 11/06/2021 11/06/2021 9:43 AM CONVENIENCE RECYCLE CENTER TECH COVID - 19 Confirmed 11/06/2021 11/06/2021 022 12:16 AM CONVENIENCE RECYCLE CENTER TECH COVID - 19 10/25/2022 10/25/2022 11/04/2022 12:1 9 AM CONVENIENCE RECYCLE CENTER TECH COVID - 19 01/10/2025 01/10/2025 01/10/2025 10:2 3 AM CDT Respiratory Rule-Out 01/10/2025 01/10/2025 025 10:34 AM CDT Respiratory Rule-Out 01/10/2025 01/10/2025 025 10:58 AM CDT Assessment Noted Time PHQ-9 Depression Total Score: 0 12/04/19 21 10:06 AM CONVENIENCE RECYCLE CENTER TECH documented as of this encounter Care Teams Hairspring Inspector Relationship Specialty Start Date End Date Skyler Contreras MD #2 [facility] [address] [place] [address] PCP - General Family Medicine 10/02/17 Miles Ferguson MD Orthopaedic Surgery 05/19/17 Urvashi Thomas APRN, IN HOUSE CRA #2 [facility] [address] [place] [address] Nurse Practitioner Advanced Practice Nurse 01/03/22 documented as of this encounter
--- OUTSIDE RECORDS SUMMARY | 2025-08-09 08:36 | XMS_ITS | Encounter Summary ---
Author Organization [facility] Address [address] [place] [address] Phone Care Team Providers Care Airplane Patroller Name Role Phone Marty Muñoz MD, Miles Unavailable Unavailab Skyler Chino MD Primary Care Provider Urvashi Thomas APRN, ERIC Unavailable [phone]- [phone] Reason for Visit * Reason Comments Medication Refill Encounter Details Date Type Department Care Team (Late st Contact Info) Description 05/14/2023 Refill [facility] - [facility] Medicine - [place] [address]2 [place] [address] Skyler Contreras MD #[address] [address] Medication Refill Social History Tobacco Use Types [...] Telephone Encounter - Leona Armando RN - 05/15/2023 11:25 AM CDT PDMP [place] 03/23/23, 04/21/23 - Zolpidem 03/20/23 Medication failed [...] st Contact Info) Description 10/11/2025 11:00 AM E COMMERCE DEVELOPER Office Visit [facility] Medical [facility] - Pulmonology & Sleep Medicine - [place] [address]2 [place] [address] Urvashi Thomas APRN, RECOVERY RN #2 [facility] [address] [place] [address] 10/18/2025 1:15 PM E COMMERCE DEVELOPER Office Visit [facility] Medical [facility] - Family Medicine - [place] [address]2 [place] [address] Skyler Contreras MD #2 [facility] [address] [place] [address] documented as of this encounter Visit Diagnoses [...] Total Score: 0 12/04/19 21 10:06 AM E COMMERCE DEVELOPER documented as of this encounter Care Teams Airplane Patroller Relationship Specialty Start Date End Date Skyler Contreras MD #2 [facility] [address] [place] [address] PCP - General Family Medicine 10/02/17 Miles Ferguson MD Orthopaedic Surgery 05/19/17 Urvashi Thomas APRN, RECOVERY RN #2 [facility] [address] [place] [address] Nurse Practitioner Advanced Practice Nurse 01/03/22 documented as of this encounter
--- OUTSIDE RECORDS SUMMARY | 2025-08-09 08:36 | XMS_ITS | Encounter Summary ---
Author Organization [facility] Address [address] [place] [address] Phone Care Team Providers Care Presser Hand Name Role Phone Marty Muñoz MD, Miles Unavailable Unavailab Skyler Chino MD Primary Care Provider Urvashi Thomas APRN, ERIC Unavailable [phone]- [phone] Reason for Visit * Reason Comments Medication Refill Encounter Details Date Type Department Care Team (Late st Contact Info) Description 06/16/2023 Refill [facility] - [facility] Medicine - [place] #2 [place] [address] Skyler Contreras MD #[address] [address] Medication Refill Social History Tobacco Use Types [...] RN - 06/17/2023 7:59 AM CDT PDMP [place] 05/21/23 - Zolpidem 05/15/23 Medication failed the [...] st Contact Info) Description 10/11/2025 11:00 AM BANK BOSS Office Visit [facility] - Pulmonology & Sleep Medicine [facility] #2 [facility] [place] [place] [address] Urvashi Thomas APRN, PLANT PACKER #2 [facility] [address] [place] [address] 10/18/2025 1:15 PM BANK BOSS Office Visit [facility] Medical [facility] [place] #2 [place] [address] Skyler Contreras MD #2 [facility] [place] [address] documented as of this encounter Visit Diagnoses [...] Total Score: 0 12/04/19 21 10:06 AM BANK BOSS documented as of this encounter Care Teams Presser Hand Relationship Specialty Start Date End Date Skyler Contreras MD #2 [facility] [address] [place] [address] PCP - General Family Medicine 10/02/17 Miles Ferguson MD Orthopaedic Surgery 05/19/17 Urvashi Thomas APRN, PLANT PACKER #2 [facility] [address] [place] [address] Nurse Practitioner Advanced Practice Nurse 01/03/22 documented as of this encounter
--- OUTSIDE RECORDS SUMMARY | 2025-08-09 08:36 | XMS_ITS | Encounter Summary ---
Author Organization [facility] Address [address] [place] [address] Phone Care Team Providers Care Thermostat Mechanic Name Role Phone Marty Muñoz MD, Miles Unavailable Unavailab Skyler Chino MD Primary Care Provider Urvashi Thomas APRN, ERIC Unavailable [phone]- [phone] Reason for Visit * Reason Comments Medication Refill Encounter Details Date Type Department Care Team (Late st Contact Info) Description 02/21/2021 Refill [facility] - Family Medicine - [place] #2 [place] [address] Skyler Contreras MD #[address] [address] Medication Refill Social History Tobacco Use Types [...] months ago Chronic narcotic use [facility] Family [facility] - Skyler Smith MD 5 months ago Chronic pain syndrome [facility] Skyler Smith MD 6 months ago Irritable bowel syndrome with constipation [facility] - Bebeto Altamirano APN, ERIC 7 months ago Irritable bowel syndrome with const[facility] Beb[facility] Altamirano APN, ERIC 9 months ago [facility] Skyler Smith MD Upcoming Appointments Future Appointments In 1 week Skyler Contreras MD [facility] Medical [facility] Family Medicine - [place] In 3 weeks Urvashi Thomas APN, ERIC [facility] - [facility]monology & Sleep Medicine [place] [facility] BANK NOTE DESIGNER - Recent and Past Visits Recent Visits Date Type Provider Dept 12/04/20 Office Visit Skyler Contreras MD [facility] 09/01/20 Office Visit Skyler Contreras MD [facility] 08/01/20 Office Visit Bebeto Morin APN, CNP [facility] [place] 07/13/20 Office Visit Bebeto Morin APN, EVP GENERAL COUNSEL [facility] 05/23/20 Office Visit Skyler Cotnreras MD [facility] [place] 02/21/20 Telemedicine Skyler Contreras MD [facility] [...] st Contact Info) Description 10/11/2025 11:00 AM RETAIL BUSINESS ANALYST Office Visit [facility] - Pulmonology & Sleep Medicine [facility] #2 [place] [address] Urvashi Thomas APRN, EVP GENERAL COUNSEL #2 [facility] [address] [place] [address] 10/18/2025 1:15 PM RETAIL BUSINESS ANALYST Office Visit [facility] - Family Medicine - [place] #2 [place] [address] Skyler Contreras MD #2 [facility] [address] [place] [address] documented as of this encounter Visit Diagnoses Diagnosis Chronic pain syndrome documented in this encounter Additional Health Concerns Infection Onset Date Last Indicated Resolved Time COVID - 19 11/06/2021 11/06/2021 11/06/2021 9:43 AM RETAIL BUSINESS ANALYST COVID - 19 Confirmed 11/06/2021 11/06/2021 022 12:16 AM RETAIL BUSINESS ANALYST COVID - 19 10/25/2022 10/25/2022 11/04/2022 12:1 9 AM RETAIL BUSINESS ANALYST COVID - 19 01/10/2025 01/10/2025 01/10/2025 10:2 3 AM CDT Respiratory Rule-Out 01/10/2025 01/10/2025 025 10:34 AM CDT Respiratory Rule-Out 01/10/2025 01/10/2025 025 10:58 AM CDT Assessment Noted Time PHQ-9 Depression Total Score: 0 12/04/19 21 10:06 AM RETAIL BUSINESS ANALYST documented as of this encounter Care Teams Thermostat Mechanic Relationship Specialty Start Date End Date Skyler Contreras MD #2 [facility] [address] [place] [address] PCP - General Family Medicine 10/02/17 Miles Ferguson MD Orthopaedic Surgery 05/19/17 Urvashi Thomas APRN, EVP GENERAL COUNSEL #2 [facility] [address] [place] [address] Nurse Practitioner Advanced Practice Nurse 01/03/22 documented as of this encounter
--- OUTSIDE RECORDS SUMMARY | 2025-08-09 08:36 | XMS_ITS | Encounter Summary ---
Author Organization [facility] Address [address] [place] [address] Phone Care Team Providers Care Professional Development Director Name Role Phone Marty Muñoz MD, Miles Unavailable Unavailab Skyler Chino MD Primary Care Provider Urvashi Thomas APRN, ERIC Unavailable [phone]- [phone] Reason for Visit * Reason Comments Medication Refill Encounter Details Date Type Department Care Team (Late st Contact Info) Description 08/21/2022 Refill [facility] - Family Medicine - [place] #2 [place] [address] Skyler Contreras MD #[address] [address] Medication Refill Social History Tobacco Use Types [...] RN - 08/21/2022 12:11 PM CDT PDMP [place] 07/27/22 - Zolpidem last Rx 04/18/22 Medication [...] [place] 11/07/21 Telemedicine Bebeto Morin APRN, ERIC [facility] [place] 09/27/21 Office Visit Skyler Contreras MD [facility] 09/05/21 Office Visit Skyler Contreras MD [facility] 08/30/21 Office Visit Tobias Strickland MD [facility] [place] Showing recent visits within past 365 days and meeting all other requirements Future Appointments Date Type Provider Dept 10/22/22 Appointment Skyler Contreras MD [facility] Showing future appointments within next 90 days and meeting all other requirements documented in this encounter Plan of Treatment Upcoming Encounters Date Type Department Care Team (Late st Contact Info) Description 10/11/2025 11:00 AM PARTS MANAGER Office Visit [facility] - Pulmonology & Sleep Medicine - [place] #2 [place] [address] Urvashi Thomas APRN, ACADEMIC INTERVENTIONIST #2 [facility] [address] [place] [address] 10/18/2025 1:15 PM PARTS MANAGER Office Visit [facility] #2 [place] [address] Skyler Contreras MD [facility]2 [facility] [place] [address] documented as of this encounter Visit Diagnoses Diagnosis Chronic pain syndrome Insomnia, unspecified type documented in this encounter Additional Health Concerns Infection Onset Date Last Indicated Resolved Time COVID - 19 10/25/2022 10/25/2022 11/04/2022 12:1 9 AM PARTS MANAGER COVID - 19 01/10/2025 01/10/2025 01/10/2025 10:2 3 AM CDT Respiratory Rule-Out 01/10/2025 01/10/2025 025 10:34 AM CDT Respiratory Rule-Out 01/10/2025 01/10/2025 025 10:58 AM CDT Assessment Noted Time PHQ-9 Depression Total Score: 0 12/04/19 21 10:06 AM PARTS MANAGER documented as of this encounter Care Teams Professional Development Director Relationship Specialty Start Date End Date Skyler Contreras MD #2 [facility] [place] [address] PCP - General Family Medicine 10/02/17 Miles Ferguson MD Orthopaedic Surgery 05/19/17 Urvashi Thomas APRN, ACADEMIC INTERVENTIONIST #2 [facility] [address] [place] [address] Nurse Practitioner Advanced Practice Nurse 01/03/22 documented as of this encounter
--- OUTSIDE RECORDS SUMMARY | 2025-08-09 08:36 | XMS_ITS | Encounter Summary ---
Author Organization [facility] Address [address] [place] [address] Phone Care Team Providers Care Passenger Elevator Operator Name Role Phone Marty Muñoz MD, Miles Unavailable Unavailab Skyler Chino MD Primary Care Provider Urvashi Thomas APRN, ERIC Unavailable [phone]- [phone] Reason for Visit * Reason Comments Medication Refill Encounter Details Date Type Department Care Team (Late st Contact Info) Description 08/21/2021 Refill [facility] - Family Medicine - [place] #2 [place] [address] Skyler Contreras MD #[address] [address] Medication Refill Social History Tobacco Use Types [...] Visits 2 months ago Chronic pain syndrome [facility] Medical [facility] Family [facility] - Skyler Smith MD 3 months ago Abdominal discomfort in right lower quadrant [facility] - Bebeto Altamirano APRN, ERIC 5 months ago Gastroesophageal reflux disease, unspecified whether esophagitis present [facility] Skyler Smith MD 8 months ago Chronic narcotic use [facility] Skyler Smith MD 11 months ago Chronic pain syndrome [facility] Skyler Smith MD Upcoming Appointments Future Appointments In 2 weeks Skyler Contreras MD [facility] Medical [facility] Family Medicine - [place] In 3 weeks Urvashi Thomas APRN, DELIVERY MERCHANDISER [facility] Medical [facility] - Pulmonology & Sleep Medicine - [place] SILK SCREEN FRAME ASSEMBLER - Recent and Past Visits Recent Visits Date Type Provider Dept 06/05/21 Office Visit Skyler Contreras MD [facility] 05/08/21 Office Visit Bebeto Morin APRN, ERIC [facility] 03/05/21 Office Visit Skyler Contreras MD [facility] 12/04/20 [facility] Visit [facility] 09/01/20 Office Visit [facility] [place] 08/01/20 Office Visit Beb[facility] Morin APRN, ERIC [facility] 07/13/20 Office Visit Bebeto Morin APRN, DELIVERY MERCHANDISER [facility] 05/23/20 Office Visit Skyler Contreras MD [facility] [place] Showing recent visits within past 460 [...] st Contact Info) Description 10/11/2025 11:00 AM PHYSICAL ANTHROPOLOGIST Office Visit [facility] Medical [facility] - Pulmonology & Sleep Medicine - [place] #2 [place] [address] Urvashi Thomas APRN, DELIVERY MERCHANDISER #2 [facility] [address] [place] [address] 10/18/2025 1:15 PM PHYSICAL ANTHROPOLOGIST Office Visit [facility] Medical [facility] - Family Medicine - [place] #2 [place] [address] Skyler Contreras MD #2 [facility] [address] [place] [address] documented as of this encounter Visit Diagnoses Diagnosis Chronic pain syndrome documented in this encounter Additional Health Concerns Infection Onset Date Last Indicated Resolved Time COVID - 19 11/06/2021 11/06/2021 11/06/2021 9:43 AM PHYSICAL ANTHROPOLOGIST COVID - 19 Confirmed 11/06/2021 11/06/2021 022 12:16 AM PHYSICAL ANTHROPOLOGIST COVID - 19 10/25/2022 10/25/2022 11/04/2022 12:1 9 AM PHYSICAL ANTHROPOLOGIST COVID - 19 01/10/2025 01/10/2025 01/10/2025 10:2 3 AM CDT Respiratory Rule-Out 01/10/2025 01/10/2025 025 10:34 AM CDT Respiratory Rule-Out 01/10/2025 01/10/2025 025 10:58 AM CDT Assessment Noted Time PHQ-9 Depression Total Score: 0 12/04/19 21 10:06 AM PHYSICAL ANTHROPOLOGIST documented as of this encounter Care Teams Passenger Elevator Operator Relationship Specialty Start Date End Date Skyler Contreras MD #2 [facility] [address] [place] [address] PCP - General Family Medicine 10/02/17 Miles Ferguson MD Orthopaedic Surgery 05/19/17 Urvashi Thomas APRN, DELIVERY MERCHANDISER #2 [facility] [address] [place] [address] Nurse Practitioner Advanced Practice Nurse 01/03/22 documented as of this encounter
--- OUTSIDE RECORDS SUMMARY | 2025-08-09 08:36 | XMS_ITS | Clinical Summary ---
Author Organization [facility] Physician Office Building [address] [place] [address] Care Team Providers Care Rheumatologist Name Role Phone Skyler Contreras MD Primary Care Provider [phone] [phone] Allergies No known active allergies Medications acetaminophen-c [...] Nasal saline spray (Simply saline, Little Remedies, [place], [place]) 2 second sprays or 2 squeezes into [...] 10/13/2023 Assessment & Plan (10/13/2023 11:20 AM TOP LIFT SCOURER): Nasal saline spray (Simply saline, Little Remedies, [place], [place]) 2 second sprays or 2 squeezes into [...] on file Legal Sex Female 7:58 PM TOP LIFT SCOURER Gender Identity Not on file Sexual Orientation Not on file 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 Not on file Not on reynalod e Obstetrics History Last Filed Vital Signs [...] 11:26 AM CDT Height 165.1 cm (5' 5) 01/23/2024 11:2 6 AM CDT Body Mass Index 20.27 01/23/2024 11:26 AM CDT Plan of Treatment Health Maintenance Due Date Last Done Comments Colon Cancer Screening-Colonoscopy 1960 Depression Screening 1960 Fall Risk Assessment 1960 Hepatitis C Screening 1960 Hepatitis B Screening 1978 Osteoporosis Screening-Bone Density Scan 08/19/2019 08/19/2017, 05/27/2017 Breast Cancer Screening-Mammogram 09/06/2023 09/06/2022, 07/04/2021, 07/04/2021, Additional history exists Well Visit 65+ 2025 Pneumococcal vaccine 65+ (3 of 3 - PCV20 or PCV21) 05/23/2025 05/23/2020, 08/22/2017 DTaP/Tdap/Td Vaccine (2 - Td or Tdap) 05/29/2025 05/29/2015 Influenza Vaccine (#1) 2025 3, 07/23/2022, 09/05/2021, Additional history exists Zoster Vaccine Completed 05/05/2019, 11/12/2018 Insurance IDPA [facility] Care Teams Rheumatologist Relationship Specialty Start Date End Date Skyler Contreras MD [address] [address] PCP - General 01/07/18
--- OUTSIDE RECORDS SUMMARY | 2025-08-09 08:36 | XMS_ITS | Encounter Summary ---
Author Organization [facility] Address [address] [place] [address] Phone Care Team Providers Care Telecom Field Technician Name Role Phone Marty Muñoz MD, Miles Unavailable Unavailab Skyler Chino MD Primary Care Provider Urvashi Thomas APRN, ERIC Unavailable [phone]- [phone] Reason for Visit * Reason Comments Medication Refill Encounter Details Date Type Department Care Team (Late st Contact Info) Description 12/19/2022 Refill [facility] - Family Medicine - [place] #2 [place] [address] Skyler Contreras MD #[address] [address] Medication Refill Social History Tobacco Use Types [...] RN - 12/19/2022 1:48 PM CST PDMP [place] 11/25/22 - Zolpidem 11/21/22 Medication failed the [...] no refill protocol information for this order ITIONAL MAORI HEALTH PRACTITIONER documented in this encounter Plan of Treatment Upcoming Encounters Date Type Department Care Team ([facility] Contact Info) Description 10/11/2025 11:00 AM TRADITIONAL MAORI HEALTH PRACTITIONER [facility] Visit [facility] - Pulmonology & Sleep Medicine - [place] #2 [place] [address] Urvashi Thomas APRN, MASTER COASTAL WATERS #2 [facility] [address] [place] [address] 10/18/2025 1:15 PM TRADITIONAL MAORI HEALTH PRACTITIONER Office Visit [facility] - Family [facility] [address] [place] [address] Skyler Contreras MD #2 [place] [address] documented as of this encounter Visit Diagnoses [...] Total Score: 0 12/04/19 21 10:06 AM TRADITIONAL MAORI HEALTH PRACTITIONER documented as of this encounter Care Teams Telecom Field Technician Relationship Specialty Start Date End Date Skyler Contreras MD #2 [place] [address] PCP - General Family Medicine 10/02/17 Miles Ferguson MD Orthopaedic Surgery 05/19/17 Urvashi Thomas, SANDBLASTER PAINT SPRAYER, MASTER COASTAL WATERS #2 [facility] [address] [place] [address] Nurse Practitioner Advanced Practice Nurse 01/03/22 documented as of this encounter
--- OUTSIDE RECORDS SUMMARY | 2025-08-09 08:36 | XMS_ITS | Encounter Summary ---
Author Organization [facility] Address [address] [place] [address] Phone Care Team Providers Care Cost Accounting Clerk Name Role Phone Marty Muñoz MD, Miles Unavailable Unavailab Skyler Chino MD Primary Care Provider Urvashi Thomas APRN, ERIC Unavailable [phone]- [phone] Reason for Visit * Reason Comments Medication Refill Encounter Details Date Type Department Care Team (Late st Contact Info) Description 09/23/2022 Refill [facility] - Family Medicine - [place] #2 [place] [address] Skyler Contreras MD #[address] [address] Medication Refill Social History Tobacco Use Types [...] Coronavirus/COVID-19? No / Unsure 09/06/2022 2:02 PM AIR POLLUTION AUDITOR documented as of this encounter Miscellaneous Notes * Telephone Encounter - Jaky Frias RN - 09/23/2022 10:15 AM AIR POLLUTION AUDITOR PDMP 08/26/2022 #90 Medication failed the protocol, [...] 90 days and meeting all other requirements POLLUTION AUDITOR documented in this encounter Plan of Treatment Upcoming Encounters Date Type Department Care Team (Late st Contact Info) Description 10/11/2025 11:00 AM AIR POLLUTION AUDITOR Office Visit [facility] Medical [facility] - Pulmonology & Sleep Medicine - [place] #2 [place] [address] Urvashi Thomas APRN, ORDER PROCESSING CLERK #2 [facility] [address] [place] [address] 10/18/2025 1:15 PM AIR POLLUTION AUDITOR Office Visit [facility] Family [facility] - [place] #[address] [facility] [place] [address] Skyler Contreras MD #2 [facility] [address] [place] [address] documented as of this encounter Visit Diagnoses Diagnosis Chronic pain syndrome documented in this encounter Additional Health Concerns Infection Onset Date Last Indicated Resolved Time COVID - 19 10/25/2022 10/25/2022 11/04/2022 12:1 9 AM AIR POLLUTION AUDITOR COVID - 19 01/10/2025 01/10/2025 01/10/2025 10:2 3 AM CDT Respiratory Rule-Out 01/10/2025 01/10/2025 025 10:34 AM CDT Respiratory Rule-Out 01/10/2025 01/10/2025 025 10:58 AM CDT Assessment Noted Time PHQ-9 Depression Total Score: 0 12/04/19 21 10:06 AM AIR POLLUTION AUDITOR documented as of this encounter Care Teams Cost Accounting Clerk Relationship Specialty Start Date End Date Skyler Contreras MD #2 [facility] [address] [place] [address] PCP - General Family Medicine 10/02/17 Miles Ferguson MD Orthopaedic Surgery 05/19/17 Urvashi Thomas APRN, ORDER PROCESSING CLERK #2 [facility] [address] [place] [address] Nurse Practitioner Advanced Practice Nurse 01/03/22 documented as of this encounter
--- OUTSIDE RECORDS SUMMARY | 2025-08-09 08:36 | XMS_ITS | Encounter Summary ---
Author Organization [facility] Address [address] [place] [address] Phone Care Team Providers Care Trackmobile Operator Name Role Phone Marty Muñoz MD, Miles Unavailable Unavailab Skyler Chino MD Primary Care Provider Urvashi Thomas APRN, ERIC Unavailable [phone]- [phone] Reason for Visit * Reason Comments Medication Refill Encounter Details Date Type Department Care Team (Late st Contact Info) Description 10/02/2021 Refill [facility] - Family Medicine - [place] #2 [place] [address] Skyler Contreras MD #[address] [address] Medication Refill Social History Tobacco Use Types [...] COVID-19? No / Unsure 10/01/2021 9:26 AM DRIVER/GUIDE documented as of this encounter Miscellaneous Notes [...] weeks ago Chronic pain syndrome [facility] - Family Medicine - Skyler Smith MD 1 month ago Dysuria [facility] Family Medicine - Tobias Posada MD 3 months ago Chronic pain syndrome [facility] Family Medicine - Skyler Smith MD 4 months ago Abdominal discomfort in right lower quadrant [facility] Family Medicine - Bebeto Altamirano APRN, GEOTHERMAL POWERPLANT SUPERVISOR Upcoming Appointments Future Appointments In 1 week [facility] Nuclear Medicine, [facility] In 2 months Skyler Contreras MD [facility] Medical [facility] Family Medicine - [place], [facility] In 2 months Uravshi Thomas APRN, GEOTHERMAL POWERPLANT SUPERVISOR [facility] - Pulmonology & Sleep Medicine - [facility] GAUGE AND INSTRUMENT INSPECTOR - Recent and Past Visits Recent Visits Date Type Provider Dept 09/27/21 [facility] Office Visit Skyler Contreras MD [facility] 08/30/21 Office Visit Tobias Strickland MD [facility] 06/05/21 Office Visit Skyler Contreras MD [facility] 05/08/21 Office Visit Bebeto Morin APRN, ERIC [facility] 03/05/21 Office Visit Skyler Contreras MD [facility] 12/04/20 Office Visit Skyler Contreras MD [facility] 09/01/20 Office Visit Skyler Contreras MD [facility] 08/01/20 Office Visit Bebeto Morin APRN, GEOTHERMAL POWERPLANT SUPERVISOR [facility] 07/13/20 Office Visit Bebeto Morin APRN, GEOTHERMAL POWERPLANT SUPERVISOR [facility] recent visits within past 460 days with a meds authorizing provider and meeting all other requirements Future Appointments Date Type Provider Dept 12/06/21 Appointment Skyler Contreras MD [facility] Showing future appointments within next 90 days with a meds authorizing provider and meeting all other requirements ER/GUIDE documented in this encounter Plan of Treatment Upcoming Encounters Date Type Department Care Team (Late st Contact Info) Description 10/11/2025 11:00 AM DRIVER/GUIDE Office Visit [facility] Medical [facility] - Pulmonology & Sleep Medicine - [place] #2 [place] [address] Urvashi Thomas APRN, GEOTHERMAL POWERPLANT SUPERVISOR #2 [facility] [address] [place] [address] 10/18/2025 1:15 PM DRIVER/GUIDE Office Visit [facility] Medical [facility] - Family Medicine - [place] #2 [place] [address] Skyler Contreras MD #2 [facility] [address] [place] [address] documented as of this encounter Visit Diagnoses Diagnosis Chronic pain syndrome documented in this encounter Additional Health Concerns Infection Onset Date Last Indicated Resolved Time COVID - 19 11/06/2021 11/06/2021 11/06/2021 9:43 AM DRIVER/GUIDE COVID - 19 Confirmed 11/06/2021 11/06/2021 022 12:16 AM DRIVER/GUIDE COVID - 19 10/25/2022 10/25/2022 11/04/2022 12:1 9 AM DRIVER/GUIDE COVID - 19 01/10/2025 01/10/2025 01/10/2025 10:2 3 AM CDT Respiratory Rule-Out 01/10/2025 01/10/2025 025 10:34 AM CDT Respiratory Rule-Out 01/10/2025 01/10/2025 025 10:58 AM CDT Assessment Noted Time PHQ-9 Depression Total Score: 0 12/04/19 21 10:06 AM DRIVER/GUIDE documented as of this encounter Care Teams Trackmobile Operator Relationship Specialty Start Date End Date Skyler Contreras MD #2 [facility] [address] [place] [address] PCP - General Family Medicine 10/02/17 Miles Ferguson MD Orthopaedic Surgery 05/19/17 Urvashi Thomas APRN, GEOTHERMAL POWERPLANT SUPERVISOR #2 [facility] [address] [place] [address] Nurse Practitioner Advanced Practice Nurse 01/03/22 documented as of this encounter
--- OUTSIDE RECORDS SUMMARY | 2025-08-09 08:36 | XMS_ITS | Encounter Summary ---
Author Organization [facility] Address [address] [address] Phone Care Team Providers Care Toddler Lead Teacher Name Role Phone Marty Muñoz MD, Miles Unavailable Unavailab Skyler Chino MD Primary Care Provider Urvashi Thomas APRN, ERIC Unavailable [phone]- [phone] Reason for Visit * Reason Comments Medication Refill Encounter Details Date Type Department Care Team (Late st Contact Info) Description 04/19/2021 Refill [facility] - Family Medicine - [place] #2 [place] [address] Skyler Contreras MD #[address] [address] Medication Refill Social History Tobacco Use Types [...] Gastroesophageal reflux disease, unspecified whether esophagitis [facility] - Skyler Smith MD 4 months ago Chronic narcotic use [facility] Family [facility] - Skyler Smtih MD 7 months ago Chronic pain syndrome [facility] - Skyler Smith MD 8 months ago Irritable bowel syndrome with constipation [facility] - Bebeto Altamirano APN, ERIC 9 months ago [facility]ritable bowel [facility] with [facility] Ludwig APN, PHOTOENGRAVING PROOFER Upcoming Appointments Future Appointments In 1 month Skyler Contreras MD [facility] Medical [facility] Family Medicine - [place] In 2 months Home Golden MD [facility] Group - Pulmonology & Sleep Medicine - [place] TECHNICAL ARCHITECT - Recent and Past Visits Recent Visits Date Type Provider Dept 03/05/21 Office Visit Skyler Contreras MD [facility] 12/04/20 Office Visit Skyler Contreras MD [facility] 09/01/20 Office Visit Skyler Contreras MD [facility] 08/01/20 Office Visit Bebeto Morin APN, PHOTOENGRAVING PROOFER [facility] [place] 07/13/20 Office Visit Bebeto Morin APN, PHOTOENGRAVING PROOFER [facility] [place] 05/23/20 Office Visit Skyler Contreras MD [...] st Contact Info) Description 10/11/2025 11:00 AM HYDROTREATER OPERATOR Office Visit [facility] Medical [facility] - Pulmonology & Sleep Medicine - [place] #2 [place] [address] Urvashi Thomas APRN, ERIC #2 [facility] [address] [place] [address] 10/18/2025 1:15 PM HYDROTREATER OPERATOR Office Visit [facility] Medical [facility] - Family Medicine - [place] #2 [place] [address] Skyler Contreras MD #2 [facility] [address] [place] [address] documented as of this encounter Visit Diagnoses Diagnosis Chronic pain syndrome documented in this encounter Additional Health Concerns Infection Onset Date Last Indicated Resolved Time COVID - 19 11/06/2021 11/06/2021 11/06/2021 9:43 AM HYDROTREATER OPERATOR COVID - 19 Confirmed 11/06/2021 11/06/2021 022 12:16 AM HYDROTREATER OPERATOR COVID - 19 10/25/2022 10/25/2022 11/04/2022 12:1 9 AM HYDROTREATER OPERATOR COVID - 19 01/10/2025 01/10/2025 01/10/2025 10:2 3 AM CDT Respiratory Rule-Out 01/10/2025 01/10/2025 025 10:34 AM CDT Respiratory Rule-Out 01/10/2025 01/10/2025 025 10:58 AM CDT Assessment Noted Time PHQ-9 Depression Total Score: 0 12/04/19 21 10:06 AM HYDROTREATER OPERATOR documented as of this encounter Care Teams Toddler Lead Teacher Relationship Specialty Start Date End Date Skyler Contreras MD #2 [facility] [address] [place] [address] PCP - General Family Medicine 10/02/17 Miles Ferguson MD Orthopaedic Surgery 05/19/17 Urvashi Thomas APRN, PHOTOENGRAVING PROOFER #2 [facility] [address] [place] [address] Nurse Practitioner Advanced Practice Nurse 01/03/22 documented as of this encounter
--- OUTSIDE RECORDS SUMMARY | 2025-08-09 08:36 | XMS_ITS | Encounter Summary ---
Author Organization [facility] Address [address] [place] [address] Phone Care Team Providers Care Painter Barrel Name Role Phone Marty Muñoz MD, Miles Unavailable Unavailab Skyler Chino MD Primary Care Provider Urvashi Thomas APRN, ERIC Unavailable [phone]- [phone] Reason for Visit * Reason Comments Medication Refill Encounter Details Date Type Department Care Team (Late st Contact Info) Description 01/24/2021 Refill [facility] - Family Medicine - [place] #2 [place] [address] Skyler Contreras MD #[address] [address] Medication Refill Social History Tobacco Use Types [...] Visits 1 month ago Chronic narcotic use [facility] - Family Medicine - Skyler Smith MD 4 months ago Chronic pain syndrome [facility] - Family Medicine - Skyler Smith MD 5 months ago Irritable bowel syndrome with constipation [facility] - Family Medicine - Bebeto Altamirano APN, ERIC 6 months ago Irritable bowel syndrome with constipation [facility] Family Medicine - Bebeto Altamirano APN, CNP 8 months ago Chronic pain syndrome [facility] Family [facility] - Skyler Smith MD Upcoming Appointments Future Appointments In 1 month Skyler Contreras MD [facility] Medical [facility] Family Medicine - [place] In 1 month Urvashi Thomas APN, CNP [facility] PULMONOLOGY, [facility] [employer] DYNAMICS AX DEVELOPER - Recent and Past Visits Recent Visits Date Type Provider Dept 12/04/20 Office Visit Skyler Contreras MD [facility] 09/01/20 Office Visit Skyler Contreras MD [facility] 08/01/20 Office Visit Bebeto Morin APN, CNP [facility] 07/13/20 Office Visit Bebeto Morin APN, ERIC [facility] [place] 05/23/20 Office Visit Skyler Contreras MD [facility] [...] st Contact Info) Description 10/11/2025 11:00 AM SAND DRIER Office Visit [facility] Medical [facility] - Pulmonology & Sleep Medicine - [place] #2 [place] [address] Urvashi Thomas APRN, ERIC #2 [facility] [address] [place] [address] 10/18/2025 1:15 PM SAND DRIER Office Visit [facility] Medical [facility] - Family Medicine - [place] #2 [place] [address] Skyler Contreras MD #2 [facility] [address] [place] [address] documented as of this encounter Visit Diagnoses Diagnosis Chronic pain syndrome documented in this encounter Additional Health Concerns Infection Onset Date Last Indicated Resolved Time COVID - 19 11/06/2021 11/06/2021 11/06/2021 9:43 AM SAND DRIER COVID - 19 Confirmed 11/06/2021 11/06/2021 022 12:16 AM SAND DRIER COVID - 19 10/25/2022 10/25/2022 11/04/2022 12:1 9 AM SAND DRIER COVID - 19 01/10/2025 01/10/2025 01/10/2025 10:2 3 AM CDT Respiratory Rule-Out 01/10/2025 01/10/2025 025 10:34 AM CDT Respiratory Rule-Out 01/10/2025 01/10/2025 025 10:58 AM CDT Assessment Noted Time PHQ-9 Depression Total Score: 0 12/04/19 21 10:06 AM SAND DRIER documented as of this encounter Care Teams Painter Barrel Relationship Specialty Start Date End Date Skyler Contreras MD #2 [facility] [address] [place] [address] PCP - General Family Medicine 10/02/17 Miles Ferguson MD Orthopaedic Surgery 05/19/17 Urvashi Thomas APRN, CONSUMER ELECTRONIC RETAIL SPECIALIST #2 [facility] [address] [place] [address] Nurse Practitioner Advanced Practice Nurse 01/03/22 documented as of this encounter
--- OUTSIDE RECORDS SUMMARY | 2025-08-09 08:36 | XMS_ITS | Encounter Summary ---
Author Organization [facility] Address [address] [place] [address] Phone Care Team Providers Care Electrotherapist Name Role Phone Marty Muñoz MD, Miles Unavailable Unavailab Skyler Chino MD Primary Care Provider Urvashi Thomas APRN, ERIC Unavailable [phone]- [phone] Reason for Visit * Reason Comments Medication Refill Encounter Details Date Type Department Care Team (Late st Contact Info) Description 11/28/2021 Refill [facility] - Family Medicine - [place] #2 [place] [address] Skyler Contreras MD #[address] [address] Medication Refill Social History Tobacco Use Types [...] Coronavirus / COVID-19? Yes 11/06/2021 9:15 AM DIRECTOR LEARNING AND DEVELOPMENT documented as of this encounter Miscellaneous Notes * Telephone Encounter - Carolina Damon RN - 11/28/2021 11:37 AM DIRECTOR LEARNING AND DEVELOPMENT Medication failed the protocol, provider to review [...] 90 days and meeting all other requirements CTOR LEARNING AND DEVELOPMENT documented in this encounter Plan of Treatment Upcoming Encounters Date Type Department Care Team (Late st Contact Info) Description 10/11/2025 11:00 AM DIRECTOR LEARNING AND DEVELOPMENT Office Visit [facility] - Pulmonology & Sleep Medicine [facility] #2 [place] [address] Urvashi Thomas APRN, INSURANCE CLAIM APPROVER #2 [facility] [address] [place] [address] 10/18/2025 1:15 PM DIRECTOR LEARNING AND DEVELOPMENT Office Visit [facility] #2 [place] [address] Skyler Contreras MD #2 [facility] [place] [address] documented as of this encounter Visit Diagnoses Diagnosis Chronic pain syndrome documented in this encounter Additional Health Concerns Infection Onset Date Last Indicated Resolved Time COVID - 19 10/25/2022 10/25/2022 11/04/2022 12:1 9 AM DIRECTOR LEARNING AND DEVELOPMENT COVID - 19 01/10/2025 01/10/2025 01/10/2025 10:2 3 AM CDT Respiratory Rule-Out 01/10/2025 01/10/2025 025 10:34 AM CDT Respiratory Rule-Out 01/10/2025 01/10/2025 025 10:58 AM CDT Assessment Noted Time PHQ-9 Depression Total Score: 0 12/04/19 21 10:06 AM DIRECTOR LEARNING AND DEVELOPMENT documented as of this encounter Care Teams Electrotherapist Relationship Specialty Start Date End Date Skyler Contreras MD #[address] [address] PCP - General Family Medicine 10/02/17 Miles Ferguson MD Orthopaedic Surgery 05/19/17 Urvashi Thomas, KILN HAND, INSURANCE CLAIM APPROVER #2 [place] [address] Nurse Practitioner Advanced Practice Nurse 01/03/22 documented as of this encounter
--- OUTSIDE RECORDS SUMMARY | 2025-08-09 08:36 | XMS_ITS | Encounter Summary ---
Author Organization [facility] Address [address] [place] [address] Phone Care Team Providers Care Launderer Hand Name Role Phone Marty Muñoz MD, Miles Unavailable Unavailab Skyler Chino MD Primary Care Provider Urvashi Thomas APRN, ERIC Unavailable [phone] Reason for Visit * Reason Comments Medication Refill Encounter Details Date Type Department Care Team (Late st Contact Info) Description 05/22/2021 Refill [facility] - [place] [address] [place] [address] Skyler Contreras MD #[address] [address] Medication Refill Social History Tobacco Use Types [...] Armando RN - 05/22/2021 4:11 PM CDT [place] 04/24/21 Medication failed the protocol, provider [...] lower quadrant [facility] - [place] Morin, Bebeto Glez APN, TRAVEL MED SURG RN 2 months ago Gastroesophageal reflux disease, unspecified whether esophagitis present [facility] - Skyler Smith MD 5 months ago Chronic narcotic use [facility] Skyler Smith MD 8 months ago Chronic pain syndrome [facility] Skyler Smith MD 9 months ago Irritable bowel syndrome with constipation [facility] TRAVEL MED SURG RN Upcoming Appointments Future Appointments In 2 weeks Skyler Contreras MD [facility] Lion [facility] weeks Home Golden MD [facility] - Recent and Past Visits Recent Visits Date Type Provider Dept 05/08/21 Office Visit Bebeto Morin APN, ERIC [facility] 03/05/21 Office Visit Skyler Contreras MD [facility] 12/04/20 Office Visit Skyler Contreras MD [facility] 09/01/20 Office Visit Skyler Contreras MD [facility] 08/01/20 Office Visit Bebeto Morin APN, ERIC [facility] [place] 07/13/20 Office Visit Bebeto Morin APN, ERIC [...] st Contact Info) Description 10/11/2025 11:00 AM LUMBER PLANER Office Visit [facility] [place] [address] Urvashi Thomas APRN, TRAVEL MED SURG RN #2 [facility] [address] [place] [address] 10/18/2025 1:15 PM LUMBER PLANER Office Visit [facility] - [facility] - [place] [address] [place] [address] Skyler Contreras MD #[address] [address] documented as of this encounter Visit Diagnoses Diagnosis Chronic pain syndrome documented in this encounter Additional Health Concerns Infection Onset Date Last Indicated Resolved Time COVID - 19 11/06/2021 11/06/2021 11/06/2021 9:43 AM LUMBER PLANER COVID - 19 Confirmed 11/06/2021 11/06/2021 022 12:16 AM LUMBER PLANER COVID - 19 10/25/2022 10/25/2022 11/04/2022 12:1 9 AM LUMBER PLANER COVID - 19 01/10/2025 01/10/2025 01/10/2025 10:2 3 AM CDT Respiratory Rule-Out 01/10/2025 01/10/2025 025 10:34 AM CDT Respiratory Rule-Out 01/10/2025 01/10/2025 025 10:58 AM CDT Assessment Noted Time PHQ-9 Depression Total Score: 0 12/04/19 21 10:06 AM LUMBER PLANER documented as of this encounter Care Teams Launderer Hand Relationship Specialty Start Date End Date Skyler Contreras MD #[address] [address] PCP - General Family Medicine 10/02/17 Miles Ferguson MD Orthopaedic Surgery 05/19/17 Urvashi Thomas APRN, TRAVEL MED SURG RN #[address] [facility] [address] [address] Nurse Practitioner Advanced Practice Nurse 01/03/22 documented as of this encounter
--- OUTSIDE RECORDS SUMMARY | 2025-08-09 08:36 | XMS_ITS | Encounter Summary ---
Author Organization [facility] Address [address] [address] Phone Care Team Providers Care Dough Braker Name Role Phone Marty Muñoz MD, Miles Unavailable Unavailab Skyler Chino MD Primary Care Provider Urvashi Thomas APRN, ORDER PACKER OR PACKAGER Unavailable [phone] Reason for Visit * Reason Comments Medication Refill Encounter Details Date Type Department Care Team (Late st Contact Info) Description 11/27/2020 Refill [facility] [address] [place] [address] Skyler Contreras MD #[address] [address] Medication Refill Social History Tobacco Use Types [...] COVID-19? No / Unsure 11/27/2020 10:05 AM ARTIST COLOR SEPARATION documented as of this encounter Plan of Treatment Upcoming Encounters Date Type Department Care Team (Late st Contact Info) Description 10/11/2025 11:00 AM ARTIST COLOR SEPARATION Office Visit [facility] - Pulmonology & Sleep Medicine [facility] #[address] [place] [address] Urvashi Thomas APRN, ORDER PACKER OR PACKAGER #2 [facility] [address] [place] [address] 10/18/2025 1:15 PM ARTIST COLOR SEPARATION Office Visit [facility] - [place] #2 [place] [address] Skyler Contreras MD #2 [facility] [address] [place] [address] documented as of this encounter Visit Diagnoses Diagnosis Chronic pain syndrome documented in this encounter Additional Health Concerns Infection Onset Date Last Indicated Resolved Time COVID - 19 11/06/2021 11/06/2021 11/06/2021 9:43 AM ARTIST COLOR SEPARATION COVID - 19 Confirmed 11/06/2021 11/06/2021 022 12:16 AM ARTIST COLOR SEPARATION COVID - 19 10/25/2022 10/25/2022 11/04/2022 12:1 9 AM ARTIST COLOR SEPARATION COVID - 19 01/10/2025 01/10/2025 01/10/2025 10:2 3 AM CDT Respiratory Rule-Out 01/10/2025 01/10/2025 025 10:34 AM CDT Respiratory Rule-Out 01/10/2025 01/10/2025 025 10:58 AM CDT Assessment Noted Time PHQ-9 Depression Total Score: 0 12/21/19 20 3:23 PM ARTIST COLOR SEPARATION documented as of this encounter Care Teams Dough Braker Relationship Specialty Start Date End Date Skyler Contreras MD #2 [facility] [address] [place] [address] PCP - General Family Medicine 10/02/17 Miles Ferguson MD Orthopaedic Surgery 05/19/17 Urvashi Thomas APRN, ORDER PACKER OR PACKAGER #2 [facility] [address] [place] [address] Nurse Practitioner Advanced Practice Nurse 01/03/22 documented as of this encounter
--- OUTSIDE RECORDS SUMMARY | 2025-08-09 08:36 | XMS_ITS | Encounter Summary ---
Author Organization [facility] Address [address] [place] [address] Phone Care Team Providers Care Pickup Driver Name Role Phone Marty Muñoz MD, Miles Unavailable Unavailab Skyler Chino MD Primary Care Provider [phone] Urvashi Thomas APRN, MARKETING SUMMER INTERN Unavailable Reason for Visit * Reason Onset Date Comments Referral 04/23/2023 Encounter Details Date Type Department Care Team (Late st Contact Info) Description 04/23/2023 Telephone [facility] [address] [place] [address] Skyler Contreras MD #[address] [address] Referral Social History Tobacco Use Types Packs/Day [...] at this time. Thank you. Brionna Alvares [facility] OnCall - Centralized Referral Management 04/23/2023, 10:21 AM CDT documented in this encounter Plan of Treatment Upcoming Encounters Date Type Department Care Team (Late st Contact Info) Description 10/11/2025 11:00 AM COLOR MAKER DYER Office Visit [facility] - Pulmonology & Sleep Medicine - [place] #[address] [place] [address] Urvashi Thomas APRN, MARKETING SUMMER INTERN #[address] [address] 10/18/2025 1:15 PM COLOR MAKER DYER Office Visit [facility] - Family [facility] [address] [place] [address] Skyler Contreras MD #2 [facility] [address] [place] [address] documented as of this encounter Visit Diagnoses Not on filedocumented in this encounter Additional Health Concerns Infection Onset Date Last Indicated Resolved Time COVID - 19 01/10/2025 01/10/2025 01/10/2025 10:2 3 AM CDT Respiratory Rule-Out 01/10/2025 01/10/2025 025 10:34 AM CDT Respiratory Rule-Out 01/10/2025 01/10/2025 025 10:58 AM CDT Assessment Noted Time PHQ-9 Depression Total Score: 0 12/04/19 21 10:06 AM COLOR MAKER DYER documented as of this encounter Care Teams Pickup Driver Relationship Specialty Start Date End Date Skyler Contreras MD #2 [facility] [place] [address] PCP - General Family Medicine 10/02/17 Miles Ferguson MD Orthopaedic Surgery 05/19/17 Urvashi Thomas APRN, MARKETING SUMMER INTERN #2 [facility] [address] [place] [address] Nurse Practitioner Advanced Practice Nurse 01/03/22 documented as of this encounter
--- OUTSIDE RECORDS SUMMARY | 2025-08-09 08:36 | XMS_ITS | Encounter Summary ---
Author Organization [facility] Address [address] [place] [address] Phone Care Team Providers Care Electrocardiograph Operator Name Role Phone Marty Muñoz MD, Miles Unavailable Unavailab Skyler Chino MD Primary Care Provider Urvashi Thomas APRN, ERIC Unavailable [phone] Reason for Visit * Reason Comments Medication Refill Encounter Details Date Type Department Care Team (Late st Contact Info) Description 06/24/2022 Refill [facility] - [place] #[address] [place] [address] Skyler Contreras MD #[address] [address] Medication Refill Social History Tobacco Use Types [...] Dept 04/18/22 Office Visit Skyler Contreras MD [facility] 12/06/21 Office Visit Skyler Contreras MD [facility] 11/13/21 Telemedicine Bebeto Morin APRN, ERIC [facility] 11/07/21 Telemedicine Bebeto Morin APRN, FILTRATION OPERATOR [facility] [place] 09/27/21 Office Visit Skyler Contreras MD [facility] 09/05/21 Office Visit Skyler Contreras MD [facility] 08/30/21 Office Visit Tobias Strickland MD [facility] Showing recent visits within past 365 days and meeting all other requirements Future Appointments Date Type Provider Dept 07/19/22 Appointment Skyler Contreras MD [facility] Showing future appointments within next 90 days and meeting all other requirements documented in this encounter Plan of Treatment Upcoming Encounters Date Type Department Care Team (Late st Contact Info) Description 10/11/2025 11:00 AM TOOL/DIE MAKER [facility] - [place] #[address] [place] [address] Urvashi Thomas APRN, FILTRATION OPERATOR #[address] [facility] [address] [place] [address] 10/18/2025 1:15 PM TOOL/DIE MAKER Office Visit [facility] #[address] [place] [address] Skyler Contreras MD #2 [facility] [place] [address] documented as of this encounter Visit Diagnoses Diagnosis Chronic pain syndrome documented in this encounter Additional Health Concerns Infection Onset Date Last Indicated Resolved Time COVID - 19 10/25/2022 10/25/2022 11/04/2022 12:1 9 AM TOOL/DIE MAKER COVID - 19 01/10/2025 01/10/2025 01/10/2025 10:2 3 AM CDT Respiratory Rule-Out 01/10/2025 01/10/2025 025 10:34 AM CDT Respiratory Rule-Out 01/10/2025 01/10/2025 025 10:58 AM CDT Assessment Noted Time PHQ-9 Depression Total Score: 0 12/04/19 21 10:06 AM TOOL/DIE MAKER documented as of this encounter Care Teams Electrocardiograph Operator Relationship Specialty Start Date End Date Skyler Contreras MD #2 [facility] [place] [address] PCP - General Family Medicine 10/02/17 Miles Ferguson MD Orthopaedic Surgery 05/19/17 Urvashi Thomas APRN, FILTRATION OPERATOR #2 [facility] [address] [place] [address] Nurse Practitioner Advanced Practice Nurse 01/03/22 documented as of this encounter
--- NOTE | 2025-08-09 08:49 | ED.URI ---
HPI - URI/Sore Throat General Chief Complaint: Upper Respiratory Infection Stated Complaint: cough/using nebulizer often Time Seen by Provider: 08/09/25 08:25 Source: patient and RN notes reviewed Mode of arrival: ambulatory Limitations: no limitations History of Present Illness HPI Narrative: 65-year-old female presents Express Care complaining of chronic cough and worsening shortness of breath the last month. Patient has a history of COPD and emphysema. Patient denies any fevers, upper respiratory symptoms, nausea, vomiting, chest pain, or any other symptoms. Patient has been using her nebulizer with some symptom relief however her cough is getting worse she feels more short of breath than normal. Patient also reports having increased purulence and viscosity of her sputum. Patient said she was recently treated for her COPD a month ago with antibiotics and steroids with some relief. Patient had a chest x-ray performed last week by her primary it and she was told was nothing acute on it. Related Data Home Medications ?Medication ?Instructions ?Recorded ?Confirmed ?Last Taken ?Type omeprazole 20 mg capsule,delayed 20 mg PO DAILY 04/30/21 08/18/22 Unknown History release cholecalciferol (vitamin D3) 25 25 mcg PO DAILY 08/16/21 11/25/21 Unknown History mcg (1,000 unit) tablet (Vitamin D3) hydrocodone 7.5 mg-acetaminophen tablet 08/18/22 08/18/22 Unknown History 325 mg tablet zolpidem 5 mg tablet mg 07/25/24 Unknown History fluticasone propionate 50 intranasal 02/19/25 Unknown History mcg/actuation nasal spray,suspension albuterol sulfate 90 mcg/actuation inhalation 08/09/25 Unknown History aerosol inhaler ipratropium 0.5 mg-albuterol 3 mg ml inhalation 08/09/25 Unknown History (2.5 mg base)/3 mL nebulization soln Allergies Allergy/AdvReac Type Severity Reaction Status Date / Time No Known Allergies Allergy Verified 08/09/25 08:34 Review of Systems Review of Systems: CONSTITUTIONAL: Denies fever, chills, or sweats. EYES: Denies visual changes, redness, or discharge. ENT: Denies rhinorrhea, congestion, sore throat, or otalgia. CARDIOVASCULAR: Denies chest pain, palpitations, or edema. RESPIRATORY: Positive for cough and dyspnea. GASTROINTESTINAL: Denies abdominal pain, nausea, vomiting, or diarrhea. GENITOURINARY: Denies dysuria or hematuria. SKIN: Denies rash or itching. MUSCULOSKELETAL: Denies back pain, joint pain, or myalgia. NEUROLOGIC: Denies headache, numbness, or weakness. PSYCHIATRIC: Denies anxiety or depression. All other systems reviewed are negative, except as documented in HPI. [facility] Past Medical History Medical History GERD (gastroesophageal reflux disease) Fusion of lumbar spine Lumbar back pain IBS (irritable bowel syndrome) COPD (chronic obstructive pulmonary disease) Left wrist fracture repaired with plate and screws Surgical History Surgical History History of tonsillectomy History of salpingoophorectomy H/O: hysterectomy Hx of appendectomy Family History Family History Mother Family history non-contributory Social History Social History Smoking status: Current every day smoker Tobacco type: cigarettes Alcohol intake: unknown Substance use: current Substance use type: painkillers Living arrangements: alone Gender identity (if verbalized by the patient): Female Sexual Orientation (if Verbalized by the Patient): Straight or Heterosexual Spiritual care concerns: No Comments At the time of my signature, I reviewed and agree with the nursing past medical, surgical, social, and family history. There is no relevant family history pertinent to the patient complaint. Exam Narrative: GENERAL: This is a well-nourished, well-developed adult, in no apparent distress. They are non ill-appearing, nontoxic appearing. HEAD: normocephalic, atraumatic. EYES: Sclera clear/white. Conjunctiva normal. Vision is grossly intact. Extraocular movements intact EARS: External ears normal, auditory canals clear and without drainage, TMs normal without perforation. Hearing grossly intact. NOSE: External nose normal with no obvious nasal discharge, nasal turbinates without redness, no rhinorrhea. THROAT: Mucous membranes moist, posterior pharynx clear, without erythema or swelling. Uvula midline. NECK: Neck supple, non-tender without lymphadenopathy, masses or thyromegaly. CARDIOVASCULAR: Regular rate and rhythm without murmurs, gallops, or rubs. RESPIRATORY: Diminished to bilateral lower lobes.. Breath sounds equal bilaterally. No wheezes, rales, or rhonchi. Respiratory rate normal, respiratory effort nonlabored, no respiratory distress SKIN: warm, Dry, intact with no suspicious lesions or rash, good texture and turgor. NEURO: awake, alert, and oriented to person, place and time. There were no obvious focal neurologic abnormalities. EXTREMITIES: No joint tenderness, effusion, or edema noted. BACK: Nontender without deformity. No CVA tenderness. Course Course Emergency Course: Portions of this record may have been created with voice recognition software Level of Care: Express Care Visit Vital Signs Vital signs: Vital Signs Temperature 97.7 F 08/09/25 08:24 Pulse Rate 74 08/09/25 08:24 Respiratory Rate 18 08/09/25 08:24 Blood Pressure 120/69 08/09/25 08:24 Pulse Oximetry 100 08/09/25 08:24 Oxygen Delivery Room Air 08/09/25 08:24 Temperature 97.7 F 08/09/25 08:24 Pulse Rate 74 08/09/25 08:24 Respiratory Rate 18 08/09/25 08:24 Blood Pressure 120/69 08/09/25 08:24 Pulse Oximetry 100 08/09/25 08:24 Oxygen Delivery Room Air 08/09/25 08:24 Reviewed MDM - URI/Sore Throat MDM Narrative Medical decision making narrative: Patient is exhibiting cardinal symptoms of COPD exacerbation. Patient recently on steroids antibiotics about 1 month ago, will treat with a higher dose of prednisone along with doxycycline. Advised patient to follow-up PCP your her getter welder for further management of her COPD. Discussed physical exam findings. Advised supportive measures and signs/symptoms to go to the ER. Pt is appropriate for outpt treatment and f/u. Differential Diagnosis Differential diagnosis: Likely upper respiratory infection, viral infection and other (COPD exacerbation, pneumonia) Critical Care Time Critical Care Time Critical Care Time: No Discharge Plan Discharge Clinical Impression: COPD exacerbation Patient Disposition: Home Condition: Stable Instructions: Antibiotic Form Additional Instructions: Take the prednisone as directed. Take doxycycline as directed. Wear sunscreen if you are going to be outside while taking doxycycline. Use your inhalers as needed for shortness of breath or wheezing. Follow-up with PCP or getter welder in 3-5 days. If you developed worsening breathing problems, chest pains, fevers, nausea, vomiting, difficulty breathing not resolved with inhalers or any serious concerns please go to the ER immediately. Patient Language: Taiwanese Prescriptions: New doxycycline monohydrate 100 mg capsule 100 mg PO BID 5 Days Qty: 10 0RF prednisone 50 mg tablet 50 mg PO DAILY 5 Days Qty: 5 0RF No Action cholecalciferol (vitamin D3) [Vitamin D3] 25 mcg (1,000 unit) tablet 25 mcg PO DAILY hydrocodone-acetaminophen 7.5-325 mg tablet zolpidem 5 mg tablet fluticasone propionate 50 mcg/actuation spray,suspension INTRANASAL ondansetron 4 mg tablet,disintegrating 4 mg PO Q6H PRN (Reason: nausea and vomiting) Qty: 15 0RF albuterol sulfate 90 mcg/actuation HFA aerosol inhaler INHALATION ipratropium-albuterol 0.5 mg-3 mg(2.5 mg base)/3 mL solution for nebulization INHALATION omeprazole 20 mg capsule,delayed release(DR/EC) 20 mg PO DAILY Follow-up/Referrals: Ben,Skyler Guerrero MD [Primary Care Provider, Unknown] Time of Disposition: 08:45
== END 2025-08-09 08:51 | disposition home or self-care (01) ==
PROVIDERS: PCP Family Medicine
DX: J44.1 Chronic obstructive pulmonary disease with (acute) exacerbation (principal); F17.210 Nicotine dependence, cigarettes, uncomplicated; K21.9 Gastro-esophageal reflux disease without esophagitis
CPT/HCPCS: 99213; G0463